=== PATIENT | female | born 1930 | race Caucasian/White ===

== ENCOUNTER 2017-02-19 18:00 | Emergency (ER) | payer MEDICARE ==
[~2017-02-19] VITALS: Ht 165.1 cm; Wt 58.5 kg
[~2017-02-19 18:00] MED LIST: CALC1TAB75 PO; CELE200C PO; CHOL20002 PO; CITA40TA5 PO; CLON1TAB3 PO; CYAN1TAB28 PO; HYDR-2680 PO; HYDR-971 AD; KRIL500C PO; LEVO100T5 PO; LEVO150T PO; LORA0.5T PO; MAGN250T10 PO; MIRT15TA3 PO; MULT-18 PO; OMEP20CA5 PO; PRIM50TA PO; RANI150T2 PO; ROTI1PAT4 TD; TIZA4TAB PO; TRAM1TAB56 PO; TRIA1CAP3 PO; VIT1CAPS12 PO
[2017-02-19 18:22] VITALS: BP 128/53
[2017-02-19 20:05] LABS: BACTERIA,URINE MOD /HPF (0-FEW); BILIRUBIN,URINE NEG (NEG); CLARITY,URINE CLEAR; COLOR,URINE YELLOW; GLUCOSE,URINE NEG (NEG); NITRITE,URINE NEG (NEG); RBC,URINE OCC /HPF (0-2); SQUAMOUS EPITHELIAL CELL,UR OCC /LPF; UROBILINOGEN,URINE 1 mg/dL (0.2 mg/dL)
[2017-02-19 20:06] LABS: AMORPHOUS SEDIMENT,UR PRESENT /HPF; HYALINE CASTS, URINE MOD /HPF
[2017-02-19] MEDS ORDERED: SMZ/TMP 800/160MG TABLET. PO ONE (20:15)
[2017-02-19] MEDS ORDERED: ONDANSETRON ODT 4 MG TAB.RAPDIS PO ONE (20:15)
[2017-02-19] MEDS ORDERED: ONDA4TAB10 PO (20:25)
[2017-02-19] MEDS ORDERED: SULF1TAB24 PO (20:25)
--- NOTE | 2017-02-19 20:29 | PHYS DOC ---
General Chief Complaint: DIZZY/LIGHT HEADED Stated Complaint: ALTERED MENTAL STATUS Time Seen by MD: 18:14 Source: patient, family Exam Limitations: no limitations Problems: History of Present Illness Initial Comments Pt is 87/F to ED with family for possible UTI. Daughter states for past three days pt has appeared weaker and less steady on her feet. Her memory has been worse today and she's had urinary frequency and some burning. No GUILLAUME or focal neurodeficit, no n/v/cp/sob/fever/chills. Daughter says pt gets frequent UTIs and presents similarly. Pt denies complaints, VSS. She's had some recent falls prior to symptom onset and now uses walker. Timing/Duration: getting worse (3 days) Severity: moderate Modifying Factors: improves with other Associated Symptoms: other Allergies: Coded Allergies: Penicillins (Verified Allergy, Intermediate, 09/27/14) meloxicam (Verified Allergy, Intermediate, 09/27/14) Past Medical History Medical History: other (parkinson's, anxiety, GERD, hypothyroid) Surgical History: cholecystectomy Social History Smoker: non-smoker Alcohol: none Drugs: none Review of Systems Constitutional: denies chills, denies diaphoresis, denies fever, malaise Respiratory: denies cough, denies shortness of breath Cardiovascular: denies chest pain, denies palpitations Gastrointestinal: denies abdominal pain, denies diarrhea, denies nausea, denies vomiting Genitourinary: see HPI Musculoskeletal: denies back pain, denies joint swelling, denies neck pain Psychiatric/Neurological: see HPI Physical Exam General Appearance: WD/WN, no apparent distress Eyes: bilateral eye normal inspection, bilateral eye PERRL, bilateral eye EOMI Ear, Nose, Throat: hearing grossly normal, normal ENT inspection Neck: non-tender, supple Respiratory: normal breath sounds, no respiratory distress Cardiovascular: normal peripheral pulses, regular rate, rhythm Gastrointestinal: soft (ND, suprapubic TTP no r/g/mass) Back: no CVA tenderness, no vertebral tenderness Neurologic/Psychiatric: monogram technician II-XII nml as tested, no motor/sensory deficits, alert, normal mood/affect, oriented x 3 Skin: normal color, warm/dry Orders, Labs, Meds UA + I discussed prescription medication, hydration, and requesting assistance for standing/ambulation until current symptoms resolve. Pt/daughter express agreement/understanding with treatment plan. Departure Time of Disposition: 20:27 Disposition: 01 HOME, SELF-CARE Diagnosis: UTI Condition: STABLE Patient Instructions: Urinary Tract Infection, Nokz-on-Rmbm Additional Instructions: Aggressive hydration with gatorade, water. Request assistance with ambulation and standing up until feeling better. Rx: bactrim ds, zofran odt Follow up with your doctor in 5-7 days for recheck and urine culture results. Return to ED with new or changing symptoms. ANETA SHAW DO Feb 19, 2017 20:28
== END 2017-02-19 20:44 | disposition home or self-care (01) ==
LOC: ER 18:00
DX: N39.0 Urinary tract infection, site not specified (principal); K21.9 Gastro-esophageal reflux disease without esophagitis; G20 Parkinson's disease; F41.9 Anxiety disorder, unspecified; E03.9 Hypothyroidism, unspecified; Z90.49 Acquired absence of other specified parts of digestive tract; Z88.0 Allergy status to penicillin; Z88.8 Allergy status to other drugs, medicaments and biological substances
CPT/HCPCS: 81001; 87086; 99284; P9612; Q0162; 87186

== ENCOUNTER 2017-06-04 14:11 | Emergency (ER) | payer MEDICARE ==
[~2017-06-04 14:11] MED LIST changes: +ONDA4TAB10 PO; +SULF1TAB24 PO
[2017-06-04] MEDS ORDERED: GLUCAGON,HUMAN RECOMBINANT 1 MG KIT. IM ONE (15:30)
[2017-06-04] MEDS ORDERED: methylPREDNISolone SOD SUCC PF 125 MG/2 ML VIAL. IM ONE (15:30)
[2017-06-04] MEDS ORDERED: LIDO:MAALOX 1:1 20 ML SINGLE DOSE PO ONE (15:30)
[2017-06-04 17:05] VITALS: BP 158/82
[2017-06-04] MEDS ORDERED: ALPRAZolam 0.25 MG TABLET PO ONE (18:00)
--- NOTE | 2017-06-04 18:54 | PHYS DOC ---
Text Text Pt. and family declined to wait for lab draws. Pt. reports improvement in swallowing and sensation of pill stuck in pharynx. Discussed with pt and family Pt. to use thicken fluids. Pt. consider repeat swallow study. Pt. also to schedule an out pt. EGD study. Must followup with primary. Return if any symptoms. Impression: 1. Dysphagia 2. Hx Parkinson 3. Anxiety See Dr. Shaw chart for details. (ALICIA PULLIAM MD) General Chief Complaint: MULTIPLE COMPLAINTS Stated Complaint: Mult. Comp. Time Seen by MD: 14:59 Source: patient, family Exam Limitations: clinical condition Problems: (ANETA SHAW DO) Time Seen by MD: 19:53 Problems: (ALICIA PULLIAM MD) History of Present Illness Initial Comments Patient is an 87-year-old female brought to the ED by family with a feeling as if something stuck in her throat. Patient states that she feels as if she has something caught in her throat she points to her cricoid cartilage. She cannot recall any specific swallowed items and she and her family member admit that this sensation has been going on for approximately 3 weeks. She says that she was seen at [facility] last Wednesday for these symptoms and reportedly extensively evaluated and was ultimately diagnosed with a viral gastroenteritis. Her family member states that the patient typically doesn't eat much until the evening, she has no trouble passing solid or liquid materials but does have nonbloody emesis at times in the morning as well as nonbloody loose stools. Other than the sensation that something is stuck in her throat the patient denies any other pain complaints, the patient is not drooling and is able to swallow her saliva as well as by mouth medications in the ED such as GI cocktail. Of note patient denies any improvement in her symptoms with GI cocktail. She also received glucagon, Solu-Medrol on arrival as the patient had extremely high ED volume and orders were initiated based upon ED staff reports. Timing/Duration: constant, other Severity: moderate Modifying Factors: improves with other Associated Symptoms: other (ANETA SHAW DO) Allergies: Coded Allergies: Penicillins (Verified Allergy, Intermediate, 09/27/14) meloxicam (Verified Allergy, Intermediate, 09/27/14) Past Medical History Medical History: other (chronic kidney disease, hypothyroidism, hypertension, chronic low back pain, pernicious anemia, generalized anxiety, osteoporosis, restless leg syndrome, chronic pain, insomnia, hip pain, thrombocytopenia, malaise and fatigue, sacroiliitis, major depressive disorder, coronary artery disease, abnormal gait, Parkinson's, GERD, hyperlipidemia) Surgical History: cholecystectomy (COLIN,ANETA Macie JUAN) Social History Smoker: non-smoker Alcohol: none Drugs: none (ANETA SHAW DO) Review of Systems Constitutional: denies chills, denies fever EENTM: see HPI Respiratory: denies cough, denies shortness of breath Cardiovascular: denies chest pain, denies palpitations Gastrointestinal: see HPI Genitourinary: denies dysuria, denies frequency, denies hematuria Musculoskeletal: denies joint swelling, denies neck pain Psychiatric/Neurological: see HPI (ANETA SHAW DO) Physical Exam General Appearance: mild distress (anxious) Ear, Nose, Throat: hearing grossly normal, normal ENT inspection, normal pharynx (throat clear, dry membranes) Neck: non-tender, full range of motion, supple, other (no stridor) Respiratory: normal breath sounds, no respiratory distress Cardiovascular: normal peripheral pulses Gastrointestinal: normal bowel sounds, non tender, soft Back: no CVA tenderness, no vertebral tenderness Neurologic/Psychiatric: other (tremor (parkinson's) no lateralizing ND, anxious , confused at times) Skin: warm/dry (COLINANETA Macie JUAN) Orders, Labs, Meds EKG: Normal sinus rhythm 81 bpm, LAFB with prolonged NV no ST segment elevation. Interpreted by me. Solumedrol 125 IV given for unlikely poss allergy, glucagon/GI cocktail none with relief. Due to extremely heavy ED volume and acuity pt had prolonged ED course. 1934: Patient does report that she's feeling much better after Xanax by mouth. She still feels the foreign body sensation she points posterior to her cricoid cartilage. No vomiting she is tolerating her secretions and is stable. All labs remain pending patient will be signed out to Dr. Pulliam at 1800 shift change. See his documentation for patient disposition. (ANETA SHAW DO) ANETA SHAW DO Jun 04, 2017 18:54 ALICIA PULLIAM MD Jun 05, 2017 04:54
--- NOTE | 2017-06-04 22:47 | EKG ---
[address] [address] Test Date: 2017-06-04 Test Time: 17:53:28 Pat Name: FALLON ESCALONA Department: Room: Gender: F Collator: SUBHASH : 1930 Requested By: ANETA SHAW Order Number: [id number] Reading MD: Measurements Intervals Luna Rate: 81 P: 0 MI: 150 QRS: -56 QRSD: 88 T: 70 QT: 406 QTc: 472 Interpretive Statements SINUS RHYTHM ABNORMAL LEFT AXIS DEVIATION LEFT ANTERIOR FASCICULAR BLOCK PROLONGED QT ABNORMAL ECG RI6.01 Unconfirmed report No previous ECG available for comparison
--- NOTE | 2017-06-05 08:32 | RAD ---
EXAM: Chest, single view. HISTORY: Foreign body. COMPARISON: 04/15/2016. FINDINGS: A frontal view of the chest is obtained. There is stable left lower lobe pleural-parenchymal scarring. There is no effusion or pneumothorax. The heart is normal in size. No radiodense foreign body is seen. There is an L1 compression fracture with vertebroplasty changes. IMPRESSION: 1. Stable left lower lobe pleural-parenchymal scarring. 2. No evidence of a radiodense foreign body.
== END 2017-06-04 21:25 | disposition home or self-care (01) ==
LOC: ER 14:11
DX: R13.10 Dysphagia, unspecified (principal); R11.10 Vomiting, unspecified; R19.7 Diarrhea, unspecified; G20 Parkinson's disease; F41.9 Anxiety disorder, unspecified; R09.89 Other specified symptoms and signs involving the circulatory and respiratory systems; I12.9 Hypertensive chronic kidney disease with stage 1 through stage 4 chronic kidney disease, or unspecified chronic kidney disease; N18.9 Chronic kidney disease, unspecified; E03.9 Hypothyroidism, unspecified; G89.29 Other chronic pain; G25.81 Restless legs syndrome; I25.10 Atherosclerotic heart disease of native coronary artery without angina pectoris; E78.5 Hyperlipidemia, unspecified; F32.9 Major depressive disorder, single episode, unspecified; K21.9 Gastro-esophageal reflux disease without esophagitis; M81.0 Age-related osteoporosis without current pathological fracture; Z86.2 Personal history of diseases of the blood and blood-forming organs and certain disorders involving the immune mechanism; Z90.49 Acquired absence of other specified parts of digestive tract; Z88.0 Allergy status to penicillin; Z88.8 Allergy status to other drugs, medicaments and biological substances
CPT/HCPCS: 71045; 93005; 96372; 99284; J1610; J2930

== ENCOUNTER 2017-06-27 11:36 | Inpatient (IN) | payer MEDICARE ==
[~2017-06-27] VITALS: Ht 165.1 cm; Wt 56.4 kg
--- NOTE | 2017-06-27 12:54 | RAD ---
PQRS Compliance Statement: One or more of the following individualized dose reduction techniques were utilized for this examination: 1. Automated exposure control 2. Adjustment of the mA and/or kV according to patient size 3. Use of iterative reconstruction technique CT HEAD AND CERVICAL SPINE WITHOUT CONTRAST History: fall today, hit right side of head. Headache, dizziness, neck pain. Comparison: CT head without contrast 01/19/2015. Procedure: Axial images are obtained of the head from the skull base through the vertex without IV contrast. Noncontrast helical CT of the cervical spine was performed. Axial, sagittal, and coronal reconstructions were obtained. Head Findings: The ventricles and sulci are prominent, consistent with age-related cerebral atrophy. There is subcortical and periventricular white matter hypoattenuation. This is a nonspecific finding but is commonly due to chronic small vessel ischemic disease in a patient of this age. The extent of this finding has increased from the prior study. 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 No mass-effect, midline shift, hemorrhage or obvious acute infarction is identified. Basilar cisterns are patent. Bone windows demonstrate no significant calvarial abnormality. There is mild right parietal scalp hematoma. The visualized paranasal sinuses appear clear. Mastoid air cells are well aerated. Cervical Spine Findings: There is no evidence of acute fracture or acute malalignment. There is minimal grade 1 anterolisthesis of C4 on C5. There is minimal grade 1 retrolisthesis of C5 on C6. Alignment is otherwise maintained. There is disc space narrowing and degenerative endplate spurring of C5/C6. Mild disc space narrowing at C2/C3 and C4/C5. The C2/C3 facet joints are fused on the left. The facet joints are hypertrophic. There is uncinate process hypertrophy at C5/C6. This contributes to neural foraminal narrowing at C5/C6 that is probably severe bilaterally. Bilateral carotid bulb calcifications. The visualized lung apices are clear. IMPRESSION: 1. No acute intracranial abnormality. 2. Mild right parietal scalp hematoma. 3. No acute fracture of the cervical spine.
--- NOTE | 2017-06-27 13:06 | PHYS DOC ---
Past History Past Medical History: Anxiety, GERD, Hypothyroid, Other Past Surgical History: Cholecystectomy, Other Alcohol Use: None Drug Use: None Adult General Chief Complaint Chief Complaint: LACERATION/AVULSION HPI HPI 87-year-old female patient who lives at home with her daughter and usually uses walker for moving around brought in by EMS because of fall and scalp laceration. Patient states his brother had she wanted to help her for prevention of a fall and had a fall by herself without loss of consciousness or other injuries. Patient denies any pain. Patient is not up-to-date with tetanus immunization refused tetanus immunization because of complications of previous tetanus shots. Review of Systems Review of Systems Constitutional: Denies fever or chills [] Eyes: Denies change in visual acuity, redness, or eye pain [] HENT: Denies nasal congestion or sore throat [] Respiratory: Denies cough or shortness of breath [] Cardiovascular: No additional information not addressed in HPI [] GI: Denies abdominal pain, nausea, vomiting, bloody stools or diarrhea [] : Denies dysuria or hematuria [] Musculoskeletal: Denies back pain or joint pain [] Integument: Denies rash or skin lesions[] Neurologic: Denies headache, focal weakness or sensory changes [] Endocrine: Denies polyuria or polydipsia [] All other systems were reviewed and found to be within normal limits, except as documented in this note. Allergies Allergies Allergies Coded Allergies Type Severity Reaction Last Updated Verified Penicillins Allergy Intermediate 09/27/14 Yes meloxicam Allergy Intermediate 09/27/14 Yes Physical Exam Physical Exam Constitutional: Well developed, well nourished, mild distress, non-toxic appearance. [] HENT: Normocephalic, bilateral external ears normal, oropharynx moist, no oral exudates, nose normal, 2 cm laceration in the right side of occipital area without active bleeding. [] Eyes: PERRLA, EOMI, conjunctiva normal, no discharge. [] Neck: Normal range of motion, no tenderness, supple, no stridor. [] Cardiovascular:Heart rate regular rhythm, no murmur [] Lungs & Thorax: Bilateral breath sounds clear to auscultation [] Abdomen: Bowel sounds normal, soft, no tenderness, no masses, no pulsatile masses. [] Skin: Warm, dry, no erythema, no rash. [] Back: No tenderness, no CVA tenderness. [] Extremities: No tenderness, no cyanosis, no clubbing, chronic right leg limited range of motion because of previous hip fracture, no edema. [] Neurologic: Alert and oriented X 3, normal motor function, normal sensory function, no focal deficits noted. [] Psychologic: Affect normal, judgement normal, mood normal. [] Current Patient Data Vital Signs Vital Signs Date Time Temp Pulse Resp B/P (MAP) Pulse Ox O2 Delivery O2 Flow Rate FiO2 06/27/17 11:40 97.9 85 16 98 Room Air EKG EKG [] Radiology/Procedures Radiology/Procedures [] [place] [address] IMAGING REPORT Signed PATIENT: FALLON ESCALONA ACCOUNT: [id number] : 1930 LOCATION: ER AGE: 87 SEX: F EXAM STATUS: REG ER ORD. PHYSICIAN: MARCUS CANNON MD REASON: fall PROCEDURE: CT HEAD AND CERVICAL SPINE WO PQRS Compliance Statement: One or more of the following individualized dose reduction techniques were utilized for this examination: 1. Automated exposure control 2. Adjustment of the mA and/or kV according to patient size 3. Use of iterative reconstruction technique CT HEAD AND CERVICAL SPINE WITHOUT CONTRAST History: fall today, hit right side of head. Headache, dizziness, neck pain. Comparison: CT head without contrast 01/19/2015. Procedure: Axial images are obtained of the head from the skull base through the vertex without IV contrast. Noncontrast helical CT of the cervical spine was performed. Axial, sagittal, and coronal reconstructions were obtained. Head Findings: The ventricles and sulci are prominent, consistent with age-related cerebral atrophy. There is subcortical and periventricular white matter hypoattenuation. This is a nonspecific finding but is commonly due to chronic small vessel ischemic disease in a patient of this age. The extent of this finding has increased from the prior study. 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 No mass-effect, midline shift, hemorrhage or obvious acute infarction is identified. Basilar cisterns are patent. Bone windows demonstrate no significant calvarial abnormality. There is mild right parietal scalp hematoma. The visualized paranasal sinuses appear clear. Mastoid air cells are well aerated. Cervical Spine Findings: There is no evidence of acute fracture or acute malalignment. There is minimal grade 1 anterolisthesis of C4 on C5. There is minimal grade 1 retrolisthesis of C5 on C6. Alignment is otherwise maintained. There is disc space narrowing and degenerative endplate spurring of C5/C6. Mild disc space narrowing at C2/C3 and C4/C5. The C2/C3 facet joints are fused on the left. The facet joints are hypertrophic. There is uncinate process hypertrophy at C5/C6. This contributes to neural foraminal narrowing at C5/C6 that is probably severe bilaterally. Bilateral carotid bulb calcifications. The visualized lung apices are clear. IMPRESSION: 1. No acute intracranial abnormality. 2. Mild right parietal scalp hematoma. 3. No acute fracture of the cervical spine. Course & Med Decision Making Course & Med Decision Making Pertinent Labs and Imaging studies reviewed. (See chart for details) Admission of patient in ER showed 87-year-old female patient with a fall at home and laceration of the scalp with unremarkable CT of head and neck. Laceration was repaired with gerald in ER. Patient's family state she is not able to take of herself because of generalized weakness and is requesting hospitalization. Dr. Sylvester accepted admission at 1340. Patient informed about plan of care and needs for hospitalization. [] Dragon Disclaimer Dragon Disclaimer This electronic medical record was generated, in whole or in part, using a voice recognition dictation system. Departure Departure: Impression: Primary Impression: Scalp laceration Additional Impressions: Head injury Fall at home Generalized weakness Renal insufficiency Unable to walk Disposition: 09 ADMITTED INPATIENT (At 1341) Admitting Physician: Treasure Sylvester Condition: IMPROVED Referrals: BRITTNEY OLIVIER MD (PCP) Laceration Repair Lac Repair Indication: [Scalp laceration] Procedure: 3 cm right occipital laceration was repaired with 3 gerald without local anesthesia. Patient tolerated the procedure well. Total repaired wound length: [3 Other Items: [OTHER ITEMS Complications: [none]. Problem Qualifiers MARCUS CANNON MD Jun 27, 2017 13:06
[2017-06-27 14:45] LABS: BASO % 1 % (0-3); EOS # 0.1 x10^3/uL (0.0-0.7); EOS % 2 % (0-3); HEMATOCRIT 39.2 % (36.0-47.0); HEMOGLOBIN 13.2 g/dL (12.0-15.5); LYMPH # 1.3 x10^3/uL (1.0-4.8); LYMPH % 25 % (24-48); MEAN CORPUSCULAR HEMOGLOBIN 31 pg (25-35); MEAN CORPUSCULAR HGB CONC 34 g/dL (31-37); MEAN CORPUSCULAR VOLUME 92 fL (79-100); MONO # 0.3 x10^3/uL (0.0-1.1); MONO % 7 % (0-9); NEUT # 3.3 x10^3uL (1.8-7.7); NEUT % 66 % (31-73); PLATELET COUNT 120 x10^3/uL (140-400); RED BLOOD COUNT 4.24 x10^6/uL (3.50-5.40); RED CELL DISTRIBUTION WIDTH 14.6 % (11.5-14.5)
[2017-06-27 14:55] LABS: ALBUMIN 3.3 g/dL (3.4-5.0); CALCIUM 9.2 mg/dL (8.5-10.1); CREATININE 1.2 mg/dL (0.6-1.0); GFR 42.5; TOTAL BILIRUBIN 0.4 mg/dL (0.2-1.0); TOTAL PROTEIN 6.6 g/dL (6.4-8.2)
[2017-06-27] MEDS ORDERED: ALPR1TAB6 PO (16:06)
[2017-06-27] MEDS ORDERED: MIDO5TAB PO (16:06)
[2017-06-27] MEDS ORDERED: ROPI1TAB PO (16:06)
[2017-06-27] MEDS ORDERED: CARB1TAB2 PO (16:06)
[2017-06-27] MEDS ORDERED: SUCR1TAB35 PO (16:06)
[2017-06-27] MEDS ORDERED: FURO-69 PO (16:06)
[2017-06-27] MEDS ORDERED: SIMV40TA3 PO (16:06)
[2017-06-27] MEDS ORDERED: TIZA4TAB PO (16:06)
[2017-06-27] MEDS ORDERED: tiZANidine 4 MG TABLET. PO PRN (18:15)
[2017-06-27] MEDS ORDERED: ONDANSETRON ODT 4 MG TAB.RAPDIS PO PRN (18:45)
[2017-06-27 19:24] VITALS: BP 172/89
[2017-06-27] MEDS: ACETAMINOPHEN 325 MG TABLET PO PRN (19:45)
[2017-06-27 20:01] VITALS: BP 157/86
[2017-06-27] MEDS: ALPRAZolam 0.5 MG TABLET PO PRN (20:08)
[2017-06-27] MEDS: clonazePAM 1 MG TABLET PO SCH (20:08)
[2017-06-27] MEDS: SUCRALFATE 1 GM TABLET. PO SCH (20:09)
[2017-06-27] MEDS: MIRTAZAPINE 15 MG TABLET PO SCH (20:09)
[2017-06-27] MEDS: SIMVASTATIN 40 MG TABLET. PO SCH (20:10)
[2017-06-27] MEDS: PRIMIDONE 250 MG TABLET PO SCH (20:15)
[2017-06-27] MEDS ORDERED: FAMOTIDINE 20 MG TABLET PO SCH (21:00)
[2017-06-27] MEDS ORDERED: CARBIDOPA/LEVODOPA 25/100MG TABLET PO SCH (21:00)
[2017-06-27 23:45] VITALS: BP 152/72
[2017-06-28] MEDS ORDERED: CITA40TA12 PO (00:11)
[2017-06-28] MEDS ORDERED: CARB1TAB2 PO (00:11)
[2017-06-28] MEDS: LEVOTHYROXINE 150 MCG TABLET PO SCH (05:45)
[2017-06-28 06:02] VITALS: BP_SYST 117; BP_SYST 144; BP_DIAS 69; BP_DIAS 79
[2017-06-28 06:40] LABS: BACTERIA,URINE FEW /HPF (0-FEW); BILIRUBIN,URINE NEG (NEG); CLARITY,URINE CLEAR; COLOR,URINE YELLOW; GLUCOSE,URINE NEG (NEG); NITRITE,URINE NEG (NEG); RBC,URINE RARE /HPF (0-2); SQUAMOUS EPITHELIAL CELL,UR OCC /LPF; UROBILINOGEN,URINE 0.2 mg/dL (0.2 mg/dL); WBC,URINE OCC /HPF (0-4)
[2017-06-28] MEDS: PANTOPRAZOLE 40 MG TABLET. PO SCH (08:13)
[2017-06-28] MEDS: SUCRALFATE 1 GM TABLET. PO SCH ×4 (08:13→20:04)
[2017-06-28] MEDS: CITALOPRAM 20 MG TABLET. PO SCH ×2 (09:00→09:45)
[2017-06-28] MEDS ORDERED: CITALOPRAM 20 MG TABLET. PO SCH (09:00)
[2017-06-28] MEDS: MIDODRINE 5 MG TABLET PO SCH (09:45)
[2017-06-28] MEDS: FUROSEMIDE 20 MG TABLET PO SCH (09:45)
[2017-06-28] MEDS: clonazePAM 1 MG TABLET PO SCH ×2 (09:45→20:04)
[2017-06-28] MEDS: TRIAMTERENE/HCTZ 37.5/25MG TABLET. PO SCH (09:45)
[2017-06-28] MEDS: PRIMIDONE 250 MG TABLET PO SCH ×2 (09:46→20:05)
[2017-06-28] MEDS: CARBIDOPA/LEVODOPA 25/250MG TABLET PO SCH ×3 (09:47→20:04)
[2017-06-28] MEDS: rOPINIRole 1 MG TABLET. PO SCH ×2 (09:47→20:05)
[2017-06-28 10:49] VITALS: BP 124/75
[2017-06-28] MEDS: ACETAMINOPHEN 325 MG TABLET PO PRN ×2 (11:48→20:05)
[2017-06-28 14:59] VITALS: BP 153/90
[2017-06-28 18:31] VITALS: BP 154/81
[2017-06-28] MEDS: MIRTAZAPINE 15 MG TABLET PO SCH (20:04)
[2017-06-28] MEDS: SIMVASTATIN 40 MG TABLET. PO SCH (20:04)
--- NOTE | 2017-06-28 21:27 | HP ---
ADMIT DATE: 06/27/2017 HISTORY OF PRESENT ILLNESS: The patient is an 87-year-old female patient who lives at home with her daughter and usually uses walker for moving around, was brought to the emergency medical services because of fall and scalp laceration. The patient states that her brother tried to help her, but apparently he fell himself without loss of consciousness or other injuries. She denied any pain. She was extensively investigated. In the Emergency Room, was found to have a scalp laceration that required 3 gerald. She had obviously a closed head injury and generalized weakness, was found also to have slightly impaired kidney function and also had generalized weakness and was admitted for further evaluation. She apparently also complained of feeling dizzy and apparently Dr. Raymundo was consulted for further evaluation to see whether this might have vertigo that might have induced this fall. PAST MEDICAL HISTORY: Significant for osteoporosis. She is also known to have Parkinson disease, vitamin D deficiency, hyperlipidemia, hypothyroidism as well as restless leg syndrome, and gastroesophageal reflux disease. PAST SURGICAL HISTORY: Significant for cholecystectomy. FAMILY HISTORY: Unremarkable. SOCIAL HISTORY: She lives with her daughter. She does not smoke, drink alcohol or use any recreational drugs. ALLERGIES: She is allergic to PENICILLIN, MELOXICAM. MEDICATIONS: She is currently on following medications: She is on calcium carbonate with vitamin D 1 tablet twice a day, carbidopa/levodopa 25/100 one tablet 3 times a day, cholecalciferol 2000 international unit once a day, citalopram hydrobromide 40 mg daily, clonazepam 1 mg b.i.d., cyanocobalamin/folic acid 1 tablet once a day, furosemide 20 mg once a day, Krill oil 500 mg once a day, levothyroxine sodium 150 mcg once a day, midodrine 5 mg p.o. t.i.d., multivitamin 1 tablet once a day, ranitidine 150 mg twice a day, Requip 1 mg twice a day, simvastatin 40 mg at bedtime, sucralfate 1 gram 4 times a day and tizanidine 2 mg as needed every 8 hours, PreserVision 1 tablet once a day. REVIEW OF SYSTEMS: As per history of present illness. PHYSICAL EXAMINATION: GENERAL: On arrival to the Emergency Room, the patient looked well and was clearly in no apparent respiratory distress, was pale, but no jaundice, cyanosis or thyromegaly. No jugular venous distention. No limb edema. VITAL SIGNS: Her heart rate was 85, blood pressure 172/89, temperature was 97.9, respiratory rate was 16, and oxygen saturation was 98% on room air. HEENT: Normocephalic, atraumatic. NECK: Supple. HEART: Showed normal first and second heart sounds with no gallop, rub or murmur. CHEST: Clear to auscultation. No crepitation or rhonchi. ABDOMEN: Distended, soft, nontender. NEUROLOGIC: She is awake, alert, responding appropriately. Cranial nerves intact. EXTREMITIES: She moves extremities without difficulty. She apparently ambulates with a walker, although she was very weak, was unable to walk while in the Emergency Room. SKIN: Showed that she has laceration on the right side of the scalp which has [address] LABORATORY DATA: Showed a serum sodium 141, potassium 4, chloride 104, bicarbonate 31, anion gap of 6, BUN 14, creatinine 1.2, estimated GFR was 42 mL per minute. Her glucose 100, calcium was 9.2. Total bilirubin, AST, ALT, alkaline phosphatase were normal. Total protein 6.6, albumin 3.3. Her white cell count was 5000, hemoglobin 13, hematocrit 39, MCV 92, and platelet count 120,000. Urinalysis was essentially unremarkable. She did have a CT scan of the head and cervical spine, which basically showed that there is no acute intracranial abnormality, mild right parietal scalp hematoma, no acute fracture of the cervical spine. ASSESSMENT AND PLAN: The patient was admitted for observation. She probably needs to have her orthostatics checked given that she has Parkinson's disease and she is also on midodrine indicating that she probably has orthostatic hypotension. Dr. Raymundo has already been consulted. We will repeat all her lab works tomorrow and will consult Physical and Occupational Therapy. JOSE RAMON BRAY MD DR: ALFRED/uye JOB#: [id number] / [id number]
[2017-06-28 22:38] VITALS: BP 147/79
[2017-06-28] MEDS: ALPRAZolam 0.5 MG TABLET PO PRN (23:29)
[2017-06-29] VITALS (7 sets, daily range): BP systolic 85–183; BP diastolic 57–99
[2017-06-29] MEDS: LEVOTHYROXINE 150 MCG TABLET PO SCH (05:55)
[2017-06-29] MEDS: SUCRALFATE 1 GM TABLET. PO SCH (07:30)
[2017-06-29] MEDS: SUCRALFATE 1 GM/10 ML ORAL.SUSP. PO SCH ×4 (07:56→19:30)
[2017-06-29] MEDS: PANTOPRAZOLE 40 MG TABLET. PO SCH (07:56)
[2017-06-29] MEDS: MIDODRINE 5 MG TABLET PO SCH (09:15)
[2017-06-29] MEDS: TRIAMTERENE/HCTZ 37.5/25MG TABLET. PO SCH (09:15)
[2017-06-29] MEDS: FUROSEMIDE 20 MG TABLET PO SCH (09:15)
[2017-06-29] MEDS: CITALOPRAM 20 MG TABLET. PO SCH (09:15)
[2017-06-29] MEDS: clonazePAM 1 MG TABLET PO SCH ×2 (09:15→19:31)
[2017-06-29] MEDS: CARBIDOPA/LEVODOPA 25/250MG TABLET PO SCH ×3 (09:16→19:31)
[2017-06-29] MEDS: PRIMIDONE 250 MG TABLET PO SCH ×2 (09:16→19:31)
[2017-06-29] MEDS: rOPINIRole 1 MG TABLET. PO SCH ×2 (09:16→19:32)
[2017-06-29 11:02] LABS: HEMATOCRIT 42.3 % (36.0-47.0); HEMOGLOBIN 14.3 g/dL (12.0-15.5); RED BLOOD COUNT 4.57 x10^6/uL (3.50-5.40); RED CELL DISTRIBUTION WIDTH 14.5 % (11.5-14.5)
[2017-06-29 11:20] LABS: ALBUMIN 3.5 g/dL (3.4-5.0); CALCIUM 9.6 mg/dL (8.5-10.1); CREATININE 1.1 mg/dL (0.6-1.0); POTASSIUM 4.6 mmol/L (3.5-5.1); TOTAL BILIRUBIN 0.3 mg/dL (0.2-1.0)
--- NOTE | 2017-06-29 15:48 | RAD ---
EXAM: CT head without contrast. HISTORY: Fall, altered mental status. TECHNIQUE: Computed tomography of the head was performed without intravenous contrast. COMPARISON: 06/27/2017. FINDINGS: There is no intracranial hemorrhage. 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 There is moderate chronic small vessel ischemic white matter change elsewhere. Prominence of the lateral ventricles and hemispheric sulci indicate mild atrophy. The visualized paranasal sinuses appear clear. There are changes of bilateral cataract surgery. The temporal bones are unremarkable. The calvarium reveals no suspicious lesions. Skin gerald are noted along the right parietal scalp. There are atherosclerotic calcifications of the internal carotid arteries. IMPRESSION: 1. No acute intracranial findings. 2. Mild atrophy and moderate chronic small vessel ischemic white matter change as above. *One or more of the following individualized dose reduction techniques were utilized for this examination: 1. Automated exposure control. 2. Adjustment of the mA and/or kV according to patient size. 3. Use of iterative reconstruction technique.
--- NOTE | 2017-06-29 19:16 | CONS ---
DATE OF CONSULTATION: 06/28/2017 REFERRING PHYSICIAN: Dr. Hopkins. REASON FOR CONSULTATION: Status post fall and dizziness. HISTORY OF PRESENT ILLNESS: This is an 87-year-old right-handed white female, who was admitted through Emergency Room after she sustained a fall at home, resulting in head injuries and scalp laceration requiring 3 stable stitches. The patient denies any loss of consciousness. She stated that her brother tried to help her, but she fell backwards. Currently, she feels tired and weak. The patient is known to me for several years because of ongoing Parkinson's disease and a senile tremor. She denies headaches, visual disturbances, nausea, vomiting, chest pain, shortness of breath or palpitations. Initial nonenhanced head CT scan revealed no acute intracranial process. Cervical spine CT scan revealed evidence of some mild degenerative disk disease at C5-C6. PAST MEDICAL HISTORY: Significant for Parkinson's disease, orthostatic hypotension, hypothyroidism, hyperlipidemia, hypertension, osteoporosis, gastroesophageal reflux disease, and restless leg syndrome. PAST SURGICAL HISTORY: Significant for cholecystectomy. SOCIAL HISTORY: The patient is . She lives with her daughter at home. She denies smoking, alcohol drinking, or illicit drug use. CURRENT HOME MEDICATIONS: Levothyroxine 150 mcg daily, sucralfate 1 g q.i.d., ropinirole 1 mg b.i.d., carbidopa/levodopa 25/100 t.i.d., Celexa 40 mg daily, triamterene/HCTZ 37.5/25 mg 1 tablet daily, midodrine 5 mg daily, furosemide 20 mg daily, pantoprazole 40 mg daily, primidone 125 mg b.i.d., mirtazapine 50 mg at bedtime, simvastatin 40 mg at bedtime, clonazepam 1 mg b.i.d., Tylenol, Zofran, tizanidine 2 mg q. 8 hours p.r.n. for muscle spasm and alprazolam 0.5 mg p.r.n. for agitation. ALLERGIES: PENICILLIN AND MELOXICAM. FAMILY HISTORY: Noncontributory. REVIEW OF SYSTEMS: A 10-point review of system was performed and as mentioned in the history of present illness and consistent with generalized weakness, intermittent dizziness, tremor of the head and intermittent tremor of the upper extremities and gait disturbances. PHYSICAL EXAMINATION: GENERAL: Well-developed, well-nourished white female, not in acute distress. VITAL SIGNS: Blood pressure 153/90, respiratory rate 20, pulse is 70 and regular, temperature 97.3, oxygen saturation 95% on room air. HEENT: Normocephalic, recent scalp laceration secondary to fall and small hematoma in the right parietal region. NECK: Supple. Negative for carotid bruit, lymphadenopathy or thyromegaly. LUNGS: Clear to A and P. CARDIOVASCULAR: Regular rate rhythm. Normal S1, S2. There is no S3, S4 or murmur. ABDOMEN: Soft. Bowel sounds positive. EXTREMITIES: Negative for cyanosis, clubbing, pitting edema. NEUROLOGICAL EXAM: Mental Status: The patient is alert and oriented x 2. The speech is fluent. There is no language dysfunction. Memory, judgment, and abstract thinking are fair. The patient denies hallucination or delusion. Cranial nerves: Visual nava are full. The pupils are reactive to light and accommodation. The extraocular movements are intact. There is no nystagmus. There is no facial motor or sensory deficit. Hearing is intact bilaterally. The palate is elevated symmetrically. Sternocleidomastoid muscles are powerful bilaterally. The patient shrugs her shoulders symmetrically, protrudes her tongue in the midline without fasciculation or atrophy. Motor examination revealed no focal muscle bulk was seen. The tone was normal. The strength is 4/5 throughout. The patient had a mild head tremor and intermittent resting tremor of the upper extremities. Sensory examination revealed normal pinprick, light touch, vibratory and position senses. Deep tendon reflexes were symmetric and hypoactive without pathology responses. Gait not tested. LABORATORY DATA: CBC revealed white blood cells of 5000, hemoglobin 15.2, hematocrit 39.2, platelet count 120,000. Chemistry revealed sodium 141, potassium 4, chloride 104, CO2 of 31, BUN 14, creatinine 1.2, glucose 100, calcium 9.2, elevated alkaline phosphatase at 132. Urinalysis is negative for urinary tract infections. IMPRESSION: 1. Status post fall, probably multifactorial and includes orthostatic hypotension, generalized weakness and Parkinson symptoms. 2. Long history of Parkinson disease. 3. Multiple psychiatric problems including anxiety and depressions. 4. Multiple medical problems including hypothyroidism, hypertension, hyperlipidemia, osteoporosis. 5. Mild renal insufficiency. RECOMMENDATIONS: 1. Continue with current management as initiated by Dr. Hopkins/Dr. Sylvester. 2. Check orthostatic hypotension and treat it accordingly with careful hydration. 3. Continue with current home medications. 4. Physical therapy as tolerated. M Favio OLIVIER MD DR: JOSIE/yue JOB#: [id number] / [id number]
[2017-06-29] MEDS: ACETAMINOPHEN 325 MG TABLET PO PRN (19:31)
[2017-06-29] MEDS: SIMVASTATIN 40 MG TABLET. PO SCH (19:32)
[2017-06-29] MEDS: MIRTAZAPINE 15 MG TABLET PO SCH (19:32)
--- NOTE | 2017-06-29 22:44 | PN ---
DATE: 06/29/2017 SUBJECTIVE: The patient is resting slightly propped up, sleeping comfortably in no apparent distress. She is very lethargic, confused and hallucinating according to her daughter, said that she was seeing animals and mice in the room last night, dogs and coyote, although the nursing staff said that she ate her breakfast this morning, a lunch, and was able to walk with physical therapy and sat in the chair to eat her lunch. PHYSICAL EXAMINATION: GENERAL: When I examined her this afternoon, she was resting slightly propped up in bed, in no apparent respiratory distress, pale, but no jaundice, cyanosis, or thyromegaly. No jugular venous distention. No limb edema. VITAL SIGNS: Her heart rate was 60, blood pressure 156/65, temperature was 97.7, respiratory rate was 20, and oxygen saturation was 95% on room air. HEAD, EYES, EARS, NOSE AND THROAT: Showed normocephalic, atraumatic. NECK: Supple. HEART: Showed normal first and second sounds. No gallop, rub or murmur. CHEST: Clear to auscultation. No crepitation or rhonchi. ABDOMEN: Distended, soft, nontender. NEUROLOGIC: She was sleepy, but arousable. All cranial nerves intact. She moves extremities without difficulty, though she is mostly bedbound, chair bound. She does walk with assistance. Her intake over the last 24 hours was 890, output was 1550. LABORATORY DATA: As of this morning showed a serum sodium 142, potassium 4.6, chloride 103, bicarbonate 33, anion gap of 6, BUN 14, creatinine 1.1, estimated GFR was 47 mL per minute. Her glucose was 123, calcium was 9.6. Total bilirubin, AST, ALT were normal. Alkaline phosphatase slightly elevated. Total protein was 7, albumin 3.5. Her white cell count was 4000, hemoglobin 14, hematocrit 42, MCV 93 and platelet count of 139,000. Urinalysis is unremarkable. ASSESSMENT: 1. This is an 87-year-old female patient who apparently admitted after she sustained a fall with laceration to her scalp. She has multiple medical problems including Parkinson's disease. 2. Orthostatic hypotension and syncope. 3. Osteoporosis. 4. Vitamin D deficiency. 5. Hyperlipidemia. 6. Hypothyroidism. 7. Restless leg syndrome. 8. Gastroesophageal reflux disease. She is hallucinating. I do not know whether this is side effect of Sinemet. She also is unsteady in her gait according to her daughter. PLAN: My plan is to repeat her CT scan of the head without contrast given the impact was in her right skull area and check her labs again tomorrow as well as her thyroid function. JOSE RAMON BRAY MD DR: ALFRED/yue JOB#: [id number] / [id number]
--- NOTE | 2017-06-29 23:11 | PN ---
DATE: 06/29/2017 SUBJECTIVE: The patient is resting slightly propped up in bed, sleepy, somewhat confused. (GETS INVOLVED IN THE PHONE CONVERSATION) JOSE RAMON BRAY MD DR: ALFRED/yue JOB#: [id number] / [id number]
--- NOTE | 2017-06-30 00:06 | PN ---
DATE: 06/29/2017 SUBJECTIVE: The patient is resting slightly propped up in bed, in no apparent respiratory distress. She is very sleepy, confused. DICTATION ENDS HERE JOSE RAMON BRAY MD DR: ALFRED/yue JOB#: [id number] / [id number]
[2017-06-30 05:08] VITALS: BP 169/88
[2017-06-30] MEDS ORDERED: LEVOTHYROXINE 150 MCG TABLET PO SCH (06:00)
[2017-06-30 08:18] LABS: CALCIUM 9.5 mg/dL (8.5-10.1); CREATININE 1.1 mg/dL (0.6-1.0); POTASSIUM 3.6 mmol/L (3.5-5.1)
[2017-06-30 08:57] VITALS: BP 169/88
[2017-06-30] MEDS: TRIAMTERENE/HCTZ 37.5/25MG TABLET. PO SCH (08:57)
[2017-06-30] MEDS: SUCRALFATE 1 GM/10 ML ORAL.SUSP. PO SCH (08:57)
[2017-06-30] MEDS: MIDODRINE 5 MG TABLET PO SCH (08:57)
[2017-06-30] MEDS: clonazePAM 1 MG TABLET PO SCH (08:58)
[2017-06-30] MEDS: CITALOPRAM 20 MG TABLET. PO SCH (08:58)
[2017-06-30] MEDS: FUROSEMIDE 20 MG TABLET PO SCH (08:58)
[2017-06-30] MEDS: rOPINIRole 1 MG TABLET. PO SCH (08:58)
[2017-06-30] MEDS: PANTOPRAZOLE 40 MG TABLET. PO SCH (08:58)
[2017-06-30] MEDS: PRIMIDONE 250 MG TABLET PO SCH (08:58)
[2017-06-30] MEDS: CARBIDOPA/LEVODOPA 25/250MG TABLET PO SCH (08:59)
--- NOTE | 2017-06-30 22:00 | PN ---
DATE: 06/30/2017 SUBJECTIVE: The patient denies any new medical or neurological complaints; however, she has been drowsy. According to daughter, she has been having some hallucinations seeing dogs and cats in the room. When asked the patient, she denies any hallucinations. The patient was evaluated by physical therapy and she has been walking using a walker. She drinks and eats well. OBJECTIVE: GENERAL: A well-developed, well-nourished white female, not in acute distress. VITAL SIGNS: Blood pressure 122/73, respiratory rate 18, pulse is 93 regular, temperature 98, oxygen saturation is 97% on room air. HEENT: Normocephalic, atraumatic, otherwise unremarkable. NECK: Supple. Negative for carotid bruit, lymphadenopathy or thyromegaly. LUNGS: Clear to A and P. CARDIOVASCULAR: Regular rate and rhythm, normal S1, S2. There is no S3, S4 or murmur. ABDOMEN: Soft. Bowel sounds positive. EXTREMITIES: Negative for cyanosis, clubbing, pitting edema. NEUROLOGICAL EXAM: Mental Status: The patient is alert to time and place. Speech is slow, but no language dysfunction. Memory, judgment, and abstract thinking are fair. The patient denies hallucination or delusion. Cranial nerves are intact. No focal, motor, or sensory deficit. The strength was 4/5 throughout. Sensory examination revealed normal pinprick and light touch senses throughout. Deep tendon reflexes were symmetric and active with absent Achilles responses. Gait not tested. LABORATORY DATA: CBC revealed white blood cells of 4000, hemoglobin 14.3, hematocrit 42.3, platelet count of 139,000. Chemistry revealed sodium of 142, potassium 4.6, chloride 103, CO2 of 33, BUN 14, creatinine 1.1, glucose is 123, calcium 9.6. Liver enzymes are normal. TSH is low at 0.09. Repeating his CT scan revealed no evidence of acute intracranial process, but shows generalized atrophy, with a chronic small vessel ischemic changes. IMPRESSION: 1. Status post fall, rule out orthostatic hypertension versus syncope. 2. Multiple medical problems include hypertension, hyperlipidemia, vitamin D deficiency, osteoporosis, hypothyroidism, restless leg syndrome, and gastroesophageal reflux disease. 3. Possible intermittent hallucinations, probably due to underlying multiple medical problems. RECOMMENDATIONS: Continue with the current management and physical therapy as tolerated. If patient have frequent hallucinations and with psychotic features, we will start her on small dose of Seroquel. M Favio OLIVIER MD DR: JOSIE/yue JOB#: [id number] / [id number]
--- NOTE | 2017-06-30 22:38 | PN ---
DATE: 06/30/2017 SUBJECTIVE: The patient is drowsy this morning and unable to provide any information, but she is not in acute distress. Her appetite has been poor this morning. OBJECTIVE: GENERAL: Well-developed, well-nourished white female, not in acute distress. VITAL SIGNS: Blood pressure is 169/88, respiratory 20, pulse is 87 and regular, temperature 97.8, oxygen saturation is 99% on room air. HEENT: Normocephalic, atraumatic, otherwise unremarkable. NECK: Supple. Negative for carotid bruit, lymphadenopathy or thyromegaly. LUNGS: Clear to A and P. CARDIOVASCULAR: Regular rate and rhythm. Normal S1, S2. ABDOMEN: Soft. Bowel sounds positive. EXTREMITIES: Negative for cyanosis, clubbing, pitting edema. NEUROLOGIC: 1. The patient is drowsy, but open eyes to commands. She follows 1-step command. Otherwise, is very limited examination. 2. Cranial nerves: Pupils appear to be equal and reactive to light and accommodation. The extraocular movements are intact. There is no nystagmus. There is no facial, motor or sensory deficit. Hearing appears to be intact. 3. Motor examination: No focal or muscle bulk was seen. The strength was 4/5 throughout. Sensory examination revealed normal pinprick and light touch senses throughout. Deep tendon reflexes were symmetric and hypoactive with absent Achilles responses. Gait not tested. IMPRESSION: 1. Status post fall, probably multifactorial including orthostatic hypertension, generalized weakness, and arthritis. 2. Parkinson disease, vitamin D deficiency, hyperlipidemia, hypothyroidism, restless leg syndrome, and gastroesophageal reflux disease. RECOMMENDATIONS: Continue with the current management and rehabilitation. M Favio OLIVIER MD DR: JOSIE/yue JOB#: [id number] / [id number]
== END 2017-06-30 11:45 | DRG 312 ==
LOC: ER 11:36 → 1 SOUTH 13:45 → OBSVTOIN 17:25
PROVIDERS: ADMIT Family Medicine; ATTEND Family Medicine
PROC: 0HQ0XZZ Repair Scalp Skin, External Approach (ICD-10-PCS; principal; 2017-06-27)
DX: I95.1 Orthostatic hypotension (principal); G20 Parkinson's disease; S01.01XA Laceration without foreign body of scalp, initial encounter; R44.1 Visual hallucinations; E03.9 Hypothyroidism, unspecified; W18.39XA Other fall on same level, initial encounter; F41.9 Anxiety disorder, unspecified; K21.9 Gastro-esophageal reflux disease without esophagitis; N28.9 Disorder of kidney and ureter, unspecified; M50.322 Other cervical disc degeneration at C5-C6 level; M19.90 Unspecified osteoarthritis, unspecified site; G25.81 Restless legs syndrome; E55.9 Vitamin D deficiency, unspecified; E78.5 Hyperlipidemia, unspecified; I10 Essential (primary) hypertension; M81.0 Age-related osteoporosis without current pathological fracture; Z79.899 Other long term (current) drug therapy; Y93.89 Activity, other specified; Y92.098 Other place in other non-institutional residence as the place of occurrence of the external cause; Z90.49 Acquired absence of other specified parts of digestive tract; Y99.8 Other external cause status; Z88.0 Allergy status to penicillin; Z88.8 Allergy status to other drugs, medicaments and biological substances
CPT/HCPCS: 12002; 36415; 70450; 72125; 80048; 80053; 81001; 84443; 85025; 85027; G0378; G0379; 97110; 99285-25

== ENCOUNTER 2017-11-30 12:37 | Emergency (ER) | payer MEDICARE ==
[~2017-11-30] VITALS: Ht 165.1 cm; Wt 61.7 kg
[~2017-11-30 12:37] MED LIST changes: +ALPR1TAB6 PO; +CARB1TAB2 PO; +CITA40TA12 PO; -CLON1TAB3 PO; +CLON1TAB4 PO; +FURO-69 PO; +MIDO5TAB PO; +ROPI1TAB PO; +SIMV40TA3 PO; +SUCR1TAB35 PO
--- NOTE | 2017-11-30 13:22 | PHYS DOC ---
Past History Past Medical History: Anxiety, GERD, Hypothyroid, Other Past Surgical History: Cholecystectomy, Other Alcohol Use: None Drug Use: None Adult General Chief Complaint Chief Complaint: MECHANICAL FALL HPI HPI Patient is a very pleasant 87-year-old female who presents after mechanical fall at home during which she fell onto her left hip. She presents for evaluation of left hip pain and cannot ambulate or bear weight. She lives with her daughter who is present and is providing the history. The patient arrived via EMS. She's had a surgery to her right hip previously. She states that the surgery was done about 4 years ago [facility]. Review of Systems Review of Systems Constitutional: Denies fever or chills [] Eyes: Denies change in visual acuity, redness, or eye pain [] HENT: Denies nasal congestion or sore throat [] Respiratory: Denies cough or shortness of breath [] Cardiovascular: No additional information not addressed in HPI [] GI: Denies abdominal pain, nausea, vomiting, bloody stools or diarrhea [] : Denies dysuria or hematuria [] Musculoskeletal: Denies back pain [] left hip pain Integument: Denies rash or skin lesions [] Neurologic: Denies headache, focal weakness or sensory changes [] Endocrine: Denies polyuria or polydipsia [] All other systems were reviewed and found to be within normal limits, except as documented in this note. Current Medications Current Medications Current Medications Medications (Trade) Dose Ordered Sig/[facility] Start Time Stop Time Status Last Admin Dose Admin Fentanyl Citrate (Fentanyl 2ml Vial) 50 mcg 1X ONCE 11/30/17 13:15 11/30/17 13:16 DC Allergies Allergies Allergies Coded Allergies Type Severity Reaction Last Updated Verified Penicillins Allergy Intermediate 09/27/14 Yes meloxicam Allergy Intermediate 09/27/14 Yes Physical Exam Physical Exam Constitutional: Well developed, well nourished, no acute distress, non-toxic appearance. [] Appears uncomfortable HENT: Normocephalic, atraumatic, bilateral external ears normal, oropharynx moist, no oral exudates, nose normal. [] Eyes: PERRLA, EOMI, conjunctiva normal, no discharge. [] Neck: Normal range of motion, no tenderness, supple, no stridor. [] Cardiovascular:Heart rate regular rhythm, no murmur [] Lungs & Thorax: Bilateral breath sounds clear to auscultation [] Abdomen: Bowel sounds normal, soft, no tenderness, no masses, no pulsatile masses. [] Skin: Warm, dry, no erythema, no rash. [] Back: No tenderness, no CVA tenderness. [] Extremities: No tenderness, no cyanosis, no clubbing, ROM intact, no edema. [] left hip ttp, +shortening, CMS intact distally with 2+pulses, normal strength and sensation Neurologic: Alert and oriented X 3, normal motor function, normal sensory function, no focal deficits noted. [] Psychologic: Affect normal, judgement normal, mood normal. [] EKG EKG [] Radiology/Procedures Radiology/Procedures Left femoral neck fracture seen on xray. @1310 - [facility] paged for transfer. @8188 - Dr. Beltran accepts the transfer to [facility] at this time. Pt and daughter agree with this plan. Course & Med Decision Making Course & Med Decision Making Pertinent Labs and Imaging studies reviewed. (See chart for details) [] Dragon Disclaimer Dragon Disclaimer This electronic medical record was generated, in whole or in part, using a voice recognition dictation system. Departure Departure: Impression: Primary Impression: Fracture of femoral neck, left Disposition: 05 XFER OTHER (Dr. Beltran at [facility]) Condition: STABLE Referrals: BRITTNEY OLIVIER MD (PCP) MARTÍN STEWART DO Nov 30, 2017 13:22
--- NOTE | 2017-11-30 13:39 | RAD ---
History: Fall on left hip this afternoon. Comparison: None. Findings: Rotated AP view of the pelvis. AP and crosstable lateral views of left hip. 4 total images. Right hip demonstrates fixation hardware. No hardware complication is identified. No definite pelvic fracture is seen. Acute, subcapital left femoral neck fracture is present. There is proximal migration of the distal fragment as well as varus angulation of the fracture fragments and displacement. Arterial calcifications are seen. Impression: Acute, displaced, angulated left subcapital femoral neck fracture. Electronically signed by: Henok Acosta MD (11/30/2017 1:36 PM) [place] [id number]
[2017-11-30 13:41] LABS: BASO % 0 % (0-3); EOS # 0.1 x10^3/uL (0.0-0.7); EOS % 1 % (0-3); HEMATOCRIT 36.2 % (36.0-47.0); HEMOGLOBIN 12.3 g/dL (12.0-15.5); LYMPH # 1.2 x10^3/uL (1.0-4.8); LYMPH % 13 % (24-48); MEAN CORPUSCULAR HEMOGLOBIN 31 pg (25-35); MEAN CORPUSCULAR HGB CONC 34 g/dL (31-37); MEAN CORPUSCULAR VOLUME 92 fL (79-100); MONO # 0.5 x10^3/uL (0.0-1.1); MONO % 6 % (0-9); NEUT # 7.4 x10^3uL (1.8-7.7); NEUT % 80 % (31-73); PLATELET COUNT 129 x10^3/uL (140-400); RED BLOOD COUNT 3.95 x10^6/uL (3.50-5.40); RED CELL DISTRIBUTION WIDTH 14.5 % (11.5-14.5); WHITE BLOOD COUNT 9.3 x10^3/uL (4.0-11.0)
[2017-11-30 13:52] LABS: ALBUMIN 3.3 g/dL (3.4-5.0); CALCIUM 8.9 mg/dL (8.5-10.1); CREATININE 1.6 mg/dL (0.6-1.0); GFR 30.5; POTASSIUM 3.8 mmol/L (3.5-5.1); TOTAL BILIRUBIN 0.4 mg/dL (0.2-1.0); TOTAL PROTEIN 6.6 g/dL (6.4-8.2)
[2017-11-30 14:09] LABS: BACTERIA,URINE FEW /HPF (0-FEW); BILIRUBIN,URINE NEG (NEG); CLARITY,URINE HAZY; COLOR,URINE YELLOW; GLUCOSE,URINE NEG (NEG); HYALINE CASTS, URINE FEW /HPF; NITRITE,URINE NEG (NEG); RBC,URINE OCC /HPF (0-2); SQUAMOUS EPITHELIAL CELL,UR FEW /LPF; UROBILINOGEN,URINE 0.2 mg/dL (0.2 mg/dL); WBC,URINE OCC /HPF (0-4)
[2017-11-30 14:29] VITALS: BP 161/75
== END 2017-11-30 14:30 | disposition short-term general hospital (02) ==
LOC: ER 12:37
DX: S72.002A Fracture of unspecified part of neck of left femur, initial encounter for closed fracture (principal); F41.9 Anxiety disorder, unspecified; K21.9 Gastro-esophageal reflux disease without esophagitis; E03.9 Hypothyroidism, unspecified; Z88.0 Allergy status to penicillin; Z88.8 Allergy status to other drugs, medicaments and biological substances; W19.XXXA Unspecified fall, initial encounter; Y93.89 Activity, other specified; Y99.8 Other external cause status; Y92.89 Other specified places as the place of occurrence of the external cause
CPT/HCPCS: 36415; 71045; 73502; 80053; 81001; 85025; 85610; 85730; 96374; 96376; 99285; J3010

== ENCOUNTER 2018-03-22 15:55 | Inpatient (IN) | payer MEDICARE ==
[~2018-03-22] VITALS: Ht 165.1 cm; Wt 62.6 kg
[~2018-03-22 15:55] MED LIST changes: -CHOL20002 PO; +CHOL200059 PO; +CLON1TAB11 PO; -CLON1TAB4 PO; +HYDR-3165 AD; -HYDR-971 AD
[2018-03-22 16:21] VITALS: BP 115/71
[2018-03-22] MEDS ORDERED: FOLI1TAB35 PO (19:43)
[2018-03-22] MEDS ORDERED: OXYC5TAB95 PO (19:43)
[2018-03-22] MEDS ORDERED: ALBU2.5V5 NEB (19:43)
[2018-03-22] MEDS ORDERED: PROP10DR3 OP (19:43)
[2018-03-22] MEDS ORDERED: HYDR-2766 PO (19:43)
[2018-03-22] MEDS ORDERED: ASPI325T11 PO (19:43)
[2018-03-22] MEDS ORDERED: TRAM50TA PO (19:43)
[2018-03-22] MEDS ORDERED: BENZ200C47 PO (19:43)
[2018-03-22] MEDS ORDERED: OMEP20TA8 PO (19:43)
[2018-03-22] MEDS ORDERED: MIRT15TA3 PO (19:50)
[2018-03-22] MEDS ORDERED: ROTI1PAT4 TD (19:50)
[2018-03-22] MEDS ORDERED: PRIM250T PO (19:51)
[2018-03-22 21:00] VITALS: BP 113/71
[2018-03-22] MEDS ORDERED: CARBIDOPA/LEVODOPA 25/100MG TABLET PO SCH (21:00)
[2018-03-22] MEDS ORDERED: OMEG-33 PO (21:40)
[2018-03-22] MEDS ORDERED: SENN1TAB8 PO (21:40)
[2018-03-22] MEDS ORDERED: ONDA4TAB12 PO (21:40)
[2018-03-22] MEDS ORDERED: POLY255P11 PO (21:40)
[2018-03-22] MEDS ORDERED: CARB-110 PO (22:14)
[2018-03-22] MEDS: clonazePAM 1 MG TABLET PO SCH (22:15)
[2018-03-22] MEDS: FAMOTIDINE 20 MG TABLET PO SCH (22:42)
[2018-03-22] MEDS: SUCRALFATE 1 GM TABLET. PO SCH (22:42)
[2018-03-22] MEDS: ASPIRIN ENTERIC COATED 325 MG TABLET.DR. PO SCH (22:42)
[2018-03-22] MEDS: rOPINIRole 1 MG TABLET. PO SCH (22:43)
[2018-03-22] MEDS: SIMVASTATIN 40 MG TABLET. PO SCH (22:43)
[2018-03-22] MEDS: traMADol 50 MG TABLET PO SCH (22:43)
[2018-03-22] MEDS: MIRTAZAPINE 15 MG TABLET PO SCH (22:43)
[2018-03-22] MEDS: CARBIDOPA/LEVODOPA 25/250MG TABLET PO SCH (22:44)
[2018-03-22] MEDS: PRIMIDONE 250 MG TABLET PO SCH (22:44)
[2018-03-23] MEDS: LEVOTHYROXINE 150 MCG TABLET PO SCH (06:07)
[2018-03-23] MEDS ORDERED: ROTIGOTINE TD PRN (06:15)
[2018-03-23] MEDS ORDERED: HYDROcodone/APAP 10/325 1 TAB TABLET PO PRN (06:15)
[2018-03-23] MEDS ORDERED: BENZONATATE 100 MG CAPSULE. PO PRN (06:15)
[2018-03-23] MEDS ORDERED: POLYETHYLENE GLYCOL 3350 17 GM PACKET. PO PRN (06:15)
[2018-03-23] MEDS ORDERED: tiZANidine 4 MG TABLET. PO PRN (06:15)
[2018-03-23] MEDS ORDERED: MIDODRINE HCL 5 MG PO PRN (06:15)
[2018-03-23] MEDS ORDERED: ONDANSETRON ODT 4 MG TAB.RAPDIS PO PRN (06:15)
[2018-03-23 06:31] VITALS: BP 123/71
[2018-03-23] MEDS ORDERED: MIDODRINE 5 MG TABLET PO PRN (06:48)
[2018-03-23] MEDS ORDERED: CARBIDOPA/LEVODOPA 25/250MG TABLET PO SCH (09:00)
[2018-03-23] MEDS: POLYVINYL ALCOHOL/POVIDONE/PF OPHTH SOLUTION DROPERETTE. OU SCH (09:00)
[2018-03-23] MEDS: CARBIDOPA/LEVODOPA 25/250MG TABLET PO SCH ×4 (09:00→21:13)
[2018-03-23] MEDS: VITAMIN B COMPLEX CAPSULE. PO SCH (09:33)
[2018-03-23] MEDS: PANTOPRAZOLE 40 MG TABLET. PO SCH (09:33)
[2018-03-23] MEDS: ASPIRIN ENTERIC COATED 325 MG TABLET.DR. PO SCH ×2 (09:33→21:12)
[2018-03-23] MEDS: SUCRALFATE 1 GM TABLET. PO SCH ×4 (09:34→21:12)
[2018-03-23] MEDS: CITALOPRAM 20 MG TABLET. PO SCH (09:34)
[2018-03-23] MEDS: OMEGA-3 FATTY ACIDS/FISH OIL 1,000 MG CAPSULE. PO SCH (09:34)
[2018-03-23] MEDS: FUROSEMIDE 20 MG TABLET PO SCH (09:35)
[2018-03-23] MEDS: clonazePAM 1 MG TABLET PO SCH ×3 (09:35→21:00)
[2018-03-23] MEDS: PRIMIDONE 250 MG TABLET PO SCH ×3 (09:37→21:13)
[2018-03-23] MEDS: rOPINIRole 1 MG TABLET. PO SCH ×2 (09:38→21:13)
[2018-03-23] MEDS: CALCIUM CARB/VIT D3 500/200 TABLET PO SCH (09:38)
[2018-03-23] MEDS: SENNOSIDES/DOCUSATE 8.6/50MG TABLET. PO SCH (09:38)
[2018-03-23] MEDS: FAMOTIDINE 20 MG TABLET PO SCH ×2 (09:38→21:12)
[2018-03-23] MEDS: MULTIVITAMIN with MINERAL TABLET. PO SCH (09:42)
[2018-03-23] MEDS: CHOLECALCIFEROL (VITAMIN D3) 1,000 UNIT TABLET PO SCH (09:45)
[2018-03-23] MEDS: traMADol 50 MG TABLET PO SCH ×4 (09:45→21:12)
[2018-03-23] MEDS: ALBUTEROL SULFATE 2.5 MG/3 ML NEBU. NEB SCH (15:59)
[2018-03-23 18:33] VITALS: BP 94/58
[2018-03-23] MEDS: SIMVASTATIN 40 MG TABLET. PO SCH (21:12)
[2018-03-23] MEDS: MIRTAZAPINE 15 MG TABLET PO SCH (21:12)
[2018-03-24] MEDS: LEVOTHYROXINE 150 MCG TABLET PO SCH (05:10)
[2018-03-24 05:21] VITALS: BP 104/69
[2018-03-24] MEDS: PANTOPRAZOLE 40 MG TABLET. PO SCH (08:43)
[2018-03-24] MEDS: traMADol 50 MG TABLET PO SCH ×3 (08:43→21:26)
[2018-03-24] MEDS: VITAMIN B COMPLEX CAPSULE. PO SCH (08:43)
[2018-03-24] MEDS: clonazePAM 1 MG TABLET PO SCH ×3 (08:43→21:27)
[2018-03-24] MEDS: CHOLECALCIFEROL (VITAMIN D3) 1,000 UNIT TABLET PO SCH (08:43)
[2018-03-24] MEDS: SUCRALFATE 1 GM TABLET. PO SCH ×4 (08:43→21:26)
[2018-03-24] MEDS: CALCIUM CARB/VIT D3 500/200 TABLET PO SCH (08:44)
[2018-03-24] MEDS: FUROSEMIDE 20 MG TABLET PO SCH (08:44)
[2018-03-24] MEDS: SENNOSIDES/DOCUSATE 8.6/50MG TABLET. PO SCH (08:44)
[2018-03-24] MEDS: POLYVINYL ALCOHOL/POVIDONE/PF OPHTH SOLUTION DROPERETTE. OU SCH (08:44)
[2018-03-24] MEDS: ASPIRIN ENTERIC COATED 325 MG TABLET.DR. PO SCH ×2 (08:44→21:26)
[2018-03-24] MEDS: MULTIVITAMIN with MINERAL TABLET. PO SCH (08:44)
[2018-03-24] MEDS: CITALOPRAM 20 MG TABLET. PO SCH (08:44)
[2018-03-24] MEDS: OMEGA-3 FATTY ACIDS/FISH OIL 1,000 MG CAPSULE. PO SCH (08:44)
[2018-03-24] MEDS: FAMOTIDINE 20 MG TABLET PO SCH ×2 (08:44→21:25)
[2018-03-24] MEDS: CARBIDOPA/LEVODOPA 25/250MG TABLET PO SCH ×3 (08:45→21:26)
[2018-03-24] MEDS: rOPINIRole 1 MG TABLET. PO SCH ×2 (08:45→21:26)
[2018-03-24] MEDS: PRIMIDONE 250 MG TABLET PO SCH ×3 (08:45→21:27)
[2018-03-24] MEDS: ALBUTEROL SULFATE 2.5 MG/3 ML NEBU. NEB SCH (10:30)
[2018-03-24 18:40] VITALS: BP 108/64
[2018-03-24] MEDS: SIMVASTATIN 40 MG TABLET. PO SCH (21:26)
[2018-03-24] MEDS: MIRTAZAPINE 15 MG TABLET PO SCH (21:27)
[2018-03-25 06:00] VITALS: BP 124/75
[2018-03-25] MEDS: LEVOTHYROXINE 150 MCG TABLET PO SCH (06:26)
[2018-03-25] MEDS: CHOLECALCIFEROL (VITAMIN D3) 1,000 UNIT TABLET PO SCH (08:33)
[2018-03-25] MEDS: CITALOPRAM 20 MG TABLET. PO SCH (08:33)
[2018-03-25] MEDS: SUCRALFATE 1 GM TABLET. PO SCH ×4 (08:33→22:05)
[2018-03-25] MEDS: OMEGA-3 FATTY ACIDS/FISH OIL 1,000 MG CAPSULE. PO SCH (08:33)
[2018-03-25] MEDS: ASPIRIN ENTERIC COATED 325 MG TABLET.DR. PO SCH ×2 (08:33→22:06)
[2018-03-25] MEDS: clonazePAM 1 MG TABLET PO SCH ×3 (08:34→21:00)
[2018-03-25] MEDS: CALCIUM CARB/VIT D3 500/200 TABLET PO SCH (08:34)
[2018-03-25] MEDS: VITAMIN B COMPLEX CAPSULE. PO SCH (08:34)
[2018-03-25] MEDS: PANTOPRAZOLE 40 MG TABLET. PO SCH (08:34)
[2018-03-25] MEDS: MULTIVITAMIN with MINERAL TABLET. PO SCH (08:34)
[2018-03-25] MEDS: FAMOTIDINE 20 MG TABLET PO SCH ×2 (08:34→22:06)
[2018-03-25] MEDS: SENNOSIDES/DOCUSATE 8.6/50MG TABLET. PO SCH (08:34)
[2018-03-25] MEDS: rOPINIRole 1 MG TABLET. PO SCH ×2 (08:35→22:09)
[2018-03-25] MEDS: POLYVINYL ALCOHOL/POVIDONE/PF OPHTH SOLUTION DROPERETTE. OU SCH (08:35)
[2018-03-25] MEDS: CARBIDOPA/LEVODOPA 25/250MG TABLET PO SCH ×3 (08:35→22:10)
[2018-03-25] MEDS: PRIMIDONE 250 MG TABLET PO SCH ×3 (08:36→22:09)
[2018-03-25] MEDS: traMADol 50 MG TABLET PO SCH ×3 (09:00→21:00)
[2018-03-25 10:12] LABS: CALCIUM 8.3 mg/dL (8.5-10.1); CREATININE 1.4 mg/dL (0.6-1.0); GFR 35.5; POTASSIUM 3.4 mmol/L (3.5-5.1)
[2018-03-25 10:18] LABS: BASO % 1 % (0-3); EOS # 0.1 x10^3/uL (0.0-0.7); EOS % 2 % (0-3); HEMATOCRIT 31.1 % (36.0-47.0); HEMOGLOBIN 10.3 g/dL (12.0-15.5); LYMPH # 1.4 x10^3/uL (1.0-4.8); LYMPH % 17 % (24-48); MEAN CORPUSCULAR HEMOGLOBIN 30 pg (25-35); MEAN CORPUSCULAR HGB CONC 33 g/dL (31-37); MEAN CORPUSCULAR VOLUME 89 fL (79-100); MONO # 0.4 x10^3/uL (0.0-1.1); MONO % 5 % (0-9); NEUT # 6.7 x10^3uL (1.8-7.7); NEUT % 77 % (31-73); PLATELET COUNT 314 x10^3/uL (140-400); RED BLOOD COUNT 3.49 x10^6/uL (3.50-5.40); RED CELL DISTRIBUTION WIDTH 15.1 % (11.5-14.5); WHITE BLOOD COUNT 8.7 x10^3/uL (4.0-11.0)
[2018-03-25] MEDS: ALBUTEROL SULFATE 2.5 MG/3 ML NEBU. NEB SCH (10:44)
[2018-03-25] MEDS: FUROSEMIDE 20 MG TABLET PO SCH (10:44)
[2018-03-25] MEDS ORDERED: POTASSIUM CHLORIDE 20 MEQ TABLET.ER. PO ONE (10:45)
[2018-03-25 18:21] VITALS: BP 98/65
[2018-03-25] MEDS: SIMVASTATIN 40 MG TABLET. PO SCH (22:05)
[2018-03-25] MEDS: MIRTAZAPINE 15 MG TABLET PO SCH (22:06)
[2018-03-26 06:00] VITALS: BP 112/66
[2018-03-26] MEDS: LEVOTHYROXINE 150 MCG TABLET PO SCH (06:38)
[2018-03-26] MEDS: PANTOPRAZOLE 40 MG TABLET. PO SCH (08:26)
[2018-03-26] MEDS: POLYVINYL ALCOHOL/POVIDONE/PF OPHTH SOLUTION DROPERETTE. OU SCH (08:31)
[2018-03-26] MEDS: SUCRALFATE 1 GM TABLET. PO SCH ×4 (08:32→21:40)
[2018-03-26] MEDS: OMEGA-3 FATTY ACIDS/FISH OIL 1,000 MG CAPSULE. PO SCH (08:32)
[2018-03-26] MEDS: ASPIRIN ENTERIC COATED 325 MG TABLET.DR. PO SCH ×2 (08:32→21:40)
[2018-03-26] MEDS: CITALOPRAM 20 MG TABLET. PO SCH (08:32)
[2018-03-26] MEDS: PRIMIDONE 250 MG TABLET PO SCH ×3 (08:33→21:41)
[2018-03-26] MEDS: CHOLECALCIFEROL (VITAMIN D3) 1,000 UNIT TABLET PO SCH (08:33)
[2018-03-26] MEDS: clonazePAM 1 MG TABLET PO SCH ×3 (08:33→21:00)
[2018-03-26] MEDS: VITAMIN B COMPLEX CAPSULE. PO SCH (08:33)
[2018-03-26] MEDS: FUROSEMIDE 20 MG TABLET PO SCH (08:33)
[2018-03-26] MEDS: traMADol 50 MG TABLET PO SCH ×3 (08:34→21:00)
[2018-03-26] MEDS: MULTIVITAMIN with MINERAL TABLET. PO SCH (08:34)
[2018-03-26] MEDS: SENNOSIDES/DOCUSATE 8.6/50MG TABLET. PO SCH (08:35)
[2018-03-26] MEDS: FAMOTIDINE 20 MG TABLET PO SCH ×2 (08:35→21:41)
[2018-03-26] MEDS: CALCIUM CARB/VIT D3 500/200 TABLET PO SCH (08:35)
[2018-03-26] MEDS: rOPINIRole 1 MG TABLET. PO SCH ×2 (08:35→21:42)
[2018-03-26] MEDS: CARBIDOPA/LEVODOPA 25/250MG TABLET PO SCH ×3 (08:35→21:42)
[2018-03-26] MEDS: ALBUTEROL SULFATE 2.5 MG/3 ML NEBU. NEB SCH (09:32)
[2018-03-26 18:00] VITALS: BP 100/61
[2018-03-26] MEDS: SIMVASTATIN 40 MG TABLET. PO SCH (21:00)
[2018-03-26] MEDS: MIRTAZAPINE 15 MG TABLET PO SCH (21:41)
[2018-03-27] MEDS: LEVOTHYROXINE 150 MCG TABLET PO SCH (05:41)
[2018-03-27 06:35] VITALS: BP 112/68
[2018-03-27] MEDS: PANTOPRAZOLE 40 MG TABLET. PO SCH (08:06)
[2018-03-27] MEDS: CITALOPRAM 20 MG TABLET. PO SCH (08:06)
[2018-03-27] MEDS: MULTIVITAMIN with MINERAL TABLET. PO SCH (08:06)
[2018-03-27] MEDS: OMEGA-3 FATTY ACIDS/FISH OIL 1,000 MG CAPSULE. PO SCH (08:06)
[2018-03-27] MEDS: VITAMIN B COMPLEX CAPSULE. PO SCH (08:06)
[2018-03-27] MEDS: SENNOSIDES/DOCUSATE 8.6/50MG TABLET. PO SCH (08:06)
[2018-03-27] MEDS: FUROSEMIDE 20 MG TABLET PO SCH (08:07)
[2018-03-27] MEDS: traMADol 50 MG TABLET PO SCH ×3 (08:07→20:10)
[2018-03-27] MEDS: clonazePAM 1 MG TABLET PO SCH ×3 (08:07→20:11)
[2018-03-27] MEDS: CHOLECALCIFEROL (VITAMIN D3) 1,000 UNIT TABLET PO SCH (08:07)
[2018-03-27] MEDS: FAMOTIDINE 20 MG TABLET PO SCH ×2 (08:07→20:10)
[2018-03-27] MEDS: ASPIRIN ENTERIC COATED 325 MG TABLET.DR. PO SCH ×2 (08:07→20:10)
[2018-03-27] MEDS: SUCRALFATE 1 GM TABLET. PO SCH ×4 (08:08→20:10)
[2018-03-27] MEDS: CALCIUM CARB/VIT D3 500/200 TABLET PO SCH (08:08)
[2018-03-27] MEDS: POLYVINYL ALCOHOL/POVIDONE/PF OPHTH SOLUTION DROPERETTE. OU SCH (08:08)
[2018-03-27] MEDS: rOPINIRole 1 MG TABLET. PO SCH ×2 (08:09→20:12)
[2018-03-27] MEDS: PRIMIDONE 250 MG TABLET PO SCH ×3 (08:09→20:12)
[2018-03-27] MEDS: CARBIDOPA/LEVODOPA 25/250MG TABLET PO SCH ×3 (08:09→20:12)
[2018-03-27] MEDS: ALBUTEROL SULFATE 2.5 MG/3 ML NEBU. NEB SCH (09:36)
[2018-03-27 18:46] VITALS: BP 110/66
[2018-03-27] MEDS: SIMVASTATIN 40 MG TABLET. PO SCH (20:10)
[2018-03-27] MEDS: MIRTAZAPINE 15 MG TABLET PO SCH (20:10)
[2018-03-28 05:09] VITALS: BP 103/60
[2018-03-28] MEDS: LEVOTHYROXINE 150 MCG TABLET PO SCH (06:35)
[2018-03-28] MEDS: SENNOSIDES/DOCUSATE 8.6/50MG TABLET. PO SCH (07:33)
[2018-03-28] MEDS: SUCRALFATE 1 GM TABLET. PO SCH ×4 (07:33→21:40)
[2018-03-28] MEDS: CALCIUM CARB/VIT D3 500/200 TABLET PO SCH (07:34)
[2018-03-28] MEDS: FAMOTIDINE 20 MG TABLET PO SCH ×2 (07:34→21:40)
[2018-03-28] MEDS: PANTOPRAZOLE 40 MG TABLET. PO SCH (07:34)
[2018-03-28] MEDS: ASPIRIN ENTERIC COATED 325 MG TABLET.DR. PO SCH ×2 (07:34→21:40)
[2018-03-28] MEDS: MULTIVITAMIN with MINERAL TABLET. PO SCH (07:34)
[2018-03-28] MEDS: OMEGA-3 FATTY ACIDS/FISH OIL 1,000 MG CAPSULE. PO SCH (07:34)
[2018-03-28] MEDS: CHOLECALCIFEROL (VITAMIN D3) 1,000 UNIT TABLET PO SCH (07:34)
[2018-03-28] MEDS: VITAMIN B COMPLEX CAPSULE. PO SCH (07:34)
[2018-03-28] MEDS: CITALOPRAM 20 MG TABLET. PO SCH (07:34)
[2018-03-28] MEDS: FUROSEMIDE 20 MG TABLET PO SCH (07:35)
[2018-03-28] MEDS: CARBIDOPA/LEVODOPA 25/250MG TABLET PO SCH ×3 (07:35→21:40)
[2018-03-28] MEDS: traMADol 50 MG TABLET PO SCH ×3 (07:35→21:40)
[2018-03-28] MEDS: rOPINIRole 1 MG TABLET. PO SCH ×2 (07:36→21:40)
[2018-03-28] MEDS: PRIMIDONE 250 MG TABLET PO SCH ×3 (07:36→21:39)
[2018-03-28] MEDS: POLYVINYL ALCOHOL/POVIDONE/PF OPHTH SOLUTION DROPERETTE. OU SCH (07:37)
[2018-03-28] MEDS: clonazePAM 1 MG TABLET PO SCH ×3 (07:40→21:40)
--- NOTE | 2018-03-28 08:51 | HP ---
ADMIT DATE: 03/22/2018 HISTORY OF PRESENT ILLNESS: An 88-year-old female, she is on the swing bed. She needs continued skilled care, physical and occupational therapy. The patient is an 88-year-old female with a history of Parkinson disease, fell at home, and was found to have a left femur fracture and got treatment with Ortho. She also developed metabolic encephalopathy following her surgeries and continued to be having quite a bit of problem with depression and her encephalopathy. She was not able to eat or drink very well and continued to need a swing bed protocol to help her regain her strength from her fracture as well as her overall mental and physical condition and was under a great deal of need for rehabilitation care. PAST MEDICAL HISTORY: Macular degeneration of the right eye, Parkinson disease, esophageal surgery, lumpectomy, hysterectomy, urinary tract infection, arthritis, orthopedic surgery to the right wrist fracture, spinal cement, hypothyroidism, skin cancer. IMMUNIZATIONS: Up-to-date. PAST SURGICAL HISTORY: She has had a history also of melanoma and hypothyroidism. ALLERGIES: PENICILLIN AND MELOXICAM. MEDICATIONS: Midodrine 5 mg t.i.d., albuterol, tizanidine, Zocor 40, omega 3 fish oil, aspirin, hydrocodone p.r.n., oxycodone p.r.n., tramadol 50 mg t.i.d., primidone 125 mg t.i.d., clonazepam 1 mg daily, Celexa 40 mg, Remeron 15 mg, carbidopa/levodopa 1 t.i.d., Robinul 1 mg b.i.d., Neupro one each patch p.r.n. for restless leg, calcium carbonate, furosemide 20 mg daily, ____, propylene glycol, Zofran 4 mg daily, ranitidine 150 mg b.i.d., Carafate 1 tablet p.o. q.i.d., Prilosec 20 mg a day, levothyroxine 150 mcg daily, vitamin B12, vitamin D daily and multivitamin. FAMILY HISTORY: Unremarkable. SOCIAL HISTORY: No smoking, alcohol or drug use. The patient is a full code. IMMUNIZATIONS: Up-to-date. REVIEW OF SYSTEMS: Outside of her severe leg pain and multiple other just generalized symptoms; she denies chest pain, denies abdominal pain. Denies any melena, hematochezia, or hematemesis. Neurologically baseline, although somewhat in a depressed affect with all her medical issues going on this poor lady down. In any case, she is a very huyen lady. PHYSICAL EXAMINATION: VITAL SIGNS: Blood pressure initially at 115/70, respiratory rate 18, pulse 90, afebrile. HEENT: The patient's head was atraumatic, normocephalic. Eyes: PERRLA without jaundice. The mouth and throat were normal. GENERAL: The patient is in pain, requires pain medication 8 to 9 over 10 without the pain medication. LUNGS: Diminished. CARDIOVASCULAR: Regular sinus rhythm, S1, S2. ABDOMEN: Soft, nontender, no rebound or guarding. Positive bowel sounds, no hepatosplenomegaly noted. EXTREMITIES: No clubbing, cyanosis or edema. NEUROLOGIC: The patient is alert and oriented. Very tearful at times. The patient's left leg is in a splint, keeping it straight out in her wheelchair. ASSESSMENT AND PLAN: The patient otherwise seems to be resting fairly comfortably, making fairly good progress overall and will continue to receive physical and occupational therapy for her multiple medical issues including left femur shaft fracture 2 x 2, fall on 03/12/2018. She has had orthostatic hypotension, severe dementia, dysphagia, hypokalemia, history of Parkinson's, hypothyroidism, elderly and frail, urinary retention with Croft, left forearm skin tear, and hypotension, on midodrine. Depression, hypothyroidism, restless leg syndrome. The patient desperately needs physical and occupational therapy and make further evaluation on her as indicated. Also, chronic kidney disease, stage 3. SUNSHINE WALKER MD DR: ROSE MARY/yue JOB#: [id number] / [id number]
[2018-03-28] MEDS: ALBUTEROL SULFATE 2.5 MG/3 ML NEBU. NEB SCH (11:06)
[2018-03-28 18:20] VITALS: BP 104/66
[2018-03-28] MEDS: SIMVASTATIN 40 MG TABLET. PO SCH (21:39)
[2018-03-28] MEDS: MIRTAZAPINE 15 MG TABLET PO SCH (21:40)
[2018-03-29 05:36] VITALS: BP 118/58
[2018-03-29] MEDS: LEVOTHYROXINE 150 MCG TABLET PO SCH (06:10)
[2018-03-29] MEDS: CALCIUM CARB/VIT D3 500/200 TABLET PO SCH (07:12)
[2018-03-29] MEDS: CITALOPRAM 20 MG TABLET. PO SCH (07:12)
[2018-03-29] MEDS: PANTOPRAZOLE 40 MG TABLET. PO SCH (07:12)
[2018-03-29] MEDS: CHOLECALCIFEROL (VITAMIN D3) 1,000 UNIT TABLET PO SCH (07:12)
[2018-03-29] MEDS: POLYVINYL ALCOHOL/POVIDONE/PF OPHTH SOLUTION DROPERETTE. OU SCH (07:12)
[2018-03-29] MEDS: SENNOSIDES/DOCUSATE 8.6/50MG TABLET. PO SCH (07:12)
[2018-03-29] MEDS: OMEGA-3 FATTY ACIDS/FISH OIL 1,000 MG CAPSULE. PO SCH (07:13)
[2018-03-29] MEDS: MULTIVITAMIN with MINERAL TABLET. PO SCH (07:13)
[2018-03-29] MEDS: FUROSEMIDE 20 MG TABLET PO SCH (07:13)
[2018-03-29] MEDS: FAMOTIDINE 20 MG TABLET PO SCH ×2 (07:13→21:27)
[2018-03-29] MEDS: traMADol 50 MG TABLET PO SCH ×3 (07:13→21:00)
[2018-03-29] MEDS: SUCRALFATE 1 GM TABLET. PO SCH ×4 (07:13→21:27)
[2018-03-29] MEDS: VITAMIN B COMPLEX CAPSULE. PO SCH (07:13)
[2018-03-29] MEDS: ASPIRIN ENTERIC COATED 325 MG TABLET.DR. PO SCH ×2 (07:14→21:27)
[2018-03-29] MEDS: rOPINIRole 1 MG TABLET. PO SCH ×2 (07:15→21:27)
[2018-03-29] MEDS: CARBIDOPA/LEVODOPA 25/250MG TABLET PO SCH ×3 (07:15→21:28)
[2018-03-29] MEDS: PRIMIDONE 250 MG TABLET PO SCH ×3 (07:15→21:28)
[2018-03-29] MEDS: clonazePAM 1 MG TABLET PO SCH ×3 (09:00→21:00)
[2018-03-29] MEDS: ALBUTEROL SULFATE 2.5 MG/3 ML NEBU. NEB SCH (10:34)
[2018-03-29] MEDS: oxyCODONE IR 5 MG TABLET PO PRN (15:47)
[2018-03-29 18:23] VITALS: BP 110/66
[2018-03-29] MEDS: MIRTAZAPINE 15 MG TABLET PO SCH (21:27)
[2018-03-29] MEDS: SIMVASTATIN 40 MG TABLET. PO SCH (21:28)
[2018-03-30] MEDS: LEVOTHYROXINE 150 MCG TABLET PO SCH (05:27)
[2018-03-30 05:36] VITALS: BP 138/67
[2018-03-30] MEDS: ALBUTEROL SULFATE 2.5 MG/3 ML NEBU. NEB SCH (09:20)
[2018-03-30] MEDS: CHOLECALCIFEROL (VITAMIN D3) 1,000 UNIT TABLET PO SCH (09:31)
[2018-03-30] MEDS: VITAMIN B COMPLEX CAPSULE. PO SCH (09:32)
[2018-03-30] MEDS: SUCRALFATE 1 GM TABLET. PO SCH ×4 (09:32→19:29)
[2018-03-30] MEDS: MULTIVITAMIN with MINERAL TABLET. PO SCH (09:32)
[2018-03-30] MEDS: CITALOPRAM 20 MG TABLET. PO SCH (09:32)
[2018-03-30] MEDS: SENNOSIDES/DOCUSATE 8.6/50MG TABLET. PO SCH (09:32)
[2018-03-30] MEDS: OMEGA-3 FATTY ACIDS/FISH OIL 1,000 MG CAPSULE. PO SCH (09:33)
[2018-03-30] MEDS: clonazePAM 1 MG TABLET PO SCH ×3 (09:33→19:29)
[2018-03-30] MEDS: FUROSEMIDE 20 MG TABLET PO SCH (09:33)
[2018-03-30] MEDS: traMADol 50 MG TABLET PO SCH ×3 (09:34→19:30)
[2018-03-30] MEDS: CALCIUM CARB/VIT D3 500/200 TABLET PO SCH (09:34)
[2018-03-30] MEDS: ASPIRIN ENTERIC COATED 325 MG TABLET.DR. PO SCH ×2 (09:34→19:29)
[2018-03-30] MEDS: FAMOTIDINE 20 MG TABLET PO SCH ×2 (09:34→19:30)
[2018-03-30] MEDS: POLYVINYL ALCOHOL/POVIDONE/PF OPHTH SOLUTION DROPERETTE. OU SCH (09:35)
[2018-03-30] MEDS: PRIMIDONE 250 MG TABLET PO SCH ×3 (09:36→19:31)
[2018-03-30] MEDS: PANTOPRAZOLE 40 MG TABLET. PO SCH (09:36)
[2018-03-30] MEDS: rOPINIRole 1 MG TABLET. PO SCH ×2 (09:36→19:30)
[2018-03-30] MEDS: CARBIDOPA/LEVODOPA 25/250MG TABLET PO SCH ×3 (09:37→19:30)
[2018-03-30 18:35] VITALS: BP 124/57
[2018-03-30] MEDS: MIRTAZAPINE 15 MG TABLET PO SCH (19:29)
[2018-03-30] MEDS: SIMVASTATIN 40 MG TABLET. PO SCH (19:30)
[2018-03-31] MEDS: LEVOTHYROXINE 150 MCG TABLET PO SCH (05:53)
[2018-03-31 06:09] VITALS: BP 140/63
[2018-03-31] MEDS: LANSOPRAZOLE 30 MG TAB.RAP.DR FT SCH (08:53)
[2018-03-31] MEDS: CITALOPRAM 20 MG TABLET. PO SCH (08:54)
[2018-03-31] MEDS: FUROSEMIDE 20 MG TABLET PO SCH (08:54)
[2018-03-31] MEDS: VITAMIN B COMPLEX CAPSULE. PO SCH (08:54)
[2018-03-31] MEDS: CHOLECALCIFEROL (VITAMIN D3) 1,000 UNIT TABLET PO SCH (08:54)
[2018-03-31] MEDS: clonazePAM 1 MG TABLET PO SCH ×3 (08:54→20:59)
[2018-03-31] MEDS: CALCIUM CARB/VIT D3 500/200 TABLET PO SCH (08:54)
[2018-03-31] MEDS: POLYVINYL ALCOHOL/POVIDONE/PF OPHTH SOLUTION DROPERETTE. OU SCH (08:54)
[2018-03-31] MEDS: traMADol 50 MG TABLET PO SCH ×3 (08:54→21:00)
[2018-03-31] MEDS: PRIMIDONE 250 MG TABLET PO SCH ×3 (08:55→21:04)
[2018-03-31] MEDS: FAMOTIDINE 20 MG TABLET PO SCH ×2 (08:55→21:05)
[2018-03-31] MEDS: CARBIDOPA/LEVODOPA 25/250MG TABLET PO SCH ×3 (08:55→21:01)
[2018-03-31] MEDS: SENNOSIDES/DOCUSATE 8.6/50MG TABLET. PO SCH (08:55)
[2018-03-31] MEDS: MULTIVITAMIN with MINERAL TABLET. PO SCH (08:55)
[2018-03-31] MEDS: SUCRALFATE 1 GM TABLET. PO SCH ×4 (08:55→21:04)
[2018-03-31] MEDS: OMEGA-3 FATTY ACIDS/FISH OIL 1,000 MG CAPSULE. PO SCH (08:55)
[2018-03-31] MEDS: rOPINIRole 1 MG TABLET. PO SCH ×2 (08:56→21:01)
[2018-03-31] MEDS: ASPIRIN 325 MG TABLET PO SCH ×2 (09:04→21:00)
[2018-03-31] MEDS: ALBUTEROL SULFATE 2.5 MG/3 ML NEBU. NEB SCH (11:51)
[2018-03-31 18:45] VITALS: BP 106/64
[2018-03-31] MEDS: SIMVASTATIN 40 MG TABLET. PO SCH (21:04)
[2018-03-31] MEDS: MIRTAZAPINE 15 MG TABLET PO SCH (21:05)
[2018-04-01 05:36] VITALS: BP 129/70
[2018-04-01] MEDS: LEVOTHYROXINE 150 MCG TABLET PO SCH (05:39)
[2018-04-01] MEDS: ASPIRIN 325 MG TABLET PO SCH ×2 (09:27→21:12)
[2018-04-01] MEDS: OMEGA-3 FATTY ACIDS/FISH OIL 1,000 MG CAPSULE. PO SCH (09:27)
[2018-04-01] MEDS: CITALOPRAM 20 MG TABLET. PO SCH (09:27)
[2018-04-01] MEDS: SENNOSIDES/DOCUSATE 8.6/50MG TABLET. PO SCH (09:27)
[2018-04-01] MEDS: MULTIVITAMIN with MINERAL TABLET. PO SCH (09:27)
[2018-04-01] MEDS: VITAMIN B COMPLEX CAPSULE. PO SCH (09:27)
[2018-04-01] MEDS: CALCIUM CARB/VIT D3 500/200 TABLET PO SCH (09:27)
[2018-04-01] MEDS: POLYVINYL ALCOHOL/POVIDONE/PF OPHTH SOLUTION DROPERETTE. OU SCH (09:27)
[2018-04-01] MEDS: FAMOTIDINE 20 MG TABLET PO SCH ×2 (09:27→21:13)
[2018-04-01] MEDS: clonazePAM 1 MG TABLET PO SCH ×3 (09:27→21:00)
[2018-04-01] MEDS: SUCRALFATE 1 GM TABLET. PO SCH ×4 (09:27→21:12)
[2018-04-01] MEDS: FUROSEMIDE 20 MG TABLET PO SCH (09:27)
[2018-04-01] MEDS: CHOLECALCIFEROL (VITAMIN D3) 1,000 UNIT TABLET PO SCH (09:30)
[2018-04-01] MEDS: rOPINIRole 1 MG TABLET. PO SCH ×2 (09:30→21:12)
[2018-04-01] MEDS: CARBIDOPA/LEVODOPA 25/250MG TABLET PO SCH ×3 (09:31→21:13)
[2018-04-01] MEDS: LANSOPRAZOLE 30 MG TAB.RAP.DR FT SCH (09:32)
[2018-04-01] MEDS: PRIMIDONE 250 MG TABLET PO SCH ×3 (09:32→21:13)
[2018-04-01] MEDS: ALBUTEROL SULFATE 2.5 MG/3 ML NEBU. NEB SCH (11:31)
[2018-04-01] MEDS: traMADol 50 MG TABLET PO PRN (13:40)
[2018-04-01 18:09] VITALS: BP 103/62
[2018-04-01] MEDS: MIRTAZAPINE 15 MG TABLET PO SCH (21:12)
[2018-04-01] MEDS: SIMVASTATIN 40 MG TABLET. PO SCH (21:14)
[2018-04-02 05:30] VITALS: BP 136/77
[2018-04-02] MEDS: LEVOTHYROXINE 150 MCG TABLET PO SCH (05:40)
[2018-04-02] MEDS: traMADol 50 MG TABLET PO PRN ×2 (06:31→18:26)
[2018-04-02] MEDS: ASPIRIN 325 MG TABLET PO SCH ×2 (09:05→21:19)
[2018-04-02] MEDS: rOPINIRole 1 MG TABLET. PO SCH ×2 (09:05→21:20)
[2018-04-02] MEDS: LANSOPRAZOLE 30 MG TAB.RAP.DR FT SCH (09:05)
[2018-04-02] MEDS: OMEGA-3 FATTY ACIDS/FISH OIL 1,000 MG CAPSULE. PO SCH (09:05)
[2018-04-02] MEDS: FUROSEMIDE 20 MG TABLET PO SCH (09:05)
[2018-04-02] MEDS: MULTIVITAMIN with MINERAL TABLET. PO SCH (09:05)
[2018-04-02] MEDS: SUCRALFATE 1 GM TABLET. PO SCH ×4 (09:05→21:20)
[2018-04-02] MEDS: CALCIUM CARB/VIT D3 500/200 TABLET PO SCH (09:05)
[2018-04-02] MEDS: VITAMIN B COMPLEX CAPSULE. PO SCH (09:05)
[2018-04-02] MEDS: CHOLECALCIFEROL (VITAMIN D3) 1,000 UNIT TABLET PO SCH (09:05)
[2018-04-02] MEDS: CITALOPRAM 20 MG TABLET. PO SCH (09:05)
[2018-04-02] MEDS: SENNOSIDES/DOCUSATE 8.6/50MG TABLET. PO SCH (09:05)
[2018-04-02] MEDS: CARBIDOPA/LEVODOPA 25/250MG TABLET PO SCH ×3 (09:05→21:20)
[2018-04-02] MEDS: clonazePAM 1 MG TABLET PO SCH ×3 (09:05→21:20)
[2018-04-02] MEDS: FAMOTIDINE 20 MG TABLET PO SCH ×2 (09:05→21:20)
[2018-04-02] MEDS: PRIMIDONE 250 MG TABLET PO SCH ×3 (09:06→21:20)
[2018-04-02] MEDS: POLYVINYL ALCOHOL/POVIDONE/PF OPHTH SOLUTION DROPERETTE. OU SCH (09:27)
[2018-04-02] MEDS: ALBUTEROL SULFATE 2.5 MG/3 ML NEBU. NEB SCH (10:54)
[2018-04-02 18:02] VITALS: BP 101/62
[2018-04-02] MEDS: SIMVASTATIN 40 MG TABLET. PO SCH (21:20)
[2018-04-02] MEDS: MIRTAZAPINE 15 MG TABLET PO SCH (21:20)
[2018-04-03 05:25] VITALS: BP 123/72
[2018-04-03] MEDS: LEVOTHYROXINE 150 MCG TABLET PO SCH (06:19)
[2018-04-03] MEDS: LANSOPRAZOLE 30 MG TAB.RAP.DR FT SCH (07:36)
[2018-04-03] MEDS: POLYVINYL ALCOHOL/POVIDONE/PF OPHTH SOLUTION DROPERETTE. OU SCH (08:24)
[2018-04-03] MEDS: OMEGA-3 FATTY ACIDS/FISH OIL 1,000 MG CAPSULE. PO SCH (08:24)
[2018-04-03] MEDS: SENNOSIDES/DOCUSATE 8.6/50MG TABLET. PO SCH (08:25)
[2018-04-03] MEDS: CALCIUM CARB/VIT D3 500/200 TABLET PO SCH (08:25)
[2018-04-03] MEDS: CITALOPRAM 20 MG TABLET. PO SCH (08:25)
[2018-04-03] MEDS: MULTIVITAMIN with MINERAL TABLET. PO SCH (08:25)
[2018-04-03] MEDS: FAMOTIDINE 20 MG TABLET PO SCH ×2 (08:25→20:47)
[2018-04-03] MEDS: SUCRALFATE 1 GM TABLET. PO SCH ×4 (08:26→20:46)
[2018-04-03] MEDS: FUROSEMIDE 20 MG TABLET PO SCH (08:26)
[2018-04-03] MEDS: ASPIRIN 325 MG TABLET PO SCH ×2 (08:26→20:46)
[2018-04-03] MEDS: CHOLECALCIFEROL (VITAMIN D3) 1,000 UNIT TABLET PO SCH (08:26)
[2018-04-03] MEDS: clonazePAM 1 MG TABLET PO SCH ×3 (08:26→20:47)
[2018-04-03] MEDS: VITAMIN B COMPLEX CAPSULE. PO SCH (08:26)
[2018-04-03] MEDS: rOPINIRole 1 MG TABLET. PO SCH ×2 (08:27→20:46)
[2018-04-03] MEDS: PRIMIDONE 250 MG TABLET PO SCH ×3 (08:27→20:46)
[2018-04-03] MEDS: CARBIDOPA/LEVODOPA 25/250MG TABLET PO SCH ×3 (08:28→20:46)
[2018-04-03] MEDS: ALBUTEROL SULFATE 2.5 MG/3 ML NEBU. NEB SCH (11:08)
[2018-04-03 18:00] VITALS: BP 99/54
[2018-04-03] MEDS: SIMVASTATIN 40 MG TABLET. PO SCH (20:46)
[2018-04-03] MEDS: MIRTAZAPINE 15 MG TABLET PO SCH (20:47)
[2018-04-04] MEDS: LEVOTHYROXINE 150 MCG TABLET PO SCH (06:13)
[2018-04-04 06:37] VITALS: BP 129/75
[2018-04-04] MEDS: CALCIUM CARB/VIT D3 500/200 TABLET PO SCH (09:07)
[2018-04-04] MEDS: MULTIVITAMIN with MINERAL TABLET. PO SCH (09:08)
[2018-04-04] MEDS: CHOLECALCIFEROL (VITAMIN D3) 1,000 UNIT TABLET PO SCH (09:08)
[2018-04-04] MEDS: CITALOPRAM 20 MG TABLET. PO SCH (09:09)
[2018-04-04] MEDS: SUCRALFATE 1 GM TABLET. PO SCH ×4 (09:09→22:40)
[2018-04-04] MEDS: SENNOSIDES/DOCUSATE 8.6/50MG TABLET. PO SCH (09:09)
[2018-04-04] MEDS: FAMOTIDINE 20 MG TABLET PO SCH ×2 (09:10→22:39)
[2018-04-04] MEDS: clonazePAM 1 MG TABLET PO SCH ×3 (09:10→21:00)
[2018-04-04] MEDS: ASPIRIN 325 MG TABLET PO SCH ×2 (09:10→22:40)
[2018-04-04] MEDS: OMEGA-3 FATTY ACIDS/FISH OIL 1,000 MG CAPSULE. PO SCH (09:10)
[2018-04-04] MEDS: VITAMIN B COMPLEX CAPSULE. PO SCH (09:11)
[2018-04-04] MEDS: FUROSEMIDE 20 MG TABLET PO SCH (09:12)
[2018-04-04] MEDS: POLYVINYL ALCOHOL/POVIDONE/PF OPHTH SOLUTION DROPERETTE. OU SCH (09:13)
[2018-04-04] MEDS: PRIMIDONE 250 MG TABLET PO SCH ×3 (09:13→22:40)
[2018-04-04] MEDS: rOPINIRole 1 MG TABLET. PO SCH ×2 (09:14→22:39)
[2018-04-04] MEDS: CARBIDOPA/LEVODOPA 25/250MG TABLET PO SCH ×3 (09:14→22:40)
[2018-04-04] MEDS: LANSOPRAZOLE 30 MG TAB.RAP.DR FT SCH (09:15)
[2018-04-04] MEDS: ALBUTEROL SULFATE 2.5 MG/3 ML NEBU. NEB SCH (11:34)
[2018-04-04 18:34] VITALS: BP 93/48
[2018-04-04 19:35] VITALS: BP 116/59
[2018-04-04] MEDS: MIRTAZAPINE 15 MG TABLET PO SCH (22:40)
[2018-04-04] MEDS: SIMVASTATIN 40 MG TABLET. PO SCH (22:40)
[2018-04-05 05:39] VITALS: BP 113/68
[2018-04-05] MEDS: LEVOTHYROXINE 150 MCG TABLET PO SCH (05:42)
[2018-04-05] MEDS: LANSOPRAZOLE 30 MG TAB.RAP.DR FT SCH (07:30)
[2018-04-05] MEDS: FAMOTIDINE 20 MG TABLET PO SCH ×2 (07:40→20:52)
[2018-04-05] MEDS: POLYVINYL ALCOHOL/POVIDONE/PF OPHTH SOLUTION DROPERETTE. OU SCH (07:40)
[2018-04-05] MEDS: CITALOPRAM 20 MG TABLET. PO SCH (07:40)
[2018-04-05] MEDS: VITAMIN B COMPLEX CAPSULE. PO SCH (07:40)
[2018-04-05] MEDS: ASPIRIN 325 MG TABLET PO SCH ×2 (07:40→20:45)
[2018-04-05] MEDS: SENNOSIDES/DOCUSATE 8.6/50MG TABLET. PO SCH (07:41)
[2018-04-05] MEDS: MULTIVITAMIN with MINERAL TABLET. PO SCH (07:41)
[2018-04-05] MEDS: SUCRALFATE 1 GM TABLET. PO SCH ×4 (07:41→20:45)
[2018-04-05] MEDS: clonazePAM 1 MG TABLET PO SCH ×3 (07:41→20:45)
[2018-04-05] MEDS: FUROSEMIDE 20 MG TABLET PO SCH (07:41)
[2018-04-05] MEDS: rOPINIRole 1 MG TABLET. PO SCH ×2 (07:41→20:46)
[2018-04-05] MEDS: OMEGA-3 FATTY ACIDS/FISH OIL 1,000 MG CAPSULE. PO SCH (07:41)
[2018-04-05] MEDS: CALCIUM CARB/VIT D3 500/200 TABLET PO SCH (07:41)
[2018-04-05] MEDS: CARBIDOPA/LEVODOPA 25/250MG TABLET PO SCH ×3 (07:42→20:46)
[2018-04-05] MEDS: PRIMIDONE 250 MG TABLET PO SCH ×3 (07:43→20:47)
[2018-04-05] MEDS: CHOLECALCIFEROL (VITAMIN D3) 1,000 UNIT TABLET PO SCH (09:00)
[2018-04-05] MEDS: ALBUTEROL SULFATE 2.5 MG/3 ML NEBU. NEB SCH (09:46)
[2018-04-05 18:31] VITALS: BP 126/72
[2018-04-05] MEDS: MIRTAZAPINE 15 MG TABLET PO SCH (20:45)
[2018-04-05] MEDS: SIMVASTATIN 40 MG TABLET. PO SCH (20:45)
[2018-04-06 05:01] VITALS: BP 158/83
[2018-04-06] MEDS: LEVOTHYROXINE 150 MCG TABLET PO SCH (05:17)
[2018-04-06] MEDS: CHOLECALCIFEROL (VITAMIN D3) 1,000 UNIT TABLET PO SCH (08:39)
[2018-04-06] MEDS: CITALOPRAM 20 MG TABLET. PO SCH (08:39)
[2018-04-06] MEDS: OMEGA-3 FATTY ACIDS/FISH OIL 1,000 MG CAPSULE. PO SCH (08:39)
[2018-04-06] MEDS: ASPIRIN 325 MG TABLET PO SCH ×2 (08:39→21:32)
[2018-04-06] MEDS: SUCRALFATE 1 GM TABLET. PO SCH ×4 (08:39→21:32)
[2018-04-06] MEDS: clonazePAM 1 MG TABLET PO SCH (08:39)
[2018-04-06] MEDS: CARBIDOPA/LEVODOPA 25/250MG TABLET PO SCH ×3 (08:40→21:34)
[2018-04-06] MEDS: PRIMIDONE 250 MG TABLET PO SCH ×3 (08:40→21:33)
[2018-04-06] MEDS: rOPINIRole 1 MG TABLET. PO SCH ×2 (08:40→21:34)
[2018-04-06] MEDS: LANSOPRAZOLE 30 MG TAB.RAP.DR FT SCH (08:41)
[2018-04-06] MEDS: SENNOSIDES/DOCUSATE 8.6/50MG TABLET. PO SCH (08:58)
[2018-04-06] MEDS: VITAMIN B COMPLEX CAPSULE. PO SCH (08:58)
[2018-04-06] MEDS: CALCIUM CARB/VIT D3 500/200 TABLET PO SCH (08:58)
[2018-04-06] MEDS: MULTIVITAMIN with MINERAL TABLET. PO SCH (08:58)
[2018-04-06] MEDS: FUROSEMIDE 20 MG TABLET PO SCH (08:58)
[2018-04-06] MEDS: FAMOTIDINE 20 MG TABLET PO SCH ×2 (08:58→21:33)
[2018-04-06] MEDS: POLYVINYL ALCOHOL/POVIDONE/PF OPHTH SOLUTION DROPERETTE. OU SCH (08:59)
[2018-04-06] MEDS: ALBUTEROL SULFATE 2.5 MG/3 ML NEBU. NEB SCH (11:20)
[2018-04-06 18:21] VITALS: BP 114/69
[2018-04-06] MEDS: MIRTAZAPINE 15 MG TABLET PO SCH (21:32)
[2018-04-06] MEDS: SIMVASTATIN 40 MG TABLET. PO SCH (21:32)
[2018-04-07] MEDS: LEVOTHYROXINE 150 MCG TABLET PO SCH (06:07)
[2018-04-07 06:12] VITALS: BP 106/58
[2018-04-07] MEDS: SENNOSIDES/DOCUSATE 8.6/50MG TABLET. PO SCH (09:00)
[2018-04-07] MEDS: MULTIVITAMIN with MINERAL TABLET. PO SCH (09:00)
[2018-04-07] MEDS ORDERED: clonazePAM 1 MG TABLET PO SCH (09:00)
[2018-04-07] MEDS: OMEGA-3 FATTY ACIDS/FISH OIL 1,000 MG CAPSULE. PO SCH (09:13)
[2018-04-07] MEDS: VITAMIN B COMPLEX CAPSULE. PO SCH (09:13)
[2018-04-07] MEDS: rOPINIRole 1 MG TABLET. PO SCH ×2 (09:13→20:27)
[2018-04-07] MEDS: CITALOPRAM 20 MG TABLET. PO SCH (09:13)
[2018-04-07] MEDS: FAMOTIDINE 20 MG TABLET PO SCH ×2 (09:14→20:27)
[2018-04-07] MEDS: SUCRALFATE 1 GM TABLET. PO SCH ×4 (09:14→20:27)
[2018-04-07] MEDS: CHOLECALCIFEROL (VITAMIN D3) 1,000 UNIT TABLET PO SCH (09:14)
[2018-04-07] MEDS: ASPIRIN 325 MG TABLET PO SCH ×2 (09:14→20:27)
[2018-04-07] MEDS: CALCIUM CARB/VIT D3 500/200 TABLET PO SCH (09:15)
[2018-04-07] MEDS: FUROSEMIDE 20 MG TABLET PO SCH (09:15)
[2018-04-07] MEDS: POLYVINYL ALCOHOL/POVIDONE/PF OPHTH SOLUTION DROPERETTE. OU SCH (09:15)
[2018-04-07] MEDS: LANSOPRAZOLE 30 MG TAB.RAP.DR FT SCH (09:17)
[2018-04-07] MEDS: PRIMIDONE 250 MG TABLET PO SCH ×3 (09:17→20:28)
[2018-04-07] MEDS: CARBIDOPA/LEVODOPA 25/250MG TABLET PO SCH ×3 (09:18→20:28)
[2018-04-07] MEDS: ALBUTEROL SULFATE 2.5 MG/3 ML NEBU. NEB SCH (11:53)
[2018-04-07 18:57] VITALS: BP 92/47
[2018-04-07] MEDS: SIMVASTATIN 40 MG TABLET. PO SCH (20:27)
[2018-04-07] MEDS: MIRTAZAPINE 15 MG TABLET PO SCH (20:27)
[2018-04-08] MEDS: LEVOTHYROXINE 150 MCG TABLET PO SCH (04:46)
[2018-04-08 05:07] VITALS: BP 116/57
[2018-04-08] MEDS: ASPIRIN 325 MG TABLET PO SCH ×2 (07:36→20:53)
[2018-04-08] MEDS: FUROSEMIDE 20 MG TABLET PO SCH (07:36)
[2018-04-08] MEDS: OMEGA-3 FATTY ACIDS/FISH OIL 1,000 MG CAPSULE. PO SCH (07:36)
[2018-04-08] MEDS: POLYVINYL ALCOHOL/POVIDONE/PF OPHTH SOLUTION DROPERETTE. OU SCH (07:36)
[2018-04-08] MEDS: SUCRALFATE 1 GM TABLET. PO SCH ×4 (07:36→20:54)
[2018-04-08] MEDS: CHOLECALCIFEROL (VITAMIN D3) 1,000 UNIT TABLET PO SCH (07:36)
[2018-04-08] MEDS: PRIMIDONE 250 MG TABLET PO SCH ×3 (07:37→20:54)
[2018-04-08] MEDS: VITAMIN B COMPLEX CAPSULE. PO SCH (07:37)
[2018-04-08] MEDS: LANSOPRAZOLE 30 MG TAB.RAP.DR FT SCH (07:37)
[2018-04-08] MEDS: CITALOPRAM 20 MG TABLET. PO SCH (07:37)
[2018-04-08] MEDS: MULTIVITAMIN with MINERAL TABLET. PO SCH (07:37)
[2018-04-08] MEDS: CARBIDOPA/LEVODOPA 25/250MG TABLET PO SCH ×3 (07:37→20:54)
[2018-04-08] MEDS: FAMOTIDINE 20 MG TABLET PO SCH ×2 (07:37→20:53)
[2018-04-08] MEDS: CALCIUM CARB/VIT D3 500/200 TABLET PO SCH (07:37)
[2018-04-08] MEDS: traMADol 50 MG TABLET PO PRN (07:38)
[2018-04-08] MEDS: clonazePAM 1 MG TABLET PO PRN (07:38)
[2018-04-08] MEDS: SENNOSIDES/DOCUSATE 8.6/50MG TABLET. PO SCH (07:38)
[2018-04-08] MEDS: rOPINIRole 1 MG TABLET. PO SCH ×2 (07:39→20:54)
[2018-04-08] MEDS: ALBUTEROL SULFATE 2.5 MG/3 ML NEBU. NEB SCH (09:45)
[2018-04-08 18:33] VITALS: BP 90/56
[2018-04-08] MEDS: SIMVASTATIN 40 MG TABLET. PO SCH (20:54)
[2018-04-08] MEDS: MIRTAZAPINE 15 MG TABLET PO SCH (20:54)
[2018-04-09] MEDS: LEVOTHYROXINE 150 MCG TABLET PO SCH (06:06)
[2018-04-09 06:13] VITALS: BP 136/75
[2018-04-09] MEDS: FAMOTIDINE 20 MG TABLET PO SCH (07:26)
[2018-04-09] MEDS: SUCRALFATE 1 GM TABLET. PO SCH ×3 (07:26→16:34)
[2018-04-09] MEDS: OMEGA-3 FATTY ACIDS/FISH OIL 1,000 MG CAPSULE. PO SCH (07:26)
[2018-04-09] MEDS: rOPINIRole 1 MG TABLET. PO SCH (07:26)
[2018-04-09] MEDS: LANSOPRAZOLE 30 MG TAB.RAP.DR FT SCH (07:26)
[2018-04-09] MEDS: FUROSEMIDE 20 MG TABLET PO SCH (07:26)
[2018-04-09] MEDS: VITAMIN B COMPLEX CAPSULE. PO SCH (07:26)
[2018-04-09] MEDS: CALCIUM CARB/VIT D3 500/200 TABLET PO SCH (07:26)
[2018-04-09] MEDS: clonazePAM 1 MG TABLET PO PRN (07:26)
[2018-04-09] MEDS: CITALOPRAM 20 MG TABLET. PO SCH (07:27)
[2018-04-09] MEDS: CHOLECALCIFEROL (VITAMIN D3) 1,000 UNIT TABLET PO SCH (07:27)
[2018-04-09] MEDS: PRIMIDONE 250 MG TABLET PO SCH ×2 (07:27→16:34)
[2018-04-09] MEDS: CARBIDOPA/LEVODOPA 25/250MG TABLET PO SCH ×2 (07:27→12:38)
[2018-04-09] MEDS: ASPIRIN 325 MG TABLET PO SCH (07:27)
[2018-04-09] MEDS: MULTIVITAMIN with MINERAL TABLET. PO SCH (07:28)
[2018-04-09] MEDS: SENNOSIDES/DOCUSATE 8.6/50MG TABLET. PO SCH (07:28)
[2018-04-09] MEDS: POLYVINYL ALCOHOL/POVIDONE/PF OPHTH SOLUTION DROPERETTE. OU SCH (07:28)
[2018-04-09] MEDS: ALBUTEROL SULFATE 2.5 MG/3 ML NEBU. NEB SCH (09:00)
[2018-04-09] MEDS: oxyCODONE IR 5 MG TABLET PO PRN (12:39)
[2018-04-09 18:24] VITALS: BP 136/75
[2018-04-09 18:51] VITALS: BP 171/97
== END 2018-04-09 18:52 | disposition short-term general hospital (02) | DRG 533 ==
LOC: LND 15:55
PROVIDERS: ADMIT Family Medicine; ATTEND Family Medicine
DX: S72.92XA Unspecified fracture of left femur, initial encounter for closed fracture (principal); G93.41 Metabolic encephalopathy; E03.9 Hypothyroidism, unspecified; F03.90 Unspecified dementia, unspecified severity, without behavioral disturbance, psychotic disturbance, mood disturbance, and anxiety; F32.9 Major depressive disorder, single episode, unspecified; G20 Parkinson's disease; M19.90 Unspecified osteoarthritis, unspecified site; I95.1 Orthostatic hypotension; Z90.710 Acquired absence of both cervix and uterus; G25.81 Restless legs syndrome; H35.30 Unspecified macular degeneration; E87.6 Hypokalemia; N18.3 Chronic kidney disease, stage 3 (moderate); Z85.820 Personal history of malignant melanoma of skin; W18.39XA Other fall on same level, initial encounter; Y93.89 Activity, other specified; Y92.89 Other specified places as the place of occurrence of the external cause; Y99.8 Other external cause status
CPT/HCPCS: 36415; 80048; 85025; 92526; 94640; J7613; 92610; 97110; 97116; 97530; 97535

== ENCOUNTER 2018-04-09 18:55 | Inpatient (IN) | payer MEDICARE ==
[~2018-04-09] VITALS: Ht 165.1 cm; Wt 61.0 kg
[~2018-04-09 18:55] MED LIST changes: +ALBU2.5V5 NEB; +ASPI325T11 PO; +BENZ200C47 PO; +CARB-110 PO; +FOLI1TAB35 PO; +HYDR-2769 PO; +OMEG-33 PO; +OMEP20TA8 PO; +ONDA4TAB12 PO; +OXYC5TAB4 PO; +POLY255P11 PO; +PRIM250T PO; +PROP10DR3 OP; +SENN1TAB8 PO; +TRAM50TA PO
[2018-04-09] MEDS ORDERED: POLYETHYLENE GLYCOL 3350 17 GM PACKET. PO PRN (19:30)
[2018-04-09] MEDS ORDERED: ROTIGOTINE TD PRN (19:30)
[2018-04-09] MEDS ORDERED: clonazePAM 0.5 MG TABLET PO PRN (19:30)
[2018-04-09] MEDS ORDERED: oxyCODONE IR 5 MG TABLET PO PRN (20:00)
[2018-04-09] MEDS ORDERED: HYDROcodone/APAP 10/325 1 TAB TABLET PO PRN (20:00)
[2018-04-09] MEDS ORDERED: tiZANidine 4 MG TABLET. PO PRN (20:00)
[2018-04-09] MEDS: PRIMIDONE 250 MG TABLET PO SCH (21:15)
[2018-04-09] MEDS: traMADol 50 MG TABLET PO PRN (21:16)
[2018-04-09] MEDS: SIMVASTATIN 40 MG TABLET. PO SCH (21:16)
[2018-04-09] MEDS: rOPINIRole 1 MG TABLET. PO SCH (21:16)
[2018-04-09] MEDS: MIRTAZAPINE 15 MG TABLET PO SCH (21:16)
[2018-04-09] MEDS: FAMOTIDINE 20 MG TABLET PO SCH (21:16)
[2018-04-09] MEDS: CARBIDOPA/LEVODOPA 25/250MG TABLET PO SCH (21:16)
--- NOTE | 2018-04-09 21:45 | RAD ---
CT head without contrast 04/09/2018 CLINICAL INDICATION: Fall with head injury. COMPARISON: CT head 06/29/2017 TECHNIQUE: Multiple CT images of the head were obtained without contrast. *One or more of the following individualized dose reduction techniques were utilized for this examination: 1. Automated exposure control. 2. Adjustment of the mA and/or kV according to patient size. 3. Use of iterative reconstruction technique. FINDINGS: No acute intracranial hemorrhage or extra-axial fluid collection. No midline shift. Prominence of the ventricles and subarachnoid spaces compatible with age-related involutional changes. 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 Patchy periventricular and deep white matter low-attenuation. The visualized mastoid air cells and paranasal sinuses are well aerated. Moderate right periorbital contusion. IMPRESSION: 1. No acute intracranial hemorrhage. 2. Moderate right periorbital contusion. 3. 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 Electronically signed by: Steven Curiel MD (04/09/2018 9:41 PM) [facility]
[2018-04-09 22:03] VITALS: BP 127/69
[2018-04-10 02:54] VITALS: BP 128/71
[2018-04-10] MEDS: LEVOTHYROXINE 150 MCG TABLET PO SCH (06:30)
[2018-04-10 06:33] VITALS: BP 134/69
[2018-04-10] MEDS ORDERED: MIDODRINE 5 MG TABLET PO PRN (07:00)
[2018-04-10] MEDS: PANTOPRAZOLE 40 MG TABLET. PO SCH (08:02)
--- NOTE | 2018-04-10 08:42 | RAD ---
Bilateral hip with AP pelvis 04/09/2018 Clinical indications: Fall with recent left hip surgery and pain. COMPARISON: AP pelvis and 2V left hip 11/30/2017 FINDINGS: Diffuse bony demineralization and overlying bowel contents limits bony detail especially of the pelvis. No diastases of the symphysis pubis or sacroiliac articulations. Moderate bilateral sacral iliac osteoarthritis. Lower lumbar spondylosis. Internal fixation of the right hip with IM nail and proximal and distal screws. Unchanged heterotopic ossification at the lesser trochanter. Mild right hip osteoarthritis with joint space narrowing and osteophytic spurring. Left hip arthroplasty and lateral plate and screw fixation. No evidence of periprosthetic fracture. IMPRESSION: 1. Osteopenia limits bony detail. 2. No radiographic evidence of acute bony pelvic or hip fracture or traumatic malalignment. Electronically signed by: Steven Curiel MD (04/10/2018 8:39 AM) [facility]
--- NOTE | 2018-04-10 08:45 | RAD ---
Two-view left knee 04/09/2018 Clinical indications: Fall with left knee pain and recent left hip surgery. COMPARISON: None. FINDINGS: There is a moderately comminuted fracture of the distal femoral metadiaphysis with mild medial displacement of the fracture fragments. There is minimal callus formation of the fracture fragments best seen on the lateral view. Lateral plate and screw fixation of the distal femur. Severe lateral compartment osteoarthritis with [id number] contact and osteophytosis. Normal bony alignment at the knee. No significant knee joint effusion. Vascular calcifications posterior to the knee. Osteopenia. IMPRESSION: 1. Minimal incomplete healing of comminuted and displaced distal femoral fractures with lateral plate and screw fixation. Correlation with outside imaging is recommended to evaluate for interval distal femoral fractures and displacement. 2. Severe lateral compartment knee osteoarthritis. Electronically signed by: Steven Curiel MD (04/10/2018 8:42 AM) [facility]
[2018-04-10] MEDS: CALCIUM CARB/VIT D3 500/200 TABLET PO SCH (09:14)
[2018-04-10] MEDS: CARBIDOPA/LEVODOPA 25/250MG TABLET PO SCH ×3 (09:14→20:10)
[2018-04-10] MEDS: FAMOTIDINE 20 MG TABLET PO SCH ×2 (09:14→20:10)
[2018-04-10] MEDS: VITAMIN B COMPLEX CAPSULE. PO SCH (09:14)
[2018-04-10] MEDS: MULTIVITAMIN with MINERAL TABLET. PO SCH (09:14)
[2018-04-10] MEDS: CITALOPRAM 20 MG TABLET. PO SCH (09:14)
[2018-04-10] MEDS: OMEGA-3 FATTY ACIDS/FISH OIL 1,000 MG CAPSULE. PO SCH (09:14)
[2018-04-10] MEDS: SENNOSIDES/DOCUSATE 8.6/50MG TABLET. PO SCH (09:14)
[2018-04-10] MEDS: CHOLECALCIFEROL (VITAMIN D3) 1,000 UNIT TABLET PO SCH (09:15)
[2018-04-10] MEDS: rOPINIRole 1 MG TABLET. PO SCH ×2 (09:15→20:10)
[2018-04-10] MEDS: FUROSEMIDE 20 MG TABLET PO SCH (09:15)
[2018-04-10] MEDS: PRIMIDONE 250 MG TABLET PO SCH ×3 (09:19→22:10)
[2018-04-10] MEDS: POLYVINYL ALCOHOL 1.4% OPHTH SOLUTION 15ML BOTTLE. OU SCH (09:19)
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
[2018-04-10 10:23] LABS: BASO % 1 % (0-3); EOS # 0.2 x10^3/uL (0.0-0.7); EOS % 5 % (0-3); HEMATOCRIT 28.1 % (36.0-47.0); HEMOGLOBIN 9.5 g/dL (12.0-15.5); LYMPH # 1.2 x10^3/uL (1.0-4.8); LYMPH % 28 % (24-48); MEAN CORPUSCULAR HEMOGLOBIN 30 pg (25-35); MEAN CORPUSCULAR HGB CONC 34 g/dL (31-37); MEAN CORPUSCULAR VOLUME 87 fL (79-100); MONO # 0.3 x10^3/uL (0.0-1.1); MONO % 6 % (0-9); NEUT # 2.5 x10^3uL (1.8-7.7); NEUT % 61 % (31-73); PLATELET COUNT 127 x10^3/uL (140-400); RED BLOOD COUNT 3.21 x10^6/uL (3.50-5.40); RED CELL DISTRIBUTION WIDTH 15.7 % (11.5-14.5); WHITE BLOOD COUNT 4.1 x10^3/uL (4.0-11.0)
[2018-04-10 10:31] LABS: CALCIUM 7.9 mg/dL (8.5-10.1); CREATININE 1.2 mg/dL (0.6-1.0); GFR 42.4; POTASSIUM 3.2 mmol/L (3.5-5.1)
[2018-04-10] MEDS: ALBUTEROL SULFATE 2.5 MG/3 ML NEBU. NEB SCH (11:05)
[2018-04-10] MEDS ORDERED: POTASSIUM CHLORIDE 20 MEQ TABLET.ER. PO ONE (11:15)
[2018-04-10 15:56] VITALS: BP 106/59
[2018-04-10] MEDS: traMADol 50 MG TABLET PO PRN (20:10)
[2018-04-10] MEDS: MIRTAZAPINE 15 MG TABLET PO SCH (20:10)
[2018-04-10] MEDS: SIMVASTATIN 40 MG TABLET. PO SCH (20:10)
[2018-04-11] MEDS: LEVOTHYROXINE 150 MCG TABLET PO SCH (05:47)
[2018-04-11 06:03] VITALS: BP 128/73
[2018-04-11] MEDS: FAMOTIDINE 20 MG TABLET PO SCH ×2 (08:02→21:48)
[2018-04-11] MEDS: VITAMIN B COMPLEX CAPSULE. PO SCH (08:02)
[2018-04-11] MEDS: OMEGA-3 FATTY ACIDS/FISH OIL 1,000 MG CAPSULE. PO SCH (08:02)
[2018-04-11] MEDS: MULTIVITAMIN with MINERAL TABLET. PO SCH (08:02)
[2018-04-11] MEDS: PANTOPRAZOLE 40 MG TABLET. PO SCH (08:02)
[2018-04-11] MEDS: SENNOSIDES/DOCUSATE 8.6/50MG TABLET. PO SCH (08:02)
[2018-04-11] MEDS: FUROSEMIDE 20 MG TABLET PO SCH (08:02)
[2018-04-11] MEDS: CITALOPRAM 20 MG TABLET. PO SCH (08:02)
[2018-04-11] MEDS: CALCIUM CARB/VIT D3 500/200 TABLET PO SCH (08:03)
[2018-04-11] MEDS: CHOLECALCIFEROL (VITAMIN D3) 1,000 UNIT TABLET PO SCH (08:03)
[2018-04-11] MEDS: CARBIDOPA/LEVODOPA 25/250MG TABLET PO SCH ×3 (08:03→21:50)
[2018-04-11] MEDS: rOPINIRole 1 MG TABLET. PO SCH ×2 (08:04→21:49)
[2018-04-11] MEDS: PRIMIDONE 250 MG TABLET PO SCH ×3 (08:04→21:48)
[2018-04-11] MEDS: POLYVINYL ALCOHOL 1.4% OPHTH SOLUTION 15ML BOTTLE. OU SCH (09:00)
[2018-04-11] MEDS: ALBUTEROL SULFATE 2.5 MG/3 ML NEBU. NEB SCH (09:41)
[2018-04-11] MEDS: POTASSIUM CHLORIDE 8 MEQ TABLET.ER. PO SCH ×2 (14:39→21:47)
[2018-04-11 18:06] VITALS: BP 111/65
[2018-04-11 21:13] LABS: BILIRUBIN,URINE NEG (NEG); CLARITY,URINE HAZY; COLOR,URINE YELLOW; GLUCOSE,URINE NEG (NEG)
[2018-04-11 21:14] LABS: BACTERIA,URINE MANY /HPF (0-FEW); HYALINE CASTS, URINE MANY /HPF; NITRITE,URINE NEG (NEG); SQUAMOUS EPITHELIAL CELL,UR MOD /LPF; UROBILINOGEN,URINE 0.2 mg/dL (0.2 mg/dL)
[2018-04-11] MEDS: MIRTAZAPINE 15 MG TABLET PO SCH (21:49)
[2018-04-11] MEDS: SIMVASTATIN 40 MG TABLET. PO SCH (21:50)
[2018-04-12] MEDS: LEVOTHYROXINE 150 MCG TABLET PO SCH (05:42)
[2018-04-12 05:49] VITALS: BP 136/82
[2018-04-12 06:44] LABS: CREATININE 1.1 mg/dL (0.6-1.0); GFR 46.9; POTASSIUM 3.8 mmol/L (3.5-5.1)
[2018-04-12] MEDS: CARBIDOPA/LEVODOPA 25/250MG TABLET PO SCH ×3 (08:44→21:56)
[2018-04-12] MEDS: OMEGA-3 FATTY ACIDS/FISH OIL 1,000 MG CAPSULE. PO SCH (08:44)
[2018-04-12] MEDS: POTASSIUM CHLORIDE 8 MEQ TABLET.ER. PO SCH ×3 (08:44→21:55)
[2018-04-12] MEDS: FUROSEMIDE 20 MG TABLET PO SCH (08:44)
[2018-04-12] MEDS: CITALOPRAM 20 MG TABLET. PO SCH (08:44)
[2018-04-12] MEDS: VITAMIN B COMPLEX CAPSULE. PO SCH (08:44)
[2018-04-12] MEDS: SENNOSIDES/DOCUSATE 8.6/50MG TABLET. PO SCH (08:44)
[2018-04-12] MEDS: CALCIUM CARB/VIT D3 500/200 TABLET PO SCH (08:44)
[2018-04-12] MEDS: PANTOPRAZOLE 40 MG TABLET. PO SCH (08:44)
[2018-04-12] MEDS: rOPINIRole 1 MG TABLET. PO SCH ×2 (08:44→21:56)
[2018-04-12] MEDS: FAMOTIDINE 20 MG TABLET PO SCH ×2 (08:44→21:55)
[2018-04-12] MEDS: CHOLECALCIFEROL (VITAMIN D3) 1,000 UNIT TABLET PO SCH (08:44)
[2018-04-12] MEDS: MULTIVITAMIN with MINERAL TABLET. PO SCH (08:44)
[2018-04-12] MEDS: PRIMIDONE 250 MG TABLET PO SCH ×3 (08:46→21:54)
[2018-04-12] MEDS: POLYVINYL ALCOHOL 1.4% OPHTH SOLUTION 15ML BOTTLE. OU SCH (10:00)
[2018-04-12] MEDS: ALBUTEROL SULFATE 2.5 MG/3 ML NEBU. NEB SCH (10:59)
[2018-04-12 18:22] VITALS: BP 112/69
[2018-04-12] MEDS: MIRTAZAPINE 15 MG TABLET PO SCH (21:55)
[2018-04-12] MEDS: SIMVASTATIN 40 MG TABLET. PO SCH (21:57)
[2018-04-13 06:00] VITALS: BP 127/69
[2018-04-13] MEDS: LEVOTHYROXINE 150 MCG TABLET PO SCH (07:17)
[2018-04-13] MEDS: CITALOPRAM 20 MG TABLET. PO SCH (08:46)
[2018-04-13] MEDS: CHOLECALCIFEROL (VITAMIN D3) 1,000 UNIT TABLET PO SCH (08:46)
[2018-04-13] MEDS: POTASSIUM CHLORIDE 8 MEQ TABLET.ER. PO SCH ×3 (08:47→20:52)
[2018-04-13] MEDS: CARBIDOPA/LEVODOPA 25/250MG TABLET PO SCH ×3 (08:47→20:54)
[2018-04-13] MEDS: PRIMIDONE 250 MG TABLET PO SCH ×3 (08:48→20:53)
[2018-04-13] MEDS: FUROSEMIDE 20 MG TABLET PO SCH (08:49)
[2018-04-13] MEDS: PANTOPRAZOLE 40 MG TABLET. PO SCH (08:49)
[2018-04-13] MEDS: OMEGA-3 FATTY ACIDS/FISH OIL 1,000 MG CAPSULE. PO SCH (08:49)
[2018-04-13] MEDS: CALCIUM CARB/VIT D3 500/200 TABLET PO SCH (08:49)
[2018-04-13] MEDS: MULTIVITAMIN with MINERAL TABLET. PO SCH (08:49)
[2018-04-13] MEDS: VITAMIN B COMPLEX CAPSULE. PO SCH (08:49)
[2018-04-13] MEDS: FAMOTIDINE 20 MG TABLET PO SCH ×2 (08:50→20:54)
[2018-04-13] MEDS: rOPINIRole 1 MG TABLET. PO SCH ×2 (08:50→20:54)
[2018-04-13] MEDS: SENNOSIDES/DOCUSATE 8.6/50MG TABLET. PO SCH (08:50)
[2018-04-13] MEDS: POLYVINYL ALCOHOL 1.4% OPHTH SOLUTION 15ML BOTTLE. OU SCH (09:54)
[2018-04-13] MEDS: ALBUTEROL SULFATE 2.5 MG/3 ML NEBU. NEB SCH (15:39)
[2018-04-13 18:20] VITALS: BP 129/68
[2018-04-13] MEDS: MIRTAZAPINE 15 MG TABLET PO SCH (20:53)
[2018-04-13] MEDS: SIMVASTATIN 40 MG TABLET. PO SCH (20:54)
[2018-04-13] MEDS: traMADol 50 MG TABLET PO PRN (20:55)
[2018-04-14] MEDS: LEVOTHYROXINE 150 MCG TABLET PO SCH (05:08)
[2018-04-14 06:14] VITALS: BP 150/78
[2018-04-14] MEDS: OMEGA-3 FATTY ACIDS/FISH OIL 1,000 MG CAPSULE. PO SCH (09:02)
[2018-04-14] MEDS: VITAMIN B COMPLEX CAPSULE. PO SCH (09:02)
[2018-04-14] MEDS: FAMOTIDINE 20 MG TABLET PO SCH ×2 (09:02→19:48)
[2018-04-14] MEDS: CHOLECALCIFEROL (VITAMIN D3) 1,000 UNIT TABLET PO SCH (09:02)
[2018-04-14] MEDS: MULTIVITAMIN with MINERAL TABLET. PO SCH (09:03)
[2018-04-14] MEDS: FUROSEMIDE 20 MG TABLET PO SCH (09:03)
[2018-04-14] MEDS: PANTOPRAZOLE 40 MG TABLET. PO SCH (09:03)
[2018-04-14] MEDS: CALCIUM CARB/VIT D3 500/200 TABLET PO SCH (09:03)
[2018-04-14] MEDS: SENNOSIDES/DOCUSATE 8.6/50MG TABLET. PO SCH (09:03)
[2018-04-14] MEDS: POTASSIUM CHLORIDE 8 MEQ TABLET.ER. PO SCH ×3 (09:03→19:49)
[2018-04-14] MEDS: rOPINIRole 1 MG TABLET. PO SCH ×2 (09:03→19:49)
[2018-04-14] MEDS: CARBIDOPA/LEVODOPA 25/250MG TABLET PO SCH ×3 (09:03→19:50)
[2018-04-14] MEDS: CITALOPRAM 20 MG TABLET. PO SCH (09:03)
[2018-04-14] MEDS: PRIMIDONE 250 MG TABLET PO SCH ×3 (09:05→19:49)
[2018-04-14] MEDS: POLYVINYL ALCOHOL 1.4% OPHTH SOLUTION 15ML BOTTLE. OU SCH (09:31)
[2018-04-14] MEDS: ALBUTEROL SULFATE 2.5 MG/3 ML NEBU. NEB SCH (09:36)
[2018-04-14 18:42] VITALS: BP 107/65
[2018-04-14] MEDS: MIRTAZAPINE 15 MG TABLET PO SCH (19:48)
[2018-04-14] MEDS: SIMVASTATIN 40 MG TABLET. PO SCH (19:48)
[2018-04-14] MEDS ORDERED: levoFLOXacin 250 MG TABLET PO SCH (21:00)
[2018-04-15] MEDS: PANTOPRAZOLE 40 MG TABLET. PO SCH (05:21)
[2018-04-15] MEDS: LEVOTHYROXINE 150 MCG TABLET PO SCH (05:21)
[2018-04-15 05:37] VITALS: BP 145/77
[2018-04-15] MEDS: rOPINIRole 1 MG TABLET. PO SCH (09:13)
[2018-04-15] MEDS: CHOLECALCIFEROL (VITAMIN D3) 1,000 UNIT TABLET PO SCH (09:13)
[2018-04-15] MEDS: CITALOPRAM 20 MG TABLET. PO SCH (09:13)
[2018-04-15] MEDS: FAMOTIDINE 20 MG TABLET PO SCH (09:13)
[2018-04-15] MEDS: SENNOSIDES/DOCUSATE 8.6/50MG TABLET. PO SCH (09:13)
[2018-04-15] MEDS: MULTIVITAMIN with MINERAL TABLET. PO SCH (09:13)
[2018-04-15] MEDS: CARBIDOPA/LEVODOPA 25/250MG TABLET PO SCH ×2 (09:13→13:25)
[2018-04-15] MEDS: CALCIUM CARB/VIT D3 500/200 TABLET PO SCH (09:13)
[2018-04-15] MEDS: POLYVINYL ALCOHOL 1.4% OPHTH SOLUTION 15ML BOTTLE. OU SCH (09:13)
[2018-04-15] MEDS: VITAMIN B COMPLEX CAPSULE. PO SCH (09:13)
[2018-04-15] MEDS: PRIMIDONE 250 MG TABLET PO SCH ×2 (09:14→13:25)
[2018-04-15] MEDS: POTASSIUM CHLORIDE 8 MEQ TABLET.ER. PO SCH ×2 (09:14→13:26)
[2018-04-15] MEDS: FUROSEMIDE 20 MG TABLET PO SCH (09:14)
[2018-04-15] MEDS: OMEGA-3 FATTY ACIDS/FISH OIL 1,000 MG CAPSULE. PO SCH (09:14)
[2018-04-15] MEDS: ALBUTEROL SULFATE 2.5 MG/3 ML NEBU. NEB SCH (10:38)
[2018-04-15] MEDS ORDERED: LEVO250T7 PO (13:49)
--- NOTE | 2018-04-15 13:51 | DISCH ---
HOME HEALTH DISCHARGE/MEDS DISCHARGE INFORMATION: Condition on Discharge: Stable CODE STATUS: Code Status: DNR/DNI HOME HEALTH: Face to Face: I certify this patient is under my care and that I, or a nurse practitioner or physician's media center assistant working with me, had a face to face encounter that meets the physician face to face encounter requirements with this patient on [Date]. Medical Condition(s): Falls, FX Physical Therapy For: Evalulation/Treatment Occupational Therapy For: Evaluation/Treatment Homebound Status Met By: Unsteady balance w/ amb, POST DISCHARGE ORDERS: Activity Instructions for Disc: Activity as tolerated Weight Bearing Status after Di: No restrictions DIET AFTER DISCHARGE: Cardiac TREATMENT/EQUIPMENT ORDERS: Adaptive Equipment Issued: Front wheeled walker, Wheelchair CERTIFICATION STATEMENT: Certification Statement: Based on the above finding, I certify that this patient is confined to the home and needs intermittent penitentiary care, physical therapy and/or speech therapy, or continues to need occupational therapy.~ This patient is under my care, and I have initiated the establishment of the plan of care.~ This patient will be followed by myself or a community physician who will periodically review the plan of care. DISCHARGE MEDICATIONS: Home Meds Active Scripts Levothyroxine Sodium (SYNTHROID) 150 Mcg Tablet, 150 MCG PO DAILY07, #30 TAB Prov:SUNSHINE WALKER MD 01/21/15 Reported Medications Carbidopa/Levodopa (CARBIDOPA-LEVODOPA 25-250 TAB) 1 Each Tablet, 1 TAB PO TID for parkinson 03/22/18 Ondansetron (ONDANSETRON ODT) 4 Mg Tab.rapdis, 4 MG PO PRN QID PRN for NAUSEA/ VOMITING LAST DOSE GIVEN: DATE: TIME: NEXT DOSE DUE: DATE: TIME: 03/22/18 Polyethylene Glycol 3350 (POLYETHYLENE GLYCOL 3350) 255 Gm Powder, 17 GM PO DAILY PRN for CONSTIPATION LAST DOSE GIVEN: DATE: TIME: NEXT DOSE DUE: DATE: TIME: 03/22/18 Sennosides/Docusate Sodium (SENNA-DOCUSATE SODIUM TABLET) 1 Each Tablet, 1 TAB PO DAILY for Stool Softner LAST DOSE GIVEN: DATE: TIME: NEXT DOSE DUE: DATE: TIME: 03/22/18 Winthrop-3 Fatty Acids/Fish Oil (OMEGA 3 1,000 MG SOFTGEL) 1 Each Capsule, 1 EACH PO DAILY for Heart Health LAST DOSE GIVEN: DATE: TIME: NEXT DOSE DUE: DATE: TIME: 03/22/18 Primidone (PRIMIDONE) 250 Mg Tablet, 125 MG PO TID for Seizures LAST DOSE GIVEN: DATE: TIME: NEXT DOSE DUE: DATE: TIME: 03/22/18 Mirtazapine (MIRTAZAPINE) 15 Mg Tablet, 1 TAB PO QHS for Depression LAST DOSE GIVEN: DATE: TIME: NEXT DOSE DUE: DATE: TIME: 03/22/18 Rotigotine (NEUPRO) 1 Each Patch.td24, 1 PATCH TD PRN Q24HRS PRN for restless legs and Parkinson's LAST DOSE GIVEN: DATE: TIME: NEXT DOSE DUE: DATE: TIME: 03/22/18 Propylene Glycol/Peg 400 (SYSTANE ULTRA 0.4-0.3% EYE DRP) 10 Ml Drops, 2 DROP OP DAILY for Dry eyes LAST DOSE GIVEN: DATE: TIME: NEXT DOSE DUE: DATE: TIME: 03/22/18 Tramadol Hcl (TRAMADOL HCL) 50 Mg Tablet, 50 MG PO TID for Pain LAST DOSE GIVEN: DATE: TIME: NEXT DOSE DUE: DATE: TIME: 03/22/18 Omeprazole (OMEPRAZOLE) 20 Mg Tablet.dr, 20 MG PO DAILY for Acid Reflux LAST DOSE GIVEN: DATE: TIME: NEXT DOSE DUE: DATE: TIME: 03/22/18 Albuterol Sulfate (ALBUTEROL SULFATE NEB SOLN ) 2.5 Mg/3 Ml Vial.neb, 1 VIAL NEB DAILY for Breathing treatment LAST DOSE GIVEN: DATE: TIME: NEXT DOSE DUE: DATE: TIME: 03/22/18 Hydrocodone Bit/Acetaminophen (HYDROCODONE-APAP 10-325 ) 1 Each Tablet, 1 TAB PO PRN Q6HRS PRN for PAIN LAST DOSE GIVEN: DATE: TIME: NEXT DOSE DUE: DATE: TIME: 03/22/18 Oxycodone Hcl (OXYCODONE HCL IMMED.RELEASE ) 5 Mg Tablet, 5 MG PO PRN Q4HRS PRN for MODERATE PAIN LAST DOSE GIVEN: DATE: TIME: NEXT DOSE DUE: DATE: TIME: 03/22/18 Citalopram Hydrobromide (CELEXA) 40 Mg Tablet, 40 MG PO DAILY for Depression LAST DOSE GIVEN: DATE: TIME: NEXT DOSE DUE: DATE: TIME: 06/28/17 Tizanidine Hcl (TIZANIDINE HCL) 4 Mg Tablet, 2 MG PO QID PRN for MUSCLE SPASMS LAST DOSE GIVEN: DATE: TIME: NEXT DOSE DUE: DATE: TIME: 06/27/17 Simvastatin (SIMVASTATIN) 40 Mg Tablet, 40 MG PO QHS for High Cholesterol LAST DOSE GIVEN: DATE: TIME: NEXT DOSE DUE: DATE: TIME: 06/27/17 Furosemide (LASIX) 20 Mg Tablet, 20 MG PO DAILY for Edema LAST DOSE GIVEN: DATE: TIME: NEXT DOSE DUE: DATE: TIME: 06/27/17 Ropinirole Hcl (REQUIP) 1 Mg Tablet, 1 MG PO BID for Restless Legs LAST DOSE GIVEN: DATE: TIME: NEXT DOSE DUE: DATE: TIME: 06/27/17 Midodrine Hcl (MIDODRINE HCL) 5 Mg Tablet, 5 MG PO TID PRN for Low blood pressure LAST DOSE GIVEN: DATE: TIME: NEXT DOSE DUE: DATE: TIME: 06/27/17 Clonazepam (CLONAZEPAM) 1 Mg Tablet, 1 TAB PO TID for ANXIETY LAST DOSE GIVEN: DATE: TIME: NEXT DOSE DUE: DATE: TIME: 09/27/14 Ranitidine Hcl (RANITIDINE HCL) 150 Mg Tablet, 150 MG PO BID for Heart Burn LAST DOSE GIVEN: DATE: TIME: NEXT DOSE DUE: DATE: TIME: 09/27/14 Cholecalciferol (Vitamin D3) (VITAMIN D-3) 2,000 Unit Tablet, 2000 UNIT PO DAILY for Supplement LAST DOSE GIVEN: DATE: TIME: NEXT DOSE DUE: DATE: TIME: 09/27/14 Calcium Carbonate/Vitamin D3 (CALCIUM 600 + VIT D 200 TABLET) 1 Each Tablet, 1 TAB PO DAILY for Supplement LAST DOSE GIVEN: DATE: TIME: NEXT DOSE DUE: DATE: TIME: 09/27/14 Multivitamin (DAILY VITAMIN) 1 Each Tablet, 1 EACH PO DAILY for Supplement LAST DOSE GIVEN: DATE: TIME: NEXT DOSE DUE: DATE: TIME: 09/27/14 Cyanocobalamin/Folic Acid (VITAMIN R32-RMMGQ ACID TABLET) 1 Each Tablet, 1 EACH PO DAILY for Supplement LAST DOSE GIVEN: DATE: TIME: NEXT DOSE DUE: DATE: TIME: 09/27/14 Discontinued Reported Medications Benzonatate (BENZONATATE) 200 Mg Capsule, 200 MG PO PRN TID for Cough LAST DOSE GIVEN: DATE: TIME: NEXT DOSE DUE: DATE: TIME: 03/22/18 Aspirin (ASPIRIN EC) 325 Mg Tablet.dr, 1 TAB PO BID for Heart Health LAST DOSE GIVEN: DATE: TIME: NEXT DOSE DUE: DATE: TIME: 03/22/18 Sucralfate (CARAFATE) 1 Gm Tablet, 1 TAB PO QIDACHS for Reflux LAST DOSE GIVEN: DATE: TIME: NEXT DOSE DUE: DATE: TIME: 06/27/17 SUNSHINE WALKER MD Apr 15, 2018 13:51
[2018-04-15] MEDS ORDERED: LACTOBACILLUS RHAMNOSUS GG 1 CAPSULE. PO SCH (21:00)
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
== END 2018-04-15 15:50 | disposition home health service (06) | DRG 125 ==
LOC: LND 18:55
PROVIDERS: ADMIT Family Medicine; ATTEND Family Medicine
DX: S00.11XA Contusion of right eyelid and periocular area, initial encounter (principal); W01.198A Fall on same level from slipping, tripping and stumbling with subsequent striking against other object, initial encounter; W07.XXXA Fall from chair, initial encounter; Z86.73 Personal history of transient ischemic attack (TIA), and cerebral infarction without residual deficits; Y93.89 Activity, other specified; Y92.128 Other place in nursing home as the place of occurrence of the external cause; Y99.8 Other external cause status; Z87.81 Personal history of (healed) traumatic fracture; Z90.710 Acquired absence of both cervix and uterus; Z85.820 Personal history of malignant melanoma of skin; H35.30 Unspecified macular degeneration; G20 Parkinson's disease; E03.9 Hypothyroidism, unspecified; S80.211A Abrasion, right knee, initial encounter; S80.212A Abrasion, left knee, initial encounter; F03.90 Unspecified dementia, unspecified severity, without behavioral disturbance, psychotic disturbance, mood disturbance, and anxiety
CPT/HCPCS: 36415; 70450; 73521; 73560; 80048; 81001; 85025; 87086; 87186; 94640; J7613; 97110; 97116; 97530

== ENCOUNTER 2018-05-07 19:10 | Inpatient (IN) | payer MEDICARE ==
[~2018-05-07] VITALS: Ht 165.1 cm; Wt 60.5 kg
[~2018-05-07 19:10] MED LIST changes: +LEVO250T7 PO
[2018-05-07] MEDS ORDERED: 0.9 % SODIUM CHLORIDE 10 ML DISP.SYRIN. IV PRN (19:30)
[2018-05-07 19:44] LABS: BASO # 0.1 x10^3/uL (0.0-0.2); BASO % 2 % (0-3); EOS # 0.1 x10^3/uL (0.0-0.7); EOS % 2 % (0-3); HEMATOCRIT 33.2 % (36.0-47.0); LYMPH # 1.3 x10^3/uL (1.0-4.8); LYMPH % 27 % (24-48); MEAN CORPUSCULAR HEMOGLOBIN 30 pg (25-35); MEAN CORPUSCULAR HGB CONC 33 g/dL (31-37); MEAN CORPUSCULAR VOLUME 89 fL (79-100); MONO # 0.3 x10^3/uL (0.0-1.1); MONO % 7 % (0-9); NEUT # 2.9 x10^3uL (1.8-7.7); NEUT % 61 % (31-73); PLATELET COUNT 194 x10^3/uL (140-400); RED BLOOD COUNT 3.72 x10^6/uL (3.50-5.40); RED CELL DISTRIBUTION WIDTH 15.3 % (11.5-14.5); WHITE BLOOD COUNT 4.7 x10^3/uL (4.0-11.0)
[2018-05-07 20:07] LABS: ALBUMIN 2.6 g/dL (3.4-5.0); ALBUMIN/GLOBULIN RATIO 0.7 (1.0-1.7); CALCIUM 8.2 mg/dL (8.5-10.1); CREATININE 1.2 mg/dL (0.6-1.0); GFR 42.4; POTASSIUM 3.3 mmol/L (3.5-5.1); TOTAL BILIRUBIN 0.2 mg/dL (0.2-1.0); TOTAL PROTEIN 6.2 g/dL (6.4-8.2)
[2018-05-07 20:10] LABS: BILIRUBIN,URINE NEG (NEG); CLARITY,URINE CLEAR; COLOR,URINE YELLOW; GLUCOSE,URINE NEG (NEG); NITRITE,URINE NEG (NEG); UROBILINOGEN,URINE 0.2 mg/dL (0.2 mg/dL)
[2018-05-07 20:11] LABS: BACTERIA,URINE 0 /HPF (0-FEW); HYALINE CASTS, URINE OCC /HPF; SQUAMOUS EPITHELIAL CELL,UR OCC /LPF
[2018-05-07 20:12] LABS: RBC,URINE OCC /HPF (0-2)
--- NOTE | 2018-05-07 20:13 | PHYS DOC ---
Past History Past Medical History: Anxiety, GERD, High Cholesterol, Hypertension, Hypothyroid Past Surgical History: Cholecystectomy, Other Alcohol Use: None Drug Use: None Adult General Chief Complaint Chief Complaint: MULTIPLE COMPLAINTS HPI HPI Patient is a 88 year old female who presents with complaint of lower extremity swelling. The patient was brought to the emergency department by her neighbor due to concerns for her current care at home. Patient states that she was recently admitted to the hospital at the end of March and was discharged at that time. Over the last 2 weeks, the patient states that her daughter who had been taking care of her at home reportedly told her that she could not care for her anymore. The patient states that because of that she has not been able to get up and use the restroom, take her medications, or most recently been able to be fed or given fluids. Due to these concerns, the patient's neighbor came and brought her to the emergency department for evaluation. Patient does have history of congestive heart failure and hypertension. Patient states that she has not taken her Lasix over the past 2 weeks. Notes increase in swelling and pain to her lower extremities. Denies any chest pain or shortness of breath currently. Review of Systems Review of Systems Constitutional: Generalized fatigue, denies fever or chills [] Eyes: Denies change in visual acuity, redness, or eye pain [] HENT: Denies nasal congestion or sore throat [] Respiratory: Denies cough or shortness of breath [] Cardiovascular: Lower extremity edema, denies chest pain[] GI: Denies abdominal pain, nausea, vomiting, bloody stools or diarrhea [] : Denies dysuria or hematuria [] Musculoskeletal: Denies back pain or joint pain [] Integument: Denies rash or skin lesions [] Neurologic: Denies headache, focal weakness or sensory changes [] All other systems were reviewed and found to be within normal limits, except as documented in this note. Current Medications Current Medications Current Medications Medications (Trade) Dose Ordered Sig/Gabriel Start Time Stop Time Status Last Admin Dose Admin Sodium Chloride (Normal Saline Flush) 10 ml QSHIFT PRN 05/07/18 19:30 Allergies Allergies Allergies Coded Allergies Type Severity Reaction Last Updated Verified Penicillins Allergy Intermediate 09/27/14 Yes meloxicam Allergy Intermediate 09/27/14 Yes Physical Exam Physical Exam Constitutional: Alert, afebrile, appears in chronically poor health. [] HENT: Normocephalic, atraumatic, bilateral external ears normal, oropharynx moist, no oral exudates, nose normal. [] Eyes: PERRLA, EOMI, conjunctiva normal, no discharge. [] Neck: Normal range of motion, no tenderness, supple, no stridor. [] Cardiovascular:Heart rate regular rhythm, no murmur [] Lungs & Thorax: Bilateral breath sounds clear to auscultation [] Abdomen: Bowel sounds normal, soft, no tenderness, no masses, no pulsatile masses. [] Skin: Warm, dry, no erythema, no rash. [] Back: No tenderness, no CVA tenderness. [] Extremities: No tenderness, no cyanosis, no clubbing, ROM intact, no edema. [] Neurologic: Alert and oriented X 3, pill-rolling tremor, cogwheel rigidity in bilateral upper extremities, no focal deficits noted. [] Current Patient Data Vital Signs Vital Signs Date Time Temp Pulse Resp B/P (MAP) Pulse Ox O2 Delivery O2 Flow Rate FiO2 05/07/18 19:40 79 16 150/81 (104) 98 Room Air 05/07/18 19:10 97.9 Lab Results Laboratory Tests Test 05/07/18 19:30 05/07/18 19:40 White Blood Count 4.7 x10^3/uL Red Blood Count 3.72 x10^6/uL Hemoglobin 11.0 g/dL Hematocrit 33.2 % Mean Corpuscular Volume 89 fL Mean Corpuscular Hemoglobin 30 pg Mean Corpuscular Hemoglobin Concent 33 g/dL Red Cell Distribution Width 15.3 % Platelet Count 194 x10^3/uL Neutrophils (%) (Auto) 61 % Lymphocytes (%) (Auto) 27 % Monocytes (%) (Auto) 7 % Eosinophils (%) (Auto) 2 % Basophils (%) (Auto) 2 % Neutrophils # (Auto) 2.9 x10^3uL Lymphocytes # (Auto) 1.3 x10^3/uL Monocytes # (Auto) 0.3 x10^3/uL Eosinophils # (Auto) 0.1 x10^3/uL Basophils # (Auto) 0.1 x10^3/uL Sodium Level 145 mmol/L Potassium Level 3.3 mmol/L Chloride Level 108 mmol/L Carbon Dioxide Level 26 mmol/L Anion Gap 11 Blood Urea Nitrogen 15 mg/dL Creatinine 1.2 mg/dL Estimated GFR (Cockcroft-Gault) 42.4 BUN/Creatinine Ratio 13 Glucose Level 125 mg/dL Calcium Level 8.2 mg/dL Magnesium Level 2.0 mg/dL Total Bilirubin 0.2 mg/dL Aspartate Amino Transf (AST/SGOT) 14 U/L Alanine Aminotransferase (ALT/SGPT) 12 U/L Alkaline Phosphatase 132 U/L SM-Cle-I-Type Natriuretic Peptide 1988 pg/mL Total Protein 6.2 g/dL Albumin 2.6 g/dL Albumin/Globulin Ratio 0.7 Urine Collection Type U cath Urine Color Yellow Urine Clarity Clear Urine pH 5.5 Urine Specific [place]berta >=1.030 Urine Protein 100 mg/dl Urine Glucose (UA) Neg mg/dL Urine Ketones (Stick) 15 mg/dL Urine Blood Neg Urine Nitrite Neg Urine Bilirubin Neg Urine Urobilinogen Dipstick 0.2 mg/dL Urine Leukocyte Esterase Neg Urine RBC Occ /HPF Urine WBC 1-4 /HPF Urine Squamous Epithelial Cells Occ /LPF Urine Bacteria 0 /HPF Urine Hyaline Casts Occ /HPF Urine Mucus Slight /LPF Current Medications Medications (Trade) Dose Ordered Sig/Gabriel Route PRN Reason Start Time Stop Time Status Last Admin Dose Admin Sodium Chloride (Normal Saline Flush) 10 ml QSHIFT PRN IV AFTER MEDS AND BLOOD DRAWS 05/07/18 19:30 EKG EKG Interpreted by me: Heart rate 79, sinus rhythm, left axis deviation, no acute ST /T-wave abnormalities present[] Radiology/Procedures Radiology/Procedures One view AP chest x-ray interpreted by me: Pulmonary vascular congestion, left pleural effusion[] Course & Med Decision Making Course & Med Decision Making Pertinent Labs and Imaging studies reviewed. (See chart for details) Patient's vital signs have remained stable in the emergency department. The patient shows evidence of acute on chronic congestive heart failure and was started on 40 mg of IV Lasix. Due to presence of acute on chronic CHF and concerns for the patient's well being at home, the patient will need admission to the hospital for further care at this time. I spoke with Dr. Cardona who accepted care of patient in hospital. Dragon Disclaimer Dragon Disclaimer This electronic medical record was generated, in whole or in part, using a voice recognition dictation system. Departure Departure: Impression: Primary Impression: Acute on chronic congestive heart failure Additional Impressions: Advanced age Severe protein-calorie malnutrition Parkinsons disease Disposition: 09 ADMITTED INPATIENT Admitting Physician: Elvis Cardona Condition: STABLE Referrals: ELVIS CARDONA MD (PCP) Problem Qualifiers Primary Impression: Acute on chronic congestive heart failure Heart failure type: unspecified Qualified Codes: I50.9 - Heart failure, unspecified JOVANNA DURANT MD May 07, 2018 20:13
[2018-05-07] MEDS ORDERED: ACETAMINOPHEN 325 MG TABLET PO PRN (20:45)
[2018-05-07] MEDS ORDERED: ONDANSETRON PF 4 MG/2 ML VIAL. IV PRN (20:45)
[2018-05-07] MEDS ORDERED: FUROSEMIDE 40 MG/4 ML VIAL IVP ONE (21:00)
--- NOTE | 2018-05-07 21:05 | RAD ---
Indication:Edema, hx CHF. Eval for pulmonary edema
TECHNIQUE:Portable AP chest X-ray COMPARISON: 06/04/2017 FINDINGS: Heart is normal in size. Lungs are hyperinflated. There is mild patchy opacity in the left lung base with blunting of left costophrenic angle. No pneumothorax. Visualized bony thorax is within normal limits. IMPRESSION: 1. No evidence of interstitial pulmonary edema. 2. Mild left lung base patchy opacity may be secondary to subsegmental atelectasis, aspiration or pneumonia with questionable trace pleural effusion. Electronically signed by: Trevor Hannah DO (05/07/2018 9:01 PM) [facility]
--- NOTE | 2018-05-07 23:00 | NUR ---
The patient, FALLON ESCALONA, 88 y/o, F admitted by SUNSHINE WALKER MD, to room 105 and was given written information regarding hospital policies, unit procedures and contact persons. Valuables were checked and left in the room with the patient. Vital signs were assessed. Pt was changed into a gown and placed on telemetry. Pt given a snack and resting comfortably.
[2018-05-08 00:31] VITALS: BP 148/75
--- NOTE | 2018-05-08 01:31 | EKG ---
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
[2018-05-08 06:49] LABS: GFR 52.3; POTASSIUM 3.4 mmol/L (3.5-5.1)
[2018-05-08 06:57] LABS: BASO # 0.1 x10^3/uL (0.0-0.2); BASO % 1 % (0-3); EOS # 0.1 x10^3/uL (0.0-0.7); EOS % 3 % (0-3); HEMATOCRIT 30.4 % (36.0-47.0); LYMPH # 1.8 x10^3/uL (1.0-4.8); LYMPH % 37 % (24-48); MEAN CORPUSCULAR HEMOGLOBIN 29 pg (25-35); MEAN CORPUSCULAR HGB CONC 33 g/dL (31-37); MEAN CORPUSCULAR VOLUME 88 fL (79-100); MONO # 0.4 x10^3/uL (0.0-1.1); MONO % 8 % (0-9); NEUT # 2.6 x10^3uL (1.8-7.7); NEUT % 52 % (31-73); PLATELET COUNT 168 x10^3/uL (140-400); RED BLOOD COUNT 3.44 x10^6/uL (3.50-5.40); RED CELL DISTRIBUTION WIDTH 15.5 % (11.5-14.5)
[2018-05-08] MEDS ORDERED: POLYVINYL ALCOHOL/POVIDONE/PF OPHTH SOLUTION DROPERETTE. ONE (09:00)
[2018-05-08] MEDS ORDERED: ROTIGOTINE TD PRN (10:00)
[2018-05-08] MEDS ORDERED: MIDODRINE 5 MG TABLET PO PRN (10:35)
[2018-05-08] MEDS ORDERED: POLYETHYLENE GLYCOL 3350 17 GM PACKET. PO PRN (10:40)
[2018-05-08 10:44] VITALS: BP 127/62
[2018-05-08] MEDS: CHOLECALCIFEROL (VITAMIN D3) 1,000 UNIT TABLET PO SCH (12:09)
[2018-05-08] MEDS: OMEGA-3 FATTY ACIDS/FISH OIL 1,000 MG CAPSULE. PO SCH (12:09)
[2018-05-08] MEDS: CALCIUM CARB/VIT D3 500/200 TABLET PO SCH (12:09)
[2018-05-08] MEDS: LEVOTHYROXINE 150 MCG TABLET PO SCH (12:09)
[2018-05-08] MEDS: FUROSEMIDE 20 MG TABLET PO SCH (12:09)
[2018-05-08] MEDS: VITAMIN B COMPLEX CAPSULE. PO SCH (12:10)
[2018-05-08] MEDS: MULTIVITAMIN with MINERAL TABLET. PO SCH (12:11)
[2018-05-08] MEDS: FAMOTIDINE 20 MG TABLET PO SCH ×2 (12:11→21:19)
[2018-05-08] MEDS: POLYVINYL ALCOHOL/POVIDONE/PF OPHTH SOLUTION DROPERETTE. OU SCH (12:11)
[2018-05-08] MEDS: CITALOPRAM 20 MG TABLET. PO SCH (12:11)
[2018-05-08] MEDS: SENNOSIDES/DOCUSATE 8.6/50MG TABLET. PO SCH (12:11)
[2018-05-08] MEDS: PANTOPRAZOLE 40 MG TABLET. PO SCH (12:14)
[2018-05-08] MEDS: rOPINIRole 1 MG TABLET. PO SCH ×2 (12:14→21:18)
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
[2018-05-08] MEDS: clonazePAM 1 MG TABLET PO SCH ×2 (14:11→21:19)
[2018-05-08] MEDS: CARBIDOPA/LEVODOPA 25/250MG TABLET PO SCH ×2 (14:11→21:18)
[2018-05-08] MEDS: PRIMIDONE 250 MG TABLET PO SCH ×2 (14:11→21:19)
[2018-05-08 14:43] VITALS: BP 151/70
[2018-05-08] MEDS ORDERED: ALBUTEROL SULFATE 2.5 MG/3 ML NEBU. ONE (15:04)
[2018-05-08 18:50] VITALS: BP 122/63
[2018-05-08] MEDS ORDERED: LEVOFLOXACIN 250 MG PO SCH (21:00)
[2018-05-08] MEDS: SIMVASTATIN 40 MG TABLET. PO SCH (21:18)
[2018-05-08] MEDS: MIRTAZAPINE 15 MG TABLET PO SCH (21:18)
[2018-05-08] MEDS: tiZANidine 4 MG TABLET. PO PRN (21:28)
[2018-05-08 23:24] VITALS: BP 112/56
[2018-05-09] MEDS: LEVOTHYROXINE 150 MCG TABLET PO SCH (06:07)
[2018-05-09 07:01] VITALS: BP 157/73
[2018-05-09] MEDS: SENNOSIDES/DOCUSATE 8.6/50MG TABLET. PO SCH (08:49)
[2018-05-09] MEDS: VITAMIN B COMPLEX CAPSULE. PO SCH (08:49)
[2018-05-09] MEDS: rOPINIRole 1 MG TABLET. PO SCH ×2 (08:49→21:03)
[2018-05-09] MEDS: CALCIUM CARB/VIT D3 500/200 TABLET PO SCH (08:50)
[2018-05-09] MEDS: FUROSEMIDE 20 MG TABLET PO SCH (08:50)
[2018-05-09] MEDS: CITALOPRAM 20 MG TABLET. PO SCH (08:50)
[2018-05-09] MEDS: FAMOTIDINE 20 MG TABLET PO SCH ×2 (08:50→21:03)
[2018-05-09] MEDS: OMEGA-3 FATTY ACIDS/FISH OIL 1,000 MG CAPSULE. PO SCH (08:50)
[2018-05-09] MEDS: PANTOPRAZOLE 40 MG TABLET. PO SCH (08:50)
[2018-05-09] MEDS: MULTIVITAMIN with MINERAL TABLET. PO SCH (08:51)
[2018-05-09] MEDS: clonazePAM 1 MG TABLET PO SCH ×3 (08:51→21:03)
[2018-05-09] MEDS: POLYVINYL ALCOHOL/POVIDONE/PF OPHTH SOLUTION DROPERETTE. OU SCH (08:52)
[2018-05-09] MEDS: CARBIDOPA/LEVODOPA 25/250MG TABLET PO SCH ×3 (08:52→21:03)
[2018-05-09] MEDS: PRIMIDONE 250 MG TABLET PO SCH ×3 (08:52→21:03)
[2018-05-09] MEDS: CHOLECALCIFEROL (VITAMIN D3) 1,000 UNIT TABLET PO SCH (08:56)
[2018-05-09] MEDS ORDERED: POLYVINYL ALCOHOL/POVIDONE/PF OPHTH SOLUTION DROPERETTE. ONE (09:00)
[2018-05-09] MEDS: ALBUTEROL SULFATE 2.5 MG/3 ML NEBU. NEB SCH (10:35)
[2018-05-09 15:25] VITALS: BP 136/78
--- NOTE | 2018-05-09 18:01 | PN ---
DATE: SUBJECTIVE: The patient of course admitted the other day, still very weak, although looking much better, looking into placement and a new legal guardian as the patient has been not able to take care of herself at home and does not have good support there. As a result of this, the patient has done somewhat better with good nursing care here. PHYSICAL EXAMINATION: VITAL SIGNS: Blood pressure 136/78, respirations 20, pulse 70, afebrile. GENERAL: The patient is alert, little bit more alert and little bit more lively than she has been. LUNGS: Diminished, but some crackles in the bases. CARDIOVASCULAR: Stable. ABDOMEN: Soft, nontender. EXTREMITIES: Left leg is healing well, still weak, receiving PT, OT. LABORATORY DATA: Look basically stable for her, slightly anemic, but probably from rehydration, potassium coming up gradually as we see at. The patient's urine specific gravity initially showed severe dehydration. Otherwise, the patient is making good progress overall. IMPRESSION: Therefore of severe dehydration, debilitation, generalized weakness, unable to take care of herself and her basic activity of daily living, history of fractured left femur. The patient continues to be better hydrated. She is eating much better and will continue physical and occupational therapy, also try drug abuse social worker for protective custody. SUNSHINE WALKER MD DR: ROSE MARY/yue JOB#: [id number] / [id number]
[2018-05-09 19:41] VITALS: BP 123/69
[2018-05-09] MEDS: MIRTAZAPINE 15 MG TABLET PO SCH (21:03)
[2018-05-09] MEDS: SIMVASTATIN 40 MG TABLET. PO SCH (21:03)
[2018-05-09 23:30] VITALS: BP 123/62
[2018-05-10] MEDS: LEVOTHYROXINE 150 MCG TABLET PO SCH (06:06)
[2018-05-10 06:44] VITALS: BP 143/72
[2018-05-10] MEDS: VITAMIN B COMPLEX CAPSULE. PO SCH (08:14)
[2018-05-10] MEDS: CHOLECALCIFEROL (VITAMIN D3) 1,000 UNIT TABLET PO SCH (08:14)
[2018-05-10] MEDS: clonazePAM 1 MG TABLET PO SCH ×3 (08:14→21:32)
[2018-05-10] MEDS: CITALOPRAM 20 MG TABLET. PO SCH (08:14)
[2018-05-10] MEDS: tiZANidine 4 MG TABLET. PO PRN (08:15)
[2018-05-10] MEDS: CALCIUM CARB/VIT D3 500/200 TABLET PO SCH (08:15)
[2018-05-10] MEDS: PANTOPRAZOLE 40 MG TABLET. PO SCH (08:15)
[2018-05-10] MEDS: OMEGA-3 FATTY ACIDS/FISH OIL 1,000 MG CAPSULE. PO SCH (08:15)
[2018-05-10] MEDS: FUROSEMIDE 20 MG TABLET PO SCH (08:15)
[2018-05-10] MEDS: SENNOSIDES/DOCUSATE 8.6/50MG TABLET. PO SCH (08:16)
[2018-05-10] MEDS: FAMOTIDINE 20 MG TABLET PO SCH ×2 (08:16→21:32)
[2018-05-10] MEDS: MULTIVITAMIN with MINERAL TABLET. PO SCH (08:16)
[2018-05-10] MEDS: CARBIDOPA/LEVODOPA 25/250MG TABLET PO SCH ×3 (08:17→21:33)
[2018-05-10] MEDS: PRIMIDONE 250 MG TABLET PO SCH ×3 (08:17→21:34)
[2018-05-10] MEDS: rOPINIRole 1 MG TABLET. PO SCH ×2 (08:17→21:34)
[2018-05-10] MEDS: POLYVINYL ALCOHOL/POVIDONE/PF OPHTH SOLUTION DROPERETTE. OU SCH (08:17)
[2018-05-10] MEDS ORDERED: POLYVINYL ALCOHOL/POVIDONE/PF OPHTH SOLUTION DROPERETTE. ONE (09:00)
--- NOTE | 2018-05-10 09:02 | NUR ---
Pt alert and oriented x3, forgetful at times. Crackles in lungs noted, cough noted after taking water with meds. Pt is SR on tele. Will continue to monitor.
[2018-05-10] MEDS: ALBUTEROL SULFATE 2.5 MG/3 ML NEBU. NEB SCH (09:54)
[2018-05-10 11:28] VITALS: BP 113/63
[2018-05-10 11:28] LABS: CALCIUM 8.2 mg/dL (8.5-10.1); CREATININE 1.1 mg/dL (0.6-1.0); GFR 46.9; POTASSIUM 3.6 mmol/L (3.5-5.1)
--- NOTE | 2018-05-10 11:48 | PN ---
DATE: 05/10/2018 SUBJECTIVE: This 88-year-old female came in with basically failure to thrive, inability to take care of herself, dehydration, severe, and alike. The patient this morning is somewhat tearful as is her daughter. OBJECTIVE: VITAL SIGNS: Blood pressure 140/70, respiration 16, pulse 65, afebrile. GENERAL: The patient is alert, but tearful as noted. LUNGS: Show some crackles in the bases. CARDIOVASCULAR: Regular sinus rhythm. EXTREMITIES: No clubbing or cyanosis, trace edema. We will get a chest x-ray on her and continue to monitor her accordingly and make further evaluation with electrolytes and so forth. IMPRESSION: Dehydration, anemia of chronic disease, failure to thrive, hypokalemia, uyab-tv-wpjoenya protein malnutrition. PLAN: As above. Continue with diuresis and monitor electrolytes, physical and occupational therapy, and hopefully placement in a penitentiary. SUNSHINE WALKER MD DR: ROSE MARY/yue JOB#: [id number] / [id number]
--- NOTE | 2018-05-10 13:23 | RAD ---
Indication:SHORTNESS OF BREATH TECHNIQUE:Portable AP chest X-ray COMPARISON:05/07/2018 FINDINGS: Heart is normal in size. Lungs are hyperinflated. Stable opacification of the left costophrenic angle. Otherwise no focal consolidation. No pneumothorax. Visualized bony thorax is within normal limits. IMPRESSION: Mild COPD. Stable opacification of the left costophrenic angle may be secondary to subsegmental atelectasis, prominent epicardial fat pad or trace pleural effusion. Electronically signed by: Trevor Hannah DO (05/10/2018 1:19 PM) [facility]
[2018-05-10 16:00] VITALS: BP 117/63
--- NOTE | 2018-05-10 19:50 | NUR ---
Initial Nursing Assessment Pt A&O to self, , confused to place and time. Pt up to chair, requested to be put back in bed. Pt had had an episode of incontinence, brief changed. Pt cooperative with all cares, required two person assist to transfer from chair to BSC and then to bed with walker. Pt stated she had no pain at this time. Will continue to monitor. Trina Malagon RN
[2018-05-10 20:07] VITALS: BP 112/66
[2018-05-10] MEDS: SIMVASTATIN 40 MG TABLET. PO SCH (21:33)
[2018-05-10] MEDS: MIRTAZAPINE 15 MG TABLET PO SCH (21:33)
[2018-05-10 23:09] VITALS: BP 133/67
[2018-05-11] MEDS: LEVOTHYROXINE 150 MCG TABLET PO SCH (05:45)
[2018-05-11 05:49] VITALS: BP 149/67
[2018-05-11 06:36] LABS: BASO % 1 % (0-3); EOS # 0.2 x10^3/uL (0.0-0.7); EOS % 4 % (0-3); HEMATOCRIT 29.3 % (36.0-47.0); HEMOGLOBIN 9.7 g/dL (12.0-15.5); LYMPH # 1.9 x10^3/uL (1.0-4.8); LYMPH % 39 % (24-48); MEAN CORPUSCULAR HEMOGLOBIN 29 pg (25-35); MEAN CORPUSCULAR HGB CONC 33 g/dL (31-37); MEAN CORPUSCULAR VOLUME 89 fL (79-100); MONO # 0.4 x10^3/uL (0.0-1.1); MONO % 7 % (0-9); NEUT # 2.5 x10^3uL (1.8-7.7); NEUT % 50 % (31-73); PLATELET COUNT 157 x10^3/uL (140-400); RED CELL DISTRIBUTION WIDTH 15.3 % (11.5-14.5)
[2018-05-11 06:52] LABS: CALCIUM 7.9 mg/dL (8.5-10.1); CREATININE 1.1 mg/dL (0.6-1.0); GFR 46.9; POTASSIUM 3.8 mmol/L (3.5-5.1)
[2018-05-11] MEDS: POLYVINYL ALCOHOL/POVIDONE/PF OPHTH SOLUTION DROPERETTE. OU SCH (07:54)
[2018-05-11] MEDS: VITAMIN B COMPLEX CAPSULE. PO SCH (07:54)
[2018-05-11] MEDS: PANTOPRAZOLE 40 MG TABLET. PO SCH (07:54)
[2018-05-11] MEDS: CARBIDOPA/LEVODOPA 25/250MG TABLET PO SCH ×3 (07:55→21:25)
[2018-05-11] MEDS: CITALOPRAM 20 MG TABLET. PO SCH (07:55)
[2018-05-11] MEDS: CALCIUM CARB/VIT D3 500/200 TABLET PO SCH (07:55)
[2018-05-11] MEDS: CHOLECALCIFEROL (VITAMIN D3) 1,000 UNIT TABLET PO SCH (07:55)
[2018-05-11] MEDS: OMEGA-3 FATTY ACIDS/FISH OIL 1,000 MG CAPSULE. PO SCH (07:55)
[2018-05-11] MEDS: MULTIVITAMIN with MINERAL TABLET. PO SCH (07:55)
[2018-05-11] MEDS: PRIMIDONE 250 MG TABLET PO SCH ×3 (07:55→21:24)
[2018-05-11] MEDS: clonazePAM 1 MG TABLET PO SCH ×2 (07:56→21:24)
[2018-05-11] MEDS: FAMOTIDINE 20 MG TABLET PO SCH ×2 (07:56→21:25)
[2018-05-11] MEDS: FUROSEMIDE 20 MG/2 ML VIAL IVP SCH (07:56)
[2018-05-11] MEDS: SENNOSIDES/DOCUSATE 8.6/50MG TABLET. PO SCH (07:56)
[2018-05-11] MEDS: rOPINIRole 1 MG TABLET. PO SCH ×2 (07:57→21:25)
[2018-05-11] MEDS ORDERED: POLYVINYL ALCOHOL/POVIDONE/PF OPHTH SOLUTION DROPERETTE. ONE (09:00)
[2018-05-11] MEDS: ALBUTEROL SULFATE 2.5 MG/3 ML NEBU. NEB SCH (09:52)
--- NOTE | 2018-05-11 10:00 | NUR ---
Pt very sleep this am. Spoke with Dr Cardona, when pt was on SNU she was obtunded from clonazepam TID 1mg. The order had been changed to PRN. On arrival to care for patient today, she was continued on Clonazepam 1mg TID when readmitted. Dr Cardona recommended changing dose to PRN and HS. PT still sleepy today and is able to follow commands. Shyanne called this am sounding altered. Asking if her mother was here in hospital because she thought she had "walked out of the house". This RN had talked to Shyanne on day before on and she also talked to her mother and was aware that she had been admitted for weakness. Dr Cardona aware of inconsistency with daughter Shyanne. Gibran ANNE
[2018-05-11 10:24] VITALS: BP 154/73
[2018-05-11] MEDS ORDERED: clonazePAM 1 MG TABLET PO PRN (13:15)
[2018-05-11 15:41] VITALS: BP_SYST 122; BP_SYST 153; BP_DIAS 63; BP_DIAS 79
[2018-05-11 20:28] VITALS: BP 114/59
[2018-05-11] MEDS: MIRTAZAPINE 15 MG TABLET PO SCH (21:25)
[2018-05-11] MEDS: SIMVASTATIN 40 MG TABLET. PO SCH (21:25)
[2018-05-12 00:40] VITALS: BP 120/65
--- NOTE | 2018-05-12 02:56 | PN ---
DATE: SUBJECTIVE: The patient is resting fairly comfortably, making fairly good progress. We are still trying to get a DPOA on her, as her daughter is the DPOA, but herself that is the daughter is not capable of making sound decisions. In any case, the patient still is very weak. She still needs continued rehabilitation care and obviously long-term care. OBJECTIVE: VITAL SIGNS: Blood pressure 150/70, respiration 16, pulse 76, afebrile. GENERAL: The patient is alert and oriented. Speech, she is very weak. LUNGS: Diminished, but clear. CARDIOVASCULAR: Regular sinus rhythm, 1/6 systolic ejection murmur. ABDOMEN: Soft. EXTREMITIES: No clubbing or cyanosis. Trace edema noted. NEUROLOGIC: Stable for her and she is making fairly good progress. LABORATORY DATA: Her hemoglobin is down to 9.7 and hematocrit 29. Chemistries were basically stable as well. The patient, otherwise, continues to be monitored and we will make further evaluation on her as indicated. IMPRESSION: Dehydration, failure to thrive, pdhlobsj-qf-yrehst protein malnutrition, history of fractured left femur, bgkp-tm-lhdtvmiw hypokalemia. PLAN: Continue with therapy and have continued nutritional supplementation. SUNSHINE WALKER MD DR: ROSE MARY/yue JOB#: [id number] / [id number]
[2018-05-12 05:37] VITALS: BP 150/74
[2018-05-12] MEDS: LEVOTHYROXINE 150 MCG TABLET PO SCH (06:24)
[2018-05-12] MEDS: CALCIUM CARB/VIT D3 500/200 TABLET PO SCH (08:45)
[2018-05-12] MEDS: OMEGA-3 FATTY ACIDS/FISH OIL 1,000 MG CAPSULE. PO SCH (08:45)
[2018-05-12] MEDS: PRIMIDONE 250 MG TABLET PO SCH ×3 (08:45→21:21)
[2018-05-12] MEDS: VITAMIN B COMPLEX CAPSULE. PO SCH (08:45)
[2018-05-12] MEDS: rOPINIRole 1 MG TABLET. PO SCH ×2 (08:46→21:22)
[2018-05-12] MEDS: CARBIDOPA/LEVODOPA 25/250MG TABLET PO SCH ×3 (08:46→21:22)
[2018-05-12] MEDS: FAMOTIDINE 20 MG TABLET PO SCH ×2 (08:46→21:22)
[2018-05-12] MEDS: SENNOSIDES/DOCUSATE 8.6/50MG TABLET. PO SCH (08:46)
[2018-05-12] MEDS: PANTOPRAZOLE 40 MG TABLET. PO SCH (08:46)
[2018-05-12] MEDS: CHOLECALCIFEROL (VITAMIN D3) 1,000 UNIT TABLET PO SCH (08:46)
[2018-05-12] MEDS: MULTIVITAMIN with MINERAL TABLET. PO SCH (08:46)
[2018-05-12] MEDS: CITALOPRAM 20 MG TABLET. PO SCH (08:46)
[2018-05-12] MEDS: FUROSEMIDE 20 MG/2 ML VIAL IVP SCH (08:47)
[2018-05-12] MEDS: POLYVINYL ALCOHOL/POVIDONE/PF OPHTH SOLUTION DROPERETTE. OU SCH (08:47)
[2018-05-12] MEDS ORDERED: POLYVINYL ALCOHOL/POVIDONE/PF OPHTH SOLUTION DROPERETTE. ONE (09:00)
[2018-05-12] MEDS: ALBUTEROL SULFATE 2.5 MG/3 ML NEBU. NEB SCH (10:18)
[2018-05-12 10:48] VITALS: BP 98/61
[2018-05-12 15:20] VITALS: BP 121/76
[2018-05-12 19:10] VITALS: BP 109/68
[2018-05-12] MEDS: clonazePAM 1 MG TABLET PO SCH (21:21)
[2018-05-12] MEDS: MIRTAZAPINE 15 MG TABLET PO SCH (21:22)
[2018-05-12] MEDS: SIMVASTATIN 40 MG TABLET. PO SCH (21:22)
[2018-05-12 23:14] VITALS: BP 136/72
[2018-05-13] MEDS: LEVOTHYROXINE 150 MCG TABLET PO SCH (06:13)
[2018-05-13 06:29] VITALS: BP 137/72
[2018-05-13] MEDS: POLYVINYL ALCOHOL/POVIDONE/PF OPHTH SOLUTION DROPERETTE. OU SCH (08:42)
[2018-05-13] MEDS: rOPINIRole 1 MG TABLET. PO SCH ×2 (08:42→21:37)
[2018-05-13] MEDS: CARBIDOPA/LEVODOPA 25/250MG TABLET PO SCH ×3 (08:42→21:37)
[2018-05-13] MEDS: VITAMIN B COMPLEX CAPSULE. PO SCH (08:42)
[2018-05-13] MEDS: FAMOTIDINE 20 MG TABLET PO SCH ×2 (08:42→21:37)
[2018-05-13] MEDS: OMEGA-3 FATTY ACIDS/FISH OIL 1,000 MG CAPSULE. PO SCH (08:42)
[2018-05-13] MEDS: CALCIUM CARB/VIT D3 500/200 TABLET PO SCH (08:42)
[2018-05-13] MEDS: PRIMIDONE 250 MG TABLET PO SCH ×3 (08:42→21:37)
[2018-05-13] MEDS: PANTOPRAZOLE 40 MG TABLET. PO SCH (08:42)
[2018-05-13] MEDS: FUROSEMIDE 20 MG/2 ML VIAL IVP SCH (08:43)
[2018-05-13] MEDS: SENNOSIDES/DOCUSATE 8.6/50MG TABLET. PO SCH (08:43)
[2018-05-13] MEDS: CITALOPRAM 20 MG TABLET. PO SCH (08:43)
[2018-05-13] MEDS: MULTIVITAMIN with MINERAL TABLET. PO SCH (08:43)
[2018-05-13] MEDS: CHOLECALCIFEROL (VITAMIN D3) 1,000 UNIT TABLET PO SCH (08:51)
[2018-05-13] MEDS: ALBUTEROL SULFATE 2.5 MG/3 ML NEBU. NEB SCH (09:15)
[2018-05-13 10:26] VITALS: BP 100/60
[2018-05-13 14:37] VITALS: BP 142/77
[2018-05-13 19:42] VITALS: BP 144/78
[2018-05-13] MEDS: clonazePAM 1 MG TABLET PO SCH (21:37)
[2018-05-13] MEDS: MIRTAZAPINE 15 MG TABLET PO SCH (21:37)
[2018-05-13] MEDS: SIMVASTATIN 40 MG TABLET. PO SCH (21:37)
[2018-05-13 22:37] VITALS: BP 125/64
--- NOTE | 2018-05-14 04:05 | PN ---
DATE: 05/13/2018 SUBJECTIVE: The patient is an 88-year-old female. We are still trying to get her situated into a mcc, but this may be unlikely to be done. Otherwise, the patient is basically stable without complaints. OBJECTIVE: VITAL SIGNS: Blood pressure 140/70, respiratory rate 20, pulse 80, afebrile. GENERAL: The patient is alert and oriented x 2. LUNGS: Diminished, but clear. CARDIOVASCULAR: Stable. ABDOMEN: Soft, nontender. NEUROLOGICAL: Shows some mild dementia, very weak and debilitated overall. IMPRESSION: Therefore, dehydration, failure to thrive, ztrmicgf-ix-xvrwmu protein malnutrition, history of fracture of the left femur, euxs-bq-uhoquoao hypokalemia. SUNSHINE WALKER MD DR: ROSE MARY/yue JOB#: [id number] / [id number]
[2018-05-14 05:35] VITALS: BP 149/79
[2018-05-14] MEDS: LEVOTHYROXINE 150 MCG TABLET PO SCH (05:49)
[2018-05-14] MEDS: SENNOSIDES/DOCUSATE 8.6/50MG TABLET. PO SCH (08:23)
[2018-05-14] MEDS: CITALOPRAM 20 MG TABLET. PO SCH (08:23)
[2018-05-14] MEDS: OMEGA-3 FATTY ACIDS/FISH OIL 1,000 MG CAPSULE. PO SCH (08:23)
[2018-05-14] MEDS: CHOLECALCIFEROL (VITAMIN D3) 1,000 UNIT TABLET PO SCH (08:23)
[2018-05-14] MEDS: FUROSEMIDE 20 MG/2 ML VIAL IVP SCH ×2 (08:23→08:44)
[2018-05-14] MEDS: VITAMIN B COMPLEX CAPSULE. PO SCH (08:24)
[2018-05-14] MEDS: MULTIVITAMIN with MINERAL TABLET. PO SCH (08:24)
[2018-05-14] MEDS: POLYVINYL ALCOHOL/POVIDONE/PF OPHTH SOLUTION DROPERETTE. OU SCH (08:24)
[2018-05-14] MEDS: FAMOTIDINE 20 MG TABLET PO SCH (08:25)
[2018-05-14] MEDS: CALCIUM CARB/VIT D3 500/200 TABLET PO SCH (08:25)
[2018-05-14] MEDS: rOPINIRole 1 MG TABLET. PO SCH (08:25)
[2018-05-14] MEDS: PANTOPRAZOLE 40 MG TABLET. PO SCH (08:25)
[2018-05-14] MEDS: PRIMIDONE 250 MG TABLET PO SCH ×2 (08:25→14:00)
[2018-05-14] MEDS: CARBIDOPA/LEVODOPA 25/250MG TABLET PO SCH ×2 (08:26→14:00)
[2018-05-14] MEDS: ALBUTEROL SULFATE 2.5 MG/3 ML NEBU. NEB SCH (10:39)
[2018-05-14 11:15] VITALS: BP 106/62
--- NOTE | 2018-05-14 14:53 | NUR ---
Patient is D/C home with HH services. Patient is stable at time of D/C. All patients belongings are returned to patient and dc summary given to patient. Patients daughter called and made aware of D/C. Patient accompanied by EMS.
--- NOTE | 2018-05-14 14:55 | NUR ---
Patient is D/C home with HH services. Daughter was called and made aware. Patient is accompanied off unit by EMS. All patients belongings were returned to patient on D/C. Patient also received D/C teaching and summary. Patient is stable at time of D/C.
--- NOTE | 2018-05-14 16:03 | PN ---
DATE: 05/14/2018 SUBJECTIVE: An 88-year-old female patient with failure to thrive, multiple problems of sbkmstsd-bj-fftmsb protein malnutrition, very sad today, very tearful, apparently daughter is moving out of the house and has problems there at the family level. Otherwise, the patient medically speaking is basically stable. OBJECTIVE: VITAL SIGNS: Blood pressure 149/79, respiratory rate 20, pulse 64, afebrile. GENERAL: The patient is alert and oriented, tearful. LUNGS: Diminished, but clear. CARDIOVASCULAR: Stable. ABDOMEN: Soft, nontender. IMPRESSION: Initial diagnosis of dehydration, failure to thrive, kdqxehgq-be-ygonsk protein malnutrition, history of fracture of the left femur, mild to moderate hypokalemia, depression, anxiety. SUNSHINE WALKER MD DR: ROSE MARY/yue JOB#: [id number] / [id number]
--- NOTE | 2018-05-15 11:23 | DS ---
DATE OF DISCHARGE: 05/14/2018 HOSPITAL COURSE: An 88-year-old female came in pretty much debilitated, severely dehydrated. The patient was found in her home pretty much by herself, although there are people that are unable to take care of her at that time because of their problems. In any case, the patient was markedly dehydrated and required assistance to get into the hospital. She had marked failure to thrive. She had a healing history of left femur fracture about 2 months ago and still recuperating from that, so she needed very close care. As a result of that, she was admitted, placed on IV fluids and otherwise made relatively good progress during the rest of her hospitalization. There was a lot of work being done to make sure she is here that she was safe at home. She ran out of skilled days and the like and was unable to get into a nursing facility. The patient's potassium was also slightly low, but it was improved upon. The patient also had some moderate protein malnutrition. We will continue to monitor carefully as an outpatient, social media community manager as well as home health. The patient may have had some atelectasis on her chest x-ray. Otherwise, the patient made good progress during the rest of her hospitalization. She was discharged home. She will be on a regular diet. Activity as tolerated. Home health. IMPRESSION: Dehydration, atelectasis, hypokalemia, moderate protein malnutrition, failure to thrive, anemia of chronic disease. PLAN: As above, continue to monitor the patient accordingly. SUNSHINE WALKER MD DR: ROSE MARY/yue JOB#: [id number] / [id number]
== END 2018-05-14 14:50 | disposition home health service (06) | DRG 640 ==
LOC: ER 19:10 → 1 SOUTH 20:49
PROVIDERS: ADMIT Family Medicine; ATTEND Family Medicine
DX: E86.0 Dehydration (principal); E43 Unspecified severe protein-calorie malnutrition; R62.7 Adult failure to thrive; E87.6 Hypokalemia; Z68.22 Body mass index [BMI] 22.0-22.9, adult; F32.9 Major depressive disorder, single episode, unspecified; F41.9 Anxiety disorder, unspecified; M19.90 Unspecified osteoarthritis, unspecified site; D63.8 Anemia in other chronic diseases classified elsewhere; E03.9 Hypothyroidism, unspecified; G20 Parkinson's disease; F02.80 Dementia in other diseases classified elsewhere, unspecified severity, without behavioral disturbance, psychotic disturbance, mood disturbance, and anxiety; E78.00 Pure hypercholesterolemia, unspecified; I11.0 Hypertensive heart disease with heart failure; I50.9 Heart failure, unspecified; K21.9 Gastro-esophageal reflux disease without esophagitis; Z87.440 Personal history of urinary (tract) infections; Z90.49 Acquired absence of other specified parts of digestive tract; Z85.820 Personal history of malignant melanoma of skin; Z87.442 Personal history of urinary calculi; Z90.710 Acquired absence of both cervix and uterus
CPT/HCPCS: 36415; 71045; 80048; 80053; 81001; 83735; 83880; 85025; 90471; 90756; 93005; 94640; 94760; 96374; J1940; J7613; P9612; 92610; 97110; 97116; 97530; 97535; 99285-25; Q2035

== ENCOUNTER 2018-09-01 09:28 | Emergency (ER) | payer MEDICARE ==
[~2018-09-01] VITALS: Ht 165.1 cm; Wt 47.6 kg
[~2018-09-01 09:28] MED LIST changes: +SENN-161 PO; -SENN1TAB8 PO
--- NOTE | 2018-09-01 09:40 | PHYS DOC ---
Past History Past Medical History: Anxiety, GERD, High Cholesterol, Hypertension, Hypothyroid Past Surgical History: Cholecystectomy, Other Alcohol Use: None Drug Use: None Adult General Chief Complaint Chief Complaint: COUGH HPI HPI Patient is a 88-year-old female who presents with a cough. This cough is been present for the past several weeks. Not getting any better. No chest pain or palpitations. Nothing seems to make this better or worse. Patient also injured her hand as her wheelchair shifted as she was getting off of the commode 5 days ago. There is been no fever, no purulent drainage. Patient 's last tetanus shot is in the remote past due to an allergy to the tetanus vaccine. She denies any head injury with this fall from a seated position. No significant pain in the hand. Bleeding has been controlled and she has been treating it with lcix-llz-exrxbce first-aid creams and bandaging[] Review of Systems Review of Systems Constitutional: Denies fever or chills [] Eyes: Denies change in visual acuity, redness, or eye pain [] HENT: Denies nasal congestion or sore throat [] Respiratory: Denies shortness of breath [] Cardiovascular: No additional information not addressed in HPI [] GI: Denies abdominal pain, nausea, vomiting, bloody stools or diarrhea [] : Denies dysuria or hematuria [] Musculoskeletal: Denies back pain or joint pain [] Integument: Denies rash, see history of present illness[] Neurologic: Denies headache, focal weakness or sensory changes [] Endocrine: Denies polyuria or polydipsia [] All other systems were reviewed and found to be within normal limits, except as documented in this note. Allergies Allergies Allergies Coded Allergies Type Severity Reaction Last Updated Verified Penicillins Allergy Intermediate 09/27/14 Yes meloxicam Allergy Intermediate 09/27/14 Yes Physical Exam Physical Exam Constitutional: Well developed, well nourished, no acute distress, non-toxic appearance. [] HENT: Normocephalic, atraumatic, bilateral external ears normal, oropharynx moist, no oral exudates, nose normal. [] Eyes: PERRLA, EOMI, conjunctiva normal, no discharge. [] Neck: Normal range of motion, no tenderness, supple, no stridor. [] Cardiovascular:Heart rate regular rhythm, no murmur [] Lungs & Thorax: Bilateral breath sounds clear to auscultation [] Abdomen: Bowel sounds normal, soft, no tenderness, no masses, no pulsatile masses. [] Skin: Warm, dry, no erythema, no rash. There is a tear on the dorsal surface of her left hand, no purulent drainage, appears to be healing well. No significant tenderness to palpation. [] Back: No tenderness, no CVA tenderness. [] Extremities: No tenderness, no cyanosis, no clubbing, ROM intact, no edema. [] Neurologic: Alert and oriented X 3, normal motor function, normal sensory function, no focal deficits noted. [] Psychologic: Affect normal, judgement normal, mood normal. [] EKG EKG [] Radiology/Procedures Radiology/Procedures PROCEDURE: PORTABLE CHEST 1V PORTABLE CHEST 1V History: Shortness of breath Comparison: May 10, 2018 Findings: Single view of the chest is submitted. Cardiac silhouette is unchanged. There is blunting of the left costophrenic sulcus as seen previously. There is suspected emphysema. No new lobar consolidation. There is no pneumothorax. There is atherosclerotic calcification near aortic arch Impression: 1. There is again suspected emphysema. There is unchanged chronic blunting of the left costophrenic sulcus. No new infiltrate is identified by radiograph.[] Course & Med Decision Making Course & Med Decision Making Pertinent Labs and Imaging studies reviewed. (See chart for details) ED course: Patient arrived, was placed in bed, and tolerated exam well. She is transferred to and from radiology with any complications. After the return of the lab and radiology findings, these were discussed with the patient who voiced understanding. All questions were answered. Additionally contact was made with social work for assistance given that she has had a couple falls due to the brake mechanism on her wheelchair having been broken.[] Dragon Disclaimer Dragon Disclaimer This electronic medical record was generated, in whole or in part, using a voice recognition dictation system. Departure Departure: Impression: Primary Impression: Cough Additional Impression: Falls Disposition: HOME, SELF-CARE Condition: IMPROVED Referrals: SUNSHINE WALKER MD (PCP) Follow-up in 2 days Patient Instructions: Cough, Adult Additional Instructions: Follow-up with your regular doctor in 2 days. Return to the ER if worsening cough, difficulty breathing, or any other concerns. Scripts Albuterol Sulfate (ALBUTEROL SULFATE CONC NEB SOLN) 2.5 Mg/0.5 Ml Vial.neb 1 VIAL NEB Q6HRS for cough or shortness of breath, #60 VIAL 0 Refills Prov: TONIA MOJICA DO 09/01/18 Problem Qualifiers Additional Impression: Falls Encounter type: initial encounter Qualified Codes: W19.XXXA - Unspecified fall, initial encounter TONIA MOJICA DO Sep 01, 2018 09:40
--- NOTE | 2018-09-01 10:12 | RAD ---
PORTABLE CHEST 1V History: Shortness of breath Comparison: May 10, 2018 Findings: Single view of the chest is submitted. Cardiac silhouette is unchanged. There is blunting of the left costophrenic sulcus as seen previously. There is suspected emphysema. No new lobar consolidation. There is no pneumothorax. There is atherosclerotic calcification near aortic arch Impression: 1. There is again suspected emphysema. There is unchanged chronic blunting of the left costophrenic sulcus. No new infiltrate is identified by radiograph. Electronically signed by: Silvino Zuñiga MD (09/01/2018 10:09 AM) [facility]
[2018-09-01 10:19] LABS: INFLUENZA A PATIENT NEGATIVE (NEGATIVE); INFLUENZA B PATIENT NEGATIVE (NEGATIVE)
[2018-09-01] MEDS ORDERED: ALBU2.5V14 NEB (10:26)
[2018-09-01 14:29] VITALS: BP 131/81
--- NOTE | 2018-09-01 16:05 | NUR ---
With Niharika's permission, completed referral for home health nursing, PT/OT, and social work to [facility] with request that they contact Niharika to arrange a visit. Niharika was also interested in resources on respite care in the [place] area. SW contacted the following facilities to obtain resource information: [facility] at [phone], $272.00 per day respite care rate; [facility] [place] [facility] at [phone], $224.00 per day respite care rate; [facility] [place] at [phone], $190.00 per day respite rate; and [facility] at [phone], $160.00 per day respite care rate. With Niharika's permission, communicated the above information via e-mail to her neighbor, Austen Graff.
== END 2018-09-01 14:56 | disposition home or self-care (01) ==
LOC: ER 09:28
DX: S61.412A Laceration without foreign body of left hand, initial encounter (principal); R05 Cough; R06.02 Shortness of breath; F41.9 Anxiety disorder, unspecified; K21.9 Gastro-esophageal reflux disease without esophagitis; E78.00 Pure hypercholesterolemia, unspecified; I10 Essential (primary) hypertension; E03.9 Hypothyroidism, unspecified; Z88.0 Allergy status to penicillin; Z88.8 Allergy status to other drugs, medicaments and biological substances; W17.89XA Other fall from one level to another, initial encounter; Y93.89 Activity, other specified; Y92.89 Other specified places as the place of occurrence of the external cause; Y99.8 Other external cause status
CPT/HCPCS: 71045; 87804; 99285

== ENCOUNTER 2018-09-05 14:35 | Inpatient (IN) | payer MEDICARE ==
[~2018-09-05] VITALS: Ht 165.1 cm; Wt 55.5 kg
[~2018-09-05 14:35] MED LIST changes: +ALBU2.5V14 NEB
--- NOTE | 2018-09-05 15:10 | PHYS DOC ---
Past History Past Medical History: Anxiety, GERD, High Cholesterol, Hypertension, Hypothyroid Past Surgical History: Cholecystectomy, Other Alcohol Use: None Drug Use: None Adult General Chief Complaint Chief Complaint: WEAKNESS/GENERALIZED HPI HPI 88-year-old female presents with weakness, cough, and frequent falls. The patient tells me that she has had a cough for about 6 weeks. She has yellowish sputum. She is unsure if she has fever. She has been seen in the ED a few times lately. She also tells me that she is fallen 3 times in last 3 days. She tells me she just gets overcome with weakness and falls. She is not losing consciousness. Patient lives with her daughter who is supposed to take care of her, but she is not really able to care for the patient. The patient states that she believes and all returned negative situation would be better. Review of Systems Review of Systems Constitutional: Denies fever or chills. Generalized weakness. [] Eyes: Denies change in visual acuity, redness, or eye pain [] HENT: Denies nasal congestion or sore throat [] Respiratory: Denies cough or shortness of breath [] Cardiovascular: No additional information not addressed in HPI [] GI: Denies abdominal pain, nausea, vomiting, bloody stools or diarrhea [] : Denies dysuria or hematuria [] Musculoskeletal: Denies back pain or joint pain [] Integument: Denies rash or skin lesions [] Neurologic: Syncope. Denies headache, focal weakness or sensory changes [] Endocrine: Denies polyuria or polydipsia [] All other systems were reviewed and found to be within normal limits, except as documented in this note. Allergies Allergies Allergies Coded Allergies Type Severity Reaction Last Updated Verified Penicillins Allergy Intermediate 09/01/18 Yes meloxicam Allergy Intermediate 09/01/18 Yes Physical Exam Physical Exam Constitutional: Well developed, thin, well nourished, no acute distress, non- toxic appearance. [] HENT: Normocephalic, atraumatic, bilateral external ears normal, oropharynx moist, no oral exudates, nose normal. [] Eyes: PERRLA, EOMI, conjunctiva normal, no discharge. [] Neck: Normal range of motion, no tenderness, supple, no stridor. [] Cardiovascular:Heart rate regular rhythm, no murmur [] Lungs & Thorax: Bilateral breath sounds clear to auscultation [] Abdomen: Bowel sounds normal, soft, no tenderness, no masses, no pulsatile masses. [] Skin: Warm, dry, no erythema, no rash. Several bruises, old left hand skin tear without signs of infection[] Back: No tenderness, no CVA tenderness. [] Extremities: No tenderness, no cyanosis, no clubbing, ROM intact, no edema. [] Neurologic: Alert and oriented X 3, normal motor function, normal sensory function, no focal deficits noted. [] Psychologic: Affect normal, judgement normal, mood normal. [] Current Patient Data Vital Signs Vital Signs Date Time Temp Pulse Resp B/P (MAP) Pulse Ox O2 Delivery O2 Flow Rate FiO2 09/05/18 14:53 100.8 102 24 94 Room Air EKG EKG Sinus rhythm, rate 80, left axis deviation, no ST elevation or depression[] Radiology/Procedures Radiology/Procedures [] Impressions: PQRS Compliance Statement: One or more of the following individualized dose reduction techniques were utilized for this examination: 1. Automated exposure control 2. Adjustment of the mA and/or kV according to patient size 3. Use of iterative reconstruction technique CT HEAD WITHOUT CONTRAST History: Weakness, numerous falls Comparison: CT head without contrast, April 09, 2018. Technique: Axial images are obtained of the head from the skull base through the vertex without IV contrast. Findings: No mass-effect, midline shift, extra-axial fluid collection, hemorrhage, or obvious acute infarction is identified. Basilar cisterns are patent. The ventricles and sulci are prominent, consistent with age-related cerebral atrophy. There is moderate supratentorial white matter hypoattenuation. This is a nonspecific finding but is commonly due to chronic small vessel ischemic disease. Bone windows demonstrate no acute calvarial abnormality. The visualized paranasal sinuses are clear. Mastoid air cells are well aerated. IMPRESSION: 1. No acute intracranial abnormality. 2. Generalized cerebral atrophy and moderate supratentorial white matter changes probably due to chronic small vessel ischemic disease. Electronically signed by: Good Bergeron MD (09/05/2018 3:50 PM) [id number] DICTATED AND SIGNED BY: GOOD BERGERON MD DATE: 09/05/18 1550 CC: MARIO DOMINGUEZ DO; SUNSHINE WALKER MD ~ CHEST AP ONLY Clinical indications: WEAKNESS COMPARISON: September 01, 2018. Findings: Chronic left lateral pleural thickening or small left-sided pleural effusion is seen which is unchanged. No new lung infiltrate or pulmonary edema or lung mass or pneumothorax is seen. The heart size, pulmonary vasculature, mediastinum and both darleen are stable. Hiatal hernia may be present. Impression: No new radiographic abnormality is seen. Electronically signed by: Kike Al MD (09/05/2018 3:07 PM) [facility] DICTATED AND SIGNED BY: KIKE AL MD DATE: 09/05/18 1500 CC: MARIO DOMINGUEZ DO; SUNSHINE WALKER MD ~ Course & Med Decision Making Course & Med Decision Making Pertinent Labs and Imaging studies reviewed. (See chart for details) The patient's head CT is negative for acute findings. Her chest x-ray is negative for acute findings. Her labs show anemia. Her urinalysis is pending. It sounds like the environment the patient is in his longer safe for her. Even if her urinalysis is negative, I feel like she is too weak to be at home without adequate care. It does not sound as though her daughter is able to adequately care for her. Some other arrangement may need to be made. I discussed the patient with Dr. Walker and he has accepted the patient for admission of generalized weakness, failure to thrive, and ambulatory dysfunction. [] Dragon Disclaimer Dragon Disclaimer This electronic medical record was generated, in whole or in part, using a voice recognition dictation system. Departure Departure: Impression: Primary Impression: Falls Additional Impressions: Weakness Ambulatory dysfunction Disposition: ADMITTED INPATIENT Admitting Physician: Sunshine Walker Condition: STABLE Referrals: SUNSHINE WALKER MD (PCP) Problem Qualifiers Primary Impression: Falls Encounter type: initial encounter Qualified Codes: W19.XXXA - Unspecified fall, initial encounter MARIO DOMINGUEZ DO Sep 05, 2018 15:10
[2018-09-05] MEDS ORDERED: IV NORMAL SALINE 1,000ML 1,000 ML IV ONE (15:15)
[2018-09-05] MEDS ORDERED: ACETAMINOPHEN 325 MG TABLET PO ONE (15:45)
[2018-09-05 15:46] LABS: BASO # 0.1 x10^3/uL (0.0-0.2); BASO % 1 % (0-3); EOS # 0.1 x10^3/uL (0.0-0.7); EOS % 2 % (0-3); HEMATOCRIT 33.3 % (36.0-47.0); HEMOGLOBIN 11.2 g/dL (12.0-15.5); LYMPH # 1.5 x10^3/uL (1.0-4.8); LYMPH % 25 % (24-48); MEAN CORPUSCULAR HEMOGLOBIN 30 pg (25-35); MEAN CORPUSCULAR HGB CONC 34 g/dL (31-37); MEAN CORPUSCULAR VOLUME 89 fL (79-100); MONO # 0.5 x10^3/uL (0.0-1.1); MONO % 8 % (0-9); NEUT % 65 % (31-73); PLATELET COUNT 181 x10^3/uL (140-400); RED BLOOD COUNT 3.73 x10^6/uL (3.50-5.40); RED CELL DISTRIBUTION WIDTH 16.4 % (11.5-14.5); WHITE BLOOD COUNT 6.2 x10^3/uL (4.0-11.0)
[2018-09-05 15:48] LABS: ALBUMIN 2.5 g/dL (3.4-5.0); ALBUMIN/GLOBULIN RATIO 0.7 (1.0-1.7); CALCIUM 8.4 mg/dL (8.5-10.1); CREATININE 1.1 mg/dL (0.6-1.0); GFR 46.9; POTASSIUM 3.7 mmol/L (3.5-5.1); TOTAL BILIRUBIN 0.4 mg/dL (0.2-1.0); TOTAL PROTEIN 6.2 g/dL (6.4-8.2)
--- NOTE | 2018-09-05 15:53 | RAD ---
PQRS Compliance Statement: One or more of the following individualized dose reduction techniques were utilized for this examination: 1. Automated exposure control 2. Adjustment of the mA and/or kV according to patient size 3. Use of iterative reconstruction technique CT HEAD WITHOUT CONTRAST History: Weakness, numerous falls Comparison: CT head without contrast, April 09, 2018. Technique: Axial images are obtained of the head from the skull base through the vertex without IV contrast. Findings: No mass-effect, midline shift, extra-axial fluid collection, hemorrhage, or obvious acute infarction is identified. Basilar cisterns are patent. The ventricles and sulci are prominent, consistent with age-related cerebral atrophy. There is moderate supratentorial white matter hypoattenuation. This is a nonspecific finding but is commonly due to chronic small vessel ischemic disease. Bone windows demonstrate no acute calvarial abnormality. The visualized paranasal sinuses are clear. Mastoid air cells are well aerated. IMPRESSION: 1. No acute intracranial abnormality. 2. Generalized cerebral atrophy and moderate supratentorial white matter changes probably due to chronic small vessel ischemic disease. Electronically signed by: Good Bergeron MD (09/05/2018 3:50 PM) [id number]
--- NOTE | 2018-09-05 16:40 | EKG ---
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
[2018-09-05 18:03] LABS: BILIRUBIN,URINE NEG (NEG); CLARITY,URINE CLOUDY; COLOR,URINE YELLOW; GLUCOSE,URINE NEG (NEG)
[2018-09-05 18:04] LABS: AMORPHOUS SEDIMENT,UR PRESENT /HPF; BACTERIA,URINE MANY /HPF (0-FEW); NITRITE,URINE POS (NEG); SQUAMOUS EPITHELIAL CELL,UR MOD /LPF; UROBILINOGEN,URINE 0.2 mg/dL (0.2 mg/dL); WBC,URINE >40 /HPF (0-4)
[2018-09-05 18:42] VITALS: BP 149/80
[2018-09-05] MEDS ORDERED: tiZANidine 4 MG TABLET. PO PRN (19:15)
[2018-09-05] MEDS: SIMVASTATIN 40 MG TABLET. PO SCH (22:18)
[2018-09-05] MEDS: LACTOBACILLUS RHAMNOSUS GG 1 CAPSULE. PO SCH (22:18)
[2018-09-05] MEDS: clonazePAM 1 MG TABLET PO SCH (22:18)
[2018-09-05] MEDS: MIRTAZAPINE 15 MG TABLET PO SCH (22:18)
[2018-09-05] MEDS: FAMOTIDINE 20 MG TABLET PO SCH (22:18)
[2018-09-05] MEDS: rOPINIRole 1 MG TABLET. PO SCH (22:19)
[2018-09-05] MEDS: PRIMIDONE 250 MG TABLET PO SCH (22:19)
[2018-09-05] MEDS: CARBIDOPA/LEVODOPA 25/250MG TABLET PO SCH (22:19)
[2018-09-05 22:59] VITALS: BP 150/72
[2018-09-06] MEDS ORDERED: NON FORMULARY ITEM (Albuterol Sulfate (Albuterol Sulfate Conc Neb Soln) 1 VIAL) NEB SCH
[2018-09-06 05:39] VITALS: BP 149/69
[2018-09-06] MEDS: ALBUTEROL SULFATE 2.5 MG/3 ML NEBU. NEB SCH ×5 (06:05→20:11)
[2018-09-06] MEDS: LEVOTHYROXINE 150 MCG TABLET PO SCH (06:05)
[2018-09-06] MEDS ORDERED: MIDODRINE 5 MG TABLET PO PRN (07:00)
[2018-09-06] MEDS: PANTOPRAZOLE 40 MG TABLET. PO SCH ×2 (07:46→09:00)
[2018-09-06] MEDS ORDERED: ALBUTEROL SULFATE 2.5 MG/3 ML NEBU. NEB SCH (09:00)
[2018-09-06] MEDS ORDERED: POLYETHYLENE GLYCOL 3350 17 GM PACKET. PO PRN (09:00)
[2018-09-06] MEDS: MULTIVITAMIN with MINERAL TABLET. PO SCH (09:05)
[2018-09-06] MEDS: POLYVINYL ALCOHOL/POVIDONE/PF OPHTH SOLUTION DROPERETTE. OU SCH (09:05)
[2018-09-06] MEDS: CALCIUM CARB/VIT D3 500/200 TABLET PO SCH (09:05)
[2018-09-06] MEDS: VITAMIN B COMPLEX CAPSULE. PO SCH (09:06)
[2018-09-06] MEDS: PRIMIDONE 250 MG TABLET PO SCH ×3 (09:06→22:48)
[2018-09-06] MEDS: SENNOSIDES/DOCUSATE 8.6/50MG TABLET. PO SCH (09:06)
[2018-09-06] MEDS: CHOLECALCIFEROL (VITAMIN D3) 1,000 UNIT TABLET PO SCH (09:06)
[2018-09-06] MEDS: CITALOPRAM 20 MG TABLET. PO SCH (09:07)
[2018-09-06] MEDS: CARBIDOPA/LEVODOPA 25/250MG TABLET PO SCH ×3 (09:07→22:48)
[2018-09-06] MEDS: rOPINIRole 1 MG TABLET. PO SCH ×2 (09:09→22:48)
[2018-09-06] MEDS: clonazePAM 1 MG TABLET PO SCH ×3 (09:13→21:00)
[2018-09-06] MEDS: FUROSEMIDE 20 MG TABLET PO SCH (09:13)
[2018-09-06] MEDS: FAMOTIDINE 20 MG TABLET PO SCH ×2 (09:13→22:48)
[2018-09-06] MEDS: LACTOBACILLUS RHAMNOSUS GG 1 CAPSULE. PO SCH ×2 (09:13→22:46)
[2018-09-06] MEDS: OMEGA-3 FATTY ACIDS/FISH OIL 1,000 MG CAPSULE. PO SCH (09:13)
--- NOTE | 2018-09-06 10:22 | HP ---
ADMIT DATE: 09/06/2018 HISTORY OF PRESENT ILLNESS: An 88-year-old female, who was brought into the Emergency Room. She has had a cough for about 6 weeks with yellow phlegm. The patient also notes she has been having problems with urination. She has also fallen 3 times in 3 days, generalized weakness, unable to get any type of stability with her walking as she is so weak. Her daughter who takes care of herself has medical problems, apparently is in the [place] for possible stroke. The patient had greater than 40 white blood cells per high powered field, was admitted to the hospital for IV antibiotic therapy. PAST MEDICAL HISTORY: Cataracts, macular degeneration, dementia, Parkinson's disease, esophageal disorders, hernia repair x 2, partial hiatal hernia, GERD, lumpectomy, hysterectomy, kidney stones, urinary tract infections, degenerative arthritis, right hip ORIF, arthritis, right wrist fracture, back pain, hypothyroidism, depression, history of malignant melanoma. Vaccinations pneumococcal were up to date methacycline. PAST SURGICAL HISTORY: She has had MRSA and vancomycin-resistant Staph aureus. FAMILY HISTORY: Mother with some form of cancer. ALLERGIES: PENICILLIN, MELOXICAM. MEDICATIONS: As indicated; midodrine 5 mg p.o. b.i.d. for the stasis, albuterol treatments, tizanidine, simvastatin 40, omega 3, primidone 250 one p.o. b.i.d., clonazepam 1 mg, Celexa 40, carbidopa/levodopa, Requip 1 mg p.o. b.i.d., furosemide 20 mg daily, propylene glycol, ranitidine 150 b.i.d., Prilosec 20 mg a day, Synthroid 150, vitamin B12, vitamin D. SOCIAL HISTORY: The patient denies smoking, alcohol or drug use. The patient lives at home. REVIEW OF SYSTEMS: The patient has general weakness when coughing, but no shortness of breath. No abdominal pain except on urination. The patient denies any other neurological symptoms other than her baseline with her Parkinson's disease, mild dementia, hard of hearing. PHYSICAL EXAMINATION: GENERAL: Pleasant white female, moderate amount of distress. VITAL SIGNS: Blood pressure 149/80, respiratory rate 24, pulse 102, temperature 100.8. HEENT: The patient's head was atraumatic, normocephalic. Eyes: PERRLA without jaundice. The mouth and throat were normal. NECK: Supple, no JVD or thyromegaly. LUNGS: Diminished throughout, but basically diminished, but clear. CARDIOVASCULAR: Regular sinus rhythm, S1, S2, 1/6 systolic ejection murmur. ABDOMEN: Soft, nontender, no rebound or guarding. Positive bowel sounds, no hepatosplenomegaly was noted. EXTREMITIES: No clubbing, cyanosis or edema. NEUROLOGIC: The patient was alert and oriented x 3, baseline. IMPRESSION: Sepsis, urinary tract infection, organism unspecified. Severe degenerative arthritis of multiple joints, anemia of chronic disease, mild dementia, moderate to severe protein malnutrition, history of malignant melanoma, Parkinson's disease, history of CHF, history of breast cancer, also history of MRSA. The patient is a full code. PLAN: The patient will be admitted, placed on IV antibiotic therapy. Make further evaluation on her as indicated per those results. SUNSHINE WALKER MD DR: ROSE MARY/yue JOB#: [id number] / [id number]
[2018-09-06 10:47] VITALS: BP 116/61
[2018-09-06 15:00] VITALS: BP 135/74
[2018-09-06 19:11] VITALS: BP 137/74
[2018-09-06 22:47] VITALS: BP 159/75
[2018-09-06] MEDS: SIMVASTATIN 40 MG TABLET. PO SCH (22:48)
[2018-09-06] MEDS: MIRTAZAPINE 15 MG TABLET PO SCH (22:48)
[2018-09-07] MEDS: ALBUTEROL SULFATE 2.5 MG/3 ML NEBU. NEB SCH ×4 (01:40→20:08)
[2018-09-07] MEDS: LEVOTHYROXINE 150 MCG TABLET PO SCH (05:24)
[2018-09-07 05:25] VITALS: BP 160/82
[2018-09-07] MEDS: VITAMIN B COMPLEX CAPSULE. PO SCH (08:27)
[2018-09-07] MEDS: POLYVINYL ALCOHOL/POVIDONE/PF OPHTH SOLUTION DROPERETTE. OU SCH (08:27)
[2018-09-07] MEDS: OMEGA-3 FATTY ACIDS/FISH OIL 1,000 MG CAPSULE. PO SCH (08:28)
[2018-09-07] MEDS: CITALOPRAM 20 MG TABLET. PO SCH (08:28)
[2018-09-07] MEDS: LACTOBACILLUS RHAMNOSUS GG 1 CAPSULE. PO SCH ×2 (08:28→21:39)
[2018-09-07] MEDS: FUROSEMIDE 20 MG TABLET PO SCH (08:29)
[2018-09-07] MEDS: CALCIUM CARB/VIT D3 500/200 TABLET PO SCH (08:29)
[2018-09-07] MEDS: CHOLECALCIFEROL (VITAMIN D3) 1,000 UNIT TABLET PO SCH (08:29)
[2018-09-07] MEDS: PANTOPRAZOLE 40 MG TABLET. PO SCH (08:29)
[2018-09-07] MEDS: FAMOTIDINE 20 MG TABLET PO SCH ×2 (08:29→21:39)
[2018-09-07] MEDS: MULTIVITAMIN with MINERAL TABLET. PO SCH (08:29)
[2018-09-07] MEDS: SENNOSIDES/DOCUSATE 8.6/50MG TABLET. PO SCH (08:29)
[2018-09-07] MEDS: CARBIDOPA/LEVODOPA 25/250MG TABLET PO SCH ×3 (08:30→21:40)
[2018-09-07] MEDS: rOPINIRole 1 MG TABLET. PO SCH ×2 (08:30→21:40)
[2018-09-07] MEDS: PRIMIDONE 250 MG TABLET PO SCH ×3 (08:30→21:39)
[2018-09-07] MEDS: clonazePAM 1 MG TABLET PO SCH ×3 (09:12→21:39)
[2018-09-07 11:24] VITALS: BP 153/82
--- NOTE | 2018-09-07 12:01 | PN ---
DATE: INDICATIONS: An 88-year-old female in with multiple medical problems including generalized weakness, marked instability, and change in mental status. The patient was admitted to the hospital for a number of reasons. The patient also was noted to have temperature of 100.8 and heart rate of 102. The patient is making fairly good progress, still very weak. OBJECTIVE: VITAL SIGNS: Blood pressure 153/82, respiratory rate 18, pulse 82, afebrile. GENERAL: The patient is alert, but very somnolent. LUNGS: Diminished throughout, poor movement of air. CARDIOVASCULAR: ____. ABDOMEN: Soft, nontender. EXTREMITIES: No clubbing, cyanosis. No edema. NEUROLOGIC: Alert, has some mild dementia, still very weak. Continue on PT, OT and make further evaluation on her as indicated. Try to get her into a skilled facility for further evaluation and treatment. IMPRESSION: Change in mental status, generalized weakness, general debilitation, numerous falls. PLAN: As above. SUNSHINE WALKER MD DR: ROSE MARY/yue JOB#: [id number] / [id number]
[2018-09-07 14:48] VITALS: BP 152/72
[2018-09-07 16:18] LABS: BASO % 1 % (0-3); EOS # 0.1 x10^3/uL (0.0-0.7); EOS % 3 % (0-3); HEMATOCRIT 29.4 % (36.0-47.0); HEMOGLOBIN 9.9 g/dL (12.0-15.5); LYMPH # 1.4 x10^3/uL (1.0-4.8); LYMPH % 35 % (24-48); MEAN CORPUSCULAR HEMOGLOBIN 30 pg (25-35); MEAN CORPUSCULAR HGB CONC 34 g/dL (31-37); MEAN CORPUSCULAR VOLUME 89 fL (79-100); MONO # 0.3 x10^3/uL (0.0-1.1); MONO % 8 % (0-9); NEUT # 2.1 x10^3uL (1.8-7.7); NEUT % 53 % (31-73); PLATELET COUNT 195 x10^3/uL (140-400); RED CELL DISTRIBUTION WIDTH 16.1 % (11.5-14.5)
[2018-09-07 16:40] LABS: ALBUMIN 2.5 g/dL (3.4-5.0); ALBUMIN/GLOBULIN RATIO 0.7 (1.0-1.7); ALK PHOS 79 U/L (46-116); ANION GAP 7 (6-14); AST (SGOT) 18 U/L (15-37); BLOOD UREA NITROGEN 15 mg/dL (7-20); BUN/CREATININE RATIO 13 (6-20); CALCIUM 8.5 mg/dL (8.5-10.1); CARBON DIOXIDE 30 mmol/L (21-32); CHLORIDE 106 mmol/L (98-107); CREATININE 1.2 mg/dL (0.6-1.0); GFR 42.4; GLUCOSE 91 mg/dL (70-99); POTASSIUM 3.6 mmol/L (3.5-5.1); SODIUM 143 mmol/L (136-145); TOTAL BILIRUBIN 0.2 mg/dL (0.2-1.0); TOTAL PROTEIN 6.3 g/dL (6.4-8.2)
[2018-09-07 16:43] LABS: ALT (SGPT) < 6 U/L (14-59)
--- NOTE | 2018-09-07 18:21 | RAD ---
CHEST AP ONLY Clinical Indication: wheezing Comparison: 09/01/2018 portable chest x-ray exam. Findings: Upright frontal view chest was obtained. The cardiomediastinal silhouette is normal. Left basilar interstitial thickening and atelectasis noted. Underlying infiltrate is present. Possibly of small pleural effusion is raised. Right lung field is unremarkable.. Dextroconvex scoliosis of the thoracolumbar spine is evident.. Osteopenia noted.. No acute bone abnormality. IMPRESSION: Left basilar atelectasis and infiltrate. Small left pleural effusion. Findings are more evident compared to previous exam but this may in part be artifactual due to differences in positioning. Electronically signed by: Nuno Higgins MD (09/07/2018 6:19 PM) [facility]
[2018-09-07 19:21] VITALS: BP 104/64
[2018-09-07] MEDS ORDERED: levoFLOXacin 500 MG TABLET PO SCH (21:00)
[2018-09-07] MEDS: MIRTAZAPINE 15 MG TABLET PO SCH (21:40)
[2018-09-07] MEDS: SIMVASTATIN 40 MG TABLET. PO SCH (21:40)
[2018-09-07 22:33] VITALS: BP 128/71
[2018-09-08 05:17] VITALS: BP 147/75
[2018-09-08] MEDS: LEVOTHYROXINE 150 MCG TABLET PO SCH (05:35)
[2018-09-08] MEDS: ALBUTEROL SULFATE 2.5 MG/3 ML NEBU. NEB SCH ×3 (05:37→20:18)
[2018-09-08] MEDS: CALCIUM CARB/VIT D3 500/200 TABLET PO SCH (09:00)
[2018-09-08] MEDS: CHOLECALCIFEROL (VITAMIN D3) 1,000 UNIT TABLET PO SCH (09:00)
[2018-09-08] MEDS: POLYVINYL ALCOHOL/POVIDONE/PF OPHTH SOLUTION DROPERETTE. OU SCH (09:00)
[2018-09-08] MEDS: OMEGA-3 FATTY ACIDS/FISH OIL 1,000 MG CAPSULE. PO SCH (09:00)
[2018-09-08] MEDS: clonazePAM 1 MG TABLET PO SCH ×3 (09:00→20:47)
[2018-09-08] MEDS ORDERED: NITROGLYCERIN 0.2MG/HR PATCH. TD SCH (09:00)
[2018-09-08] MEDS: IPRATRPIUM/ALBUTEROL 0.5/2.5MG 3 ML NEBU. NEB SCH ×3 (09:30→20:00)
[2018-09-08] MEDS: VITAMIN B COMPLEX CAPSULE. PO SCH (10:19)
[2018-09-08] MEDS: FAMOTIDINE 20 MG TABLET PO SCH ×2 (10:20→20:47)
[2018-09-08] MEDS: CITALOPRAM 20 MG TABLET. PO SCH (10:20)
[2018-09-08] MEDS: SENNOSIDES/DOCUSATE 8.6/50MG TABLET. PO SCH (10:21)
[2018-09-08] MEDS: PANTOPRAZOLE 40 MG TABLET. PO SCH (10:21)
[2018-09-08] MEDS: LACTOBACILLUS RHAMNOSUS GG 1 CAPSULE. PO SCH ×2 (10:21→20:47)
[2018-09-08] MEDS: MULTIVITAMIN with MINERAL TABLET. PO SCH (10:21)
[2018-09-08] MEDS: FUROSEMIDE 20 MG TABLET PO SCH (10:21)
[2018-09-08] MEDS: CARBIDOPA/LEVODOPA 25/250MG TABLET PO SCH ×3 (10:22→20:47)
[2018-09-08] MEDS: PRIMIDONE 250 MG TABLET PO SCH ×3 (10:22→20:47)
[2018-09-08 10:25] VITALS: BP 134/72
[2018-09-08] MEDS: rOPINIRole 1 MG TABLET. PO SCH ×2 (10:29→20:47)
[2018-09-08 12:44] VITALS: BP 147/75
[2018-09-08 15:16] VITALS: BP 111/66
[2018-09-08 19:45] VITALS: BP 118/69
[2018-09-08] MEDS: MIRTAZAPINE 15 MG TABLET PO SCH (20:46)
[2018-09-08] MEDS: SIMVASTATIN 40 MG TABLET. PO SCH (20:46)
--- NOTE | 2018-09-08 23:37 | PN ---
DATE: SUBJECTIVE: The patient is coughing and congested and the patient's x-ray showed a new infiltrative process in her lower lobe, possible aspiration. We will get a swallowing study on her. Continue her on IV antibiotic therapy because of her elderly age. The patient in turn will be monitored carefully before being this semester. PHYSICAL EXAMINATION: VITAL SIGNS: Blood pressure is 110/60, respiration 16, pulse upwards of 100-95 and temperature is still 98.3 range. The patient's swallowing study is to be reported. We will make further evaluation on her as indicated. GENERAL: Otherwise, the patient is alert at baseline, has quite a bit of dementia. LUNGS: Diminished primarily in the bases. CARDIOVASCULAR: Regular sinus rhythm, 1/6 systolic ejection murmur. ABDOMEN: Soft, nontender. IMPRESSION: Therefore possible aspiration pneumonia. PLAN: As above. Continue to monitor the patient accordingly and make further evaluation per those results. SUNSHINE WALKER MD DR: ROSE MARY/yue JOB#: [id number] / [id number]
[2018-09-09] MEDS: ALBUTEROL SULFATE 2.5 MG/3 ML NEBU. NEB SCH ×4 (05:03→18:00)
[2018-09-09] MEDS: LEVOTHYROXINE 150 MCG TABLET PO SCH (06:05)
[2018-09-09] MEDS: FAMOTIDINE 20 MG TABLET PO SCH ×2 (09:00→20:01)
[2018-09-09] MEDS: PANTOPRAZOLE 40 MG TABLET. PO SCH (09:00)
[2018-09-09] MEDS ORDERED: POTASSIUM CHLORIDE 30 MEQ in IV 1/2 NORMAL SALINE 1,000 ML IV SCH (09:00)
[2018-09-09] MEDS: OMEGA-3 FATTY ACIDS/FISH OIL 1,000 MG CAPSULE. PO SCH (09:00)
[2018-09-09] MEDS: FUROSEMIDE 20 MG TABLET PO SCH (09:00)
[2018-09-09] MEDS: LACTOBACILLUS RHAMNOSUS GG 1 CAPSULE. PO SCH ×2 (09:00→20:01)
[2018-09-09] MEDS: rOPINIRole 1 MG TABLET. PO SCH ×2 (09:00→20:01)
[2018-09-09] MEDS: MULTIVITAMIN with MINERAL TABLET. PO SCH (09:00)
[2018-09-09] MEDS: CHOLECALCIFEROL (VITAMIN D3) 1,000 UNIT TABLET PO SCH (09:00)
[2018-09-09] MEDS: VITAMIN B COMPLEX CAPSULE. PO SCH (09:00)
[2018-09-09] MEDS: SENNOSIDES/DOCUSATE 8.6/50MG TABLET. PO SCH (09:00)
[2018-09-09] MEDS: CARBIDOPA/LEVODOPA 25/250MG TABLET PO SCH ×3 (09:00→20:01)
[2018-09-09] MEDS: POLYVINYL ALCOHOL/POVIDONE/PF OPHTH SOLUTION DROPERETTE. OU SCH (09:00)
[2018-09-09] MEDS: CITALOPRAM 20 MG TABLET. PO SCH (09:00)
[2018-09-09] MEDS: CALCIUM CARB/VIT D3 500/200 TABLET PO SCH (09:00)
[2018-09-09] MEDS: IPRATRPIUM/ALBUTEROL 0.5/2.5MG 3 ML NEBU. NEB SCH ×4 (09:45→20:57)
[2018-09-09 11:39] VITALS: BP 155/78
--- NOTE | 2018-09-09 14:21 | PN ---
DATE: 09/09/2018 SUBJECTIVE: An 88-year-old female patient, very lethargic. The patient is having difficulty urinating. I put a Croft in her. She came up with approximately over 900 mL of urine in her bladder. The patient continues to be monitored. Now, we will give her fluids. We will adjust her medications and monitor her accordingly. OBJECTIVE: GENERAL: The patient otherwise is arousable. LUNGS: Diminished, but clear than they have been. CARDIOVASCULAR: Stable. ABDOMEN: Soft, nontender. The patient urine. We will go ahead and continue to monitor the patient accordingly, make further evaluation, and we will adjust her medication. SUNSHINE WALKER MD DR: ROSE MARY/yue JOB#: [id number] / [id number]
[2018-09-09 15:43] VITALS: BP 109/66
[2018-09-09 19:00] VITALS: BP 112/67
[2018-09-09] MEDS: SIMVASTATIN 40 MG TABLET. PO SCH (20:01)
[2018-09-10] MEDS: ALBUTEROL SULFATE 2.5 MG/3 ML NEBU. NEB SCH
[2018-09-10] MEDS: IPRATRPIUM/ALBUTEROL 0.5/2.5MG 3 ML NEBU. NEB SCH ×4 (05:01→20:16)
[2018-09-10] MEDS ORDERED: ALBUTEROL SULFATE 2.5 MG/3 ML NEBU. NEB PRN (05:15)
[2018-09-10 06:08] VITALS: BP 110/61
[2018-09-10] MEDS: LEVOTHYROXINE 150 MCG TABLET PO SCH (06:16)
[2018-09-10] MEDS: CITALOPRAM 20 MG TABLET. PO SCH (08:17)
[2018-09-10] MEDS: SENNOSIDES/DOCUSATE 8.6/50MG TABLET. PO SCH (08:18)
[2018-09-10] MEDS: CALCIUM CARB/VIT D3 500/200 TABLET PO SCH (08:18)
[2018-09-10] MEDS: PANTOPRAZOLE 40 MG TABLET. PO SCH (08:18)
[2018-09-10] MEDS: CHOLECALCIFEROL (VITAMIN D3) 1,000 UNIT TABLET PO SCH (08:18)
[2018-09-10] MEDS: LACTOBACILLUS RHAMNOSUS GG 1 CAPSULE. PO SCH ×2 (08:18→20:22)
[2018-09-10] MEDS: FAMOTIDINE 20 MG TABLET PO SCH ×2 (08:18→20:22)
[2018-09-10] MEDS: VITAMIN B COMPLEX CAPSULE. PO SCH (08:18)
[2018-09-10] MEDS: FUROSEMIDE 20 MG TABLET PO SCH (08:18)
[2018-09-10] MEDS: MULTIVITAMIN with MINERAL TABLET. PO SCH (08:18)
[2018-09-10] MEDS: OMEGA-3 FATTY ACIDS/FISH OIL 1,000 MG CAPSULE. PO SCH (08:19)
[2018-09-10] MEDS: CARBIDOPA/LEVODOPA 25/250MG TABLET PO SCH ×3 (08:19→20:22)
[2018-09-10] MEDS: POLYVINYL ALCOHOL/POVIDONE/PF OPHTH SOLUTION DROPERETTE. OU SCH (08:20)
[2018-09-10] MEDS: rOPINIRole 1 MG TABLET. PO SCH ×2 (08:27→20:22)
--- NOTE | 2018-09-10 13:40 | PN ---
DATE: 09/10/2018 SUBJECTIVE: She is doing much better today. We will just medications. The patient is resting fairly comfortable. OBJECTIVE: VITAL SIGNS: Blood pressure 110/60, respiratory rate 20, pulse 98. LUNGS: Diminished throughout, but clear. CARDIOVASCULAR: Regular sinus rhythm, 1/6 systolic ejection murmur. ABDOMEN: Soft, nontender. The patient resting fairly comfortably, making fairly good progress overall. Will continue to be monitored and hopefully ready for discharge here soon. She needs some PT, OT, still very weak on her legs and still needs continued therapy there. IMPRESSION: Urinary retention, possible aspiration pneumonia. SUNSHINE WALKER MD DR: ROSE MARY/yue JOB#: [id number] / [id number]
[2018-09-10 15:25] VITALS: BP 137/70
[2018-09-10 19:12] VITALS: BP 133/67
[2018-09-10] MEDS: SIMVASTATIN 40 MG TABLET. PO SCH (20:22)
[2018-09-10 23:13] VITALS: BP 134/69
[2018-09-11] MEDS: IPRATRPIUM/ALBUTEROL 0.5/2.5MG 3 ML NEBU. NEB SCH ×4 (05:05→19:37)
[2018-09-11 06:05] VITALS: BP 125/58
[2018-09-11] MEDS: LEVOTHYROXINE 150 MCG TABLET PO SCH (06:08)
[2018-09-11] MEDS: POLYVINYL ALCOHOL/POVIDONE/PF OPHTH SOLUTION DROPERETTE. OU SCH (09:52)
[2018-09-11] MEDS: OMEGA-3 FATTY ACIDS/FISH OIL 1,000 MG CAPSULE. PO SCH (09:52)
[2018-09-11] MEDS: CITALOPRAM 20 MG TABLET. PO SCH (09:52)
[2018-09-11] MEDS: VITAMIN B COMPLEX CAPSULE. PO SCH (09:52)
[2018-09-11] MEDS: LACTOBACILLUS RHAMNOSUS GG 1 CAPSULE. PO SCH ×2 (09:52→20:44)
[2018-09-11] MEDS: FUROSEMIDE 20 MG TABLET PO SCH (09:52)
[2018-09-11] MEDS: CARBIDOPA/LEVODOPA 25/250MG TABLET PO SCH ×3 (09:53→20:44)
[2018-09-11] MEDS: FAMOTIDINE 20 MG TABLET PO SCH ×2 (09:53→20:44)
[2018-09-11] MEDS: PANTOPRAZOLE 40 MG TABLET. PO SCH (09:53)
[2018-09-11] MEDS: rOPINIRole 1 MG TABLET. PO SCH ×2 (09:53→20:44)
[2018-09-11] MEDS: CHOLECALCIFEROL (VITAMIN D3) 1,000 UNIT TABLET PO SCH (09:53)
[2018-09-11] MEDS: CALCIUM CARB/VIT D3 500/200 TABLET PO SCH (09:53)
[2018-09-11] MEDS: SENNOSIDES/DOCUSATE 8.6/50MG TABLET. PO SCH (09:53)
[2018-09-11] MEDS: MULTIVITAMIN with MINERAL TABLET. PO SCH (09:53)
[2018-09-11 10:58] VITALS: BP 109/71
[2018-09-11 14:56] VITALS: BP 146/76
[2018-09-11 18:47] VITALS: BP 121/72
[2018-09-11] MEDS: SIMVASTATIN 40 MG TABLET. PO SCH (20:44)
[2018-09-11 22:32] VITALS: BP 137/71
--- NOTE | 2018-09-12 00:12 | PN ---
DATE: SUBJECTIVE: The patient is resting fairly comfortably. She is much more alert than she has been. We have been adjusting her medications, although she has severe tremors. OBJECTIVE: VITAL SIGNS: Otherwise, blood pressure 110/70, respiratory rate 20, pulse 90, afebrile. GENERAL: The patient is alert and oriented. LUNGS: Diminished throughout, poor movement of air. CARDIOVASCULAR: Regular sinus rhythm. ABDOMEN: Soft, nontender. EXTREMITIES: The patient is still very weak on her leg, still requiring physical and occupational therapy. Will continue to be monitored carefully and make further evaluation on her. IMPRESSION: Generalized weakness, Parkinson disease, aspiration pneumonia, urinary retention, mild dementia, hard of hearing, anemia of chronic disease, [id number] protein malnutrition. SUNSHINE WALKER MD DR: ROSE MARY/yue JOB#: [id number] / [id number]
[2018-09-12] MEDS: IPRATRPIUM/ALBUTEROL 0.5/2.5MG 3 ML NEBU. NEB SCH ×2 (04:36→11:13)
[2018-09-12 05:05] VITALS: BP 138/69
[2018-09-12] MEDS: LEVOTHYROXINE 150 MCG TABLET PO SCH (05:11)
[2018-09-12] MEDS: SENNOSIDES/DOCUSATE 8.6/50MG TABLET. PO SCH (08:19)
[2018-09-12] MEDS: FUROSEMIDE 20 MG TABLET PO SCH (08:19)
[2018-09-12] MEDS: PANTOPRAZOLE 40 MG TABLET. PO SCH (08:19)
[2018-09-12] MEDS: CALCIUM CARB/VIT D3 500/200 TABLET PO SCH (08:19)
[2018-09-12] MEDS: CHOLECALCIFEROL (VITAMIN D3) 1,000 UNIT TABLET PO SCH (08:19)
[2018-09-12] MEDS: FAMOTIDINE 20 MG TABLET PO SCH (08:20)
[2018-09-12] MEDS: POLYVINYL ALCOHOL/POVIDONE/PF OPHTH SOLUTION DROPERETTE. OU SCH (08:20)
[2018-09-12] MEDS: LACTOBACILLUS RHAMNOSUS GG 1 CAPSULE. PO SCH (08:20)
[2018-09-12] MEDS: MULTIVITAMIN with MINERAL TABLET. PO SCH (08:20)
[2018-09-12] MEDS: CARBIDOPA/LEVODOPA 25/250MG TABLET PO SCH ×2 (08:21→13:27)
[2018-09-12] MEDS: CITALOPRAM 20 MG TABLET. PO SCH (08:21)
[2018-09-12] MEDS: rOPINIRole 1 MG TABLET. PO SCH (08:21)
[2018-09-12] MEDS: VITAMIN B COMPLEX CAPSULE. PO SCH (08:22)
[2018-09-12] MEDS: OMEGA-3 FATTY ACIDS/FISH OIL 1,000 MG CAPSULE. PO SCH (08:22)
[2018-09-12] MEDS ORDERED: ONDANSETRON ODT 4 MG TAB.RAPDIS PO PRN (10:30)
[2018-09-12 10:34] VITALS: BP 129/80
[2018-09-13] MEDS ORDERED: CARB15DR3 EACHEYE (17:53)
[2018-09-13] MEDS ORDERED: IPRA3AMP29 NEB (17:53)
[2018-09-13] MEDS ORDERED: CITA20TA6 PO (17:53)
[2018-09-13] MEDS ORDERED: FAMO20TA5 PO (17:53)
[2018-09-13] MEDS ORDERED: LACT1CAP2 PO (17:59)
[2018-09-13] MEDS ORDERED: PANT40GR PO (17:59)
== END 2018-09-12 14:20 | DRG 871 ==
LOC: ER 14:35 → 1 SOUTH 17:25
PROVIDERS: ADMIT Family Medicine; ATTEND Family Medicine
DX: A41.9 Sepsis, unspecified organism (principal); E43 Unspecified severe protein-calorie malnutrition; J69.0 Pneumonitis due to inhalation of food and vomit; N39.0 Urinary tract infection, site not specified; D63.8 Anemia in other chronic diseases classified elsewhere; E03.9 Hypothyroidism, unspecified; E78.00 Pure hypercholesterolemia, unspecified; F03.90 Unspecified dementia, unspecified severity, without behavioral disturbance, psychotic disturbance, mood disturbance, and anxiety; G20 Parkinson's disease; H35.30 Unspecified macular degeneration; H91.90 Unspecified hearing loss, unspecified ear; I11.0 Hypertensive heart disease with heart failure; I50.9 Heart failure, unspecified; K21.9 Gastro-esophageal reflux disease without esophagitis; F32.9 Major depressive disorder, single episode, unspecified; F41.9 Anxiety disorder, unspecified; M16.11 Unilateral primary osteoarthritis, right hip; R33.9 Retention of urine, unspecified; R29.6 Repeated falls; Z85.3 Personal history of malignant neoplasm of breast; Z85.820 Personal history of malignant melanoma of skin; Z86.14 Personal history of Methicillin resistant Staphylococcus aureus infection; Z90.710 Acquired absence of both cervix and uterus; Z88.1 Allergy status to other antibiotic agents; Z88.0 Allergy status to penicillin; Z68.20 Body mass index [BMI] 20.0-20.9, adult
CPT/HCPCS: 36415; 70450; 71045; 80053; 81001; 83605; 85025; 87086; 93005; 94640; J0696; J1956; J7030; J7613; J7620; Q0162; 92610; 97110; 97116; 97530; 97535; 99285-25

== ENCOUNTER 2018-09-13 13:46 | Inpatient (IN) | payer MEDICARE ==
[~2018-09-13] VITALS: Ht 165.1 cm; Wt 59.0 kg
[2018-09-13] MEDS ORDERED: IV NORMAL SALINE 500ML 500 ML IV ONE (14:00)
[2018-09-13 14:14] LABS: BASO % 1 % (0-3); EOS % 1 % (0-3); HEMATOCRIT 36.8 % (36.0-47.0); HEMOGLOBIN 12.5 g/dL (12.0-15.5); LYMPH # 1.2 x10^3/uL (1.0-4.8); LYMPH % 22 % (24-48); MEAN CORPUSCULAR HEMOGLOBIN 30 pg (25-35); MEAN CORPUSCULAR HGB CONC 34 g/dL (31-37); MEAN CORPUSCULAR VOLUME 89 fL (79-100); MONO # 0.4 x10^3/uL (0.0-1.1); MONO % 7 % (0-9); NEUT # 3.7 x10^3uL (1.8-7.7); NEUT % 70 % (31-73); PLATELET COUNT 190 x10^3/uL (140-400); RED BLOOD COUNT 4.13 x10^6/uL (3.50-5.40); RED CELL DISTRIBUTION WIDTH 15.9 % (11.5-14.5); WHITE BLOOD COUNT 5.3 x10^3/uL (4.0-11.0)
[2018-09-13 14:28] LABS: ALBUMIN 3.3 g/dL (3.4-5.0); ALBUMIN/GLOBULIN RATIO 0.8 (1.0-1.7); CREATININE 1.8 mg/dL (0.6-1.0); GFR 26.6; POTASSIUM 4.1 mmol/L (3.5-5.1); TOTAL BILIRUBIN 0.3 mg/dL (0.2-1.0); TOTAL PROTEIN 7.5 g/dL (6.4-8.2)
--- NOTE | 2018-09-13 14:32 | PHYS DOC ---
Past History Past Medical History: Anxiety, Dementia, GERD, High Cholesterol, Hypertension, Hypothyroid, UTI Past Surgical History: Cholecystectomy, Other Alcohol Use: None Drug Use: None Adult General Chief Complaint Chief Complaint: ALTERED MENTAL STATUS HPI HPI 88-year-old female presents for medical clearance for behavioral health admission. She was brought by EMS. There was some initial confusion that she is being brought for altered mental status, but it turns out that she has been accepted for behavioral health admission at our facility and she does needs a screening medical exam. The patient was reported to be violent and throwing things at her care facility today. She was just placed there yesterday after being discharged from this hospital for urinary tract infection. I asked the patient if she is having any pain she denies it. She does not new other complaints. She was also given 5 mg of Haldol just prior to arrival so she is not fully aware of her surroundings. She is alert to person and place. Review of Systems Review of Systems Limited due to patient being partially sedated Constitutional: Denies fever or chills [] Eyes: Denies eye pain [] HENT: Denies nasal congestion or sore throat [] Respiratory: Denies cough or shortness of breath [] Cardiovascular: No additional information not addressed in HPI [] GI: Denies abdominal pain, nausea, vomiting, : Denies dysuria[] Musculoskeletal: Denies back pain[] Integument: Dry skin, cold feet[] Neurologic: Denies headache [] Endocrine: Denies polyuria or polydipsia [] All other systems were reviewed and found to be within normal limits, except as documented in this note. Current Medications Current Medications Current Medications Medications (Trade) Dose Ordered Sig/Gabriel Start Time Stop Time Status Last Admin Dose Admin Sodium Chloride 500 ml @ 0 mls/hr 1X ONCE 09/13/18 14:00 09/13/18 14:01 DC Allergies Allergies Allergies Coded Allergies Type Severity Reaction Last Updated Verified Penicillins Allergy Intermediate 09/01/18 Yes meloxicam Allergy Intermediate 09/01/18 Yes Physical Exam Physical Exam Constitutional: Well developed, well nourished, no acute distress, non-toxic a ppearance. [] HENT: Normocephalic, atraumatic, bilateral external ears normal, oropharynx moist, no oral exudates, nose normal. [] Eyes: PERRLA, EOMI, conjunctiva normal, no discharge. [] Neck: Normal range of motion, no tenderness, supple, no stridor. [] Cardiovascular:Heart rate regular rhythm, no murmur [] Lungs & Thorax: Bilateral breath sounds clear to auscultation [] Abdomen: Bowel sounds normal, soft, no tenderness, no masses, no pulsatile masses. [] Skin: Warm, dry, no erythema, no rash. [] Back: No tenderness, no CVA tenderness. [] Extremities: 3+ pitting edema in the bilateral feet. Feet are cool to the touch.[] Neurologic: Alert and oriented X 3, normal motor function, normal sensory function, no focal deficits noted. Fine tremor in the left lower extremity[] Psychologic: Affect is blunted. [] Current Patient Data Vital Signs Vital Signs Date Time Temp Pulse Resp B/P (MAP) Pulse Ox O2 Delivery O2 Flow Rate FiO2 09/13/18 13:46 98.0 93 18 96 Room Air Lab Results Laboratory Tests Test 09/13/18 13:59 White Blood Count 5.3 x10^3/uL (4.0-11.0) Red Blood Count 4.13 x10^6/uL (3.50-5.40) Hemoglobin 12.5 g/dL (12.0-15.5) Hematocrit 36.8 % (36.0-47.0) Mean Corpuscular Volume 89 fL (79-100) Mean Corpuscular Hemoglobin 30 pg (25-35) Mean Corpuscular Hemoglobin Concent 34 g/dL (31-37) Red Cell Distribution Width 15.9 % (11.5-14.5) H Platelet Count 190 x10^3/uL (140-400) Neutrophils (%) (Auto) 70 % (31-73) Lymphocytes (%) (Auto) 22 % (24-48) L Monocytes (%) (Auto) 7 % (0-9) Eosinophils (%) (Auto) 1 % (0-3) Basophils (%) (Auto) 1 % (0-3) Neutrophils # (Auto) 3.7 x10^3uL (1.8-7.7) Lymphocytes # (Auto) 1.2 x10^3/uL (1.0-4.8) Monocytes # (Auto) 0.4 x10^3/uL (0.0-1.1) Eosinophils # (Auto) 0.0 x10^3/uL (0.0-0.7) Basophils # (Auto) 0.0 x10^3/uL (0.0-0.2) EKG EKG Sinus rhythm, rate 92, leftward axis, PACs, no ST elevations or depressions.[] Radiology/Procedures Radiology/Procedures [] Course & Med Decision Making Course & Med Decision Making Pertinent Labs and Imaging studies reviewed. (See chart for details) The patient's urinalysis is unremarkable. Her labs remarkable for an elevated creatinine. Review of her chart shows she had similarly elevated creatinines in the past. Do not believe this precludes the patient for admission. She is medically stable for behavioral health admission. [] Dragon Disclaimer Dragon Disclaimer This electronic medical record was generated, in whole or in part, using a voice recognition dictation system. Departure Departure: Impression: Primary Impression: Medical clearance for psychiatric admission Additional Impression: Elevated serum creatinine Disposition: ADMITTED INPATIENT Condition: STABLE Referrals: SUNSHINE WALKER MD (PCP) Problem Qualifiers MARIO DOMINGUEZ DO Sep 13, 2018 14:32
[2018-09-13 15:10] LABS: BILIRUBIN,URINE NEG (NEG); CLARITY,URINE HAZY; COLOR,URINE YELLOW; GLUCOSE,URINE NEG (NEG)
[2018-09-13 15:11] LABS: BACTERIA,URINE 0 /HPF (0-FEW); HYALINE CASTS, URINE OCC /HPF; NITRITE,URINE NEG (NEG); RBC,URINE 0 /HPF (0-2); SQUAMOUS EPITHELIAL CELL,UR OCC /LPF; UROBILINOGEN,URINE 0.2 mg/dL (0.2 mg/dL); WBC,URINE 0 /HPF (0-4)
--- NOTE | 2018-09-13 16:00 | NUR ---
Admission Note with Justification for Admission to [facility] Patient admitted to [facility] for protective oversight for emergency stabilization of acute psychiatric crisis. Pt admitted from: [facility] Mode of arrival: EMS Accompanied By: EMS Precipitating behaviors that initiated intake and admission: Admitted from [facility] through [facility] for reportedly becoming increasingly agitated, threatening to kill staff and hitting; crying inconsolably; throwing food at residents; and stating that she will never have anyone touch her again and that she will never eat off the floor again as long as she lives. Description of failure of out patient attempts at stabilization in previous setting list behavior and medication trials: PRN IM Haldol given prior to being sent to [facility] ED Behaviors and assessment findings upon admission: Patient calm, drowsy on admit wearing hospital gown. No personal belongings except a pair of earrings that her daughter took home. She was confused and tangental but compliant with assessment. Skin tear to left wrist; multiple bruises to arms; 3 small abrasions to face; 3+ pitting edema to left foot and lower leg, pedal pulse faint; mild edema to right foot and lower leg, pedal pulse palpable. Plan: Admit for protective oversight for adjustment and stabilization of medications, behaviors and mood. Intense treatment regimen including groups, medication adjustments, therapy, consistent regimen for ADL's, self care, and sleep hygiene. Daily monitoring by Inpatient staff, Psychiatry, and Medical Physician.
[2018-09-13] MEDS ORDERED: MAG HYDROX/AL HYDROX/SIMETH 30 ML ORAL.SUSP PO PRN (17:15)
[2018-09-13] MEDS ORDERED: MAGNESIUM HYDROXIDE 2,400 MG/30 ML ORAL.SUSP. PO PRN (17:15)
--- NOTE | 2018-09-13 17:25 | EKG ---
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
[2018-09-13] MEDS ORDERED: CARB15DR3 EACHEYE (17:53)
[2018-09-13] MEDS ORDERED: IPRA3AMP29 NEB (17:53)
[2018-09-13] MEDS ORDERED: FAMO20TA5 PO (17:53)
[2018-09-13] MEDS ORDERED: CITA20TA6 PO (17:53)
[2018-09-13] MEDS ORDERED: LACT1CAP2 PO (17:59)
[2018-09-13] MEDS ORDERED: PANT40GR PO (17:59)
[2018-09-13] MEDS ORDERED: POLYETHYLENE GLYCOL 3350 17 GM PACKET. PO PRN (19:45)
--- NOTE | 2018-09-13 20:00 | NUR ---
Behavior Intervention Response and Plan: BIRP Note: Behavior: Assumed Care of patient, patient located in Day Room at shift change. Patient exhibited the following behavior Restless, Disorganized, Compulsive. Brief assessment on rounds of vital signs, medication needs, lab studies, and pain. Treatment plan problems . Intervention: Patient assessed and the following interventions initiated safety checks 15 Minute Checks Cognitive Assessment , Head to toe Assessment , Medications. Response: After interactions and interventions patient responded in the following manner, Drowsy , Disorganized ,Sleeping. Continue to assess behaviors and condition will continue to monitor throughout the shift as needed. Patient educated on ADL's, and hand hygiene. 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 Continue to assess patient for changes in above assessment. Monitor for medication needs, pain, and safety concerns. Hourly rounding performed to ensure safe environment.
[2018-09-13] MEDS: LACTOBACILLUS RHAMNOSUS GG 1 CAPSULE. PO SCH (20:57)
[2018-09-13] MEDS: CARBIDOPA/LEVODOPA 25/250MG TABLET PO SCH (20:57)
[2018-09-13] MEDS: FAMOTIDINE 20 MG TABLET PO SCH (20:57)
[2018-09-13] MEDS: rOPINIRole 1 MG TABLET. PO SCH (20:57)
[2018-09-13] MEDS: SIMVASTATIN 40 MG TABLET. PO SCH (20:58)
--- NOTE | 2018-09-13 21:52 | PDOC ---
Exam Note: Oscar Note: Please also refer to the separate dictated note~for this date of service dictated separately. Discussed the patient with Nursing staff reviewed the chart.~Reviewed interim history and current functioning. Reviewed vital signs,~Labs/ Radiology~and current medications noted below. Continue current treatment with the changes noted in the dictated addendum note Assessment: Vital Signs: Vital Signs Date Time Temp Pulse Resp B/P (MAP) Pulse Ox O2 Delivery O2 Flow Rate FiO2 09/13/18 15:40 98.4 100 18 159/114 (129) 96 Room Air Labs: Laboratory Tests Test 09/13/18 13:59 09/13/18 14:35 White Blood Count 5.3 x10^3/uL (4.0-11.0) Red Blood Count 4.13 x10^6/uL (3.50-5.40) Hemoglobin 12.5 g/dL (12.0-15.5) Hematocrit 36.8 % (36.0-47.0) Mean Corpuscular Volume 89 fL (79-100) Mean Corpuscular Hemoglobin 30 pg (25-35) Mean Corpuscular Hemoglobin Concent 34 g/dL (31-37) Red Cell Distribution Width 15.9 % (11.5-14.5) H Platelet Count 190 x10^3/uL (140-400) Neutrophils (%) (Auto) 70 % (31-73) Lymphocytes (%) (Auto) 22 % (24-48) L Monocytes (%) (Auto) 7 % (0-9) Eosinophils (%) (Auto) 1 % (0-3) Basophils (%) (Auto) 1 % (0-3) Neutrophils # (Auto) 3.7 x10^3uL (1.8-7.7) Lymphocytes # (Auto) 1.2 x10^3/uL (1.0-4.8) Monocytes # (Auto) 0.4 x10^3/uL (0.0-1.1) Eosinophils # (Auto) 0.0 x10^3/uL (0.0-0.7) Basophils # (Auto) 0.0 x10^3/uL (0.0-0.2) Sodium Level 141 mmol/L (136-145) Potassium Level 4.1 mmol/L (3.5-5.1) Chloride Level 102 mmol/L (98-107) Carbon Dioxide Level 30 mmol/L (21-32) Anion Gap 9 (6-14) Blood Urea Nitrogen 29 mg/dL (7-20) H Creatinine 1.8 mg/dL (0.6-1.0) H Estimated GFR (Cockcroft-Gault) 26.6 BUN/Creatinine Ratio 16 (6-20) Glucose Level 105 mg/dL (70-99) H Calcium Level 9.0 mg/dL (8.5-10.1) Magnesium Level 2.3 mg/dL (1.8-2.4) Total Bilirubin 0.3 mg/dL (0.2-1.0) Aspartate Amino Transferase (AST) 22 U/L (15-37) Alanine Aminotransferase (ALT) 15 U/L (14-59) Alkaline Phosphatase 120 U/L (46-116) H Troponin I Quantitative 0.020 ng/mL (0-0.055) Total Protein 7.5 g/dL (6.4-8.2) Albumin 3.3 g/dL (3.4-5.0) L Albumin/Globulin Ratio 0.8 (1.0-1.7) L Urine Collection Type Unknown Urine Color Yellow Urine Clarity Hazy Urine pH 5.5 Urine Specific [place] 1.025 Urine Protein 30 mg/dl (NEG-TRACE) Urine Glucose (UA) Neg mg/dL (NEG) Urine Ketones (Stick) Trace mg/dL (NEG) Urine Blood Neg (NEG) Urine Nitrite Neg (NEG) Urine Bilirubin Neg (NEG) Urine Urobilinogen Dipstick 0.2 mg/dL (0.2 mg/dL) Urine Leukocyte Esterase Neg (NEG) Urine RBC 0 /HPF (0-2) Urine WBC 0 /HPF (0-4) Urine Squamous Epithelial Cells Occ /LPF Urine Bacteria 0 /HPF (0-FEW) Urine Hyaline Casts Occ /HPF Urine Mucus Slight /LPF Current Medications: Meds: Current Medications Sodium Chloride 500 ml @ 0 mls/hr 1X ONCE IV ; Start 09/13/18 at 14:00; Stop 09/13/18 at 14:30; Status DC Acetaminophen (Tylenol) 650 mg PRN Q6HRS PRN PO PAIN / TEMP; Start 09/13/18 at 17:15 Multi-Ingredient Ointment (Analgesic [place]) 1 patrick PRN QID PRN TP MUSCLE PAIN; Start 09/13/18 at 17:15 Al Hydroxide/Mg Hydroxide (Mylanta Plus Xs) 15 ml PRN AFTMEALHC PRN PO DYSPEPSIA; Start 09/13/18 at 17:15 Magnesium Hydroxide (Milk Of Magnesia) 2,400 mg PRN QHS PRN PO CONSTIPATION; Start 09/13/18 at 17:15 Citalopram Hydrobromide (CeleXA) 20 mg DAILY PO ; Start 09/14/18 at 09:00 Furosemide (Lasix) 20 mg DAILY PO ; Start 09/14/18 at 09:00 Senna/Docusate Sodium (Senna Plus) 1 tab DAILY PO ; Start 09/14/18 at 09:00 Simvastatin (Zocor) 40 mg QHS PO Last administered on 09/13/18at 20:58; Start 09/13/18 at 21:00 Calcium/Vitamin D (Oscal D 500mg/ 200uts) 1 tab DAILY PO ; Start 09/14/18 at 09:00 Carbidopa/Levodopa (Sinemet 25/250) 1 tab TID PO Last administered on 09/13/18at 20:57; Start 09/13/18 at 21:00 Vitamin D (Vitamin D3) 2,000 unit DAILY PO ; Start 09/14/18 at 09:00 Vitamin B Complex 1 cap DAILY PO ; Start 09/14/18 at 09:00 Famotidine (Pepcid) 20 mg BID PO Last administered on 09/13/18at 20:57; Start 09/13/18 at 21:00 Levothyroxine Sodium (Synthroid) 150 mcg DAILY06 PO ; Start 09/14/18 at 06:00 Multivitamins/ Calcium (Thera-M Plus) 1 tab DAILY PO ; Start 09/14/18 at 09:00 Fish Oil (Fish Oil) 1,000 mg DAILY PO ; Start 09/14/18 at 09:00 Pantoprazole Sodium (Protonix) 40 mg DAILY07 PO ; Start 09/14/18 at 07:00 Polyethylene Glycol (miraLAX) 17 gm PRN DAILY PRN PO CONSTIPATION; Start 09/13/18 at 19:45 Albuterol/ Ipratropium (Duoneb) 3 ml RTQID NEB ; Start 09/13/18 at 20:00 Artificial Tears (Refresh Classic) 2 drop DAILY OU ; Start 09/14/18 at 09:00 Lactobacillus Rhamnosus (Culturelle) 1 cap BID PO Last administered on 09/13/18at 20:57; Start 09/13/18 at 21:00 Midodrine (Proamatine) 5 mg [id number] PO ; Start 09/14/18 at 07:00 Ropinirole HCl (Requip) 1 mg BID PO Last administered on 09/13/18at 20:57; Start 09/13/18 at 21:00 Active Scripts Active Synthroid (Levothyroxine Sodium) 150 Mcg Tablet 150 Mcg PO DAILY07 Reported Protonix (Pantoprazole Sodium) 40 Mg Granpkt.dr 40 Mg PO DAILY07 Acidophilus (Lactobacillus Acidophilus) 1 Each Capsule 1 Each PO BID Refresh Optive Eye Drops (Carboxymethylcellulos/Glycerin) 15 Ml Drops 2 Drop EACHEYE DAILY Famotidine 20 Mg Tablet 1 Tab PO BID Duoneb 0.5-3(2.5) Mg/3 Ml (Albuterol/Ipratropium) 3 Ml Ampul.neb 3 Ml NEB QID Citalopram Hbr (Citalopram Hydrobromide) 20 Mg Tablet 20 Mg PO DAILY Carbidopa-Levodopa 25-250 Tab (Carbidopa/Levodopa) 1 Each Tablet 1 Tab PO TID LAST DOSE GIVEN: DATE: TODAY TIME: AM NEXT DOSE DUE: DATE: TODAY TIME: AFTERNOON Polyethylene Glycol 3350 255 Gm Powder 17 Gm PO DAILY PRN NOT GIVEN TODAY NEXT DOSE DUE: DATE: TODAY TIME: IF AND WHEN NEEDED Senna-Docusate Sodium Tablet (Sennosides/Docusate Sodium) 1 Each Tablet 1 Tab PO DAILY LAST DOSE GIVEN: DATE: TODAY TIME: AM NEXT DOSE DUE: DATE: TOMORROW TIME: AM [place] 3 1,000 Mg Softgel ([place]-3 Fatty Acids/Fish Oil) 1 Each Capsule 1 Each PO DAILY LAST DOSE GIVEN: DATE: TODAY TIME: AM NEXT DOSE DUE: DATE: TOMORROW TIME: AM Simvastatin 40 Mg Tablet 40 Mg PO QHS LAST DOSE GIVEN: DATE: YESTERDAY TIME: PM NEXT DOSE DUE: DATE: TODAY TIME: PM Lasix (Furosemide) 20 Mg Tablet 20 Mg PO DAILY LAST DOSE GIVEN: DATE: TODAY TIME: AM NEXT DOSE DUE: DATE: TOMORROW TIME: AM Requip (Ropinirole Hcl) 1 Mg Tablet 1 Mg PO BID LAST DOSE GIVEN: DATE: TIME: AM NEXT DOSE DUE: DATE: TIME: PM Midodrine Hcl 5 Mg Tablet 5 Mg PO Q8HRS LAST DOSE GIVEN: DATE: TIME: AM NEXT DOSE DUE: DATE: TIME: AFTERNOON Vitamin D-3 (Cholecalciferol (Vitamin D3)) 2,000 Unit Tablet 2,000 Unit PO DAILY LAST DOSE GIVEN: DATE: TIME: AM NEXT DOSE DUE: DATE: TOMORROW TIME: AM Calcium 600 + Vit D 200 Tablet (Calcium Carbonate/Vitamin D3) 1 Each Tablet 1 Tab PO DAILY LAST DOSE GIVEN: DATE: TIME: AM NEXT DOSE DUE: DATE:TOMORROW TIME: AM Daily Vitamin (Multivitamin) 1 Each Tablet 1 Each PO DAILY LAST DOSE GIVEN: DATE: TIME: AM NEXT DOSE DUE: DATE: ORR TIME: AM Vitamin Q93-Mvjzp Acid Tablet (Cyanocobalamin/Folic Acid) 1 Each Tablet 1 Each PO DAILY LAST DOSE GIVEN: DATE: TIME: AM NEXT DOSE DUE: DATE: ORR TIME: AM I have reviewed the current psychotropics carefully including drug interactions. Risk benefit ratio favors no change other than as noted in my dictated progress note. Diagnosis: Problems: (1) Major depressive disorder (2) Impulse control disorder (3) Anxiety disorder (4) Major neurocognitive disorder (5) Dementia in Alzheimer's disease with delusions (6) Dementia in Alzheimer's disease with depression (7) Dementia, vascular, with delusions (8) Dementia, vascular, with depression SAMMY DANIEL MD Sep 13, 2018 21:52
[2018-09-13] MEDS: IPRATRPIUM/ALBUTEROL 0.5/2.5MG 3 ML NEBU. NEB SCH (23:01)
[2018-09-14] MEDS: IPRATRPIUM/ALBUTEROL 0.5/2.5MG 3 ML NEBU. NEB SCH ×2 (05:21→10:00)
[2018-09-14 06:08] VITALS: BP 146/71
[2018-09-14] MEDS: LEVOTHYROXINE 150 MCG TABLET PO SCH (06:14)
[2018-09-14] MEDS: MIDODRINE 5 MG TABLET PO SCH ×3 (07:00→18:00)
[2018-09-14] MEDS: PANTOPRAZOLE 40 MG TABLET. PO SCH (07:00)
[2018-09-14] MEDS ORDERED: CITALOPRAM 20 MG TABLET. PO SCH (09:00)
[2018-09-14] MEDS: MULTIVITAMIN with MINERAL TABLET. PO SCH (09:00)
[2018-09-14] MEDS ORDERED: FUROSEMIDE 20 MG TABLET PO SCH (09:00)
[2018-09-14] MEDS: CARBIDOPA/LEVODOPA 25/250MG TABLET PO SCH ×3 (09:00→20:34)
[2018-09-14] MEDS: FAMOTIDINE 20 MG TABLET PO SCH (09:00)
[2018-09-14] MEDS: CALCIUM CARB/VIT D3 500/200 TABLET PO SCH (09:00)
[2018-09-14] MEDS: CHOLECALCIFEROL (VITAMIN D3) 1,000 UNIT TABLET PO SCH (09:00)
[2018-09-14] MEDS: VITAMIN B COMPLEX CAPSULE. PO SCH (09:00)
[2018-09-14] MEDS: LACTOBACILLUS RHAMNOSUS GG 1 CAPSULE. PO SCH ×2 (09:00→20:34)
[2018-09-14] MEDS: rOPINIRole 1 MG TABLET. PO SCH ×2 (09:00→20:34)
[2018-09-14] MEDS: SENNOSIDES/DOCUSATE 8.6/50MG TABLET. PO SCH (09:00)
[2018-09-14] MEDS: OMEGA-3 FATTY ACIDS/FISH OIL 1,000 MG CAPSULE. PO SCH (09:00)
[2018-09-14] MEDS: POLYVINYL ALCOHOL/POVIDONE/PF OPHTH SOLUTION DROPERETTE. OU SCH (09:00)
--- NOTE | 2018-09-14 09:11 | HP ---
ADMIT DATE: 09/13/2018 PSYCHIATRIC ADMISSION HISTORY AND EVALUATION This late entry, date of service 09/13/2018 covers elements not covered in my initial note. I met with the patient the evening of 09/13/2018 and previously discussed with nursing staff and Araceli Verma, sample coordinator, after the patient was sent to the Emergency Room at [facility] from [facility] due to unmanageable behaviors. She is getting increasingly agitated, threatening to kill staff, hitting, crying inconsolably, throwing food at resident and stating that she will never have anyone touch her again and she will never eat off the floor again as long as she lives. Behaviors were quite bizarre. She appeared more confused than she normally is, unmanageable, disruptive, dangerous in her behaviors and sent to the ER and then admitted to us. CHIEF COMPLAINT: "I don't do those things." The patient is nevertheless confused, oblivious of what prompted admission. HISTORY OF PRESENT ILLNESS: The patient has a history of major depressive disorder and major neurocognitive disorder, possibly Lewy body or secondary to Parkinson's with delusion, depression, behavioral disturbance. She has also had recurrent UTIs, though at this current admission, UA is negative in the Emergency Room. She has had sleep and appetite changes and marked paranoia, psychosis, agitation, aggression as noted above. No clear history of bipolar disorder. No active suicidal or homicidal ideation. PAST PSYCHIATRIC HISTORY: As above. MEDICAL HISTORY: Positive for Parkinson's disease, generalized muscle weakness, hypothyroidism, hypotension, GERD, hyperlipidemia. DIET: Pureed. CODE STATUS: Full code. ALLERGIES: MELOXICAM and PENICILLIN. Takes meds crushed in pudding, ambulates in wheelchair, 2-person transfer. CURRENT PSYCHOTROPICS: Sinemet 25/250 t.i.d., Celexa 20 mg a day, ReQuip 1 mg b.i.d. FAMILY HISTORY: Noncontributory. SOCIAL HISTORY: No history of alcohol or drug abuse, physical, sexual or elder abuse. She is not known to be a perpetrator. REACTION TO HOSPITALIZATION: The patient oblivious of this minimizes circumstances prompting admission. ASSETS: Living at the facility, supportive family. MENTAL STATUS EXAMINATION: The patient was seen individually the evening of 09/13/2018. She is oriented to herself, seems more confused than when I have seen her in the past. Speech has some latency. Insight, judgment, recent and remote memory, attention, concentration, fund of knowledge poor, consistent with her diagnosis. She appears somewhat paranoid, psychotic, distractable. LABORATORY DATA: Reviewed. IMPRESSION: Major depressive disorder, recurrent; impulse control disorder; anxiety disorder, unspecified; major neurocognitive disorder, possibly secondary to Parkinson's versus Lewy body with delusion, depression, behavioral disturbance. Rest unchanged as noted above. PLAN: Admit to Geropsychiatry Unit at [facility]. I will see the patient daily individually from a psychiatric standpoint. Medical followup with Dr. Hopkins. Continue the patient on her current psychotropics. Observe baseline then adjust as clinically indicated. ESTIMATED LENGTH OF STAY: 7-10 days. MAN Laura DANIEL MD DR: ISABELLA/yue JOB#: [id number] / [id number]
[2018-09-14 13:04] LABS: THYROID STIM HORMONE (TSH) 6.375 uIU/mL (0.358-3.740)
[2018-09-14] MEDS ORDERED: IPRATRPIUM/ALBUTEROL 0.5/2.5MG 3 ML NEBU. NEB PRN (14:15)
[2018-09-14 15:54] VITALS: BP_SYST 136; BP_SYST 138; BP_DIAS 71; BP_DIAS 81
[2018-09-14 20:06] LABS: THYROXINE 8.4 ug/dL (4.5-12.0)
[2018-09-14] MEDS: SIMVASTATIN 40 MG TABLET. PO SCH (20:34)
[2018-09-14] MEDS: CHOLECALCIFEROL (VITAMIN D3) 50,000 UNIT CAPSULE PO SCH (20:34)
[2018-09-14] MEDS: QUEtiapine 25 MG TABLET. PO SCH (20:35)
--- NOTE | 2018-09-14 23:14 | PDOC ---
Exam Note: Oscar Note: Please also refer to the separate dictated note~for this date of service dictated separately.~Patient seen individually. Discussed the patient with Nursing staff reviewed the chart.~Reviewed interim history and current functioning. Reviewed vital signs,~Labs/ Radiology~and current medications noted below. Continue current treatment with the changes noted in the dictated addendum note Assessment: Vital Signs: Vital Signs Date Time Temp Pulse Resp B/P (MAP) Pulse Ox O2 Delivery O2 Flow Rate FiO2 09/14/18 18:00 88 136/81 09/14/18 15:54 98.0 20 96 09/14/18 10:00 Room Air I&O Intake and Output 09/14/18 07:00 Intake Total 40 ml Balance 40 ml Intake Oral 40 ml # Voids 1 Current Medications: Meds: Current Medications Sodium Chloride 500 ml @ 0 mls/hr 1X ONCE IV ; Start 09/13/18 at 14:00; Stop 09/13/18 at 14:30; Status DC Acetaminophen (Tylenol) 650 mg PRN Q6HRS PRN PO PAIN / TEMP; Start 09/13/18 at 17:15 Multi-Ingredient Ointment (Analgesic [place]) 1 patrick PRN QID PRN TP MUSCLE PAIN; Start 09/13/18 at 17:15 Al Hydroxide/Mg Hydroxide (Mylanta Plus Xs) 15 ml PRN AFTMEALHC PRN PO DYSPEPSIA; Start 09/13/18 at 17:15 Magnesium Hydroxide (Milk Of Magnesia) 2,400 mg PRN QHS PRN PO CONSTIPATION; Start 09/13/18 at 17:15 Citalopram Hydrobromide (CeleXA) 20 mg DAILY PO Last administered on 09/14/18at 09:00; Start 09/14/18 at 09:00; Stop 09/14/18 at 17:18; Status DC Furosemide (Lasix) 20 mg DAILY PO Last administered on 09/14/18at 09:00; Start 09/14/18 at 09:00; Stop 09/14/18 at 17:22; Status DC Senna/Docusate Sodium (Senna Plus) 1 tab DAILY PO Last administered on 09/14/18at 09:00; Start 09/14/18 at 09:00 Simvastatin (Zocor) 40 mg QHS PO Last administered on 09/14/18at 20:34; Start 09/13/18 at 21:00 Calcium/Vitamin D (Oscal D 500mg/ 200uts) 1 tab DAILY PO Last administered on 09/14/18at 09:00; Start 09/14/18 at 09:00 Carbidopa/Levodopa (Sinemet 25/250) 1 tab TID PO Last administered on 09/14/18 20:34; Start 09/13/18 at 21:00 Vitamin D (Vitamin D3) 2,000 unit DAILY PO Last administered on 09/14/18at 09:00; Start 09/14/18 at 09:00 Vitamin B Complex 1 cap DAILY PO Last administered on 09/14/18at 09:00; Start 09/14/18 at 09:00 Famotidine (Pepcid) 20 mg BID PO Last administered on 09/14/18 09:00; Start 09/13/18 at 21:00; Stop 09/14/18 at 17:20; Status DC Levothyroxine Sodium (Synthroid) 150 mcg DAILY06 PO Last administered on 09/14/18at 06:14; Start 09/14/18 at 06:00 Multivitamins/ Calcium (Thera-M Plus) 1 tab DAILY PO Last administered on 09/14/18at 09:00; Start 09/14/18 at 09:00 Fish Oil (Fish Oil) 1,000 mg DAILY PO Last administered on 09/14/18at 09:00; Start 09/14/18 at 09:00 Pantoprazole Sodium (Protonix) 40 mg DAILY07 PO Last administered on 09/14/18at 07:00; Start 09/14/18 at 07:00 Polyethylene Glycol (miraLAX) 17 gm PRN DAILY PRN PO CONSTIPATION; Start 09/13/18 at 19:45 Albuterol/ Ipratropium (Duoneb) 3 ml RTQID NEB Last administered on 09/14/18 05:21; Start 09/13/18 at 20:00; Stop 09/14/18 at 14:10; Status DC Artificial Tears (Refresh Classic) 2 drop DAILY OU Last administered on 09/14/18 09:00; Start 09/14/18 at 09:00 Lactobacillus Rhamnosus (Culturelle) 1 cap BID PO Last administered on 09/14/18at 20:34; Start 09/13/18 at 21:00 Midodrine (Proamatine) 5 mg [id number] PO Last administered on 09/14/18at 18:00; Start 09/14/18 at 07:00 Ropinirole HCl (Requip) 1 mg BID PO Last administered on 09/14/18at 20:34; Start 09/13/18 at 21:00 Albuterol/ Ipratropium (Duoneb) 3 ml PRN QID PRN NEB CONGESTION; Start 09/14/18 at 14:15 Sertraline HCl (Zoloft) 50 mg DAILY PO ; Start 09/15/18 at 09:00 Quetiapine Fumarate (SEROquel) 25 mg QHS PO Last administered on 09/14/18at 20:35; Start 09/14/18 at 21:00 Vitamin D (Vitamin D3) 50,000 unit WEEKLY PO Last administered on 09/14/18at 20:34; Start 09/14/18 at 17:30 Active Scripts Active Synthroid (Levothyroxine Sodium) 150 Mcg Tablet 150 Mcg PO DAILY07 Reported Protonix (Pantoprazole Sodium) 40 Mg Granpkt.dr 40 Mg PO DAILY07 Acidophilus (Lactobacillus Acidophilus) 1 Each Capsule 1 Each PO BID Refresh Optive Eye Drops (Carboxymethylcellulos/Glycerin) 15 Ml Drops 2 Drop EACHEYE DAILY Famotidine 20 Mg Tablet 1 Tab PO BID Duoneb 0.5-3(2.5) Mg/3 Ml (Albuterol/Ipratropium) 3 Ml Ampul.neb 3 Ml NEB QID Citalopram Hbr (Citalopram Hydrobromide) 20 Mg Tablet 20 Mg PO DAILY Carbidopa-Levodopa 25-250 Tab (Carbidopa/Levodopa) 1 Each Tablet 1 Tab PO TID LAST DOSE GIVEN: DATE: TODAY TIME: AM NEXT DOSE DUE: DATE: TODAY TIME: AFTERNOON Polyethylene Glycol 3350 255 Gm Powder 17 Gm PO DAILY PRN NOT GIVEN TODAY NEXT DOSE DUE: DATE: TODAY TIME: IF AND WHEN NEEDED Senna-Docusate Sodium Tablet (Sennosides/Docusate Sodium) 1 Each Tablet 1 Tab PO DAILY LAST DOSE GIVEN: DATE: TODAY TIME: AM NEXT DOSE DUE: DATE: TOMORROW TIME: AM [place] 3 1,000 Mg Softgel ([place]-3 Fatty Acids/Fish Oil) 1 Each Capsule 1 Each PO DAILY LAST DOSE GIVEN: DATE: TIME: AM NEXT DOSE DUE: DATE: TOMORR TIME: AM Simvastatin 40 Mg Tablet 40 Mg PO QHS LAST DOSE GIVEN: DATE: YESTER TIME: PM NEXT DOSE DUE: DATE: TODAY TIME: PM Lasix (Furosemide) 20 Mg Tablet 20 Mg PO DAILY LAST DOSE GIVEN: DATE: TIME: AM NEXT DOSE DUE: DATE: TIME: AM Requip (Ropinirole Hcl) 1 Mg Tablet 1 Mg PO BID LAST DOSE GIVEN: DATE: TIME: AM NEXT DOSE DUE: DATE: TODAY TIME: PM Midodrine Hcl 5 Mg Tablet 5 Mg PO Q8HRS LAST DOSE GIVEN: DATE: TIME: AM NEXT DOSE DUE: DATE: TIME: AFTERNOON Vitamin D-3 (Cholecalciferol (Vitamin D3)) 2,000 Unit Tablet 2,000 Unit PO DAILY LAST DOSE GIVEN: DATE: TIME: AM NEXT DOSE DUE: DATE: TIME: AM Calcium 600 + Vit D 200 Tablet (Calcium Carbonate/Vitamin D3) 1 Each Tablet 1 Tab PO DAILY LAST DOSE GIVEN: DATE: TIME: AM NEXT DOSE DUE: DATE: TIME: AM Daily Vitamin (Multivitamin) 1 Each Tablet 1 Each PO DAILY LAST DOSE GIVEN: DATE: TIME: AM NEXT DOSE DUE: DATE: ORR TIME: AM Vitamin X35-Eqsfo Acid Tablet (Cyanocobalamin/Folic Acid) 1 Each Tablet 1 Each PO DAILY LAST DOSE GIVEN: DATE: TIME: AM NEXT DOSE DUE: DATE: TIME: AM I have reviewed the current psychotropics carefully including drug interactions. Risk benefit ratio favors no change other than as noted in my dictated progress note. Diagnosis: Problems: (1) Major neurocognitive disorder (2) Impulse control disorder (3) Anxiety disorder (4) Major depressive disorder (5) Dementia in Alzheimer's disease with delusions (6) Dementia in Alzheimer's disease with depression (7) Dementia, vascular, with delusions (8) Dementia, vascular, with depression SAMMY DANIEL MD September 14, 2018 23:14
--- NOTE | 2018-09-15 02:53 | NUR ---
Nursing Note The patient was compliant with her medications and was appropriate during interactions with staff and peers. The patient is currently sleeping in her room.
[2018-09-15 03:10] LABS: HEMOGLOBIN A1C 4.9 % (4.8-5.6)
[2018-09-15 05:39] VITALS: BP 128/68
[2018-09-15] MEDS: LEVOTHYROXINE 150 MCG TABLET PO SCH (05:48)
[2018-09-15] MEDS: MIDODRINE 5 MG TABLET PO SCH ×3 (05:48→16:52)
[2018-09-15] MEDS: PANTOPRAZOLE 40 MG TABLET. PO SCH (05:54)
--- NOTE | 2018-09-15 07:26 | CONS ---
DATE OF CONSULTATION: 09/14/2018 REASON FOR CONSULTATION: Medical management. HISTORY OF PRESENT ILLNESS: The patient is an 88-year-old female patient who apparently was transferred to [facility] only recently after a hospital stay for generalized weakness, recurrent falls. Currently, on account of unmanageable behavior, she is getting increasingly agitated, threatening to kill staff, hitting, crying inconsolably, throwing food at the resident and stating that she will never have anyone touch her again. She will never eat off the floor again as long as she lives, behavior that was quite bizarre. She appears more confused than she normally is, unmanageable, disruptive, dangerous, and therefore she was evaluated in the Emergency Room and was [facility] for inpatient psychiatric stabilization. PAST MEDICAL HISTORY: The patient is known to have multiple medical problems including Parkinson's disease, generalized muscle weakness, hypothyroidism, hypertension, gastroesophageal reflux disease, hyperlipidemia, dysphagia with aspiration pneumonia. PAST SURGICAL HISTORY: Significant for hernia repair x 2, hiatal hernia, appendectomy, hysterectomy. She has right wrist fracture treated with open reduction and internal fixation and history of malignant melanoma treated with excision. FAMILY HISTORY: Her mother of some form of cancer. SOCIAL HISTORY: She lives at home with her daughter. She does not smoke, drink alcohol or use any recreational drugs. ALLERGIES: She IS ALLERGIC TO PENICILLIN AND MELOXICAM. MEDICATIONS: She is currently on following medications: She is on ipratropium bromide, albuterol sulfate by DuoNeb 4 times a day, midodrine 5 mg q. 8 hours, simvastatin 40 mg at bedtime, omega-3 fatty acid 1000 mg once a day, citalopram hydrobromide 20 mg daily, carbidopa/levodopa 25/250 one tablet 3 times a day, Requip 1 mg twice a day, calcium carbonate with vitamin D3 one tablet daily. She is on furosemide 20 mg p.o. daily, Refresh Optive eye drops 2 drops to both eyes daily. She is on lactobacillus acidophilus 1 capsule twice a day, polyethylene glycol 17 grams p.o. daily, Senna-S 1 tablet once a day, famotidine 20 mg twice a day, Protonix 40 mg daily, levothyroxine sodium 150 mcg once a day, cyanocobalamin, folic acid 1 tablet once a day, cholecalciferol for vitamin D3 2000 international units once a day, multivitamin 1 tablet once a day. REVIEW OF SYSTEMS: As per history of present illness. PHYSICAL EXAMINATION GENERAL: When I saw her this afternoon, she was sitting comfortably in her wheelchair, in no apparent respiratory distress. She was pale, but not jaundiced or cyanosed. No lymphadenopathy, no thyromegaly. No jugular venous distension. No lower limb edema. VITAL SIGNS: Her heart rate was 88, blood pressure was 136/81, temperature was 98, respiratory rate was 20, and oxygen saturation was 96%. HEAD, EYES, EARS, NOSE, AND THROAT: Showed normocephalic, atraumatic. NECK: Supple. HEART: Showed normal first and second heart sounds. No gallop, rub, or murmur. CHEST: Clear to auscultation. No crepitation or rhonchi. ABDOMEN: Scaphoid, soft, nontender. No guarding or rigidity. No organomegaly. All hernial orifices intact. Bowel sounds normal. NEUROLOGIC: She is awake, alert, but very confused; however, all cranial nerves intact. She moves extremities without difficulty, however, she is mostly bed bound, wheelchair bound. LABORATORY DATA: On admission showed that her white cell count 5300, hemoglobin 12.5, hematocrit 36.8, MCV 89, and platelet count of 190,000 with normal manual differential. Her chemistry showed that her serum sodium was 141, potassium 4.1, chloride 102, bicarbonate 30, anion gap of 9, BUN 29, creatinine 1.8, estimated GFR was 27 mL per minute. Her glucose was 105, calcium was 9. Total bilirubin, AST, ALT were normal. Alkaline phosphatase slightly elevated. Total protein was 7.5, albumin was 3.3. Her magnesium was 2.3. Serum iron was 45, TIBC was 242. Iron saturation was 19%. Her serum triglycerides were 63, total cholesterol 151, LDL cholesterol was 77, VLDL was 12, and HDL cholesterol was 62, and the ratio was 2 only. Her 25-hydroxy vitamin D was 26.6, which is low and her TSH was slightly elevated at 6.375. Her urinalysis showed the urine was yellow, hazy with a pH of 5.5, specific gravity of 1.025. There is small amount of protein. The urine was negative for glucose. There was a trace of ketones. Negative for blood, nitrite, bilirubin, leukocyte esterase. There are no rbc's or wbc's and no bacteria. Her treponema pallidum antibodies were nonreactive. SUMMARY: This is an 88-year-old female patient who was admitted recently to [facility] and was seen in the Emergency Room for unmanageable behavior. She has been getting increasingly agitated, threatening to kill staff, hitting, crying inconsolably, throwing food at resident and stating that she will never have anyone touch her again, she will never eat off the floor again as long as she lives. Her behavior that were quite bizarre and disruptive, dangerous and therefore she was admitted for inpatient psychiatric stabilization. The patient is known to have major depressive disorder and major neurocognitive disorder, possibly Lewy body or secondary to Parkinson's disease with delusion, depression, behavioral disturbances. She does have recurrent UTIs, although this current admission UA was negative. Medically, the patient has multiple medical problems including Parkinson's disease, hypothyroidism, probably hypertension based on her Parkinson disease to autonomic neuropathy, gastroesophageal reflux disease, hyperlipidemia. She is also known to have dysphagia with recurrent aspiration pneumonia, recurrent UTIs. Her lab work showed that she has slightly impaired kidney function. Her creatinine is 1.8. She has also mild protein-calorie malnutrition. She has vitamin D deficiency and she is slightly hypothyroid at least biochemically. Her urinalysis was unremarkable. She is obviously on carbidopa/levodopa that itself might be the cause of some of her psychiatric presentation. My plan is to replenish her vitamin D. I will review all her medications. I will hold any nephrotoxic medication. I am not sure that she needs the furosemide given she has seemed to be very dehydrated clinically. She is also on two H2 blockers and proton pump inhibitors, which showed duplication. I will discontinue one of them, and I will obviously check her T3, T4, free T4 to make sure that she is at least clinically euthyroid if all these values are within normal limits. We might have to increase her Synthroid if T3, T4, free T4 are all on the lower side. Thank you, Dr. Glass for allowing me to participate in the care of this patient. JOSE RAMON BRAY MD DR: ALFRED/yue JOB#: [id number] / [id number]
[2018-09-15] MEDS ORDERED: SERTRALINE 25 MG TABLET. PO SCH (09:00)
[2018-09-15] MEDS: LACTOBACILLUS RHAMNOSUS GG 1 CAPSULE. PO SCH ×2 (09:02→19:17)
[2018-09-15] MEDS: OMEGA-3 FATTY ACIDS/FISH OIL 1,000 MG CAPSULE. PO SCH (09:02)
[2018-09-15] MEDS: VITAMIN B COMPLEX CAPSULE. PO SCH (09:02)
[2018-09-15] MEDS: SENNOSIDES/DOCUSATE 8.6/50MG TABLET. PO SCH (09:02)
[2018-09-15] MEDS: MULTIVITAMIN with MINERAL TABLET. PO SCH (09:02)
[2018-09-15] MEDS: rOPINIRole 1 MG TABLET. PO SCH ×2 (09:02→19:17)
[2018-09-15] MEDS: CALCIUM CARB/VIT D3 500/200 TABLET PO SCH (09:02)
[2018-09-15] MEDS: CARBIDOPA/LEVODOPA 25/250MG TABLET PO SCH ×3 (09:02→19:14)
[2018-09-15] MEDS: CHOLECALCIFEROL (VITAMIN D3) 1,000 UNIT TABLET PO SCH (09:02)
[2018-09-15] MEDS: POLYVINYL ALCOHOL/POVIDONE/PF OPHTH SOLUTION DROPERETTE. OU SCH (09:02)
--- NOTE | 2018-09-15 10:01 | NUR ---
WEEKLY ACTIVITY THERAPY NOTE Date of Admission: 09/13/2018 Date of AT Assessment: TBD Goal aimed: TBD Initial Goal: TBD Weekly progress towards goal: NA Group participation level: minimal Weekly highlights: NA Behaviors observed: soft spoken, kind, social, engaged in groups Plan: MEET/ASSESS PT. Beneficial adaptations: TBD
--- NOTE | 2018-09-15 10:18 | NUR ---
WEEKLY NOTE: Pt is averaging 6 hours of sleep at night. Pt is consistently asking about what medications she is taking; she is AXO to person and place. Pt needs to have the slums or mini mental to be completed. Pt has a neurological consult with Dr. Raymundo. Pt is on Zoloft, which will be changed to Celexa and will start on Seroquel 25mg q HS. Pt will return to [facility] once stable. ELOS 10-14 days.
--- NOTE | 2018-09-15 12:02 | NUR ---
Dr. Raymundo paged re: consult for r/t pt taking both Sinemet and Requip
--- NOTE | 2018-09-15 13:14 | NUR ---
Patient in dining room during initial assessment. Patient inquired about medications being given and was medication compliant. Cooperative with assessment and cares. Patient ambulating slowly down the ovalle independently in wheelchair. Skin tear on hand has new dressing as other one fell off in the shower. No behaviors noted at this time. Will continue to monitor.
[2018-09-15 16:15] VITALS: BP 141/72
[2018-09-15] MEDS: SIMVASTATIN 40 MG TABLET. PO SCH (19:14)
[2018-09-15] MEDS: QUEtiapine 25 MG TABLET. PO SCH (19:17)
--- NOTE | 2018-09-15 22:17 | NUR ---
Pt. was lying in bed this evening when this conventional underwriter took her medications to her and she was interacting appropriately with this conventional underwriter. Pt. was compliant with her medications this evening. Pt. was able to take the spoon with her crush medicat After she took her medications, she laid back down and closed her eyes. Addendum: 09/15/18 at 2221 by RUSTAM ESPARZA RN Pt. was able to take the spoon with her medications on and get it to her mouth with out any help.
--- NOTE | 2018-09-15 22:41 | PDOC ---
Exam Note: Oscar Note: Please also refer to the separate dictated note~for this date of service dictated separately.~Patient seen individually. Discussed the patient with Nursing staff reviewed the chart.~Reviewed interim history and current functioning. Reviewed vital signs,~Labs/ Radiology~and current medications noted below. Continue current treatment with the changes noted in the dictated addendum note Assessment: Vital Signs: Vital Signs Date Time Temp Pulse Resp B/P (MAP) Pulse Ox O2 Delivery O2 Flow Rate FiO2 09/15/18 16:52 81 141/72 09/15/18 16:15 98.3 16 97 09/14/18 10:00 Room Air I&O Intake and Output 09/15/18 07:00 Intake Total 1200 ml Balance 1200 ml Intake Oral 1200 ml # Voids 1 Current Medications: Meds: Current Medications Sodium Chloride 500 ml @ 0 mls/hr 1X ONCE IV ; Start 09/13/18 at 14:00; Stop 09/13/18 at 14:30; Status DC Acetaminophen (Tylenol) 650 mg PRN Q6HRS PRN PO PAIN / TEMP; Start 09/13/18 at 17:15 Multi-Ingredient Ointment (Analgesic [place]) 1 patrick PRN QID PRN TP MUSCLE PAIN; Start 09/13/18 at 17:15 Al Hydroxide/Mg Hydroxide (Mylanta Plus Xs) 15 ml PRN AFTMEALHC PRN PO DYSPEPSIA; Start 09/13/18 at 17:15 Magnesium Hydroxide (Milk Of Magnesia) 2,400 mg PRN QHS PRN PO CONSTIPATION; Start 09/13/18 at 17:15 Citalopram Hydrobromide (CeleXA) 20 mg DAILY PO Last administered on 09/14/18at 09:00; Start 09/14/18 at 09:00; Stop 09/14/18 at 17:18; Status DC Furosemide (Lasix) 20 mg DAILY PO Last administered on 09/14/18at 09:00; Start 09/14/18 at 09:00; Stop 09/14/18 at 17:22; Status DC Senna/Docusate Sodium (Senna Plus) 1 tab DAILY PO Last administered on 09/15/18at 09:02; Start 09/14/18 at 09:00 Simvastatin (Zocor) 40 mg QHS PO Last administered on 09/15/18at 19:14; Start 09/13/18 at 21:00 Calcium/Vitamin D (Oscal D 500mg/ 200uts) 1 tab DAILY PO Last administered on 09/15/18 09:02; Start 09/14/18 at 09:00 Carbidopa/Levodopa (Sinemet 25/250) 1 tab TID PO Last administered on 09/15/18 19:14; Start 09/13/18 at 21:00 Vitamin D (Vitamin D3) 2,000 unit DAILY PO Last administered on 09/15/18 09:02; Start 09/14/18 at 09:00 Vitamin B Complex 1 cap DAILY PO Last administered on 09/15/18 09:02; Start 09/14/18 at 09:00 Famotidine (Pepcid) 20 mg BID PO Last administered on 09/14/18 09:00; Start 09/13/18 at 21:00; Stop 09/14/18 at 17:20; Status DC Levothyroxine Sodium (Synthroid) 150 mcg DAILY06 PO Last administered on 09/15/18 05:48; Start 09/14/18 at 06:00 Multivitamins/ Calcium (Thera-M Plus) 1 tab DAILY PO Last administered on 09/15/18 09:02; Start 09/14/18 at 09:00 Fish Oil (Fish Oil) 1,000 mg DAILY PO Last administered on 09/15/18 09:02; Start 09/14/18 at 09:00 Pantoprazole Sodium (Protonix) 40 mg DAILY07 PO Last administered on 09/15/18 05:54; Start 09/14/18 at 07:00 Polyethylene Glycol (miraLAX) 17 gm PRN DAILY PRN PO CONSTIPATION; Start 09/13/18 at 19:45 Albuterol/ Ipratropium (Duoneb) 3 ml RTQID NEB Last administered on 09/14/18 05:21; Start 09/13/18 at 20:00; Stop 09/14/18 at 14:10; Status DC Artificial Tears (Refresh Classic) 2 drop DAILY OU Last administered on 09/15/18 09:02; Start 09/14/18 at 09:00 Lactobacillus Rhamnosus (Culturelle) 1 cap BID PO Last administered on 09/15/18 19:17; Start 09/13/18 at 21:00 Midodrine (Proamatine) 5 mg BFY166 PO Last administered on 09/15/18at 05:48; Start 09/14/18 at 07:00 Ropinirole HCl (Requip) 1 mg BID PO Last administered on 09/15/18at 19:17; Start 09/13/18 at 21:00 Albuterol/ Ipratropium (Duoneb) 3 ml PRN QID PRN NEB CONGESTION; Start 09/14/18 at 14:15 Sertraline HCl (Zoloft) 50 mg DAILY PO Last administered on 09/15/18at 09:04; Start 09/15/18 at 09:00; Stop 09/15/18 at 15:03; Status DC Quetiapine Fumarate (SEROquel) 25 mg QHS PO Last administered on 09/15/18at 19:17; Start 09/14/18 at 21:00 Vitamin D (Vitamin D3) 50,000 unit WEEKLY PO Last administered on 09/14/18at 20:34; Start 09/14/18 at 17:30 Sertraline HCl (Zoloft) 50 mg DAILY PO ; Start 09/16/18 at 09:00 Active Scripts Active Synthroid (Levothyroxine Sodium) 150 Mcg Tablet 150 Mcg PO DAILY07 Reported Protonix (Pantoprazole Sodium) 40 Mg Granpkt.dr 40 Mg PO DAILY07 Acidophilus (Lactobacillus Acidophilus) 1 Each Capsule 1 Each PO BID Refresh Optive Eye Drops (Carboxymethylcellulos/Glycerin) 15 Ml Drops 2 Drop EACHEYE DAILY Famotidine 20 Mg Tablet 1 Tab PO BID Duoneb 0.5-3(2.5) Mg/3 Ml (Albuterol/Ipratropium) 3 Ml Ampul.neb 3 Ml NEB QID Citalopram Hbr (Citalopram Hydrobromide) 20 Mg Tablet 20 Mg PO DAILY Carbidopa-Levodopa 25-250 Tab (Carbidopa/Levodopa) 1 Each Tablet 1 Tab PO TID LAST DOSE GIVEN: DATE: TODAY TIME: AM NEXT DOSE DUE: DATE: TODAY TIME: AFTERNOON Polyethylene Glycol 3350 255 Gm Powder 17 Gm PO DAILY PRN NOT GIVEN TODAY NEXT DOSE DUE: DATE: TODAY TIME: IF AND WHEN NEEDED Senna-Docusate Sodium Tablet (Sennosides/Docusate Sodium) 1 Each Tablet 1 Tab PO DAILY LAST DOSE GIVEN: DATE: TIME: AM NEXT DOSE DUE: DATE: TOMORR TIME: AM Perry 3 1,000 Mg Softgel (Perry-3 Fatty Acids/Fish Oil) 1 Each Capsule 1 Each PO DAILY LAST DOSE GIVEN: DATE: TIME: AM NEXT DOSE DUE: DATE: ORR TIME: AM Simvastatin 40 Mg Tablet 40 Mg PO QHS LAST DOSE GIVEN: DATE: YESTER TIME: PM NEXT DOSE DUE: DATE: TIME: PM Lasix (Furosemide) 20 Mg Tablet 20 Mg PO DAILY LAST DOSE GIVEN: DATE: TIME: AM NEXT DOSE DUE: DATE: TIME: AM Requip (Ropinirole Hcl) 1 Mg Tablet 1 Mg PO BID LAST DOSE GIVEN: DATE: TIME: AM NEXT DOSE DUE: DATE: TIME: PM Midodrine Hcl 5 Mg Tablet 5 Mg PO Q8HRS LAST DOSE GIVEN: DATE: TIME: AM NEXT DOSE DUE: DATE: TIME: AFTERNOON Vitamin D-3 (Cholecalciferol (Vitamin D3)) 2,000 Unit Tablet 2,000 Unit PO DAILY LAST DOSE GIVEN: DATE: TIME: AM NEXT DOSE DUE: DATE: TIME: AM Calcium 600 + Vit D 200 Tablet (Calcium Carbonate/Vitamin D3) 1 Each Tablet 1 Tab PO DAILY LAST DOSE GIVEN: DATE: TIME: AM NEXT DOSE DUE: DATE:ORR TIME: AM Daily Vitamin (Multivitamin) 1 Each Tablet 1 Each PO DAILY LAST DOSE GIVEN: DATE: TIME: AM NEXT DOSE DUE: DATE: TIME: AM Vitamin L43-Yktyx Acid Tablet (Cyanocobalamin/Folic Acid) 1 Each Tablet 1 Each PO DAILY LAST DOSE GIVEN: DATE: TIME: AM NEXT DOSE DUE: DATE: TIME: AM I have reviewed the current psychotropics carefully including drug interactions. Risk benefit ratio favors no change other than as noted in my dictated progress note. Diagnosis: Problems: (1) Major depressive disorder (2) Anxiety disorder (3) Impulse control disorder (4) Dementia, vascular, with depression (5) Dementia, vascular, with delusions (6) Dementia in Alzheimer's disease with depression (7) Dementia in Alzheimer's disease with delusions (8) Major neurocognitive disorder SAMMY DANIEL MD September 15, 2018 22:41
[2018-09-16] MEDS: LEVOTHYROXINE 150 MCG TABLET PO SCH (05:15)
[2018-09-16 05:45] VITALS: BP 162/90
[2018-09-16] MEDS: MIDODRINE 5 MG TABLET PO SCH ×4 (07:00→16:13)
[2018-09-16] MEDS: VITAMIN B COMPLEX CAPSULE. PO SCH (08:38)
[2018-09-16] MEDS: CARBIDOPA/LEVODOPA 25/250MG TABLET PO SCH ×3 (08:38→19:56)
[2018-09-16] MEDS: CALCIUM CARB/VIT D3 500/200 TABLET PO SCH (08:38)
[2018-09-16] MEDS: MULTIVITAMIN with MINERAL TABLET. PO SCH (08:38)
[2018-09-16] MEDS: PANTOPRAZOLE 40 MG TABLET. PO SCH (08:39)
[2018-09-16] MEDS: SENNOSIDES/DOCUSATE 8.6/50MG TABLET. PO SCH (08:39)
[2018-09-16] MEDS: rOPINIRole 1 MG TABLET. PO SCH ×2 (08:39→19:56)
[2018-09-16] MEDS: CHOLECALCIFEROL (VITAMIN D3) 1,000 UNIT TABLET PO SCH (08:39)
[2018-09-16] MEDS: LACTOBACILLUS RHAMNOSUS GG 1 CAPSULE. PO SCH ×2 (08:39→19:56)
[2018-09-16] MEDS: OMEGA-3 FATTY ACIDS/FISH OIL 1,000 MG CAPSULE. PO SCH (08:39)
[2018-09-16] MEDS: SERTRALINE 50 MG TABLET. PO SCH (08:40)
[2018-09-16] MEDS: POLYVINYL ALCOHOL/POVIDONE/PF OPHTH SOLUTION DROPERETTE. OU SCH (08:41)
--- NOTE | 2018-09-16 08:58 | NUR ---
Wound Care Wound care consult to be cancelled by Beatrice ANNE, unneeded at this time per nurse. Please reconsult if new wounds develop.
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
[2018-09-16 14:06] VITALS: BP 145/74
[2018-09-16 15:45] VITALS: BP 146/67
[2018-09-16] MEDS: QUEtiapine 25 MG TABLET. PO SCH (19:56)
[2018-09-16] MEDS: SIMVASTATIN 40 MG TABLET. PO SCH (19:56)
--- NOTE | 2018-09-16 20:22 | PN ---
DATE: 09/14/2018 PSYCHIATRIC PROGRESS NOTE This late entry 09/14/2018 covers elements not covered in my initial note. SUBJECTIVE: I met with the patient in the evening. The patient has been pleasant, slept 6-1/2 hours previous night. Previous evening, she was making vague, bizarre, delusional statements to the nursing staff and told the male nursing staff that he had been "riding" her daughter. She seemed somewhat paranoid, afraid. REVIEW OF SYSTEMS: Ambulation impaired, in wheelchair. No CV, , pulmonary, eye, ENT system symptoms on review. Reliability poor. MENTAL STATUS EXAM: Oriented to herself and situation. Speech has some latency, coherent, often responses monosyllabic. Abstraction fair, computation impaired, language function intact, attention span short. Mood and affect somewhat withdrawn. She is quite psychotic as I met with her, confused. LABORATORY DATA: Reviewed. IMPRESSION: Major depressive disorder with psychotic features; major neurocognitive disorder, Alzheimer, vascular with delusion, depression. Rest unchanged. PLAN: Change Celexa to Zoloft 50 mg a day, start Seroquel 25 mg p.o. at bedtime. She remains on Sinemet and Requip. We will consult Dr. Raymundo, Neurology to see of these could be adjusted downward to help reduce their propensity for psychosis. SAMMY DANIEL MD DR: ISABELLA/yue JOB#: [id number] / [id number]
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
--- NOTE | 2018-09-16 22:51 | PDOC ---
Exam Note: Oscar Note: Please also refer to the separate dictated note~for this date of service dictated separately.~Patient seen individually. Discussed the patient with Nursing staff reviewed the chart.~Reviewed interim history and current functioning. Reviewed vital signs,~Labs/ Radiology~and current medications noted below. Continue current treatment with the changes noted in the dictated addendum note Assessment: Vital Signs: Vital Signs Date Time Temp Pulse Resp B/P (MAP) Pulse Ox O2 Delivery O2 Flow Rate FiO2 09/16/18 16:13 80 146/67 09/16/18 15:45 98.0 20 97 Room Air I&O Intake and Output 09/16/18 07:00 Intake Total 600 ml Balance 600 ml Intake Oral 600 ml Current Medications: Meds: Current Medications Sodium Chloride 500 ml @ 0 mls/hr 1X ONCE IV ; Start 09/13/18 at 14:00; Stop 09/13/18 at 14:30; Status DC Acetaminophen (Tylenol) 650 mg PRN Q6HRS PRN PO PAIN / TEMP; Start 09/13/18 at 17:15 Multi-Ingredient Ointment (Analgesic [place]) 1 patrick PRN QID PRN TP MUSCLE PAIN; Start 09/13/18 at 17:15 Al Hydroxide/Mg Hydroxide (Mylanta Plus Xs) 15 ml PRN AFTMEALHC PRN PO DYSPEPSIA; Start 09/13/18 at 17:15 Magnesium Hydroxide (Milk Of Magnesia) 2,400 mg PRN QHS PRN PO CONSTIPATION; Start 09/13/18 at 17:15 Citalopram Hydrobromide (CeleXA) 20 mg DAILY PO Last administered on 09/14/18at 09:00; Start 09/14/18 at 09:00; Stop 09/14/18 at 17:18; Status DC Furosemide (Lasix) 20 mg DAILY PO Last administered on 09/14/18at 09:00; Start 09/14/18 at 09:00; Stop 09/14/18 at 17:22; Status DC Senna/Docusate Sodium (Senna Plus) 1 tab DAILY PO Last administered on 09/16/18at 08:39; Start 09/14/18 at 09:00 Simvastatin (Zocor) 40 mg QHS PO Last administered on 09/16/18at 19:56; Start 09/13/18 at 21:00 Calcium/Vitamin D (Oscal D 500mg/ 200uts) 1 tab DAILY PO Last administered on 09/16/18 08:38; Start 09/14/18 at 09:00 Carbidopa/Levodopa (Sinemet 25/250) 1 tab TID PO Last administered on 09/16/18 19:56; Start 09/13/18 at 21:00 Vitamin D (Vitamin D3) 2,000 unit DAILY PO Last administered on 09/16/18 08:39; Start 09/14/18 at 09:00 Vitamin B Complex 1 cap DAILY PO Last administered on 09/16/18 08:38; Start 09/14/18 at 09:00 Famotidine (Pepcid) 20 mg BID PO Last administered on 09/14/18 09:00; Start 09/13/18 at 21:00; Stop 09/14/18 at 17:20; Status DC Levothyroxine Sodium (Synthroid) 150 mcg DAILY06 PO Last administered on 9at 05:15; Start 09/14/18 at 06:00 Multivitamins/ Calcium (Thera-M Plus) 1 tab DAILY PO Last administered on 09/16/18 08:38; Start 09/14/18 at 09:00 Fish Oil (Fish Oil) 1,000 mg DAILY PO Last administered on 09/16/18 08:39; Start 09/14/18 at 09:00 Pantoprazole Sodium (Protonix) 40 mg DAILY07 PO Last administered on 09/16/18 08:39; Start 09/14/18 at 07:00 Polyethylene Glycol (miraLAX) 17 gm PRN DAILY PRN PO CONSTIPATION; Start 09/13/18 at 19:45 Albuterol/ Ipratropium (Duoneb) 3 ml RTQID NEB Last administered on 09/14/18 05:21; Start 09/13/18 at 20:00; Stop 09/14/18 at 14:10; Status DC Artificial Tears (Refresh Classic) 2 drop DAILY OU Last administered on 09/15/18 09:02; Start 09/14/18 at 09:00 Lactobacillus Rhamnosus (Culturelle) 1 cap BID PO Last administered on 09/16/18 19:56; Start 09/13/18 at 21:00 Midodrine (Proamatine) 5 mg [id number] PO Last administered on 09/15/18at 05:48; Sta rt 09/14/18 at 07:00 Ropinirole HCl (Requip) 1 mg BID PO Last administered on 09/16/18at 19:56; Start 09/13/18 at 21:00 Albuterol/ Ipratropium (Duoneb) 3 ml PRN QID PRN NEB CONGESTION; Start 09/14/18 at 14:15 Sertraline HCl (Zoloft) 50 mg DAILY PO Last administered on 09/15/18at 09:04; Start 09/15/18 at 09:00; Stop 09/15/18 at 15:03; Status DC Quetiapine Fumarate (SEROquel) 25 mg QHS PO Last administered on 09/16/18at 19:56; Start 09/14/18 at 21:00 Vitamin D (Vitamin D3) 50,000 unit WEEKLY PO Last administered on 09/14/18at 20:34; Start 09/14/18 at 17:30 Sertraline HCl (Zoloft) 50 mg DAILY PO Last administered on 09/16/18at 08:40; Start 09/16/18 at 09:00 Active Scripts Active Synthroid (Levothyroxine Sodium) 150 Mcg Tablet 150 Mcg PO DAILY07 Reported Protonix (Pantoprazole Sodium) 40 Mg Granpkt.dr 40 Mg PO DAILY07 Acidophilus (Lactobacillus Acidophilus) 1 Each Capsule 1 Each PO BID Refresh Optive Eye Drops (Carboxymethylcellulos/Glycerin) 15 Ml Drops 2 Drop EACHEYE DAILY Famotidine 20 Mg Tablet 1 Tab PO BID Duoneb 0.5-3(2.5) Mg/3 Ml (Albuterol/Ipratropium) 3 Ml Ampul.neb 3 Ml NEB QID Citalopram Hbr (Citalopram Hydrobromide) 20 Mg Tablet 20 Mg PO DAILY Carbidopa-Levodopa 25-250 Tab (Carbidopa/Levodopa) 1 Each Tablet 1 Tab PO TID LAST DOSE GIVEN: DATE: TODAY TIME: AM NEXT DOSE DUE: DATE: TODAY TIME: AFTERNOON Polyethylene Glycol 3350 255 Gm Powder 17 Gm PO DAILY PRN NOT GIVEN TODAY NEXT DOSE DUE: DATE: TODAY TIME: IF AND WHEN NEEDED Senna-Docusate Sodium Tablet (Sennosides/Docusate Sodium) 1 Each Tablet 1 Tab PO DAILY LAST DOSE GIVEN: DATE: TIME: AM NEXT DOSE DUE: DATE: ORR TIME: AM [place] 3 1,000 Mg Softgel ([place]-3 Fatty Acids/Fish Oil) 1 Each Capsule 1 Each PO DAILY LAST DOSE GIVEN: DATE: TIME: AM NEXT DOSE DUE: DATE: TIME: AM Simvastatin 40 Mg Tablet 40 Mg PO QHS LAST DOSE GIVEN: DATE: TER TIME: PM NEXT DOSE DUE: DATE: TIME: PM Lasix (Furosemide) 20 Mg Tablet 20 Mg PO DAILY LAST DOSE GIVEN: DATE: TIME: AM NEXT DOSE DUE: DATE: ORR TIME: AM Requip (Ropinirole Hcl) 1 Mg Tablet 1 Mg PO BID LAST DOSE GIVEN: DATE: TIME: AM NEXT DOSE DUE: DATE: TIME: PM Midodrine Hcl 5 Mg Tablet 5 Mg PO Q8HRS LAST DOSE GIVEN: DATE: TIME: AM NEXT DOSE DUE: DATE: TIME: AFTERNOON Vitamin D-3 (Cholecalciferol (Vitamin D3)) 2,000 Unit Tablet 2,000 Unit PO DAILY LAST DOSE GIVEN: DATE: TIME: AM NEXT DOSE DUE: DATE: TIME: AM Calcium 600 + Vit D 200 Tablet (Calcium Carbonate/Vitamin D3) 1 Each Tablet 1 Tab PO DAILY LAST DOSE GIVEN: DATE: TIME: AM NEXT DOSE DUE: DATE:ORR TIME: AM Daily Vitamin (Multivitamin) 1 Each Tablet 1 Each PO DAILY LAST DOSE GIVEN: DATE: TIME: AM NEXT DOSE DUE: DATE: TIME: AM Vitamin X22-Mjshe Acid Tablet (Cyanocobalamin/Folic Acid) 1 Each Tablet 1 Each PO DAILY LAST DOSE GIVEN: DATE: TIME: AM NEXT DOSE DUE: DATE: TIME: AM I have reviewed the current psychotropics carefully including drug interactions. Risk benefit ratio favors no change other than as noted in my dictated progress note. Diagnosis: Problems: (1) Major depressive disorder (2) Anxiety disorder (3) Impulse control disorder (4) Dementia, vascular, with depression (5) Dementia, vascular, with delusions (6) Dementia in Alzheimer's disease with depression (7) Dementia in Alzheimer's disease with delusions (8) Major neurocognitive disorder SAMMY DANIEL MD September 16, 2018 22:51
--- NOTE | 2018-09-16 23:00 | NUR ---
Pt. is in the day room sitting quietly in her W/C, when this jingle writer went in to administered her HS medications. Pt. is calm, pleasant, and cooperative this evening. Pt. was compliant with taking her HS medications. Dressing to the skin tear on her left hand is C/D/I.
[2018-09-17] MEDS: LEVOTHYROXINE 150 MCG TABLET PO SCH (05:52)
[2018-09-17] MEDS: PANTOPRAZOLE 40 MG TABLET. PO SCH (05:53)
[2018-09-17] MEDS: MIDODRINE 5 MG TABLET PO SCH ×3 (06:19→17:30)
[2018-09-17 06:27] VITALS: BP 175/71
[2018-09-17] MEDS: CARBIDOPA/LEVODOPA 25/250MG TABLET PO SCH ×3 (07:44→19:41)
[2018-09-17] MEDS: LACTOBACILLUS RHAMNOSUS GG 1 CAPSULE. PO SCH ×2 (07:44→19:41)
[2018-09-17] MEDS: CHOLECALCIFEROL (VITAMIN D3) 1,000 UNIT TABLET PO SCH (07:44)
[2018-09-17] MEDS: VITAMIN B COMPLEX CAPSULE. PO SCH (07:44)
[2018-09-17] MEDS: rOPINIRole 1 MG TABLET. PO SCH ×2 (07:45→19:41)
[2018-09-17] MEDS: MULTIVITAMIN with MINERAL TABLET. PO SCH (07:45)
[2018-09-17] MEDS: SENNOSIDES/DOCUSATE 8.6/50MG TABLET. PO SCH (07:45)
[2018-09-17] MEDS: OMEGA-3 FATTY ACIDS/FISH OIL 1,000 MG CAPSULE. PO SCH (07:45)
[2018-09-17] MEDS: SERTRALINE 50 MG TABLET. PO SCH (07:45)
[2018-09-17] MEDS: CALCIUM CARB/VIT D3 500/200 TABLET PO SCH (07:45)
[2018-09-17] MEDS: POLYVINYL ALCOHOL/POVIDONE/PF OPHTH SOLUTION DROPERETTE. OU SCH (09:00)
[2018-09-17 16:18] VITALS: BP 125/78
--- NOTE | 2018-09-17 17:32 | NUR ---
Pt sitting in day room upon assessment and med administration. Pt compliant with meds floated in chocolate pudding, interactive with this nurse.
[2018-09-17] MEDS: QUEtiapine 25 MG TABLET. PO SCH (19:41)
[2018-09-17] MEDS: SIMVASTATIN 40 MG TABLET. PO SCH (19:41)
--- NOTE | 2018-09-17 23:17 | PDOC ---
Exam Note: Oscar Note: Please also refer to the separate dictated note~for this date of service dictated separately.~Patient seen individually. Discussed the patient with Nursing staff reviewed the chart.~Reviewed interim history and current functioning. Reviewed vital signs,~Labs/ Radiology~and current medications noted below. Continue current treatment with the changes noted in the dictated addendum note Assessment: Vital Signs: Vital Signs Date Time Temp Pulse Resp B/P (MAP) Pulse Ox O2 Delivery O2 Flow Rate FiO2 09/17/18 17:30 75 125/78 09/17/18 16:18 97.9 18 96 09/17/18 06:27 Room Air I&O Intake and Output 09/17/18 06:59 Intake Total 960 ml Balance 960 ml Intake Oral 960 ml Current Medications: Meds: Current Medications Sodium Chloride 500 ml @ 0 mls/hr 1X ONCE IV ; Start 09/13/18 at 14:00; Stop 09/13/18 at 14:30; Status DC Acetaminophen (Tylenol) 650 mg PRN Q6HRS PRN PO PAIN / TEMP; Start 09/13/18 at 17:15 Multi-Ingredient Ointment (Analgesic [place]) 1 patrick PRN QID PRN TP MUSCLE PAIN; Start 09/13/18 at 17:15 Al Hydroxide/Mg Hydroxide (Mylanta Plus Xs) 15 ml PRN AFTMEALHC PRN PO DYSPEPSIA; Start 09/13/18 at 17:15 Magnesium Hydroxide (Milk Of Magnesia) 2,400 mg PRN QHS PRN PO CONSTIPATION; Start 09/13/18 at 17:15 Citalopram Hydrobromide (CeleXA) 20 mg DAILY PO Last administered on 09/14/18at 09:00; Start 09/14/18 at 09:00; Stop 09/14/18 at 17:18; Status DC Furosemide (Lasix) 20 mg DAILY PO Last administered on 09/14/18at 09:00; Start 09/14/18 at 09:00; Stop 09/14/18 at 17:22; Status DC Senna/Docusate Sodium (Senna Plus) 1 tab DAILY PO Last administered on 09/17/18at 07:45; Start 09/14/18 at 09:00 Simvastatin (Zocor) 40 mg QHS PO Last administered on 09/17/18at 19:41; Start 09/13/18 at 21:00 Calcium/Vitamin D (Oscal D 500mg/ 200uts) 1 tab DAILY PO Last administered on 09/17/18 07:45; Start 09/14/18 at 09:00 Carbidopa/Levodopa (Sinemet 25/250) 1 tab TID PO Last administered on 09/17/18 19:41; Start 09/13/18 at 21:00 Vitamin D (Vitamin D3) 2,000 unit DAILY PO Last administered on 09/17/18 07:44; Start 09/14/18 at 09:00 Vitamin B Complex 1 cap DAILY PO Last administered on 09/17/18 07:44; Start 09/14/18 at 09:00 Famotidine (Pepcid) 20 mg BID PO Last administered on 09/14/18 09:00; Start 09/13/18 at 21:00; Stop 09/14/18 at 17:20; Status DC Levothyroxine Sodium (Synthroid) 150 mcg DAILY06 PO Last administered on 09/17/18 05:52; Start 09/14/18 at 06:00 Multivitamins/ Calcium (Thera-M Plus) 1 tab DAILY PO Last administered on 09/17/18 07:45; Start 09/14/18 at 09:00 Fish Oil (Fish Oil) 1,000 mg DAILY PO Last administered on 09/17/18 07:45; Start 09/14/18 at 09:00 Pantoprazole Sodium (Protonix) 40 mg DAILY07 PO Last administered on 09/17/18 05:53; Start 09/14/18 at 07:00 Polyethylene Glycol (miraLAX) 17 gm PRN DAILY PRN PO CONSTIPATION; Start 09/13/18 at 19:45 Albuterol/ Ipratropium (Duoneb) 3 ml RTQID NEB Last administered on 09/14/18 05:21; Start 09/13/18 at 20:00; Stop 09/14/18 at 14:10; Status DC Artificial Tears (Refresh Classic) 2 drop DAILY OU Last administered on 09/17/18 09:00; Start 09/14/18 at 09:00 Lactobacillus Rhamnosus (Culturelle) 1 cap BID PO Last administered on 09/17/18 19:41; Start 09/13/18 at 21:00 Midodrine (Proamatine) 5 mg [id number] PO Last administered on 09/15/18at 05:48; Start 09/14/18 at 07:00 Ropinirole HCl (Requip) 1 mg BID PO Last administered on 09/17/18at 19:41; Start 09/13/18 at 21:00 Albuterol/ Ipratropium (Duoneb) 3 ml PRN QID PRN NEB CONGESTION; Start 09/14/18 at 14:15 Sertraline HCl (Zoloft) 50 mg DAILY PO Last administered on 09/15/18at 09:04; Start 09/15/18 at 09:00; Stop 09/15/18 at 15:03; Status DC Quetiapine Fumarate (SEROquel) 25 mg QHS PO Last administered on 09/17/18at 19:41; Start 09/14/18 at 21:00 Vitamin D (Vitamin D3) 50,000 unit WEEKLY PO Last administered on 09/14/18at 20:34; Start 09/14/18 at 17:30 Sertraline HCl (Zoloft) 50 mg DAILY PO Last administered on 09/17/18at 07:45; Start 09/16/18 at 09:00 Active Scripts Active Synthroid (Levothyroxine Sodium) 150 Mcg Tablet 150 Mcg PO DAILY07 Reported Protonix (Pantoprazole Sodium) 40 Mg Granpkt.dr 40 Mg PO DAILY07 Acidophilus (Lactobacillus Acidophilus) 1 Each Capsule 1 Each PO BID Refresh Optive Eye Drops (Carboxymethylcellulos/Glycerin) 15 Ml Drops 2 Drop EACHEYE DAILY Famotidine 20 Mg Tablet 1 Tab PO BID Duoneb 0.5-3(2.5) Mg/3 Ml (Albuterol/Ipratropium) 3 Ml Ampul.neb 3 Ml NEB QID Citalopram Hbr (Citalopram Hydrobromide) 20 Mg Tablet 20 Mg PO DAILY Carbidopa-Levodopa 25-250 Tab (Carbidopa/Levodopa) 1 Each Tablet 1 Tab PO TID LAST DOSE GIVEN: DATE: TODAY TIME: AM NEXT DOSE DUE: DATE: TODAY TIME: AFTERNOON Polyethylene Glycol 3350 255 Gm Powder 17 Gm PO DAILY PRN NOT GIVEN TODAY NEXT DOSE DUE: DATE: TODAY TIME: IF AND WHEN NEEDED Senna-Docusate Sodium Tablet (Sennosides/Docusate Sodium) 1 Each Tablet 1 Tab PO DAILY LAST DOSE GIVEN: DATE: TIME: AM NEXT DOSE DUE: DATE: ORR TIME: AM [place] 3 1,000 Mg Softgel ([place]-3 Fatty Acids/Fish Oil) 1 Each Capsule 1 Each PO DAILY LAST DOSE GIVEN: DATE: TIME: AM NEXT DOSE DUE: DATE: TIME: AM Simvastatin 40 Mg Tablet 40 Mg PO QHS LAST DOSE GIVEN: DATE: TER TIME: PM NEXT DOSE DUE: DATE: TODAY TIME: PM Lasix (Furosemide) 20 Mg Tablet 20 Mg PO DAILY LAST DOSE GIVEN: DATE: TIME: AM NEXT DOSE DUE: DATE: TIME: AM Requip (Ropinirole Hcl) 1 Mg Tablet 1 Mg PO BID LAST DOSE GIVEN: DATE: TIME: AM NEXT DOSE DUE: DATE: TIME: PM Midodrine Hcl 5 Mg Tablet 5 Mg PO Q8HRS LAST DOSE GIVEN: DATE: TIME: AM NEXT DOSE DUE: DATE: TIME: AFTERNOON Vitamin D-3 (Cholecalciferol (Vitamin D3)) 2,000 Unit Tablet 2,000 Unit PO DAILY LAST DOSE GIVEN: DATE: TIME: AM NEXT DOSE DUE: DATE: TIME: AM Calcium 600 + Vit D 200 Tablet (Calcium Carbonate/Vitamin D3) 1 Each Tablet 1 Tab PO DAILY LAST DOSE GIVEN: DATE: TIME: AM NEXT DOSE DUE: DATE: TIME: AM Daily Vitamin (Multivitamin) 1 Each Tablet 1 Each PO DAILY LAST DOSE GIVEN: DATE: TIME: AM NEXT DOSE DUE: DATE: TIME: AM Vitamin T89-Qzbvc Acid Tablet (Cyanocobalamin/Folic Acid) 1 Each Tablet 1 Each PO DAILY LAST DOSE GIVEN: DATE: TIME: AM NEXT DOSE DUE: DATE: ORR TIME: AM I have reviewed the current psychotropics carefully including drug interactions. Risk benefit ratio favors no change other than as noted in my dictated progress note. Diagnosis: Problems: (1) Major depressive disorder (2) Anxiety disorder (3) Impulse control disorder (4) Dementia, vascular, with depression (5) Dementia, vascular, with delusions (6) Dementia in Alzheimer's disease with depression (7) Dementia in Alzheimer's disease with delusions (8) Major neurocognitive disorder (9) Orthostatic hypotension (10) Orthostatic lightheadedness FREDY,MAN M MD September 17, 2018 23:17
--- NOTE | 2018-09-17 23:24 | NUR ---
Patient in day room chatting with another patient during initial assessment. Pleasant and cooperative with cares and medication administration. Explained medications prior to giving them. Denies pain or discomfort. No behaviors noted at this time. Will continue to monitor.
[2018-09-18] MEDS: LEVOTHYROXINE 150 MCG TABLET PO SCH (05:32)
[2018-09-18 06:10] VITALS: BP 134/78
[2018-09-18] MEDS: PANTOPRAZOLE 40 MG TABLET. PO SCH (07:29)
[2018-09-18] MEDS: MIDODRINE 5 MG TABLET PO SCH ×3 (07:29→17:27)
[2018-09-18] MEDS: LACTOBACILLUS RHAMNOSUS GG 1 CAPSULE. PO SCH ×2 (07:30→20:00)
[2018-09-18] MEDS: OMEGA-3 FATTY ACIDS/FISH OIL 1,000 MG CAPSULE. PO SCH (07:30)
[2018-09-18] MEDS: VITAMIN B COMPLEX CAPSULE. PO SCH (07:30)
[2018-09-18] MEDS: CALCIUM CARB/VIT D3 500/200 TABLET PO SCH (07:31)
[2018-09-18] MEDS: SERTRALINE 50 MG TABLET. PO SCH (07:32)
[2018-09-18] MEDS: rOPINIRole 1 MG TABLET. PO SCH ×2 (07:32→20:00)
[2018-09-18] MEDS: CHOLECALCIFEROL (VITAMIN D3) 1,000 UNIT TABLET PO SCH (07:33)
[2018-09-18] MEDS: SENNOSIDES/DOCUSATE 8.6/50MG TABLET. PO SCH (07:33)
[2018-09-18] MEDS: CARBIDOPA/LEVODOPA 25/250MG TABLET PO SCH ×3 (07:34→20:00)
[2018-09-18] MEDS: MULTIVITAMIN with MINERAL TABLET. PO SCH (07:34)
[2018-09-18 09:22] LABS: BASO # 0.1 x10^3/uL (0.0-0.2); BASO % 1 % (0-3); EOS # 0.1 x10^3/uL (0.0-0.7); EOS % 2 % (0-3); HEMOGLOBIN 12.1 g/dL (12.0-15.5); LYMPH # 1.6 x10^3/uL (1.0-4.8); LYMPH % 25 % (24-48); MEAN CORPUSCULAR HEMOGLOBIN 30 pg (25-35); MEAN CORPUSCULAR HGB CONC 33 g/dL (31-37); MEAN CORPUSCULAR VOLUME 91 fL (79-100); MONO # 0.3 x10^3/uL (0.0-1.1); MONO % 5 % (0-9); NEUT # 4.4 x10^3uL (1.8-7.7); NEUT % 67 % (31-73); PLATELET COUNT 214 x10^3/uL (140-400); RED BLOOD COUNT 4.06 x10^6/uL (3.50-5.40); RED CELL DISTRIBUTION WIDTH 16.1 % (11.5-14.5); WHITE BLOOD COUNT 6.5 x10^3/uL (4.0-11.0)
[2018-09-18 09:37] LABS: ALBUMIN/GLOBULIN RATIO 0.8 (1.0-1.7); ALK PHOS 125 U/L (46-116); ALT (SGPT) < 6 U/L (14-59); ANION GAP 9 (6-14); AST (SGOT) 19 U/L (15-37); BLOOD UREA NITROGEN 28 mg/dL (7-20); BUN/CREATININE RATIO 23 (6-20); CALCIUM 8.7 mg/dL (8.5-10.1); CARBON DIOXIDE 27 mmol/L (21-32); CHLORIDE 104 mmol/L (98-107); CREATININE 1.2 mg/dL (0.6-1.0); GFR 42.4; GLUCOSE 156 mg/dL (70-99); POTASSIUM 4.5 mmol/L (3.5-5.1); SODIUM 140 mmol/L (136-145); TOTAL BILIRUBIN 0.4 mg/dL (0.2-1.0); TOTAL PROTEIN 6.8 g/dL (6.4-8.2)
[2018-09-18] MEDS: POLYVINYL ALCOHOL/POVIDONE/PF OPHTH SOLUTION DROPERETTE. OU SCH (10:36)
--- NOTE | 2018-09-18 11:37 | NUR ---
Patient has had a good morning. Was resting quietly during assessment in the day room. She mentioned being a little tired. Patient took medications well, allowed for morning assessment. No signs of agitation noted at this time.
[2018-09-18 15:50] VITALS: BP 112/65
[2018-09-18] MEDS: QUEtiapine 25 MG TABLET. PO SCH (20:00)
[2018-09-18] MEDS: SIMVASTATIN 40 MG TABLET. PO SCH (20:00)
--- NOTE | 2018-09-18 22:46 | PDOC ---
Exam Note: Oscar Note: Please also refer to the separate dictated note~for this date of service dictated separately.~Patient seen individually. Discussed the patient with Nursing staff reviewed the chart.~Reviewed interim history and current functioning. Reviewed vital signs,~Labs/ Radiology~and current medications noted below. Continue current treatment with the changes noted in the dictated addendum note Assessment: Vital Signs: Vital Signs Date Time Temp Pulse Resp B/P (MAP) Pulse Ox O2 Delivery O2 Flow Rate FiO2 09/18/18 17:27 75 112/65 09/18/18 15:50 97.5 18 97 Room Air I&O Intake and Output 09/18/18 07:00 Intake Total 1200 ml Balance 1200 ml Intake Oral 1200 ml Labs: Laboratory Tests Test 09/18/18 08:56 White Blood Count 6.5 x10^3/uL (4.0-11.0) Red Blood Count 4.06 x10^6/uL (3.50-5.40) Hemoglobin 12.1 g/dL (12.0-15.5) Hematocrit 37.0 % (36.0-47.0) Mean Corpuscular Volume 91 fL (79-100) Mean Corpuscular Hemoglobin 30 pg (25-35) Mean Corpuscular Hemoglobin Concent 33 g/dL (31-37) Red Cell Distribution Width 16.1 % (11.5-14.5) H Platelet Count 214 x10^3/uL (140-400) Neutrophils (%) (Auto) 67 % (31-73) Lymphocytes (%) (Auto) 25 % (24-48) Monocytes (%) (Auto) 5 % (0-9) Eosinophils (%) (Auto) 2 % (0-3) Basophils (%) (Auto) 1 % (0-3) Neutrophils # (Auto) 4.4 x10^3uL (1.8-7.7) Lymphocytes # (Auto) 1.6 x10^3/uL (1.0-4.8) Monocytes # (Auto) 0.3 x10^3/uL (0.0-1.1) Eosinophils # (Auto) 0.1 x10^3/uL (0.0-0.7) Basophils # (Auto) 0.1 x10^3/uL (0.0-0.2) Sodium Level 140 mmol/L (136-145) Potassium Level 4.5 mmol/L (3.5-5.1) Chloride Level 104 mmol/L (98-107) Carbon Dioxide Level 27 mmol/L (21-32) Anion Gap 9 (6-14) Blood Urea Nitrogen 28 mg/dL (7-20) H Creatinine 1.2 mg/dL (0.6-1.0) H Estimated GFR (Cockcroft-Gault) 42.4 BUN/Creatinine Ratio 23 (6-20) H Glucose Level 156 mg/dL (70-99) H Calcium Level 8.7 mg/dL (8.5-10.1) Total Bilirubin 0.4 mg/dL (0.2-1.0) Aspartate Amino Transferase (AST) 19 U/L (15-37) Alanine Aminotransferase (ALT) < 6 U/L (14-59) L Alkaline Phosphatase 125 U/L (46-116) H Total Protein 6.8 g/dL (6.4-8.2) Albumin 3.0 g/dL (3.4-5.0) L Albumin/Globulin Ratio 0.8 (1.0-1.7) L Current Medications: Meds: Current Medications Sodium Chloride 500 ml @ 0 mls/hr 1X ONCE IV ; Start 09/13/18 at 14:00; Stop 09/13/18 at 14:30; Status DC Acetaminophen (Tylenol) 650 mg PRN Q6HRS PRN PO PAIN / TEMP; Start 09/13/18 at 17:15 Multi-Ingredient Ointment (Analgesic [place]) 1 patrick PRN QID PRN TP MUSCLE PAIN; Start 09/13/18 at 17:15 Al Hydroxide/Mg Hydroxide (Mylanta Plus Xs) 15 ml PRN AFTMEALHC PRN PO DYSPEPSIA; Start 09/13/18 at 17:15 Magnesium Hydroxide (Milk Of Magnesia) 2,400 mg PRN QHS PRN PO CONSTIPATION; Start 09/13/18 at 17:15 Citalopram Hydrobromide (CeleXA) 20 mg DAILY PO Last administered on 09/14/18at 09:00; Start 09/14/18 at 09:00; Stop 09/14/18 at 17:18; Status DC Furosemide (Lasix) 20 mg DAILY PO Last administered on 09/14/18at 09:00; Start 09/14/18 at 09:00; Stop 09/14/18 at 17:22; Status DC Senna/Docusate Sodium (Senna Plus) 1 tab DAILY PO Last administered on 09/18/18 07:33; Start 09/14/18 at 09:00 Simvastatin (Zocor) 40 mg QHS PO Last administered on 09/18/18 20:00; Start 09/13/18 at 21:00 Calcium/Vitamin D (Oscal D 500mg/ 200uts) 1 tab DAILY PO Last administered on 09/18/18 07:31; Start 09/14/18 at 09:00 Carbidopa/Levodopa (Sinemet 25/250) 1 tab TID PO Last administered on 09/18/18 20:00; Start 09/13/18 at 21:00 Vitamin D (Vitamin D3) 2,000 unit DAILY PO Last administered on 09/18/18 07:33; Start 09/14/18 at 09:00 Vitamin B Complex 1 cap DAILY PO Last administered on 09/18/18 07:30; Start 09/14/18 at 09:00 Famotidine (Pepcid) 20 mg BID PO Last administered on 09/14/18 09:00; Start 09/13/18 at 21:00; Stop 09/14/18 at 17:20; Status DC Levothyroxine Sodium (Synthroid) 150 mcg DAILY06 PO Last administered on 09/18/18 05:32; Start 09/14/18 at 06:00 Multivitamins/ Calcium (Thera-M Plus) 1 tab DAILY PO Last administered on 09/18/18 07:34; Start 09/14/18 at 09:00 Fish Oil (Fish Oil) 1,000 mg DAILY PO Last administered on 09/18/18 07:30; Start 09/14/18 at 09:00 Pantoprazole Sodium (Protonix) 40 mg DAILY07 PO Last administered on 09/18/18 07:29; Start 09/14/18 at 07:00 Polyethylene Glycol (miraLAX) 17 gm PRN DAILY PRN PO CONSTIPATION; Start 09/13/18 at 19:45 Albuterol/ Ipratropium (Duoneb) 3 ml RTQID NEB Last administered on 5/1/19at 05:21; Start 09/13/18 at 20:00; Stop 09/14/18 at 14:10; Status DC Artificial Tears (Refresh Classic) 2 drop DAILY OU Last administered on 09/18/18at 10:36; Start 09/14/18 at 09:00 Lactobacillus Rhamnosus (Culturelle) 1 cap BID PO Last administered on 09/18/18 20:00; Start 09/13/18 at 21:00 Midodrine (Proamatine) 5 mg [id number] PO Last administered on 09/18/18at 17:27; Start 09/14/18 at 07:00 Ropinirole HCl (Requip) 1 mg BID PO Last administered on 09/18/18 20:00; Start 09/13/18 at 21:00 Albuterol/ Ipratropium (Duoneb) 3 ml PRN QID PRN NEB CONGESTION; Start 09/14/18 at 14:15 Sertraline HCl (Zoloft) 50 mg DAILY PO Last administered on 09/15/18at 09:04; Start 09/15/18 at 09:00; Stop 09/15/18 at 15:03; Status DC Quetiapine Fumarate (SEROquel) 25 mg QHS PO Last administered on 09/18/18 20:00; Start 09/14/18 at 21:00 Vitamin D (Vitamin D3) 50,000 unit WEEKLY PO Last administered on 09/14/18at 20:34; Start 09/14/18 at 17:30 Sertraline HCl (Zoloft) 50 mg DAILY PO Last administered on 09/18/18at 07:32; Start 09/16/18 at 09:00 Active Scripts Active Synthroid (Levothyroxine Sodium) 150 Mcg Tablet 150 Mcg PO DAILY07 Reported Protonix (Pantoprazole Sodium) 40 Mg Granpkt.dr 40 Mg PO DAILY07 Acidophilus (Lactobacillus Acidophilus) 1 Each Capsule 1 Each PO BID Refresh Optive Eye Drops (Carboxymethylcellulos/Glycerin) 15 Ml Drops 2 Drop EACHEYE DAILY Famotidine 20 Mg Tablet 1 Tab PO BID Duoneb 0.5-3(2.5) Mg/3 Ml (Albuterol/Ipratropium) 3 Ml Ampul.neb 3 Ml NEB QID Citalopram Hbr (Citalopram Hydrobromide) 20 Mg Tablet 20 Mg PO DAILY Carbidopa-Levodopa 25-250 Tab (Carbidopa/Levodopa) 1 Each Tablet 1 Tab PO TID LAST DOSE GIVEN: DATE: TIME: AM NEXT DOSE DUE: DATE: TIME: AFTERNOON Polyethylene Glycol 3350 255 Gm Powder 17 Gm PO DAILY PRN NOT GIVEN TODAY NEXT DOSE DUE: DATE: TIME: IF AND WHEN NEEDED Senna-Docusate Sodium Tablet (Sennosides/Docusate Sodium) 1 Each Tablet 1 Tab PO DAILY LAST DOSE GIVEN: DATE: TODAY TIME: AM NEXT DOSE DUE: DATE: TOMORROW TIME: AM [place] 3 1,000 Mg Softgel ([place]-3 Fatty Acids/Fish Oil) 1 Each Capsule 1 Each PO DAILY LAST DOSE GIVEN: DATE: TIME: AM NEXT DOSE DUE: DATE: TIME: AM Simvastatin 40 Mg Tablet 40 Mg PO QHS LAST DOSE GIVEN: DATE: YESTER TIME: PM NEXT DOSE DUE: DATE: TIME: PM Lasix (Furosemide) 20 Mg Tablet 20 Mg PO DAILY LAST DOSE GIVEN: DATE: TIME: AM NEXT DOSE DUE: DATE: TIME: AM Requip (Ropinirole Hcl) 1 Mg Tablet 1 Mg PO BID LAST DOSE GIVEN: DATE: TIME: AM NEXT DOSE DUE: DATE: TIME: PM Midodrine Hcl 5 Mg Tablet 5 Mg PO Q8HRS LAST DOSE GIVEN: DATE: TIME: AM NEXT DOSE DUE: DATE: TIME: AFTERNOON Vitamin D-3 (Cholecalciferol (Vitamin D3)) 2,000 Unit Tablet 2,000 Unit PO DAILY LAST DOSE GIVEN: DATE: TIME: AM NEXT DOSE DUE: DATE: TIME: AM Calcium 600 + Vit D 200 Tablet (Calcium Carbonate/Vitamin D3) 1 Each Tablet 1 Tab PO DAILY LAST DOSE GIVEN: DATE: TODAY TIME: AM NEXT DOSE DUE: DATE:ORR TIME: AM Daily Vitamin (Multivitamin) 1 Each Tablet 1 Each PO DAILY LAST DOSE GIVEN: DATE: TIME: AM NEXT DOSE DUE: DATE: ORR TIME: AM Vitamin N37-[id number] Acid Tablet (Cyanocobalamin/Folic Acid) 1 Each Tablet 1 Each PO DAILY LAST DOSE GIVEN: DATE: TIME: AM NEXT DOSE DUE: DATE: ORR TIME: AM I have reviewed the current psychotropics carefully including drug interactions. Risk benefit ratio favors no change other than as noted in my dictated progress note. Diagnosis: Problems: (1) Major depressive disorder (2) Anxiety disorder (3) Impulse control disorder (4) Dementia in Alzheimer's disease with depression (5) Dementia, vascular, with depression (6) Dementia, vascular, with delusions (7) Dementia in Alzheimer's disease with delusions (8) Major neurocognitive disorder SAMMY DANIEL MD September 18, 2018 22:46
--- NOTE | 2018-09-19 01:10 | NUR ---
Pt located in the dayroom this evening. Pt sitting calmly, compliant with HS meds. Pt pleasant and interactive. No agitation noted.
[2018-09-19 06:02] VITALS: BP 124/76
[2018-09-19] MEDS: LEVOTHYROXINE 150 MCG TABLET PO SCH (06:17)
[2018-09-19] MEDS: MIDODRINE 5 MG TABLET PO SCH ×4 (07:00→13:13)
[2018-09-19] MEDS: PANTOPRAZOLE 40 MG TABLET. PO SCH (07:59)
[2018-09-19] MEDS: POLYVINYL ALCOHOL/POVIDONE/PF OPHTH SOLUTION DROPERETTE. OU SCH (08:00)
[2018-09-19] MEDS: CALCIUM CARB/VIT D3 500/200 TABLET PO SCH (08:01)
[2018-09-19] MEDS: VITAMIN B COMPLEX CAPSULE. PO SCH (08:01)
[2018-09-19] MEDS: OMEGA-3 FATTY ACIDS/FISH OIL 1,000 MG CAPSULE. PO SCH (08:01)
[2018-09-19] MEDS: LACTOBACILLUS RHAMNOSUS GG 1 CAPSULE. PO SCH ×2 (08:01→19:45)
[2018-09-19] MEDS: CARBIDOPA/LEVODOPA 25/250MG TABLET PO SCH ×3 (08:02→19:44)
[2018-09-19] MEDS: MULTIVITAMIN with MINERAL TABLET. PO SCH (08:02)
[2018-09-19] MEDS: rOPINIRole 1 MG TABLET. PO SCH ×2 (08:02→19:44)
[2018-09-19] MEDS: SENNOSIDES/DOCUSATE 8.6/50MG TABLET. PO SCH (08:02)
[2018-09-19] MEDS: SERTRALINE 50 MG TABLET. PO SCH (08:03)
[2018-09-19] MEDS: CHOLECALCIFEROL (VITAMIN D3) 1,000 UNIT TABLET PO SCH (08:03)
--- NOTE | 2018-09-19 11:20 | NUR ---
Patient has had a great morning, she has been smiling at staff members. Took medication great, allowed for morning assessment. She enjoyed morning therapy and is currently visiting with her friend. No signs of agitation noted at this time.
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
[2018-09-19 15:22] VITALS: BP 88/56
--- NOTE | 2018-09-19 19:39 | PN ---
DATE: 09/16/2018 PSYCHIATRIC PROGRESS NOTE This late entry 09/16/2018 covers elements not covered in my initial note. SUBJECTIVE: I met with the patient in the evening of 09/16/2018. She slept 7 hours previous night and has done better during the day on 09/16/2018, alert, oriented x 4 per nursing report, but when I questioned her, she seems more confused. Per nursing report, daughter visited and daughter is quite labile herself. REVIEW OF SYSTEMS: Ambulation impaired, in wheelchair. No CV, , pulmonary, eye, ENT system symptoms on review. MENTAL STATUS EXAM: Oriented to herself and situation. Speech has some latency, coherent. Abstraction fair, computation impaired, language function intact, attention span short. Mood and affect remain somewhat anxious, labile, intermittently psychotic. LABORATORY DATA: Reviewed. IMPRESSION: Unchanged from initial note. PLAN: We have consulted Dr. Raymundo, Neurology to see whether Sinemet could be reduced and since it could be worsening her psychotic symptoms. We will continue psychotropics unchanged for now. SAMMY DANIEL MD DR: ISABELLA/yue JOB#: [id number] / [id number]
[2018-09-19] MEDS: QUEtiapine 25 MG TABLET. PO SCH (19:45)
[2018-09-19] MEDS: SIMVASTATIN 40 MG TABLET. PO SCH (19:46)
--- NOTE | 2018-09-19 20:56 | PN ---
DATE: 09/17/2018 PSYCHIATRIC PROGRESS NOTE This late entry 09/17/2018 covers elements not covered in my initial note. SUBJECTIVE: I met with the patient in the evening of 09/17/2018. The patient slept reasonably previous night. She remains more pleasant, less angry, and irritable. REVIEW OF SYSTEMS: Ambulation impaired, in wheelchair. No CV, , pulmonary, eye, ENT system symptoms on review. Reliability varies. MENTAL STATUS EXAM: Oriented to herself and situation. Speech is coherent, has some latency, quite animated as I met with her individually. Abstraction fair, computation impaired, language function intact. No aggression noted. Mood and affect is improved. IMPRESSION: Major depressive disorder with psychotic features; anxiety disorder, unspecified; mild cognitive impairment, psychotic disorder, unspecified. PLAN: Continue current psychotropics. Adjust further as clinically indicated. May need to increase Seroquel if psychosis resurfaces with agitation. MAN Laura DANIEL MD DR: ISABELLA/yue JOB#: [id number] / [id number]
--- NOTE | 2018-09-19 20:57 | PN ---
DATE: 09/18/2018 PSYCHIATRIC PROGRESS NOTE This late entry 09/18/2018 covers elements not covered in my initial note. SUBJECTIVE: I met with the patient in the evening of 09/18/2018 individually at some length. The patient slept 7-1/2 hours previous night. She has been quite appropriate on the unit, less confused. REVIEW OF SYSTEMS: Ambulation impaired, in wheelchair. No CV, , pulmonary, eye system symptoms on review. MENTAL STATUS EXAM: Oriented to herself and situation. Speech has some latency, coherent. Abstraction fair, computation impaired, language function intact, attention span short. Mood and affect showing improvement. Psychotic symptoms are improved. LABORATORY DATA: Reviewed. IMPRESSION: Unchanged from initial note. PLAN: No change from initial note. Maintain Seroquel, increase gradually as clinically indicated. MAN Laura DANIEL MD DR: ISABELLA/yue JOB#: [id number] / [id number]
--- NOTE | 2018-09-19 21:51 | PDOC ---
Exam Note: Oscar Note: Please also refer to the separate dictated note~for this date of service dictated separately.~Patient seen individually. Discussed the patient with Nursing staff reviewed the chart.~Reviewed interim history and current functioning. Reviewed vital signs,~Labs/ Radiology~and current medications noted below. Continue current treatment with the changes noted in the dictated addendum note Assessment: Vital Signs: Vital Signs Date Time Temp Pulse Resp B/P (MAP) Pulse Ox O2 Delivery O2 Flow Rate FiO2 09/19/18 15:22 98.1 78 16 88/56 (67) 96 09/18/18 15:50 Room Air I&O Intake and Output 09/19/18 06:59 Intake Total 840 ml Balance 840 ml Intake Oral 840 ml Current Medications: Meds: Current Medications Sodium Chloride 500 ml @ 0 mls/hr 1X ONCE IV ; Start 09/13/18 at 14:00; Stop 09/13/18 at 14:30; Status DC Acetaminophen (Tylenol) 650 mg PRN Q6HRS PRN PO PAIN / TEMP; Start 09/13/18 at 17:15 Multi-Ingredient Ointment (Analgesic [place]) 1 patrick PRN QID PRN TP MUSCLE PAIN; Start 09/13/18 at 17:15 Al Hydroxide/Mg Hydroxide (Mylanta Plus Xs) 15 ml PRN AFTMEALHC PRN PO DYSPEPSIA; Start 09/13/18 at 17:15 Magnesium Hydroxide (Milk Of Magnesia) 2,400 mg PRN QHS PRN PO CONSTIPATION; Start 09/13/18 at 17:15 Citalopram Hydrobromide (CeleXA) 20 mg DAILY PO Last administered on 09/14/18at 09:00; Start 09/14/18 at 09:00; Stop 09/14/18 at 17:18; Status DC Furosemide (Lasix) 20 mg DAILY PO Last administered on 09/14/18at 09:00; Start 09/14/18 at 09:00; Stop 09/14/18 at 17:22; Status DC Senna/Docusate Sodium (Senna Plus) 1 tab DAILY PO Last administered on 09/19/18at 08:02; Start 09/14/18 at 09:00 Simvastatin (Zocor) 40 mg QHS PO Last administered on 09/19/18at 19:46; Start 09/13/18 at 21:00 Calcium/Vitamin D (Oscal D 500mg/ 200uts) 1 tab DAILY PO Last administered on 09/19/18 08:01; Start 09/14/18 at 09:00 Carbidopa/Levodopa (Sinemet 25/250) 1 tab TID PO Last administered on 09/19/18 19:44; Start 09/13/18 at 21:00 Vitamin D (Vitamin D3) 2,000 unit DAILY PO Last administered on 09/19/18 08:03; Start 09/14/18 at 09:00 Vitamin B Complex 1 cap DAILY PO Last administered on 09/19/18 08:01; Start 09/14/18 at 09:00 Famotidine (Pepcid) 20 mg BID PO Last administered on 09/14/18 09:00; Start 09/13/18 at 21:00; Stop 09/14/18 at 17:20; Status DC Levothyroxine Sodium (Synthroid) 150 mcg DAILY06 PO Last administered on 06:17; Start 09/14/18 at 06:00 Multivitamins/ Calcium (Thera-M Plus) 1 tab DAILY PO Last administered on 09/19/18 08:02; Start 09/14/18 at 09:00 Fish Oil (Fish Oil) 1,000 mg DAILY PO Last administered on 09/19/18 08:01; Start 09/14/18 at 09:00 Pantoprazole Sodium (Protonix) 40 mg DAILY07 PO Last administered on 09/19/18 07:59; Start 09/14/18 at 07:00 Polyethylene Glycol (miraLAX) 17 gm PRN DAILY PRN PO CONSTIPATION; Start 09/13/18 at 19:45 Albuterol/ Ipratropium (Duoneb) 3 ml RTQID NEB Last administered on 09/14/18 05:21; Start 09/13/18 at 20:00; Stop 09/14/18 at 14:10; Status DC Artificial Tears (Refresh Classic) 2 drop DAILY OU Last administered on 09/19/18 08:00; Start 09/14/18 at 09:00 Lactobacillus Rhamnosus (Culturelle) 1 cap BID PO Last administered on 09/19/18 19:45; Start 09/13/18 at 21:00 Midodrine (Proamatine) 5 mg [id number] PO Last administered on 09/19/18at 13:12; Start 09/14/18 at 07:00 Ropinirole HCl (Requip) 1 mg BID PO Last administered on 09/19/18at 19:44; Start 09/13/18 at 21:00 Albuterol/ Ipratropium (Duoneb) 3 ml PRN QID PRN NEB CONGESTION; Start 09/14/18 at 14:15 Sertraline HCl (Zoloft) 50 mg DAILY PO Last administered on 09/15/18at 09:04; Start 09/15/18 at 09:00; Stop 09/15/18 at 15:03; Status DC Quetiapine Fumarate (SEROquel) 25 mg QHS PO Last administered on 09/19/18at 19:45; Start 09/14/18 at 21:00 Vitamin D (Vitamin D3) 50,000 unit WEEKLY PO Last administered on 09/14/18at 20:34; Start 09/14/18 at 17:30 Sertraline HCl (Zoloft) 50 mg DAILY PO Last administered on 09/19/18at 08:03; Start 09/16/18 at 09:00 Furosemide (Lasix) 20 mg DAILY PO ; Start 09/20/18 at 09:00 Active Scripts Active Synthroid (Levothyroxine Sodium) 150 Mcg Tablet 150 Mcg PO DAILY07 Reported Protonix (Pantoprazole Sodium) 40 Mg Granpkt.dr 40 Mg PO DAILY07 Acidophilus (Lactobacillus Acidophilus) 1 Each Capsule 1 Each PO BID Refresh Optive Eye Drops (Carboxymethylcellulos/Glycerin) 15 Ml Drops 2 Drop EACHEYE DAILY Famotidine 20 Mg Tablet 1 Tab PO BID Duoneb 0.5-3(2.5) Mg/3 Ml (Albuterol/Ipratropium) 3 Ml Ampul.neb 3 Ml NEB QID Citalopram Hbr (Citalopram Hydrobromide) 20 Mg Tablet 20 Mg PO DAILY Carbidopa-Levodopa 25-250 Tab (Carbidopa/Levodopa) 1 Each Tablet 1 Tab PO TID LAST DOSE GIVEN: DATE: TODAY TIME: AM NEXT DOSE DUE: DATE: TODAY TIME: AFTERNOON Polyethylene Glycol 3350 255 Gm Powder 17 Gm PO DAILY PRN NOT GIVEN TODAY NEXT DOSE DUE: DATE: TODAY TIME: IF AND WHEN NEEDED Senna-Docusate Sodium Tablet (Sennosides/Docusate Sodium) 1 Each Tablet 1 Tab PO DAILY LAST DOSE GIVEN: DATE: TIME: AM NEXT DOSE DUE: DATE: ORR TIME: AM [place] 3 1,000 Mg Softgel ([place]-3 Fatty Acids/Fish Oil) 1 Each Capsule 1 Each PO DAILY LAST DOSE GIVEN: DATE: TIME: AM NEXT DOSE DUE: DATE: TIME: AM Simvastatin 40 Mg Tablet 40 Mg PO QHS LAST DOSE GIVEN: DATE: YESTER TIME: PM NEXT DOSE DUE: DATE: TODAY TIME: PM Lasix (Furosemide) 20 Mg Tablet 20 Mg PO DAILY LAST DOSE GIVEN: DATE: TIME: AM NEXT DOSE DUE: DATE: TIME: AM Requip (Ropinirole Hcl) 1 Mg Tablet 1 Mg PO BID LAST DOSE GIVEN: DATE: TIME: AM NEXT DOSE DUE: DATE: TIME: PM Midodrine Hcl 5 Mg Tablet 5 Mg PO Q8HRS LAST DOSE GIVEN: DATE: TIME: AM NEXT DOSE DUE: DATE: TIME: AFTERNOON Vitamin D-3 (Cholecalciferol (Vitamin D3)) 2,000 Unit Tablet 2,000 Unit PO DAILY LAST DOSE GIVEN: DATE: TIME: AM NEXT DOSE DUE: DATE: TIME: AM Calcium 600 + Vit D 200 Tablet (Calcium Carbonate/Vitamin D3) 1 Each Tablet 1 Tab PO DAILY LAST DOSE GIVEN: DATE: TIME: AM NEXT DOSE DUE: DATE: TIME: AM Daily Vitamin (Multivitamin) 1 Each Tablet 1 Each PO DAILY LAST DOSE GIVEN: DATE: TIME: AM NEXT DOSE DUE: DATE: TIME: AM Vitamin B30-Hbnnj Acid Tablet (Cyanocobalamin/Folic Acid) 1 Each Tablet 1 Each PO DAILY LAST DOSE GIVEN: DATE: TIME: AM NEXT DOSE DUE: DATE: TIME: AM I have reviewed the current psychotropics carefully including drug interactions. Risk benefit ratio favors no change other than as noted in my dictated progress note. Diagnosis: Problems: (1) Major depressive disorder (2) Anxiety disorder (3) Impulse control disorder (4) Dementia, vascular, with delusions (5) Dementia in Alzheimer's disease with depression (6) Dementia in Alzheimer's disease with delusions (7) Major neurocognitive disorder (8) Dementia, vascular, with depression FREDY,MAN M MD September 19, 2018 21:51
--- NOTE | 2018-09-19 23:03 | NUR ---
Pt. was in her room this evening lying down in bed when this policy writer typist took her medications to her. She is in a pleasant mood, but she said that she was tired. Pt. has been compliant with taking her evening/HS medications.
[2018-09-20] MEDS: LEVOTHYROXINE 150 MCG TABLET PO SCH (06:02)
[2018-09-20] MEDS: PANTOPRAZOLE 40 MG TABLET. PO SCH (06:02)
[2018-09-20 06:11] VITALS: BP 154/87
[2018-09-20] MEDS: VITAMIN B COMPLEX CAPSULE. PO SCH (08:56)
[2018-09-20] MEDS: POLYVINYL ALCOHOL/POVIDONE/PF OPHTH SOLUTION DROPERETTE. OU SCH (08:56)
[2018-09-20] MEDS: rOPINIRole 1 MG TABLET. PO SCH ×2 (08:57→19:12)
[2018-09-20] MEDS: SENNOSIDES/DOCUSATE 8.6/50MG TABLET. PO SCH (08:57)
[2018-09-20] MEDS: LACTOBACILLUS RHAMNOSUS GG 1 CAPSULE. PO SCH ×2 (08:57→19:12)
[2018-09-20] MEDS: CARBIDOPA/LEVODOPA 25/250MG TABLET PO SCH ×3 (08:57→19:12)
[2018-09-20] MEDS: CALCIUM CARB/VIT D3 500/200 TABLET PO SCH (08:57)
[2018-09-20] MEDS: MULTIVITAMIN with MINERAL TABLET. PO SCH (08:57)
[2018-09-20] MEDS: OMEGA-3 FATTY ACIDS/FISH OIL 1,000 MG CAPSULE. PO SCH (08:57)
[2018-09-20] MEDS: SERTRALINE 50 MG TABLET. PO SCH (08:58)
[2018-09-20] MEDS: CHOLECALCIFEROL (VITAMIN D3) 1,000 UNIT TABLET PO SCH (08:58)
[2018-09-20] MEDS: FUROSEMIDE 20 MG TABLET PO SCH (09:42)
--- NOTE | 2018-09-20 10:48 | NUR ---
Patient has had a great morning. Took medications, allowed for morning assessment. She had a great time in group therapy today. She has been smiling and talking to staff. She is currently finishing a morning snack in the dayroom. No signs of agitation noted, will continue to monitor.
[2018-09-20 16:21] VITALS: BP 144/80
[2018-09-20] MEDS: MIDODRINE 5 MG TABLET PO SCH (17:18)
--- NOTE | 2018-09-20 18:40 | NUR ---
Patient's daughter has called several times today. Spoke to patient after dinner, she said that she doesn't feel like talking to her since she hung up the phone earlier. She asked for all staff to tell her daughter that she is busy with activities and can't talk. Patient said that she may talk to her tomorrow night if she is ready, she hasn't decided yet. The nurse mentioned that staff will follow up with her tomorrow night to see if she is ready. Patient is in agreement with this.
[2018-09-20] MEDS: QUEtiapine 25 MG TABLET. PO SCH (19:12)
[2018-09-20] MEDS: SIMVASTATIN 40 MG TABLET. PO SCH (19:12)
--- NOTE | 2018-09-20 19:24 | PN ---
DATE: 09/19/2018 PSYCHIATRIC PROGRESS NOTE This late entry 09/19/2018 covers elements not covered in my initial note. SUBJECTIVE: I met with the patient in the evening of 09/19/2018. The patient slept 6-1/2 hours previous evening. Her cousin visited her in the morning and the patient seemed to remember this when I questioned her. She has been less anxious. No PRNs have been used. REVIEW OF SYSTEMS: Ambulation impaired, in wheelchair. No CV, , pulmonary, eye system symptoms on review. MENTAL STATUS EXAM: Oriented to herself and situation. Speech has some latency, coherent, often responses monosyllabic. Abstraction fair, computation impaired, language function intact, attention span short. Mood and affect somewhat withdrawn. LABORATORY DATA: Reviewed. IMPRESSION: Psychotic disorder, unspecified; major depressive disorder with psychotic features; anxiety disorder, unspecified; mild cognitive impairment. PLAN: Continue current psychotropics from initial note. No change for now. SAMMY DANIEL MD DR: ISABELLA/yue JOB#: [id number] / [id number]
--- NOTE | 2018-09-20 21:58 | NUR ---
Pt. was out in the day room this evening, when this mortgage or loan underwriter took her HS medications to her. Pt. appeared calm and pleasant. Pt. has been cooperative with taking her HS medications and ADL's so far this shift. Pt. stated that her feet felt better tonight then they did yesterday. She was started this AM on Lasix.
--- NOTE | 2018-09-20 22:37 | PDOC ---
Exam Note: Oscar Note: Please also refer to the separate dictated note~for this date of service dictated separately.~Patient seen individually. Discussed the patient with Nursing staff reviewed the chart.~Reviewed interim history and current functioning. Reviewed vital signs,~Labs/ Radiology~and current medications noted below. Continue current treatment with the changes noted in the dictated addendum note Assessment: Vital Signs: Vital Signs Date Time Temp Pulse Resp B/P (MAP) Pulse Ox O2 Delivery O2 Flow Rate FiO2 09/20/18 17:18 78 144/80 09/20/18 16:21 98.4 16 98 09/18/18 15:50 Room Air I&O Intake and Output 09/20/18 07:00 Intake Total 960 ml Balance 960 ml Intake Oral 960 ml Current Medications: Meds: Current Medications Sodium Chloride 500 ml @ 0 mls/hr 1X ONCE IV ; Start 09/13/18 at 14:00; Stop 09/13/18 at 14:30; Status DC Acetaminophen (Tylenol) 650 mg PRN Q6HRS PRN PO PAIN / TEMP; Start 09/13/18 at 17:15 Multi-Ingredient Ointment (Analgesic [place]) 1 patrick PRN QID PRN TP MUSCLE PAIN; Start 09/13/18 at 17:15 Al Hydroxide/Mg Hydroxide (Mylanta Plus Xs) 15 ml PRN AFTMEALHC PRN PO DYSPEPSIA; Start 09/13/18 at 17:15 Magnesium Hydroxide (Milk Of Magnesia) 2,400 mg PRN QHS PRN PO CONSTIPATION; Start 09/13/18 at 17:15 Citalopram Hydrobromide (CeleXA) 20 mg DAILY PO Last administered on 09/14/18at 09:00; Start 09/14/18 at 09:00; Stop 09/14/18 at 17:18; Status DC Furosemide (Lasix) 20 mg DAILY PO Last administered on 09/14/18at 09:00; Start 09/14/18 at 09:00; Stop 09/14/18 at 17:22; Status DC Senna/Docusate Sodium (Senna Plus) 1 tab DAILY PO Last administered on 09/20/18at 08:57; Start 09/14/18 at 09:00 Simvastatin (Zocor) 40 mg QHS PO Last administered on 09/20/18at 19:12; Start 09/13/18 at 21:00 Calcium/Vitamin D (Oscal D 500mg/ 200uts) 1 tab DAILY PO Last administered on 09/20/18 08:57; Start 09/14/18 at 09:00 Carbidopa/Levodopa (Sinemet 25/250) 1 tab TID PO Last administered on 09/20/18 19:12; Start 09/13/18 at 21:00 Vitamin D (Vitamin D3) 2,000 unit DAILY PO Last administered on 09/20/18 08:58; Start 09/14/18 at 09:00 Vitamin B Complex 1 cap DAILY PO Last administered on 09/20/18 08:56; Start 09/14/18 at 09:00 Famotidine (Pepcid) 20 mg BID PO Last administered on 09/14/18 09:00; Start 09/13/18 at 21:00; Stop 09/14/18 at 17:20; Status DC Levothyroxine Sodium (Synthroid) 150 mcg DAILY06 PO Last administered on 09/20/18 06:02; Start 09/14/18 at 06:00 Multivitamins/ Calcium (Thera-M Plus) 1 tab DAILY PO Last administered on 09/20/18 08:57; Start 09/14/18 at 09:00 Fish Oil (Fish Oil) 1,000 mg DAILY PO Last administered on 09/20/18 08:57; Start 09/14/18 at 09:00 Pantoprazole Sodium (Protonix) 40 mg DAILY07 PO Last administered on 09/20/18 06:02; Start 09/14/18 at 07:00 Polyethylene Glycol (miraLAX) 17 gm PRN DAILY PRN PO CONSTIPATION; Start 09/13/18 at 19:45 Albuterol/ Ipratropium (Duoneb) 3 ml RTQID NEB Last administered on 09/14/18 05:21; Start 09/13/18 at 20:00; Stop 09/14/18 at 14:10; Status DC Artificial Tears (Refresh Classic) 2 drop DAILY OU Last administered on 09/20/18 08:56; Start 09/14/18 at 09:00 Lactobacillus Rhamnosus (Culturelle) 1 cap BID PO Last administered on 09/20/18 19:12; Start 09/13/18 at 21:00 Midodrine (Proamatine) 5 mg [id number] PO Last administered on 09/19/18at 13:12; Start 09/14/18 at 07:00 Ropinirole HCl (Requip) 1 mg BID PO Last administered on 09/20/18at 19:12; Start 09/13/18 at 21:00 Albuterol/ Ipratropium (Duoneb) 3 ml PRN QID PRN NEB CONGESTION; Start 09/14/18 at 14:15 Sertraline HCl (Zoloft) 50 mg DAILY PO Last administered on 09/15/18at 09:04; Start 09/15/18 at 09:00; Stop 09/15/18 at 15:03; Status DC Quetiapine Fumarate (SEROquel) 25 mg QHS PO Last administered on 09/20/18at 19:12; Start 09/14/18 at 21:00 Vitamin D (Vitamin D3) 50,000 unit WEEKLY PO Last administered on 09/14/18at 20:34; Start 09/14/18 at 17:30 Sertraline HCl (Zoloft) 50 mg DAILY PO Last administered on 09/20/18at 08:58; Start 09/16/18 at 09:00; Stop 09/20/18 at 16:44; Status DC Furosemide (Lasix) 20 mg DAILY PO Last administered on 09/20/18at 09:42; Start 09/20/18 at 09:00 Sertraline HCl (Zoloft) 75 mg DAILY PO ; Start 09/21/18 at 09:00 Active Scripts Active Synthroid (Levothyroxine Sodium) 150 Mcg Tablet 150 Mcg PO DAILY07 Reported Protonix (Pantoprazole Sodium) 40 Mg Granpkt.dr 40 Mg PO DAILY07 Acidophilus (Lactobacillus Acidophilus) 1 Each Capsule 1 Each PO BID Refresh Optive Eye Drops (Carboxymethylcellulos/Glycerin) 15 Ml Drops 2 Drop EACHEYE DAILY Famotidine 20 Mg Tablet 1 Tab PO BID Duoneb 0.5-3(2.5) Mg/3 Ml (Albuterol/Ipratropium) 3 Ml Ampul.neb 3 Ml NEB QID Citalopram Hbr (Citalopram Hydrobromide) 20 Mg Tablet 20 Mg PO DAILY Carbidopa-Levodopa 25-250 Tab (Carbidopa/Levodopa) 1 Each Tablet 1 Tab PO TID LAST DOSE GIVEN: DATE: TIME: AM NEXT DOSE DUE: DATE: TIME: AFTERNOON Polyethylene Glycol 3350 255 Gm Powder 17 Gm PO DAILY PRN NOT GIVEN TODAY NEXT DOSE DUE: DATE: TIME: IF AND WHEN NEEDED Senna-Docusate Sodium Tablet (Sennosides/Docusate Sodium) 1 Each Tablet 1 Tab PO DAILY LAST DOSE GIVEN: DATE: TIME: AM NEXT DOSE DUE: DATE: TOMORR TIME: AM [place] 3 1,000 Mg Softgel ([place]-3 Fatty Acids/Fish Oil) 1 Each Capsule 1 Each PO DAILY LAST DOSE GIVEN: DATE: TIME: AM NEXT DOSE DUE: DATE: TIME: AM Simvastatin 40 Mg Tablet 40 Mg PO QHS LAST DOSE GIVEN: DATE: YESTER TIME: PM NEXT DOSE DUE: DATE: TIME: PM Lasix (Furosemide) 20 Mg Tablet 20 Mg PO DAILY LAST DOSE GIVEN: DATE: TIME: AM NEXT DOSE DUE: DATE: TIME: AM Requip (Ropinirole Hcl) 1 Mg Tablet 1 Mg PO BID LAST DOSE GIVEN: DATE: TIME: AM NEXT DOSE DUE: DATE: TODAY TIME: PM Midodrine Hcl 5 Mg Tablet 5 Mg PO Q8HRS LAST DOSE GIVEN: DATE: TIME: AM NEXT DOSE DUE: DATE: TIME: AFTERNOON Vitamin D-3 (Cholecalciferol (Vitamin D3)) 2,000 Unit Tablet 2,000 Unit PO DAILY LAST DOSE GIVEN: DATE: TIME: AM NEXT DOSE DUE: DATE: TIME: AM Calcium 600 + Vit D 200 Tablet (Calcium Carbonate/Vitamin D3) 1 Each Tablet 1 Tab PO DAILY LAST DOSE GIVEN: DATE: TODAY TIME: AM NEXT DOSE DUE: DATE: TIME: AM Daily Vitamin (Multivitamin) 1 Each Tablet 1 Each PO DAILY LAST DOSE GIVEN: DATE: TIME: AM NEXT DOSE DUE: DATE: TIME: AM Vitamin Z15-Ddkgv Acid Tablet (Cyanocobalamin/Folic Acid) 1 Each Tablet 1 Each PO DAILY LAST DOSE GIVEN: DATE: TIME: AM NEXT DOSE DUE: DATE: ORR TIME: AM I have reviewed the current psychotropics carefully including drug interactions. Risk benefit ratio favors no change other than as noted in my dictated progress note. Diagnosis: Problems: (1) Major depressive disorder (2) Anxiety disorder (3) Impulse control disorder (4) Dementia, vascular, with depression (5) Dementia, vascular, with delusions (6) Dementia in Alzheimer's disease with depression (7) Dementia in Alzheimer's disease with delusions (8) Major neurocognitive disorder SAMMY DANIEL MD September 20, 2018 22:36
[2018-09-21] MEDS: PANTOPRAZOLE 40 MG TABLET. PO SCH (05:49)
[2018-09-21] MEDS: LEVOTHYROXINE 150 MCG TABLET PO SCH (05:49)
[2018-09-21 05:57] VITALS: BP 122/70
[2018-09-21] MEDS: MIDODRINE 5 MG TABLET PO SCH ×2 (06:07→12:34)
--- NOTE | 2018-09-21 06:08 | NUR ---
Pt. did not received her 0700 Midodrine due to her BP being 122/70, which is out of the perimeter that is listed for her to received this medication.
[2018-09-21] MEDS: CALCIUM CARB/VIT D3 500/200 TABLET PO SCH (08:21)
[2018-09-21] MEDS: FUROSEMIDE 20 MG TABLET PO SCH (08:22)
[2018-09-21] MEDS: OMEGA-3 FATTY ACIDS/FISH OIL 1,000 MG CAPSULE. PO SCH (08:22)
[2018-09-21] MEDS: MULTIVITAMIN with MINERAL TABLET. PO SCH (08:22)
[2018-09-21] MEDS: SENNOSIDES/DOCUSATE 8.6/50MG TABLET. PO SCH (08:22)
[2018-09-21] MEDS: CHOLECALCIFEROL (VITAMIN D3) 1,000 UNIT TABLET PO SCH (08:22)
[2018-09-21] MEDS: rOPINIRole 1 MG TABLET. PO SCH ×2 (08:22→20:17)
[2018-09-21] MEDS: CARBIDOPA/LEVODOPA 25/250MG TABLET PO SCH ×3 (08:22→20:17)
[2018-09-21] MEDS: LACTOBACILLUS RHAMNOSUS GG 1 CAPSULE. PO SCH ×2 (08:22→20:17)
[2018-09-21] MEDS: VITAMIN B COMPLEX CAPSULE. PO SCH (08:22)
[2018-09-21] MEDS: CHOLECALCIFEROL (VITAMIN D3) 50,000 UNIT CAPSULE PO SCH (08:23)
[2018-09-21] MEDS: SERTRALINE 25 MG TABLET. PO SCH (08:25)
[2018-09-21] MEDS: POLYVINYL ALCOHOL/POVIDONE/PF OPHTH SOLUTION DROPERETTE. OU SCH (08:26)
--- NOTE | 2018-09-21 10:57 | NUR ---
Pt calm, cooperative, oriented, pleasant, and interactive with this nurse. Pt participating in group during meds and assessment.
[2018-09-21 16:27] VITALS: BP 105/68
[2018-09-21 19:07] LABS: THYROXINE 6.4 ug/dL (4.5-12.0)
--- NOTE | 2018-09-21 20:09 | PN ---
DATE: 09/20/2018 PSYCHIATRIC PROGRESS NOTE This late entry 09/20/2018 covers elements not covered in my initial note. SUBJECTIVE: I met with the patient in the evening. The patient slept 8-3/4 hours previous night. The patient had a good day, has been attending groups, did well at night, slept 8-3/4 hours. REVIEW OF SYSTEMS: Ambulation impaired, in wheelchair. No CV, , pulmonary, eye, ENT system symptoms on review. MENTAL STATUS EXAM: Oriented to herself and situation. Speech has some latency, coherent. Abstraction fair, computation impaired, language function intact, attention span short. Mood and affect somewhat withdrawn at times. She has been concerned about the police coming to her home and some concerns about her daughter being involved. Legal problems as a consequence of what is happening in the home. I addressed this with her at some length. LABORATORY DATA: Reviewed. IMPRESSION: Unchanged from initial note. PLAN: No change from initial note. SAMMY DANIEL MD DR: ISABELLA/yue JOB#: [id number] / [id number]
[2018-09-21] MEDS: SIMVASTATIN 40 MG TABLET. PO SCH (20:17)
[2018-09-21] MEDS: QUEtiapine 25 MG TABLET. PO SCH (20:17)
--- NOTE | 2018-09-21 22:41 | PDOC ---
Exam Note: Oscar Note: Please also refer to the separate dictated note~for this date of service dictated separately.~Patient seen individually. Discussed the patient with Nursing staff reviewed the chart.~Reviewed interim history and current functioning. Reviewed vital signs,~Labs/ Radiology~and current medications noted below. Continue current treatment with the changes noted in the dictated addendum note Assessment: Vital Signs: Vital Signs Date Time Temp Pulse Resp B/P (MAP) Pulse Ox O2 Delivery O2 Flow Rate FiO2 09/21/18 16:27 98.9 92 18 105/68 (80) 95 09/21/18 05:57 Room Air I&O Intake and Output 09/21/18 06:59 Intake Total 720 ml Balance 720 ml Intake Oral 720 ml # Voids 1 # Bowel Movements 1 Labs: Laboratory Tests Test 09/21/18 07:29 Free Thyroxine 1.24 ng/dL (0.76-1.46) Thyroxine (T4) 6.4 ug/dL (4.5-12.0) Total Triiodothyronine (TT3) 59 ng/dL (71-180) L Current Medications: Meds: Current Medications Sodium Chloride 500 ml @ 0 mls/hr 1X ONCE IV ; Start 09/13/18 at 14:00; Stop 09/13/18 at 14:30; Status DC Acetaminophen (Tylenol) 650 mg PRN Q6HRS PRN PO PAIN / TEMP; Start 09/13/18 at 17:15 Multi-Ingredient Ointment (Analgesic [place]) 1 patrick PRN QID PRN TP MUSCLE PAIN; Start 09/13/18 at 17:15 Al Hydroxide/Mg Hydroxide (Mylanta Plus Xs) 15 ml PRN AFTMEALHC PRN PO DYSPEPSIA; Start 09/13/18 at 17:15 Magnesium Hydroxide (Milk Of Magnesia) 2,400 mg PRN QHS PRN PO CONSTIPATION; Start 09/13/18 at 17:15 Citalopram Hydrobromide (CeleXA) 20 mg DAILY PO Last administered on 09/14/18at 09:00; Start 09/14/18 at 09:00; Stop 09/14/18 at 17:18; Status DC Furosemide (Lasix) 20 mg DAILY PO Last administered on 09/14/18at 09:00; Start 09/14/18 at 09:00; Stop 09/14/18 at 17:22; Status DC Senna/Docusate Sodium (Senna Plus) 1 tab DAILY PO Last administered on 09/21/18 08:22; Start 09/14/18 at 09:00 Simvastatin (Zocor) 40 mg QHS PO Last administered on 09/21/18 20:17; Start 09/13/18 at 21:00 Calcium/Vitamin D (Oscal D 500mg/ 200uts) 1 tab DAILY PO Last administered on 09/21/18 08:21; Start 09/14/18 at 09:00 Carbidopa/Levodopa (Sinemet 25/250) 1 tab TID PO Last administered on 09/21/18 20:17; Start 09/13/18 at 21:00 Vitamin D (Vitamin D3) 2,000 unit DAILY PO Last administered on 09/21/18 08:22; Start 09/14/18 at 09:00 Vitamin B Complex 1 cap DAILY PO Last administered on 09/21/18 08:22; Start 09/14/18 at 09:00 Famotidine (Pepcid) 20 mg BID PO Last administered on 09/14/18 09:00; Start 09/13/18 at 21:00; Stop 09/14/18 at 17:20; Status DC Levothyroxine Sodium (Synthroid) 150 mcg DAILY06 PO Last administered on 09/21/18 05:49; Start 09/14/18 at 06:00 Multivitamins/ Calcium (Thera-M Plus) 1 tab DAILY PO Last administered on 09/21/18 08:22; Start 09/14/18 at 09:00 Fish Oil (Fish Oil) 1,000 mg DAILY PO Last administered on 09/21/18 08:22; Start 09/14/18 at 09:00 Pantoprazole Sodium (Protonix) 40 mg DAILY07 PO Last administered on 09/21/18 05:49; Start 09/14/18 at 07:00 Polyethylene Glycol (miraLAX) 17 gm PRN DAILY PRN PO CONSTIPATION; Start 09/13/18 at 19:45 Albuterol/ Ipratropium (Duoneb) 3 ml RTQID NEB Last administered on 09/14/18at 0 5:21; Start 09/13/18 at 20:00; Stop 09/14/18 at 14:10; Status DC Artificial Tears (Refresh Classic) 2 drop DAILY OU Last administered on 09/21/18 08:26; Start 09/14/18 at 09:00 Lactobacillus Rhamnosus (Culturelle) 1 cap BID PO Last administered on 09/21/18 20:17; Start 09/13/18 at 21:00 Midodrine (Proamatine) 5 mg [id number] PO Last administered on 09/19/18 13:12; Start 09/14/18 at 07:00 Ropinirole HCl (Requip) 1 mg BID PO Last administered on 09/21/18 20:17; Start 09/13/18 at 21:00 Albuterol/ Ipratropium (Duoneb) 3 ml PRN QID PRN NEB CONGESTION; Start 09/14/18 at 14:15 Sertraline HCl (Zoloft) 50 mg DAILY PO Last administered on 09/15/18 09:04; Start 09/15/18 at 09:00; Stop 09/15/18 at 15:03; Status DC Quetiapine Fumarate (SEROquel) 25 mg QHS PO Last administered on 09/21/18 20:17; Start 09/14/18 at 21:00 Vitamin D (Vitamin D3) 50,000 unit WEEKLY PO Last administered on 09/21/18 08:23; Start 09/14/18 at 17:30 Sertraline HCl (Zoloft) 50 mg DAILY PO Last administered on 09/20/18at 08:58; Start 09/16/18 at 09:00; Stop 09/20/18 at 16:44; Status DC Furosemide (Lasix) 20 mg DAILY PO Last administered on 09/21/18 08:22; Start 09/20/18 at 09:00 Sertraline HCl (Zoloft) 75 mg DAILY PO Last administered on 09/21/18 08:25; Start 09/21/18 at 09:00 Active Scripts Active Synthroid (Levothyroxine Sodium) 150 Mcg Tablet 150 Mcg PO DAILY07 Reported Protonix (Pantoprazole Sodium) 40 Mg Granpkt.dr 40 Mg PO DAILY07 Acidophilus (Lactobacillus Acidophilus) 1 Each Capsule 1 Each PO BID Refresh Optive Eye Drops (Carboxymethylcellulos/Glycerin) 15 Ml Drops 2 Drop EACHEYE DAILY Famotidine 20 Mg Tablet 1 Tab PO BID Duoneb 0.5-3(2.5) Mg/3 Ml (Albuterol/Ipratropium) 3 Ml Ampul.neb 3 Ml NEB QID Citalopram Hbr (Citalopram Hydrobromide) 20 Mg Tablet 20 Mg PO DAILY Carbidopa-Levodopa 25-250 Tab (Carbidopa/Levodopa) 1 Each Tablet 1 Tab PO TID LAST DOSE GIVEN: DATE: TODAY TIME: AM NEXT DOSE DUE: DATE: TODAY TIME: AFTERNOON Polyethylene Glycol 3350 255 Gm Powder 17 Gm PO DAILY PRN NOT GIVEN TODAY NEXT DOSE DUE: DATE: TODAY TIME: IF AND WHEN NEEDED Senna-Docusate Sodium Tablet (Sennosides/Docusate Sodium) 1 Each Tablet 1 Tab PO DAILY LAST DOSE GIVEN: DATE: TIME: AM NEXT DOSE DUE: DATE: TOMORR TIME: AM [place] 3 1,000 Mg Softgel ([place]-3 Fatty Acids/Fish Oil) 1 Each Capsule 1 Each PO DAILY LAST DOSE GIVEN: DATE: TODAY TIME: AM NEXT DOSE DUE: DATE: TOMORROW TIME: AM Simvastatin 40 Mg Tablet 40 Mg PO QHS LAST DOSE GIVEN: DATE: YESTER TIME: PM NEXT DOSE DUE: DATE: TODAY TIME: PM Lasix (Furosemide) 20 Mg Tablet 20 Mg PO DAILY LAST DOSE GIVEN: DATE: TODAY TIME: AM NEXT DOSE DUE: DATE: ORR TIME: AM Requip (Ropinirole Hcl) 1 Mg Tablet 1 Mg PO BID LAST DOSE GIVEN: DATE: TIME: AM NEXT DOSE DUE: DATE: TODAY TIME: PM Midodrine Hcl 5 Mg Tablet 5 Mg PO Q8HRS LAST DOSE GIVEN: DATE: TODAY TIME: AM NEXT DOSE DUE: DATE: TODAY TIME: AFTERNOON Vitamin D-3 (Cholecalciferol (Vitamin D3)) 2,000 Unit Tablet 2,000 Unit PO DAILY LAST DOSE GIVEN: DATE: TODAY TIME: AM NEXT DOSE DUE: DATE: ORR TIME: AM Calcium 600 + Vit D 200 Tablet (Calcium Carbonate/Vitamin D3) 1 Each Tablet 1 Tab PO DAILY LAST DOSE GIVEN: DATE: TODAY TIME: AM NEXT DOSE DUE: DATE:TOMORROW TIME: AM Daily Vitamin (Multivitamin) 1 Each Tablet 1 Each PO DAILY LAST DOSE GIVEN: DATE: TODAY TIME: AM NEXT DOSE DUE: DATE: TOMORROW TIME: AM Vitamin S13-Mbcfz Acid Tablet (Cyanocobalamin/Folic Acid) 1 Each Tablet 1 Each PO DAILY LAST DOSE GIVEN: DATE: TODAY TIME: AM NEXT DOSE DUE: DATE: TOMORROW TIME: AM I have reviewed the current psychotropics carefully including drug interactions. Risk benefit ratio favors no change other than as noted in my dictated progress note. Diagnosis: Problems: (1) Major depressive disorder (2) Anxiety disorder (3) Impulse control disorder (4) Dementia, vascular, with depression (5) Dementia, vascular, with delusions (6) Dementia in Alzheimer's disease with depression (7) Dementia in Alzheimer's disease with delusions (8) Major neurocognitive disorder SAMMY DANIEL MD September 21, 2018 22:41
--- NOTE | 2018-09-21 23:15 | NUR ---
Pt. has been in a calm, pleasant, and cooperative mood this evening. Pt. was at in the day room this evening for a bit, prior to leaving to call her daughter. Pt. has been compliant with taking her HS medicines this morning. Pt. called her daughter this evening and she said it went good. Dressing to the left hand is C/D/I. Pt. still have 3+ edema bilateraly to her feet, she is on Lasix at this time. See MAR for administrations time on the Lasix.
[2018-09-22 05:53] VITALS: BP 153/72
[2018-09-22] MEDS: PANTOPRAZOLE 40 MG TABLET. PO SCH (06:00)
[2018-09-22] MEDS: MIDODRINE 5 MG TABLET PO SCH ×3 (06:00→13:00)
[2018-09-22] MEDS: LEVOTHYROXINE 150 MCG TABLET PO SCH (06:00)
--- NOTE | 2018-09-22 06:11 | NUR ---
Midodrine that scheduled for 0700 was not given due to pt. BP being 153/72, which is outside of the parameters.
[2018-09-22] MEDS: POLYVINYL ALCOHOL/POVIDONE/PF OPHTH SOLUTION DROPERETTE. OU SCH (08:02)
[2018-09-22] MEDS: VITAMIN B COMPLEX CAPSULE. PO SCH (08:02)
[2018-09-22] MEDS: FUROSEMIDE 20 MG TABLET PO SCH (08:02)
[2018-09-22] MEDS: LACTOBACILLUS RHAMNOSUS GG 1 CAPSULE. PO SCH ×2 (08:02→19:29)
[2018-09-22] MEDS: OMEGA-3 FATTY ACIDS/FISH OIL 1,000 MG CAPSULE. PO SCH (08:02)
[2018-09-22] MEDS: CARBIDOPA/LEVODOPA 25/250MG TABLET PO SCH ×3 (08:03→19:28)
[2018-09-22] MEDS: rOPINIRole 1 MG TABLET. PO SCH ×2 (08:03→19:29)
[2018-09-22] MEDS: MULTIVITAMIN with MINERAL TABLET. PO SCH (08:03)
[2018-09-22] MEDS: SERTRALINE 25 MG TABLET. PO SCH (08:03)
[2018-09-22] MEDS: CHOLECALCIFEROL (VITAMIN D3) 1,000 UNIT TABLET PO SCH (08:03)
[2018-09-22] MEDS: SENNOSIDES/DOCUSATE 8.6/50MG TABLET. PO SCH (08:03)
[2018-09-22] MEDS: CALCIUM CARB/VIT D3 500/200 TABLET PO SCH (08:03)
--- NOTE | 2018-09-22 09:50 | NUR ---
WEEKLY ACTIVITY THERAPY NOTE Date of Admission: 09/13/2018 Date of AT Assessment: 09/16/2018 Goal aimed: to elevate mood and engagement Initial Goal: Pt. will participate in at least five groups per week. Weekly progress towards goal: achieved Group participation level: moderate to full Weekly highlights: many positive interaction Behaviors observed: follows exercise groups to the best of her ability, minimal prompting in trivia/cog stim activities, loves Nam, quiet but engaged, sleepy last couple days, remembers ACT Therapist Galileo by name Plan: no change to goal Beneficial adaptations: more successful in conversation based groups
--- NOTE | 2018-09-22 10:18 | NUR ---
WEEKLY NOTE: Pt is eating 100% and sleeping 6 hours average. Pt is compliant, cooperative and engaging with staff. Pt will return to [facility]. Pt would like to transition over to [facility] and SW encouraged pt to really look at her physical health in the meantime. There are not concerns with pt at this time.
--- NOTE | 2018-09-22 11:16 | NUR ---
Nursing Note: Pt has been pleasant and cooperative with staff this AM. Pt compliant with medications and assessment. Continue to monitor.
[2018-09-22 15:54] VITALS: BP 143/89
[2018-09-22] MEDS: QUEtiapine 25 MG TABLET. PO SCH (19:28)
[2018-09-22] MEDS: SIMVASTATIN 40 MG TABLET. PO SCH (19:29)
--- NOTE | 2018-09-22 22:25 | NUR ---
Pt sitting up in w/c in the day room at shift change. Pt calm, pleasant, and interactive. Pt cooperative with assessment and compliant with medications administered crushed in pudding.
--- NOTE | 2018-09-22 22:34 | PDOC ---
Exam Note: Oscar Note: Please also refer to the separate dictated note~for this date of service dictated separately.~Patient seen individually. Discussed the patient with Nursing staff reviewed the chart.~Reviewed interim history and current functioning. Reviewed vital signs,~Labs/ Radiology~and current medications noted below. Continue current treatment with the changes noted in the dictated addendum note Assessment: Vital Signs: Vital Signs Date Time Temp Pulse Resp B/P (MAP) Pulse Ox O2 Delivery O2 Flow Rate FiO2 09/22/18 15:54 97.3 73 19 143/89 (107) 99 Room Air I&O Intake and Output 09/22/18 07:00 Intake Total 1560 ml Balance 1560 ml Intake Oral 1560 ml # Bowel Movements 1 Current Medications: Meds: Current Medications Sodium Chloride 500 ml @ 0 mls/hr 1X ONCE IV ; Start 09/13/18 at 14:00; Stop 09/13/18 at 14:30; Status DC Acetaminophen (Tylenol) 650 mg PRN Q6HRS PRN PO PAIN / TEMP; Start 09/13/18 at 17:15 Multi-Ingredient Ointment (Analgesic [facility] [place]) 1 patrick PRN QID PRN TP MUSCLE PAIN; Start 09/13/18 at 17:15 Al Hydroxide/Mg Hydroxide (Mylanta Plus Xs) 15 ml PRN AFTMEALHC PRN PO DYSPEPSIA; Start 09/13/18 at 17:15 Magnesium Hydroxide (Milk Of Magnesia) 2,400 mg PRN QHS PRN PO CONSTIPATION; Start 09/13/18 at 17:15 Citalopram Hydrobromide (CeleXA) 20 mg DAILY PO Last administered on 09/14/18at 09:00; Start 09/14/18 at 09:00; Stop 09/14/18 at 17:18; Status DC Furosemide (Lasix) 20 mg DAILY PO Last administered on 09/14/18at 09:00; Start 09/14/18 at 09:00; Stop 09/14/18 at 17:22; Status DC Senna/Docusate Sodium (Senna Plus) 1 tab DAILY PO Last administered on 09/22/18at 08:03; Start 09/14/18 at 09:00 Simvastatin (Zocor) 40 mg QHS PO Last administered on 09/22/18at 19:29; Start 09/13/18 at 21:00 Calcium/Vitamin D (Oscal D 500mg/ 200uts) 1 tab DAILY PO Last administered on 09/22/18 08:03; Start 09/14/18 at 09:00 Carbidopa/Levodopa (Sinemet 25/250) 1 tab TID PO Last administered on 09/22/18 19:28; Start 09/13/18 at 21:00 Vitamin D (Vitamin D3) 2,000 unit DAILY PO Last administered on 09/22/18 08:03; Start 09/14/18 at 09:00 Vitamin B Complex 1 cap DAILY PO Last administered on 09/22/18 08:02; Start 09/14/18 at 09:00 Famotidine (Pepcid) 20 mg BID PO Last administered on 09/14/18 09:00; Start 09/13/18 at 21:00; Stop 09/14/18 at 17:20; Status DC Levothyroxine Sodium (Synthroid) 150 mcg DAILY06 PO Last administered on 09/22/18 06:00; Start 09/14/18 at 06:00 Multivitamins/ Calcium (Thera-M Plus) 1 tab DAILY PO Last administered on 09/22/18 08:03; Start 09/14/18 at 09:00 Fish Oil (Fish Oil) 1,000 mg DAILY PO Last administered on 09/22/18 08:02; Start 09/14/18 at 09:00 Pantoprazole Sodium (Protonix) 40 mg DAILY07 PO Last administered on 09/22/18 06:00; Start 09/14/18 at 07:00 Polyethylene Glycol (miraLAX) 17 gm PRN DAILY PRN PO CONSTIPATION; Start 09/13/18 at 19:45 Albuterol/ Ipratropium (Duoneb) 3 ml RTQID NEB Last administered on 09/14/18 05:21; Start 09/13/18 at 20:00; Stop 09/14/18 at 14:10; Status DC Artificial Tears (Refresh Classic) 2 drop DAILY OU Last administered on 09/22/18 08:02; Start 09/14/18 at 09:00 Lactobacillus Rhamnosus (Culturelle) 1 cap BID PO Last administered on 09/22/18 19:29; Start 09/13/18 at 21:00 Midodrine (Proamatine) 5 mg [id number] PO Last administered on 09/19/18 13:12; Start 09/14/18 at 07:00; Stop 09/22/18 at 14:14; Status DC Ropinirole HCl (Requip) 1 mg BID PO Last administered on 09/22/18at 19:29; Start 09/13/18 at 21:00 Albuterol/ Ipratropium (Duoneb) 3 ml PRN QID PRN NEB CONGESTION; Start 09/14/18 at 14:15 Sertraline HCl (Zoloft) 50 mg DAILY PO Last administered on 09/15/18at 09:04; Start 09/15/18 at 09:00; Stop 09/15/18 at 15:03; Status DC Quetiapine Fumarate (SEROquel) 25 mg QHS PO Last administered on 09/22/18at 19:28; Start 09/14/18 at 21:00 Vitamin D (Vitamin D3) 50,000 unit WEEKLY PO Last administered on 09/21/18at 08:23; Start 09/14/18 at 17:30 Sertraline HCl (Zoloft) 50 mg DAILY PO Last administered on 09/20/18at 08:58; Start 09/16/18 at 09:00; Stop 09/20/18 at 16:44; Status DC Furosemide (Lasix) 20 mg DAILY PO Last administered on 09/22/18at 08:02; Start 09/20/18 at 09:00 Sertraline HCl (Zoloft) 75 mg DAILY PO Last administered on 09/22/18at 08:03; Start 09/21/18 at 09:00 Midodrine (Proamatine) 5 mg [id number] PRN PO hypotension; Start 09/22/18 at 14:15 Active Scripts Active Synthroid (Levothyroxine Sodium) 150 Mcg Tablet 150 Mcg PO DAILY07 Reported Protonix (Pantoprazole Sodium) 40 Mg Granpkt.dr 40 Mg PO DAILY07 Acidophilus (Lactobacillus Acidophilus) 1 Each Capsule 1 Each PO BID Refresh Optive Eye Drops (Carboxymethylcellulos/Glycerin) 15 Ml Drops 2 Drop EACHEYE DAILY Famotidine 20 Mg Tablet 1 Tab PO BID Duoneb 0.5-3(2.5) Mg/3 Ml (Albuterol/Ipratropium) 3 Ml Ampul.neb 3 Ml NEB QID Citalopram Hbr (Citalopram Hydrobromide) 20 Mg Tablet 20 Mg PO DAILY Carbidopa-Levodopa 25-250 Tab (Carbidopa/Levodopa) 1 Each Tablet 1 Tab PO TID LAST DOSE GIVEN: DATE: TODAY TIME: AM NEXT DOSE DUE: DATE: TIME: AFTERNOON Polyethylene Glycol 3350 255 Gm Powder 17 Gm PO DAILY PRN NOT GIVEN TODAY NEXT DOSE DUE: DATE: TODAY TIME: IF AND WHEN NEEDED Senna-Docusate Sodium Tablet (Sennosides/Docusate Sodium) 1 Each Tablet 1 Tab PO DAILY LAST DOSE GIVEN: DATE: TODAY TIME: AM NEXT DOSE DUE: DATE: TOMORR TIME: AM [place] 3 1,000 Mg Softgel ([place]-3 Fatty Acids/Fish Oil) 1 Each Capsule 1 Each PO DAILY LAST DOSE GIVEN: DATE: TIME: AM NEXT DOSE DUE: DATE: TIME: AM Simvastatin 40 Mg Tablet 40 Mg PO QHS LAST DOSE GIVEN: DATE: TIME: PM NEXT DOSE DUE: DATE: TODAY TIME: PM Lasix (Furosemide) 20 Mg Tablet 20 Mg PO DAILY LAST DOSE GIVEN: DATE: TODAY TIME: AM NEXT DOSE DUE: DATE: TIME: AM Requip (Ropinirole Hcl) 1 Mg Tablet 1 Mg PO BID LAST DOSE GIVEN: DATE: TIME: AM NEXT DOSE DUE: DATE: TODAY TIME: PM Midodrine Hcl 5 Mg Tablet 5 Mg PO Q8HRS LAST DOSE GIVEN: DATE: TIME: AM NEXT DOSE DUE: DATE: TIME: AFTERNOON Vitamin D-3 (Cholecalciferol (Vitamin D3)) 2,000 Unit Tablet 2,000 Unit PO DAILY LAST DOSE GIVEN: DATE: TODAY TIME: AM NEXT DOSE DUE: DATE: TOMORR TIME: AM Calcium 600 + Vit D 200 Tablet (Calcium Carbonate/Vitamin D3) 1 Each Tablet 1 Tab PO DAILY LAST DOSE GIVEN: DATE: TODAY TIME: AM NEXT DOSE DUE: DATE:TOMORR TIME: AM Daily Vitamin (Multivitamin) 1 Each Tablet 1 Each PO DAILY LAST DOSE GIVEN: DATE: TIME: AM NEXT DOSE DUE: DATE: ORR TIME: AM Vitamin A79-Avody Acid Tablet (Cyanocobalamin/Folic Acid) 1 Each Tablet 1 Each PO DAILY LAST DOSE GIVEN: DATE: TODAY TIME: AM NEXT DOSE DUE: DATE: TOMORROW TIME: AM I have reviewed the current psychotropics carefully including drug interactions. Risk benefit ratio favors no change other than as noted in my dictated progress note. Diagnosis: Problems: (1) Major depressive disorder (2) Anxiety disorder (3) Impulse control disorder (4) Dementia, vascular, with depression (5) Dementia, vascular, with delusions (6) Dementia in Alzheimer's disease with depression (7) Dementia in Alzheimer's disease with delusions (8) Major neurocognitive disorder SAMMY DANIEL MD September 22, 2018 22:34
[2018-09-23] MEDS: PANTOPRAZOLE 40 MG TABLET. PO SCH (04:53)
[2018-09-23] MEDS: LEVOTHYROXINE 150 MCG TABLET PO SCH (04:53)
[2018-09-23 06:22] VITALS: BP 125/70
[2018-09-23 07:31] LABS: BASO % 1 % (0-3); EOS # 0.1 x10^3/uL (0.0-0.7); EOS % 2 % (0-3); HEMATOCRIT 31.6 % (36.0-47.0); HEMOGLOBIN 10.6 g/dL (12.0-15.5); LYMPH # 1.6 x10^3/uL (1.0-4.8); LYMPH % 31 % (24-48); MEAN CORPUSCULAR HEMOGLOBIN 30 pg (25-35); MEAN CORPUSCULAR HGB CONC 34 g/dL (31-37); MEAN CORPUSCULAR VOLUME 91 fL (79-100); MONO # 0.4 x10^3/uL (0.0-1.1); MONO % 7 % (0-9); NEUT # 3.1 x10^3uL (1.8-7.7); NEUT % 59 % (31-73); PLATELET COUNT 159 x10^3/uL (140-400); RED BLOOD COUNT 3.49 x10^6/uL (3.50-5.40); RED CELL DISTRIBUTION WIDTH 16.2 % (11.5-14.5); WHITE BLOOD COUNT 5.3 x10^3/uL (4.0-11.0)
[2018-09-23] MEDS: SERTRALINE 25 MG TABLET. PO SCH (07:47)
[2018-09-23] MEDS: FUROSEMIDE 20 MG TABLET PO SCH (07:48)
[2018-09-23] MEDS: OMEGA-3 FATTY ACIDS/FISH OIL 1,000 MG CAPSULE. PO SCH (07:48)
[2018-09-23] MEDS: MULTIVITAMIN with MINERAL TABLET. PO SCH (07:48)
[2018-09-23] MEDS: LACTOBACILLUS RHAMNOSUS GG 1 CAPSULE. PO SCH ×2 (07:48→19:46)
[2018-09-23] MEDS: POLYVINYL ALCOHOL/POVIDONE/PF OPHTH SOLUTION DROPERETTE. OU SCH (07:48)
[2018-09-23] MEDS: CARBIDOPA/LEVODOPA 25/250MG TABLET PO SCH ×3 (07:48→19:46)
[2018-09-23] MEDS: VITAMIN B COMPLEX CAPSULE. PO SCH (07:48)
[2018-09-23] MEDS: SENNOSIDES/DOCUSATE 8.6/50MG TABLET. PO SCH (07:48)
[2018-09-23] MEDS: CALCIUM CARB/VIT D3 500/200 TABLET PO SCH (07:48)
[2018-09-23] MEDS: rOPINIRole 1 MG TABLET. PO SCH ×2 (07:48→19:46)
[2018-09-23] MEDS: CHOLECALCIFEROL (VITAMIN D3) 1,000 UNIT TABLET PO SCH (07:48)
[2018-09-23 07:53] LABS: ALBUMIN 2.4 g/dL (3.4-5.0); ALBUMIN/GLOBULIN RATIO 0.8 (1.0-1.7); CALCIUM 8.2 mg/dL (8.5-10.1); CREATININE 1.1 mg/dL (0.6-1.0); GFR 46.9; POTASSIUM 4.2 mmol/L (3.5-5.1); TOTAL BILIRUBIN 0.3 mg/dL (0.2-1.0); TOTAL PROTEIN 5.6 g/dL (6.4-8.2)
--- NOTE | 2018-09-23 10:37 | NUR ---
Behavior Intervention Response and Plan: BIRP Note: Behavior: Assumed Care of patient, patient located in Dining Room at shift change. Patient exhibited the following behavior Calm, Withdrawn, Compliant. Brief assessment on rounds of vital signs, medication needs, lab studies, and pain. Treatment plan problems . Intervention: Patient assessed and the following interventions initiated safety checks 15 Minute Checks Cognitive Assessment , Head to toe Assessment , Medications. Response: After interactions and interventions patient responded in the following manner, Compliant , quiet ,Withdrawn. Continue to assess behaviors and condition will continue to monitor throughout the shift as needed. Patient educated on ADL's, and hand hygiene. 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 Continue to assess patient for changes in above assessment. Monitor for medication needs, pain, and safety concerns. Hourly rounding performed to ensure safe environment.
[2018-09-23 16:31] VITALS: BP 154/83
--- NOTE | 2018-09-23 17:00 | NUR ---
pt up for meals. has been compliant and in pleasant spirits.
[2018-09-23] MEDS: QUEtiapine 25 MG TABLET. PO SCH (19:46)
[2018-09-23] MEDS: SIMVASTATIN 40 MG TABLET. PO SCH (19:46)
--- NOTE | 2018-09-23 21:07 | PN ---
DATE: 09/21/2018 PSYCHIATRIC PROGRESS NOTE This late entry 09/21/2018 covers elements not covered in my initial note. SUBJECTIVE: I met with the patient in the evening of 09/21/2018. The patient slept 8 hours previous night. The patient has been somewhat anxious. Her daughter reportedly was arrested for some drug related charges. The patient is able to process that daughter has to accept the consequences of her action to be able to make a change. REVIEW OF SYSTEMS: Ambulation impaired, in wheelchair. No CV, , pulmonary, eye system symptoms on review. MENTAL STATUS EXAM: Oriented to herself and situation. Speech has some latency, coherent. Abstraction fair, computation impaired, language function intact, attention span short. Mood and affect is improved. She does have some short-term memory deficits. IMPRESSION: Unchanged from initial note. PLAN: No change from initial note. MAN Laura DANIEL MD DR: ISABELLA/yue JOB#: [id number] / [id number]
--- NOTE | 2018-09-23 22:38 | PDOC ---
Exam Note: Oscar Note: Please also refer to the separate dictated note~for this date of service dictated separately.~Patient seen individually. Discussed the patient with Nursing staff reviewed the chart.~Reviewed interim history and current functioning. Reviewed vital signs,~Labs/ Radiology~and current medications noted below. Continue current treatment with the changes noted in the dictated addendum note Assessment: Vital Signs: Vital Signs Date Time Temp Pulse Resp B/P (MAP) Pulse Ox O2 Delivery O2 Flow Rate FiO2 09/23/18 16:31 98.3 91 14 154/83 (106) 100 09/22/18 15:54 Room Air I&O Intake and Output 09/23/18 07:00 Intake Total 960 ml Balance 960 ml Intake Oral 960 ml # Bowel Movements 1 Labs: Laboratory Tests Test 09/23/18 07:05 White Blood Count 5.3 x10^3/uL (4.0-11.0) Red Blood Count 3.49 x10^6/uL (3.50-5.40) L Hemoglobin 10.6 g/dL (12.0-15.5) L Hematocrit 31.6 % (36.0-47.0) L Mean Corpuscular Volume 91 fL (79-100) Mean Corpuscular Hemoglobin 30 pg (25-35) Mean Corpuscular Hemoglobin Concent 34 g/dL (31-37) Red Cell Distribution Width 16.2 % (11.5-14.5) H Platelet Count 159 x10^3/uL (140-400) Neutrophils (%) (Auto) 59 % (31-73) Lymphocytes (%) (Auto) 31 % (24-48) Monocytes (%) (Auto) 7 % (0-9) Eosinophils (%) (Auto) 2 % (0-3) Basophils (%) (Auto) 1 % (0-3) Neutrophils # (Auto) 3.1 x10^3uL (1.8-7.7) Lymphocytes # (Auto) 1.6 x10^3/uL (1.0-4.8) Monocytes # (Auto) 0.4 x10^3/uL (0.0-1.1) Eosinophils # (Auto) 0.1 x10^3/uL (0.0-0.7) Basophils # (Auto) 0.0 x10^3/uL (0.0-0.2) Sodium Level 144 mmol/L (136-145) Potassium Level 4.2 mmol/L (3.5-5.1) Chloride Level 108 mmol/L (98-107) H Carbon Dioxide Level 29 mmol/L (21-32) Anion Gap 7 (6-14) Blood Urea Nitrogen 29 mg/dL (7-20) H Creatinine 1.1 mg/dL (0.6-1.0) H Estimated GFR (Cockcroft-Gault) 46.9 BUN/Creatinine Ratio 26 (6-20) H Glucose Level 85 mg/dL (70-99) Calcium Level 8.2 mg/dL (8.5-10.1) L Total Bilirubin 0.3 mg/dL (0.2-1.0) Aspartate Amino Transferase (AST) 25 U/L (15-37) Alanine Aminotransferase (ALT) 12 U/L (14-59) L Alkaline Phosphatase 109 U/L (46-116) Total Protein 5.6 g/dL (6.4-8.2) L Albumin 2.4 g/dL (3.4-5.0) L Albumin/Globulin Ratio 0.8 (1.0-1.7) L Current Medications: Meds: Current Medications Sodium Chloride 500 ml @ 0 mls/hr 1X ONCE IV ; Start 09/13/18 at 14:00; Stop 09/13/18 at 14:30; Status DC Acetaminophen (Tylenol) 650 mg PRN Q6HRS PRN PO PAIN / TEMP; Start 09/13/18 at 17:15 Multi-Ingredient Ointment (Analgesic [place]) 1 patrick PRN QID PRN TP MUSCLE PAIN; Start 09/13/18 at 17:15 Al Hydroxide/Mg Hydroxide (Mylanta Plus Xs) 15 ml PRN AFTMEALHC PRN PO DY SPEPSIA; Start 09/13/18 at 17:15 Magnesium Hydroxide (Milk Of Magnesia) 2,400 mg PRN QHS PRN PO CONSTIPATION; Start 09/13/18 at 17:15 Citalopram Hydrobromide (CeleXA) 20 mg DAILY PO Last administered on 09/14/18at 09:00; Start 09/14/18 at 09:00; Stop 09/14/18 at 17:18; Status DC Furosemide (Lasix) 20 mg DAILY PO Last administered on 09/14/18 09:00; Start 09/14/18 at 09:00; Stop 09/14/18 at 17:22; Status DC Senna/Docusate Sodium (Senna Plus) 1 tab DAILY PO Last administered on 09/23/18 07:48; Start 09/14/18 at 09:00 Simvastatin (Zocor) 40 mg QHS PO Last administered on 09/23/18 19:46; Start 09/13/18 at 21:00 Calcium/Vitamin D (Oscal D 500mg/ 200uts) 1 tab DAILY PO Last administered on 09/23/18 07:48; Start 09/14/18 at 09:00 Carbidopa/Levodopa (Sinemet 25/250) 1 tab TID PO Last administered on 09/23/18 19:46; Start 09/13/18 at 21:00 Vitamin D (Vitamin D3) 2,000 unit DAILY PO Last administered on 09/23/18 07:48; Start 09/14/18 at 09:00 Vitamin B Complex 1 cap DAILY PO Last administered on 09/23/18 07:48; Start 09/14/18 at 09:00 Famotidine (Pepcid) 20 mg BID PO Last administered on 09/14/18 09:00; Start 09/13/18 at 21:00; Stop 09/14/18 at 17:20; Status DC Levothyroxine Sodium (Synthroid) 150 mcg DAILY06 PO Last administered on 09/23/18 04:53; Start 09/14/18 at 06:00 Multivitamins/ Calcium (Thera-M Plus) 1 tab DAILY PO Last administered on 09/23/18 07:48; Start 09/14/18 at 09:00 Fish Oil (Fish Oil) 1,000 mg DAILY PO Last administered on 09/23/18 07:48; Start 09/14/18 at 09:00 Pantoprazole Sodium (Protonix) 40 mg DAILY07 PO Last administered on 09/23/18 04:53; Start 09/14/18 at 07:00 Polyethylene Glycol (miraLAX) 17 gm PRN DAILY PRN PO CONSTIPATION; Start 09/13/18 at 19:45 Albuterol/ Ipratropium (Duoneb) 3 ml RTQID NEB Last administered on 09/14/18 05:21; Start 09/13/18 at 20:00; Stop 09/14/18 at 14:10; Status DC Artificial Tears (Refresh Classic) 2 drop DAILY OU Last administered on 09/23/18 07:48; Start 09/14/18 at 09:00 Lactobacillus Rhamnosus (Culturelle) 1 cap BID PO Last administered on 09/23/18 19:46; Start 09/13/18 at 21:00 Midodrine (Proamatine) 5 mg [id number] PO Last administered on 09/19/18 13:12; Start 09/14/18 at 07:00; Stop 09/22/18 at 14:14; Status DC Ropinirole HCl (Requip) 1 mg BID PO Last administered on 09/23/18 19:46; Start 09/13/18 at 21:00 Albuterol/ Ipratropium (Duoneb) 3 ml PRN QID PRN NEB CONGESTION; Start 09/14/18 at 14:15 Sertraline HCl (Zoloft) 50 mg DAILY PO Last administered on 09/15/18at 09:04; Start 09/15/18 at 09:00; Stop 09/15/18 at 15:03; Status DC Quetiapine Fumarate (SEROquel) 25 mg QHS PO Last administered on 09/23/18 19:46; Start 09/14/18 at 21:00 Vitamin D (Vitamin D3) 50,000 unit WEEKLY PO Last administered on 09/21/18 08:23; Start 09/14/18 at 17:30 Sertraline HCl (Zoloft) 50 mg DAILY PO Last administered on 09/20/18 08:58; Start 09/16/18 at 09:00; Stop 09/20/18 at 16:44; Status DC Furosemide (Lasix) 20 mg DAILY PO Last administered on 09/23/18 07:48; Start 09/20/18 at 09:00 Sertraline HCl (Zoloft) 75 mg DAILY PO Last administered on 09/23/18 07:47; Start 09/21/18 at 09:00 Midodrine (Proamatine) 5 mg [id number] PRN PO hypotension; Start 09/22/18 at 14:15 Active Scripts Active Synthroid (Levothyroxine Sodium) 150 Mcg Tablet 150 Mcg PO DAILY07 Reported Protonix (Pantoprazole Sodium) 40 Mg Granpkt.dr 40 Mg PO DAILY07 Acidophilus (Lactobacillus Acidophilus) 1 Each Capsule 1 Each PO BID Refresh Optive Eye Drops (Carboxymethylcellulos/Glycerin) 15 Ml Drops 2 Drop EACHEYE DAILY Famotidine 20 Mg Tablet 1 Tab PO BID Duoneb 0.5-3(2.5) Mg/3 Ml (Albuterol/Ipratropium) 3 Ml Ampul.neb 3 Ml NEB QID Citalopram Hbr (Citalopram Hydrobromide) 20 Mg Tablet 20 Mg PO DAILY Carbidopa-Levodopa 25-250 Tab (Carbidopa/Levodopa) 1 Each Tablet 1 Tab PO TID LAST DOSE GIVEN: DATE: TODAY TIME: AM NEXT DOSE DUE: DATE: TODAY TIME: AFTERNOON Polyethylene Glycol 3350 255 Gm Powder 17 Gm PO DAILY PRN NOT GIVEN TODAY NEXT DOSE DUE: DATE: TODAY TIME: IF AND WHEN NEEDED Senna-Docusate Sodium Tablet (Sennosides/Docusate Sodium) 1 Each Tablet 1 Tab PO DAILY LAST DOSE GIVEN: DATE: TODAY TIME: AM NEXT DOSE DUE: DATE: TOMORROW TIME: AM [place] 3 1,000 Mg Softgel ([place]-3 Fatty Acids/Fish Oil) 1 Each Capsule 1 Each PO DAILY LAST DOSE GIVEN: DATE: TODAY TIME: AM NEXT DOSE DUE: DATE: TOMORR TIME: AM Simvastatin 40 Mg Tablet 40 Mg PO QHS LAST DOSE GIVEN: DATE: YESTER TIME: PM NEXT DOSE DUE: DATE: TODAY TIME: PM Lasix (Furosemide) 20 Mg Tablet 20 Mg PO DAILY LAST DOSE GIVEN: DATE: TODAY TIME: AM NEXT DOSE DUE: DATE: TOMORROW TIME: AM Requip (Ropinirole Hcl) 1 Mg Tablet 1 Mg PO BID LAST DOSE GIVEN: DATE: TODAY TIME: AM NEXT DOSE DUE: DATE: TODAY TIME: PM Midodrine Hcl 5 Mg Tablet 5 Mg PO Q8HRS LAST DOSE GIVEN: DATE: TODAY TIME: AM NEXT DOSE DUE: DATE: TODAY TIME: AFTERNOON Vitamin D-3 (Cholecalciferol (Vitamin D3)) 2,000 Unit Tablet 2,000 Unit PO DAILY LAST DOSE GIVEN: DATE: TODAY TIME: AM NEXT DOSE DUE: DATE: TOMORROW TIME: AM Calcium 600 + Vit D 200 Tablet (Calcium Carbonate/Vitamin D3) 1 Each Tablet 1 Tab PO DAILY LAST DOSE GIVEN: DATE: TODAY TIME: AM NEXT DOSE DUE: DATE:TOMORROW TIME: AM Daily Vitamin (Multivitamin) 1 Each Tablet 1 Each PO DAILY LAST DOSE GIVEN: DATE: TODAY TIME: AM NEXT DOSE DUE: DATE: TOMORROW TIME: AM Vitamin I36-Rdlrv Acid Tablet (Cyanocobalamin/Folic Acid) 1 Each Tablet 1 Each PO DAILY LAST DOSE GIVEN: DATE: TODAY TIME: AM NEXT DOSE DUE: DATE: TOMORROW TIME: AM I have reviewed the current psychotropics carefully including drug interactions. Risk benefit ratio favors no change other than as noted in my dictated progress note. Diagnosis: Problems: (1) Anxiety disorder (2) Major depressive disorder (3) Dementia, vascular, with depression (4) Dementia, vascular, with delusions (5) Impulse control disorder (6) Dementia in Alzheimer's disease with depression (7) Dementia in Alzheimer's disease with delusions (8) Major neurocognitive disorder SAMMY DANIEL MD September 23, 2018 22:38
--- NOTE | 2018-09-23 22:47 | PN ---
DATE: 09/22/2018 PSYCHIATRIC PROGRESS NOTE This late entry 09/22/2018 covers elements not covered in my initial note. SUBJECTIVE: I met with the patient in the evening and staffed at treatment team meeting with the entire team in the morning. We reviewed the patient's history at length. Appetite 100%, sleeping average 7-1/2 hours, slept 6 hours previous night. She has been calm, compliant, interactive, and talkative. Austen, her neighbor, is possibly her DPOA and social service staff addressed this. REVIEW OF SYSTEMS: Ambulation impaired, in wheelchair. No CV, , pulmonary, eye, ENT system symptoms on review. MENTAL STATUS EXAM: Oriented to herself and situation. Speech is slow in rate and rhythm, low in volume, coherent, abstraction fair, computation impaired, language function intact, attention span short. Mood and affect are still somewhat dysphoric, depressed, anxious, but improved. As I met with her individually in the evening, she talked about her apprehensions about the daughter's drug usage and rest, but able to accept this. LABORATORY DATA: Reviewed. IMPRESSION: Major depressive disorder, recurrent, in partial remission; anxiety disorder, unspecified; mild cognitive impairment. PLAN: Continue psychotropics from initial note and we will gradually increase the Zoloft to 75 mg a day on . Rest unchanged. MAN Laura DANIEL MD DR: ISABELLA/yue JOB#: [id number] / [id number]
[2018-09-24] MEDS: LEVOTHYROXINE 150 MCG TABLET PO SCH (04:56)
[2018-09-24] MEDS: PANTOPRAZOLE 40 MG TABLET. PO SCH (05:00)
[2018-09-24 06:23] VITALS: BP 132/71
[2018-09-24] MEDS: CARBIDOPA/LEVODOPA 25/250MG TABLET PO SCH ×3 (07:51→19:52)
[2018-09-24] MEDS: rOPINIRole 1 MG TABLET. PO SCH ×2 (07:51→19:52)
[2018-09-24] MEDS: VITAMIN B COMPLEX CAPSULE. PO SCH (07:51)
[2018-09-24] MEDS: LACTOBACILLUS RHAMNOSUS GG 1 CAPSULE. PO SCH ×2 (07:51→19:52)
[2018-09-24] MEDS: CHOLECALCIFEROL (VITAMIN D3) 1,000 UNIT TABLET PO SCH (07:51)
[2018-09-24] MEDS: SENNOSIDES/DOCUSATE 8.6/50MG TABLET. PO SCH (07:51)
[2018-09-24] MEDS: FUROSEMIDE 20 MG TABLET PO SCH (07:52)
[2018-09-24] MEDS: SERTRALINE 25 MG TABLET. PO SCH (07:52)
[2018-09-24] MEDS: CALCIUM CARB/VIT D3 500/200 TABLET PO SCH (07:52)
[2018-09-24] MEDS: MULTIVITAMIN with MINERAL TABLET. PO SCH (07:52)
[2018-09-24] MEDS: OMEGA-3 FATTY ACIDS/FISH OIL 1,000 MG CAPSULE. PO SCH (07:52)
[2018-09-24] MEDS: POLYVINYL ALCOHOL/POVIDONE/PF OPHTH SOLUTION DROPERETTE. OU SCH (07:53)
--- NOTE | 2018-09-24 09:59 | NUR ---
Behavior Intervention Response and Plan: BIRP Note: Behavior: Assumed Care of patient, patient located in Dining Room at shift change. Patient exhibited the following behavior Calm, Withdrawn, Compliant. Brief assessment on rounds of vital signs, medication needs, lab studies, and pain. Treatment plan problems . Intervention: Patient assessed and the following interventions initiated safety checks 15 Minute Checks Cognitive Assessment , Head to toe Assessment , Medications. Response: After interactions and interventions patient responded in the following manner, Compliant , quiet ,Withdrawn. Continue to assess behaviors and condition will continue to monitor throughout the shift as needed. Patient educated on ADL's, and hand hygiene. 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 Continue to assess patient for changes in above assessment. Monitor for medication needs, pain, and safety concerns. Hourly rounding performed to ensure safe environment.
[2018-09-24 16:53] VITALS: BP 115/72
--- NOTE | 2018-09-24 18:10 | NUR ---
pt up for meals. still has mod tremors. compliant with meds and cares. pleasant and withdrawn.
--- NOTE | 2018-09-24 18:18 | PN ---
DATE: 09/23/2018 PSYCHIATRIC PROGRESS NOTE This late entry 09/23/2018 covers elements not covered in my initial note. SUBJECTIVE: I met with the patient in the evening of 09/23/2018. The patient slept 8 hours previous night. She has been fairly cooperative on the unit. No active hallucinations. REVIEW OF SYSTEMS: Ambulation impaired, in wheelchair. No CV, , pulmonary, eye, ENT system symptoms on review. MENTAL STATUS EXAM: Oriented to herself and situation. Speech is coherent, abstraction fair, computation impaired, language function intact. Mood and affect is improved. During the individual visit, we addressed circumstances for her daughter and legal problems and drug abuse at some length, and she was accepting of the fact that the daughter was be responsible for her own actions. Quite insightful really. IMPRESSION: Unchanged from initial note. PLAN: No change from initial note. MAN Laura DANIEL MD DR: ISABELLA/yue JOB#: [id number] / [id number]
[2018-09-24] MEDS: QUEtiapine 25 MG TABLET. PO SCH (19:52)
[2018-09-24] MEDS: SIMVASTATIN 40 MG TABLET. PO SCH (19:53)
--- NOTE | 2018-09-24 20:30 | PN ---
DATE: 09/24/2018 PSYCHIATRIC PROGRESS NOTE This note covers elements not covered in my initial note 09/24/2018. SUBJECTIVE: The patient was seen individually in the morning of 09/24/2018. Per nursing report, the patient has been fairly pleasant and cooperative. She is still obsessive about how her daughter is doing and amongst other things. Otherwise, . REVIEW OF SYSTEMS: Ambulation impaired, in wheelchair. No CV, , pulmonary, eye, ENT system symptoms on review. Reliability fair. The patient is repeatedly holding my hands, very appreciative of the visit. MENTAL STATUS EXAM: No active psychotic symptoms, suicidal or homicidal ideation. Intellect average, insight good, judgment intact. LABORATORY DATA: Reviewed. IMPRESSION: Unchanged from initial note. PLAN: Maintain Zoloft 75 mg a day, Seroquel 25 mg p.o. at bedtime. Adjust further as clinically indicated. SAMMY DANIEL MD DR: ISABELLA/yue JOB#: [id number] / [id number]
--- NOTE | 2018-09-24 22:42 | NUR ---
Nursing note: Assumed care of pt in the day room where she was calm and watching a movie . She was introduced to a new resident and the had a nice conversation. She was pleasant and compliant. No c/o pain.
[2018-09-25] MEDS: LEVOTHYROXINE 150 MCG TABLET PO SCH (06:03)
[2018-09-25 06:59] VITALS: BP 138/68
[2018-09-25] MEDS: CARBIDOPA/LEVODOPA 25/250MG TABLET PO SCH ×3 (07:37→20:36)
[2018-09-25] MEDS: LACTOBACILLUS RHAMNOSUS GG 1 CAPSULE. PO SCH ×2 (07:37→20:36)
[2018-09-25] MEDS: MIDODRINE 5 MG TABLET PO PRN (07:37)
[2018-09-25] MEDS: CHOLECALCIFEROL (VITAMIN D3) 1,000 UNIT TABLET PO SCH (07:37)
[2018-09-25] MEDS: OMEGA-3 FATTY ACIDS/FISH OIL 1,000 MG CAPSULE. PO SCH (07:37)
[2018-09-25] MEDS: MULTIVITAMIN with MINERAL TABLET. PO SCH (07:37)
[2018-09-25] MEDS: CALCIUM CARB/VIT D3 500/200 TABLET PO SCH (07:38)
[2018-09-25] MEDS: SERTRALINE 25 MG TABLET. PO SCH (07:38)
[2018-09-25] MEDS: VITAMIN B COMPLEX CAPSULE. PO SCH (07:38)
[2018-09-25] MEDS: SENNOSIDES/DOCUSATE 8.6/50MG TABLET. PO SCH (07:38)
[2018-09-25] MEDS: POLYVINYL ALCOHOL/POVIDONE/PF OPHTH SOLUTION DROPERETTE. OU SCH (07:38)
[2018-09-25] MEDS: PANTOPRAZOLE 40 MG TABLET. PO SCH (07:38)
[2018-09-25] MEDS: rOPINIRole 1 MG TABLET. PO SCH ×2 (07:38→20:36)
[2018-09-25] MEDS: FUROSEMIDE 20 MG TABLET PO SCH (07:38)
--- NOTE | 2018-09-25 09:43 | NUR ---
Behavior Intervention Response and Plan: BIRP Note: Behavior: Assumed Care of patient, patient located in Dining Room at shift change. Patient exhibited the following behavior Calm, Withdrawn, Compliant. Brief assessment on rounds of vital signs, medication needs, lab studies, and pain. Treatment plan problems . Intervention: Patient assessed and the following interventions initiated safety checks 15 Minute Checks Cognitive Assessment , Head to toe Assessment , Medications. Response: After interactions and interventions patient responded in the following manner, Compliant , quiet ,Withdrawn. Continue to assess behaviors and condition will continue to monitor throughout the shift as needed. Patient educated on ADL's, and hand hygiene. 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 Continue to assess patient for changes in above assessment. Monitor for medication needs, pain, and safety concerns. Hourly rounding performed to ensure safe environment.
[2018-09-25 16:32] VITALS: BP 103/64
--- NOTE | 2018-09-25 17:10 | NUR ---
pt up in [place] for meals and out to groups. compliant with meds and cares.
[2018-09-25] MEDS: QUEtiapine 25 MG TABLET. PO SCH (20:36)
[2018-09-25] MEDS: SIMVASTATIN 40 MG TABLET. PO SCH (20:36)
--- NOTE | 2018-09-25 22:48 | NUR ---
Pt. was in the day room this evening, when this investment underwriter took her HS medications to her. Pt. is calm, pleasant, and cooperative. Pt. is interacting appropriately with the staff. She had been compliant with taking her HS medications this shift. Dressing to her left hand is still intact and appeared dry. Pt. still have 3+ pedal edema bilaterally to her feet.
--- NOTE | 2018-09-25 23:50 | PDOC ---
Exam Note: Oscar Note: Late entry for DOS 09/24/2018. Please also refer to the separate dictated note~for this date of service dictated separately.~Patient seen individually. Discussed the patient with Nursing staff reviewed the chart.~Reviewed interim history and current functioning. Reviewed vital signs,~Labs/ Radiology~and current medications noted below. Continue current treatment with the changes noted in the dictated addendum note Assessment: Vital Signs: VS - Last 72 Hours, by Label Date Time Temp Pulse Resp B/P (MAP) Pulse Ox O2 Delivery O2 Flow Rate FiO2 09/25/18 16:32 97.1 70 16 103/64 (77) 97 09/25/18 07:37 79 138/68 09/25/18 06:59 97.9 79 20 138/68 (91) 95 09/24/18 16:53 97.6 73 20 115/72 (86) 97 09/24/18 06:23 97.9 87 16 132/71 (91) 97 09/23/18 16:31 98.3 91 14 154/83 (106) 100 09/23/18 06:22 98.4 80 20 125/70 (88) 95 Vital Signs Date Time Temp Pulse Resp B/P (MAP) Pulse Ox O2 Delivery O2 Flow Rate FiO2 09/25/18 16:32 97.1 70 16 103/64 (77) 97 09/22/18 15:54 Room Air I&O Intake and Output 09/25/18 06:59 Intake Total 840 ml Balance 840 ml Intake Oral 840 ml # Bowel Movements 1 Current Medications: Meds: Current Medications Sodium Chloride 500 ml @ 0 mls/hr 1X ONCE IV ; Start 09/13/18 at 14:00; Stop 09/13/18 at 14:30; Status DC Acetaminophen (Tylenol) 650 mg PRN Q6HRS PRN PO PAIN / TEMP; Start 09/13/18 at 17:15 Multi-Ingredient Ointment (Analgesic Rye) 1 patrick PRN QID PRN TP MUSCLE PAIN; Start 09/13/18 at 17:15 Al Hydroxide/Mg Hydroxide (Mylanta Plus Xs) 15 ml PRN AFTMEALHC PRN PO DYSPEPSIA; Start 09/13/18 at 17:15 Magnesium Hydroxide (Milk Of Magnesia) 2,400 mg PRN QHS PRN PO CONSTIPATION; Start 09/13/18 at 17:15 Citalopram Hydrobromide (CeleXA) 20 mg DAILY PO Last administered on 09/14/18 09:00; Start 09/14/18 at 09:00; Stop 09/14/18 at 17:18; Status DC Furosemide (Lasix) 20 mg DAILY PO Last administered on 09/14/18at 09:00; Start 09/14/18 at 09:00; Stop 09/14/18 at 17:22; Status DC Senna/Docusate Sodium (Senna Plus) 1 tab DAILY PO Last administered on 09/25/18 07:38; Start 09/14/18 at 09:00 Simvastatin (Zocor) 40 mg QHS PO Last administered on 09/25/18 20:36; Start 09/13/18 at 21:00 Calcium/Vitamin D (Oscal D 500mg/ 200uts) 1 tab DAILY PO Last administered on 09/25/18 07:38; Start 09/14/18 at 09:00 Carbidopa/Levodopa (Sinemet 25/250) 1 tab TID PO Last administered on 09/25/18 20:36; Start 09/13/18 at 21:00 Vitamin D (Vitamin D3) 2,000 unit DAILY PO Last administered on 09/25/18 07:37; Start 09/14/18 at 09:00 Vitamin B Complex 1 cap DAILY PO Last administered on 09/25/18 07:38; Start 09/14/18 at 09:00 Famotidine (Pepcid) 20 mg BID PO Last administered on 09/14/18 09:00; Start 09/13/18 at 21:00; Stop 09/14/18 at 17:20; Status DC Levothyroxine Sodium (Synthroid) 150 mcg DAILY06 PO Last administered on 09/25/18 06:03; Start 09/14/18 at 06:00 Multivitamins/ Calcium (Thera-M Plus) 1 tab DAILY PO Last administered on 09/25/18 07:37; Start 09/14/18 at 09:00 Fish Oil (Fish Oil) 1,000 mg DAILY PO Last administered on 09/25/18 07:37; Start 09/14/18 at 09:00 Pantoprazole Sodium (Protonix) 40 mg DAILY07 PO Last administered on 09/25/18 07:38; Start 09/14/18 at 07:00 Polyethylene Glycol (miraLAX) 17 gm PRN DAILY PRN PO CONSTIPATION; Start 09/13/18 at 19:45 Albuterol/ Ipratropium (Duoneb) 3 ml RTQID NEB Last administered on 09/14/18 05:21; Start 09/13/18 at 20:00; Stop 09/14/18 at 14:10; Status DC Artificial Tears (Refresh Classic) 2 drop DAILY OU Last administered on 09/25/18 07:38; Start 09/14/18 at 09:00 Lactobacillus Rhamnosus (Culturelle) 1 cap BID PO Last administered on 09/25/18 20:36; Start 09/13/18 at 21:00 Midodrine (Proamatine) 5 mg [id number] PO Last administered on 09/19/18 13:12; Start 09/14/18 at 07:00; Stop 09/22/18 at 14:14; Status DC Ropinirole HCl (Requip) 1 mg BID PO Last administered on 09/25/18 20:36; S tart 09/13/18 at 21:00 Albuterol/ Ipratropium (Duoneb) 3 ml PRN QID PRN NEB CONGESTION; Start 09/14/18 at 14:15 Sertraline HCl (Zoloft) 50 mg DAILY PO Last administered on 09/15/18 09:04; Start 09/15/18 at 09:00; Stop 09/15/18 at 15:03; Status DC Quetiapine Fumarate (SEROquel) 25 mg QHS PO Last administered on 09/25/18 20:36; Start 09/14/18 at 21:00 Vitamin D (Vitamin D3) 50,000 unit WEEKLY PO Last administered on 09/21/18 08:23; Start 09/14/18 at 17:30 Sertraline HCl (Zoloft) 50 mg DAILY PO Last administered on 09/20/18 08:58; Start 09/16/18 at 09:00; Stop 09/20/18 at 16:44; Status DC Furosemide (Lasix) 20 mg DAILY PO Last administered on 09/25/18 07:38; Start 09/20/18 at 09:00 Sertraline HCl (Zoloft) 75 mg DAILY PO Last administered on 09/25/18at 07:38; Start 09/21/18 at 09:00 Midodrine (Proamatine) 5 mg [id number] PRN PO hypotension Last administered on 09/25/18at 07:37; Start 09/22/18 at 14:15 Active Scripts Active Synthroid (Levothyroxine Sodium) 150 Mcg Tablet 150 Mcg PO DAILY07 Reported Protonix (Pantoprazole Sodium) 40 Mg Granpkt.dr 40 Mg PO DAILY07 Acidophilus (Lactobacillus Acidophilus) 1 Each Capsule 1 Each PO BID Refresh Optive Eye Drops (Carboxymethylcellulos/Glycerin) 15 Ml Drops 2 Drop EACHEYE DAILY Famotidine 20 Mg Tablet 1 Tab PO BID Duoneb 0.5-3(2.5) Mg/3 Ml (Albuterol/Ipratropium) 3 Ml Ampul.neb 3 Ml NEB QID Citalopram Hbr (Citalopram Hydrobromide) 20 Mg Tablet 20 Mg PO DAILY Carbidopa-Levodopa 25-250 Tab (Carbidopa/Levodopa) 1 Each Tablet 1 Tab PO TID LAST DOSE GIVEN: DATE: TODAY TIME: AM NEXT DOSE DUE: DATE: TODAY TIME: AFTERNOON Polyethylene Glycol 3350 255 Gm Powder 17 Gm PO DAILY PRN NOT GIVEN TODAY NEXT DOSE DUE: DATE: TODAY TIME: IF AND WHEN NEEDED Senna-Docusate Sodium Tablet (Sennosides/Docusate Sodium) 1 Each Tablet 1 Tab PO DAILY LAST DOSE GIVEN: DATE: TODAY TIME: AM NEXT DOSE DUE: DATE: TOMORROW TIME: AM [place] 3 1,000 Mg Softgel ([place]-3 Fatty Acids/Fish Oil) 1 Each Capsule 1 Each PO DAILY LAST DOSE GIVEN: DATE: TODAY TIME: AM NEXT DOSE DUE: DATE: TOMORROW TIME: AM Simvastatin 40 Mg Tablet 40 Mg PO QHS LAST DOSE GIVEN: DATE: YESTERDAY TIME: PM NEXT DOSE DUE: DATE: TODAY TIME: PM Lasix (Furosemide) 20 Mg Tablet 20 Mg PO DAILY LAST DOSE GIVEN: DATE: TODAY TIME: AM NEXT DOSE DUE: DATE: TOMORROW TIME: AM Requip (Ropinirole Hcl) 1 Mg Tablet 1 Mg PO BID LAST DOSE GIVEN: DATE: TODAY TIME: AM NEXT DOSE DUE: DATE: TODAY TIME: PM Midodrine Hcl 5 Mg Tablet 5 Mg PO Q8HRS LAST DOSE GIVEN: DATE: TODAY TIME: AM NEXT DOSE DUE: DATE: TIME: AFTERNOON Vitamin D-3 (Cholecalciferol (Vitamin D3)) 2,000 Unit Tablet 2,000 Unit PO DAILY LAST DOSE GIVEN: DATE: TIME: AM NEXT DOSE DUE: DATE: TOMORROW TIME: AM Calcium 600 + Vit D 200 Tablet (Calcium Carbonate/Vitamin D3) 1 Each Tablet 1 Tab PO DAILY LAST DOSE GIVEN: DATE: TIME: AM NEXT DOSE DUE: DATE:TOMORROW TIME: AM Daily Vitamin (Multivitamin) 1 Each Tablet 1 Each PO DAILY LAST DOSE GIVEN: DATE: TIME: AM NEXT DOSE DUE: DATE: TOMORROW TIME: AM Vitamin K77-Kmmpj Acid Tablet (Cyanocobalamin/Folic Acid) 1 Each Tablet 1 Each PO DAILY LAST DOSE GIVEN: DATE: TIME: AM NEXT DOSE DUE: DATE: ORR TIME: AM I have reviewed the current psychotropics carefully including drug interactions. Risk benefit ratio favors no change other than as noted in my dictated progress note. Diagnosis: Problems: (1) Major depressive disorder (2) Impulse control disorder (3) Dementia, vascular, with depression (4) Anxiety disorder (5) Dementia, vascular, with delusions (6) Dementia in Alzheimer's disease with depression (7) Dementia in Alzheimer's disease with delusions (8) Major neurocognitive disorder SAMMY DANIEL MD September 25, 2018 23:50
[2018-09-26 05:58] VITALS: BP 136/76
[2018-09-26] MEDS: PANTOPRAZOLE 40 MG TABLET. PO SCH (06:00)
[2018-09-26] MEDS: LEVOTHYROXINE 150 MCG TABLET PO SCH (06:00)
[2018-09-26] MEDS: MULTIVITAMIN with MINERAL TABLET. PO SCH (08:02)
[2018-09-26] MEDS: CHOLECALCIFEROL (VITAMIN D3) 1,000 UNIT TABLET PO SCH (08:02)
[2018-09-26] MEDS: LACTOBACILLUS RHAMNOSUS GG 1 CAPSULE. PO SCH ×2 (08:02→19:44)
[2018-09-26] MEDS: CALCIUM CARB/VIT D3 500/200 TABLET PO SCH (08:02)
[2018-09-26] MEDS: OMEGA-3 FATTY ACIDS/FISH OIL 1,000 MG CAPSULE. PO SCH (08:02)
[2018-09-26] MEDS: POLYVINYL ALCOHOL/POVIDONE/PF OPHTH SOLUTION DROPERETTE. OU SCH (08:02)
[2018-09-26] MEDS: rOPINIRole 1 MG TABLET. PO SCH ×2 (08:02→19:44)
[2018-09-26] MEDS: FUROSEMIDE 20 MG TABLET PO SCH (08:03)
[2018-09-26] MEDS: SENNOSIDES/DOCUSATE 8.6/50MG TABLET. PO SCH (08:03)
[2018-09-26] MEDS: SERTRALINE 25 MG TABLET. PO SCH (08:03)
[2018-09-26] MEDS: VITAMIN B COMPLEX CAPSULE. PO SCH (08:03)
[2018-09-26] MEDS: CARBIDOPA/LEVODOPA 25/250MG TABLET PO SCH ×3 (08:04→19:44)
--- NOTE | 2018-09-26 13:29 | PN ---
DATE: 09/25/2018 SUBJECTIVE: The patient was seen today, met with the staff, chart reviewed. Staff reports multiple physical complaints. The patient also complains of swelling of both feet, decreased sleep, feeling depressed. Currently, she is on wheelchair. OBJECTIVE: Temperature 97.1, blood pressure 103/64, pulse 70, respirations 16, O2 sat 97%. The patient currently not presenting with any side effects. CURRENT MEDICATIONS: Include Zoloft 75 mg daily, Seroquel 25 mg at night. She is also on Sinemet 25/250 for Parkinson's. ASSESSMENT: 1. Major depressive disorder, recurrent. 2. 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 PLAN: Continue with the current treatment plan. LENGTH OF STAY: 5-7 days. RANDI LUCAS MD DR: SELMA/yue JOB#: [id number] / [id number]
[2018-09-26 16:36] VITALS: BP 130/73
--- NOTE | 2018-09-26 18:05 | NUR ---
Pt oriented to time, place, situation and self. Pt compliant with meds and assessment. No behaviors noted, pt interactive, participated in group.
[2018-09-26] MEDS: SIMVASTATIN 40 MG TABLET. PO SCH (19:45)
[2018-09-26] MEDS: QUEtiapine 25 MG TABLET. PO SCH (19:45)
--- NOTE | 2018-09-26 23:54 | NUR ---
Pt. was sitting out in the day room, when this writer producer took her HS medications to her. pt. is calm, pleasant, and cooperative. She is interacting appropriately with staff and other pt's. Pt. has been compliant with taking her HS medications this evening. After pt. had a shower this evening, she requested something for pain due to pain in her feet. PRN Tylenol give, per JUL. Pt. have 3+ pedal edema to her feet bilaterally.
[2018-09-27 05:46] VITALS: BP 172/83
[2018-09-27] MEDS: LEVOTHYROXINE 150 MCG TABLET PO SCH (06:10)
[2018-09-27] MEDS: PANTOPRAZOLE 40 MG TABLET. PO SCH (06:10)
[2018-09-27] MEDS: POLYVINYL ALCOHOL/POVIDONE/PF OPHTH SOLUTION DROPERETTE. OU SCH (07:57)
[2018-09-27] MEDS: VITAMIN B COMPLEX CAPSULE. PO SCH (07:57)
[2018-09-27] MEDS: SENNOSIDES/DOCUSATE 8.6/50MG TABLET. PO SCH (07:58)
[2018-09-27] MEDS: MULTIVITAMIN with MINERAL TABLET. PO SCH (07:58)
[2018-09-27] MEDS: FUROSEMIDE 20 MG TABLET PO SCH (07:58)
[2018-09-27] MEDS: CALCIUM CARB/VIT D3 500/200 TABLET PO SCH (07:59)
[2018-09-27] MEDS: OMEGA-3 FATTY ACIDS/FISH OIL 1,000 MG CAPSULE. PO SCH (07:59)
[2018-09-27] MEDS: SERTRALINE 25 MG TABLET. PO SCH (08:00)
[2018-09-27] MEDS: CHOLECALCIFEROL (VITAMIN D3) 1,000 UNIT TABLET PO SCH (08:01)
[2018-09-27] MEDS: CARBIDOPA/LEVODOPA 25/250MG TABLET PO SCH ×3 (08:02→20:21)
[2018-09-27] MEDS: rOPINIRole 1 MG TABLET. PO SCH ×2 (08:03→20:17)
[2018-09-27] MEDS: LACTOBACILLUS RHAMNOSUS GG 1 CAPSULE. PO SCH ×2 (08:03→20:17)
--- NOTE | 2018-09-27 11:31 | NUR ---
Bedside Swallow Evaluation completed. Please refer to full report for additional details. Impressions: Mild oropharyngeal dysphagia. Pt known to ST department from prior visits and pt's swallow function appears improved since August 2018 hospitalization. Today no s/s aspiration were observed w/ 10 oz thin liquids via cup, puree and soft solid trials, and pt appears at low risk to advance diet to dysphagia II (ground meat w/ gravy) diet and thin liquids w/ general swallow precautions to include no straws and no mixed consistencies. Recommendations: Dysphagia II diet (ground meat w/ gravy), thin liquids, no straws, no mixed consistencies, and crush meds in applesauce. ST f/u for dysphagia.
--- NOTE | 2018-09-27 13:47 | PN ---
DATE: 09/26/2018 SUBJECTIVE: The patient was seen today, met with the staff, chart reviewed. The patient still has tremors of both hands. The patient apparently has not presented with any major behavioral problems except for increased anxiety. She has involuntary movements of facial muscles and also her lips. The patient is scheduled for her swallow study. The patient states she has difficulty swallowing. The patient's sleep is fair. OBSERVATION: VITAL SIGNS: Temperature 97.3, blood pressure 136/76, pulse 75, respirations 16, O2 sat 97%. Slept about 7 hours last night. CURRENT MEDICATIONS: The patient's current medications include Zoloft 75 mg daily, Seroquel 25 mg at night. The patient is also on Sinemet for her Parkinson's. ASSESSMENT: 1. Major depressive disorder, recurrent. 2. 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 PLAN: To continue with current treatment. LENGTH OF STAY: 5 days. RANDI LUCAS MD DR: SELMA/yue JOB#: [id number] / [id number] DAVID
--- NOTE | 2018-09-27 15:39 | NUR ---
Patient doing very well today. Participated in two group therapy sessions and was very interactive when working in the garden. Very cooperative working on ambulation, took all medications without complaint. Pleasant in all interactions. Will continue to monitor.
[2018-09-27 16:40] VITALS: BP 112/65
[2018-09-27] MEDS: QUEtiapine 25 MG TABLET. PO SCH (20:17)
[2018-09-27] MEDS: SIMVASTATIN 40 MG TABLET. PO SCH (20:18)
--- NOTE | 2018-09-28 03:22 | NUR ---
Early in shift pt spent time in day room watching TV. She took meds whole without difficulty. Pt well oriented and pleasant to visit with. No agitated or threatening behaviors this shift.
--- NOTE | 2018-09-28 05:02 | PN ---
DATE: 09/27/2018 SUBJECTIVE: The patient was seen today, met with the staff, chart reviewed. Staff reports no major behavior problems, continues to show increased anxiety. The patient continued having involuntary movements of facial muscles and also her lips. The patient apparently had a swallow study today. I also met with her family today. The patient's behavior remains the same. No major behavior problems. OBSERVATION: VITAL SIGNS: Temperature 97.8, blood pressure 172/83, pulse 82, respirations 16, O2 sat 99%, slept about 8 hours last night. CURRENT MEDICATIONS: The patient's current medications include Zoloft 75 mg daily, Seroquel 25 mg at night. The patient is also on Sinemet. ASSESSMENT: 1. Major depressive disorder, recurrent. 2. 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 PLAN: To continue with the treatment. LENGTH OF STAY: 3 to 5 days. RANDI LUCAS MD DR: SELMA/yue JOB#: [id number] / [id number]
[2018-09-28] MEDS: LEVOTHYROXINE 150 MCG TABLET PO SCH (05:31)
[2018-09-28 06:23] VITALS: BP 130/66
[2018-09-28] MEDS: POLYVINYL ALCOHOL/POVIDONE/PF OPHTH SOLUTION DROPERETTE. OU SCH (09:56)
[2018-09-28] MEDS: PANTOPRAZOLE 40 MG TABLET. PO SCH (09:56)
[2018-09-28] MEDS: LACTOBACILLUS RHAMNOSUS GG 1 CAPSULE. PO SCH ×2 (09:57→20:45)
[2018-09-28] MEDS: VITAMIN B COMPLEX CAPSULE. PO SCH (09:57)
[2018-09-28] MEDS: CALCIUM CARB/VIT D3 500/200 TABLET PO SCH (09:57)
[2018-09-28] MEDS: FUROSEMIDE 20 MG TABLET PO SCH (09:57)
[2018-09-28] MEDS: OMEGA-3 FATTY ACIDS/FISH OIL 1,000 MG CAPSULE. PO SCH (09:57)
[2018-09-28] MEDS: MULTIVITAMIN with MINERAL TABLET. PO SCH (09:58)
[2018-09-28] MEDS: SENNOSIDES/DOCUSATE 8.6/50MG TABLET. PO SCH (09:58)
[2018-09-28] MEDS: rOPINIRole 1 MG TABLET. PO SCH ×2 (09:58→20:45)
[2018-09-28] MEDS: CARBIDOPA/LEVODOPA 25/250MG TABLET PO SCH ×3 (09:58→20:45)
[2018-09-28] MEDS: CHOLECALCIFEROL (VITAMIN D3) 1,000 UNIT TABLET PO SCH (09:58)
[2018-09-28] MEDS: SERTRALINE 25 MG TABLET. PO SCH (09:59)
[2018-09-28] MEDS: CHOLECALCIFEROL (VITAMIN D3) 50,000 UNIT CAPSULE PO SCH (10:03)
--- NOTE | 2018-09-28 15:11 | NUR ---
Patient has had a great day, has been visiting with staff and participating in group. She took medications as prescribed, allowed for morning assessment. No signs of agitation noted at this time. Will continue to monitor.
--- NOTE | 2018-09-28 16:20 | NUR ---
WEEKLY ACTIVITY THERAPY NOTE Date of Admission: 09/13/2018 Date of AT Assessment: 09/16/2018 Goal aimed: to elevate mood and engagement Initial Goal: Pt. will participate in at least five groups per week. Weekly progress towards goal: exceeded Group participation level: full to moderate Weekly highlights: reached out to new patient, gardening, serenading Behaviors observed: similar to last week Plan: change goal to: Pt. will participate in all groups she is invited to. Beneficial adaptations: more successful in conversation based groups
[2018-09-28 16:39] VITALS: BP 122/74
[2018-09-28] MEDS: SIMVASTATIN 40 MG TABLET. PO SCH (20:45)
[2018-09-28] MEDS: QUEtiapine 25 MG TABLET. PO SCH (20:45)
--- NOTE | 2018-09-29 03:38 | PN ---
DATE: 09/28/2018 SUBJECTIVE: The patient was seen today, met with the staff, chart reviewed. The patient's behavior continues to improve. Staff reports no major behavior problems today. OBSERVATION: VITAL SIGNS: Temperature 98, blood pressure 130/66, pulse 81, respirations 16, O2 sat 96%, slept about 7-1/2 hours last night. The patient's appetite improved. The patient is not presenting with any major behavior problems today. MEDICATIONS: The patient's current medications include Zoloft 75 mg daily, Seroquel 25 mg at night. The patient is also on Sinemet for Parkinson's disease. ASSESSMENT: 1. Major depressive disorder, recurrent. 2. 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 PLAN: To continue with the treatment. The patient is planned for discharge on 10/03/2018. RANDI LUCAS MD DR: SELMA/yue JOB#: [id number] / [id number]
--- NOTE | 2018-09-29 03:38 | NUR ---
Nursing note Assumed care of patient, located in day room, patient socializing with peer, in good spirits, inquiring about discharge plan. Compliant with medications and assessment.
[2018-09-29] MEDS: LEVOTHYROXINE 150 MCG TABLET PO SCH (05:03)
[2018-09-29 06:09] VITALS: BP 129/66
[2018-09-29 07:38] LABS: ALBUMIN 2.6 g/dL (3.4-5.0); ALBUMIN/GLOBULIN RATIO 0.8 (1.0-1.7); ALK PHOS 119 U/L (46-116); ANION GAP 6 (6-14); AST (SGOT) 14 U/L (15-37); BASO % 1 % (0-3); BLOOD UREA NITROGEN 25 mg/dL (7-20); BUN/CREATININE RATIO 23 (6-20); CALCIUM 9.1 mg/dL (8.5-10.1); CARBON DIOXIDE 29 mmol/L (21-32); CHLORIDE 107 mmol/L (98-107); CREATININE 1.1 mg/dL (0.6-1.0); EOS # 0.1 x10^3/uL (0.0-0.7); EOS % 3 % (0-3); GFR 46.9; GLUCOSE 97 mg/dL (70-99); HEMOGLOBIN 11.1 g/dL (12.0-15.5); LYMPH # 1.4 x10^3/uL (1.0-4.8); LYMPH % 30 % (24-48); MEAN CORPUSCULAR HEMOGLOBIN 30 pg (25-35); MEAN CORPUSCULAR HGB CONC 34 g/dL (31-37); MEAN CORPUSCULAR VOLUME 91 fL (79-100); MONO # 0.4 x10^3/uL (0.0-1.1); MONO % 8 % (0-9); NEUT # 2.7 x10^3uL (1.8-7.7); NEUT % 58 % (31-73); PLATELET COUNT 136 x10^3/uL (140-400); RED BLOOD COUNT 3.64 x10^6/uL (3.50-5.40); RED CELL DISTRIBUTION WIDTH 16.2 % (11.5-14.5); SODIUM 142 mmol/L (136-145); TOTAL BILIRUBIN 0.3 mg/dL (0.2-1.0); TOTAL PROTEIN 5.9 g/dL (6.4-8.2); WHITE BLOOD COUNT 4.7 x10^3/uL (4.0-11.0)
[2018-09-29 07:39] LABS: ALT (SGPT) < 6 U/L (14-59)
[2018-09-29] MEDS: PANTOPRAZOLE 40 MG TABLET. PO SCH (07:44)
[2018-09-29] MEDS: rOPINIRole 1 MG TABLET. PO SCH ×2 (07:44→20:12)
[2018-09-29] MEDS: LACTOBACILLUS RHAMNOSUS GG 1 CAPSULE. PO SCH ×2 (07:44→20:12)
[2018-09-29] MEDS: MULTIVITAMIN with MINERAL TABLET. PO SCH (07:45)
[2018-09-29] MEDS: SERTRALINE 25 MG TABLET. PO SCH (07:45)
[2018-09-29] MEDS: OMEGA-3 FATTY ACIDS/FISH OIL 1,000 MG CAPSULE. PO SCH (07:45)
[2018-09-29] MEDS: VITAMIN B COMPLEX CAPSULE. PO SCH (07:45)
[2018-09-29] MEDS: CARBIDOPA/LEVODOPA 25/250MG TABLET PO SCH ×3 (07:45→20:13)
[2018-09-29] MEDS: SENNOSIDES/DOCUSATE 8.6/50MG TABLET. PO SCH (07:46)
[2018-09-29] MEDS: CHOLECALCIFEROL (VITAMIN D3) 1,000 UNIT TABLET PO SCH (07:46)
[2018-09-29] MEDS: CALCIUM CARB/VIT D3 500/200 TABLET PO SCH (07:46)
[2018-09-29] MEDS: POLYVINYL ALCOHOL/POVIDONE/PF OPHTH SOLUTION DROPERETTE. OU SCH (07:47)
[2018-09-29] MEDS: FUROSEMIDE 20 MG TABLET PO SCH (07:47)
[2018-09-29 16:04] VITALS: BP 136/76
--- NOTE | 2018-09-29 18:31 | NUR ---
Pt calm, compliant, with meds and assessments. Pt very pleasant and interactive. No behaviors to report.
[2018-09-29] MEDS: QUEtiapine 25 MG TABLET. PO SCH (20:12)
[2018-09-29] MEDS: SIMVASTATIN 40 MG TABLET. PO SCH (20:13)
[2018-09-29] MEDS: DICLOFENAC SODIUM 1% TOPICAL GEL 100GM TUBE. TP SCH (20:13)
--- NOTE | 2018-09-29 20:20 | NUR ---
Pt watching TV in day room, social pleasant and cooperative. No behaviors
--- NOTE | 2018-09-30 03:21 | PN ---
DATE: 09/29/2018 SUBJECTIVE: The patient was seen today, met with the staff, chart reviewed. Staff reports no major changes in behavior, overall improved. OBSERVATION: Vital signs: Temperature 97.7, blood pressure 129/66, pulse 84, respirations 18, O2 sat 98%, slept about 6 hours last night. The patient's appetite is fair. The patient is not presenting with any major physical problems. The patient was continued on her medications including Zoloft 75 mg daily, Seroquel 25 mg at night, and the patient is also on Sinemet for her Parkinson's. ASSESSMENT: 1. Major depressive disorder, recurrent. 2. 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 PLAN: To continue with the treatment and the patient is awaiting for placement. RANDI LUCAS MD DR: SELMA/yue JOB#: [id number] / [id number]
[2018-09-30] MEDS: LEVOTHYROXINE 150 MCG TABLET PO SCH (06:00)
[2018-09-30 06:19] VITALS: BP 166/81
[2018-09-30] MEDS: CALCIUM CARB/VIT D3 500/200 TABLET PO SCH (08:23)
[2018-09-30] MEDS: CHOLECALCIFEROL (VITAMIN D3) 1,000 UNIT TABLET PO SCH (08:23)
[2018-09-30] MEDS: PANTOPRAZOLE 40 MG TABLET. PO SCH (08:23)
[2018-09-30] MEDS: MULTIVITAMIN with MINERAL TABLET. PO SCH (08:23)
[2018-09-30] MEDS: rOPINIRole 1 MG TABLET. PO SCH ×2 (08:23→20:05)
[2018-09-30] MEDS: LACTOBACILLUS RHAMNOSUS GG 1 CAPSULE. PO SCH ×2 (08:23→20:05)
[2018-09-30] MEDS: VITAMIN B COMPLEX CAPSULE. PO SCH (08:23)
[2018-09-30] MEDS: POLYVINYL ALCOHOL/POVIDONE/PF OPHTH SOLUTION DROPERETTE. OU SCH (08:23)
[2018-09-30] MEDS: CARBIDOPA/LEVODOPA 25/250MG TABLET PO SCH ×3 (08:24→20:05)
[2018-09-30] MEDS: FUROSEMIDE 20 MG TABLET PO SCH (08:24)
[2018-09-30] MEDS: SENNOSIDES/DOCUSATE 8.6/50MG TABLET. PO SCH (08:24)
[2018-09-30] MEDS: SERTRALINE 25 MG TABLET. PO SCH (08:24)
[2018-09-30] MEDS: OMEGA-3 FATTY ACIDS/FISH OIL 1,000 MG CAPSULE. PO SCH (08:24)
[2018-09-30] MEDS: DICLOFENAC SODIUM 1% TOPICAL GEL 100GM TUBE. TP SCH ×4 (08:28→20:08)
--- NOTE | 2018-09-30 11:38 | NUR ---
Nursing Note: Patient has been pleasant and cooperative with medications and assessments. Patient has been interacting with staff and other patients and participating in groups all morning. Continue to monitor.
[2018-09-30] MEDS: METHYL SALICYLATE/MENTHOL TOPICAL OINTMENT 29GM TUBE. TP PRN (13:37)
[2018-09-30 15:53] VITALS: BP 147/67
[2018-09-30] MEDS: QUEtiapine 25 MG TABLET. PO SCH (20:07)
[2018-09-30] MEDS: SIMVASTATIN 40 MG TABLET. PO SCH (20:07)
--- NOTE | 2018-10-01 00:25 | PN ---
DATE: 09/30/2018 SUBJECTIVE: The patient was seen today, met with the staff, chart reviewed. The patient has not presented with any major behavior problems. The patient was able to hold a conversation. She stated that she talks to her daughter almost on a daily basis. She is able to walk with a walker and the patient also aware of her discharge plan including placement. OBSERVATION: VITAL SIGNS: Temperature 97.7, blood pressure 129/66, pulse 84, respiration 18, O2 sat 98%. Slept about 6 hours last night. MEDICATIONS: The patient's current medications include Zoloft 75 mg daily, Seroquel 25 mg at night. The patient is also on Sinemet. ASSESSMENT: 1. Major depressive disorder, recurrent. 2. Cognitive disorder, most likely secondary to Parkinson's. PLAN: To continue with the treatment. The patient is planned for discharge on 10/03/2018. RANDI LUCAS MD DR: SELMA/yue JOB#: [id number] / [id number]
--- NOTE | 2018-10-01 00:48 | NUR ---
Nursing Note Pt is pleasant and cooperative up walking with a walker looks bright and happy.
[2018-10-01 06:03] VITALS: BP 149/79
[2018-10-01] MEDS: LEVOTHYROXINE 150 MCG TABLET PO SCH (06:06)
[2018-10-01] MEDS: MIDODRINE 5 MG TABLET PO PRN (08:18)
[2018-10-01] MEDS: VITAMIN B COMPLEX CAPSULE. PO SCH (08:18)
[2018-10-01] MEDS: CARBIDOPA/LEVODOPA 25/250MG TABLET PO SCH ×3 (08:18→20:28)
[2018-10-01] MEDS: FUROSEMIDE 20 MG TABLET PO SCH (08:18)
[2018-10-01] MEDS: CHOLECALCIFEROL (VITAMIN D3) 1,000 UNIT TABLET PO SCH (08:18)
[2018-10-01] MEDS: SENNOSIDES/DOCUSATE 8.6/50MG TABLET. PO SCH (08:18)
[2018-10-01] MEDS: rOPINIRole 1 MG TABLET. PO SCH ×2 (08:18→20:28)
[2018-10-01] MEDS: LACTOBACILLUS RHAMNOSUS GG 1 CAPSULE. PO SCH ×2 (08:19→20:28)
[2018-10-01] MEDS: CALCIUM CARB/VIT D3 500/200 TABLET PO SCH (08:19)
[2018-10-01] MEDS: SERTRALINE 25 MG TABLET. PO SCH (08:19)
[2018-10-01] MEDS: PANTOPRAZOLE 40 MG TABLET. PO SCH (08:19)
[2018-10-01] MEDS: OMEGA-3 FATTY ACIDS/FISH OIL 1,000 MG CAPSULE. PO SCH (08:19)
[2018-10-01] MEDS: MULTIVITAMIN with MINERAL TABLET. PO SCH (08:19)
[2018-10-01] MEDS: POLYVINYL ALCOHOL/POVIDONE/PF OPHTH SOLUTION DROPERETTE. OU SCH (08:19)
[2018-10-01] MEDS: DICLOFENAC SODIUM 1% TOPICAL GEL 100GM TUBE. TP SCH ×2 (08:20→20:29)
--- NOTE | 2018-10-01 13:49 | NUR ---
Location of Patient during Assessment:DR Behaviors Mood and Affect this shift:Calm. oriented. Medication Compliant: yes Assessment Compliant:yes Response After Interventions: compliant with meds and cares. pleasant
[2018-10-01 15:51] VITALS: BP 111/68
[2018-10-01] MEDS: SIMVASTATIN 40 MG TABLET. PO SCH (20:28)
[2018-10-01] MEDS: QUEtiapine 25 MG TABLET. PO SCH (20:28)
--- NOTE | 2018-10-01 21:40 | NUR ---
Pt. this evening was sitting out in the day room, when this service writer took her HS medications to her. Pt. is calm, pleasant, cooperative, and interacting appropriately with staff and other patients. She has been compliant with taking her HS medications this evening.
[2018-10-02] MEDS: LEVOTHYROXINE 150 MCG TABLET PO SCH (05:41)
[2018-10-02] MEDS: PANTOPRAZOLE 40 MG TABLET. PO SCH (05:41)
[2018-10-02 06:14] VITALS: BP 114/73
[2018-10-02] MEDS: rOPINIRole 1 MG TABLET. PO SCH ×2 (07:53→20:38)
[2018-10-02] MEDS: POLYVINYL ALCOHOL/POVIDONE/PF OPHTH SOLUTION DROPERETTE. OU SCH (07:53)
[2018-10-02] MEDS: VITAMIN B COMPLEX CAPSULE. PO SCH (07:53)
[2018-10-02] MEDS: CALCIUM CARB/VIT D3 500/200 TABLET PO SCH (07:53)
[2018-10-02] MEDS: CARBIDOPA/LEVODOPA 25/250MG TABLET PO SCH ×3 (07:53→20:38)
[2018-10-02] MEDS: FUROSEMIDE 20 MG TABLET PO SCH (07:53)
[2018-10-02] MEDS: LACTOBACILLUS RHAMNOSUS GG 1 CAPSULE. PO SCH ×2 (07:53→20:38)
[2018-10-02] MEDS: CHOLECALCIFEROL (VITAMIN D3) 1,000 UNIT TABLET PO SCH (07:54)
[2018-10-02] MEDS: OMEGA-3 FATTY ACIDS/FISH OIL 1,000 MG CAPSULE. PO SCH (07:54)
[2018-10-02] MEDS: MULTIVITAMIN with MINERAL TABLET. PO SCH (07:54)
[2018-10-02] MEDS: SENNOSIDES/DOCUSATE 8.6/50MG TABLET. PO SCH (07:54)
[2018-10-02] MEDS: SERTRALINE 25 MG TABLET. PO SCH (07:54)
[2018-10-02] MEDS: DICLOFENAC SODIUM 1% TOPICAL GEL 100GM TUBE. TP SCH ×2 (07:55→20:44)
[2018-10-02 16:16] VITALS: BP 120/71
[2018-10-02] MEDS: SIMVASTATIN 40 MG TABLET. PO SCH (20:38)
[2018-10-02] MEDS: QUEtiapine 25 MG TABLET. PO SCH (20:38)
--- NOTE | 2018-10-02 23:00 | NUR ---
Earlier in shift pt in day room social and cooperative Pt now in bed and complains of restless legs, Ropinirole recently given and pt instructed on leg exercises to possibly ease symptoms. Approx 1 hour later pt sleeping quielty.
[2018-10-03] MEDS: LEVOTHYROXINE 150 MCG TABLET PO SCH (06:10)
[2018-10-03 06:15] VITALS: BP 130/70
[2018-10-03] MEDS: VITAMIN B COMPLEX CAPSULE. PO SCH (07:59)
[2018-10-03] MEDS: PANTOPRAZOLE 40 MG TABLET. PO SCH (07:59)
[2018-10-03] MEDS: OMEGA-3 FATTY ACIDS/FISH OIL 1,000 MG CAPSULE. PO SCH (07:59)
[2018-10-03] MEDS: MIDODRINE 5 MG TABLET PO PRN (07:59)
[2018-10-03] MEDS: rOPINIRole 1 MG TABLET. PO SCH ×2 (07:59→20:36)
[2018-10-03] MEDS: SENNOSIDES/DOCUSATE 8.6/50MG TABLET. PO SCH (08:01)
[2018-10-03] MEDS: CALCIUM CARB/VIT D3 500/200 TABLET PO SCH (08:01)
[2018-10-03] MEDS: CARBIDOPA/LEVODOPA 25/250MG TABLET PO SCH ×3 (08:01→20:36)
[2018-10-03] MEDS: FUROSEMIDE 20 MG TABLET PO SCH (08:01)
[2018-10-03] MEDS: LACTOBACILLUS RHAMNOSUS GG 1 CAPSULE. PO SCH ×2 (08:01→20:36)
[2018-10-03] MEDS: CHOLECALCIFEROL (VITAMIN D3) 1,000 UNIT TABLET PO SCH (08:01)
[2018-10-03] MEDS: MULTIVITAMIN with MINERAL TABLET. PO SCH (08:02)
[2018-10-03] MEDS: POLYVINYL ALCOHOL/POVIDONE/PF OPHTH SOLUTION DROPERETTE. OU SCH (08:09)
[2018-10-03] MEDS: DICLOFENAC SODIUM 1% TOPICAL GEL 100GM TUBE. TP SCH ×2 (08:10→21:37)
[2018-10-03] MEDS: SERTRALINE 25 MG TABLET. PO SCH (09:00)
--- NOTE | 2018-10-03 16:00 | NUR ---
SW met with pt to discuss the need for pt to re-visit her Medical DPOA and to have it changed. Currently pt DPOA is her dtr, Rosi, who has proven to not be an appropriate choice as she calls daily and does not remember doing so, has been arrested for a DUI while pt has been admitted and concerned incidents of pt dtr visiting on the unit appearing intoxicated, as evidenced by staggering gait, slurred speech and need for assist by holding onto the rails. Pt agrees that her dtr was not the best choice and hasn't been for some time. Pt questioned if there were other options in which pt requested her first cousin Dian or Dian's son Jung. SW will contact them to see if we could set up a meeting to have this discussion. Pt only wish was to not let her dtr know that she has made the decision to change her DPOA. CORA assured pt that she would not have any intentions on relaying this to her dtr until papers are signed and notarized making the change official.
[2018-10-03 16:47] VITALS: BP 123/77
--- NOTE | 2018-10-03 16:50 | NUR ---
SW contacted Dian, pt first cousin, to discuss pt request for either herself of her son Jung to be her medical DPOA. Dian agreed that either one of them would be more than happy to help out, as pt dtr is not a a good position to "make a decision about anything. She's a wreck and needs help herself". Dian then passed the phone off to Jung who questioned the process and agreed to meet with all parties tomorrow at 1130.
--- NOTE | 2018-10-03 20:30 | NUR ---
Pt in day room pleasant and cooperative, seems in good spirits. She is hopeful for dc tomorrow. Compliant with meds and no behaviors observed. She also reports the Voltaren gel is working well for her leg pain.
[2018-10-03] MEDS: SIMVASTATIN 40 MG TABLET. PO SCH (20:36)
[2018-10-03] MEDS: QUEtiapine 25 MG TABLET. PO SCH (20:36)
--- NOTE | 2018-10-03 23:42 | PDOC ---
Exam Note: Oscar Note: Please also refer to the separate dictated note~for this date of service dictated separately.~Patient seen individually. Discussed the patient with Nursing staff reviewed the chart.~Reviewed interim history and current functioning. Reviewed vital signs,~Labs/ Radiology~and current medications noted below. Continue current treatment with the changes noted in the dictated addendum note Assessment: Vital Signs: Vital Signs Date Time Temp Pulse Resp B/P (MAP) Pulse Ox O2 Delivery O2 Flow Rate FiO2 10/03/18 16:47 97.8 75 18 123/77 (92) 97 10/02/18 06:14 Room Air I&O Intake and Output 10/03/18 06:59 Intake Total 1200 ml Balance 1200 ml Intake Oral 1200 ml # Bowel Movements 1 Current Medications: Meds: Current Medications Sodium Chloride 500 ml @ 0 mls/hr 1X ONCE IV ; Start 09/13/18 at 14:00; Stop 09/13/18 at 14:30; Status DC Acetaminophen (Tylenol) 650 mg PRN Q6HRS PRN PO PAIN / TEMP; Start 09/13/18 at 17:15 Multi-Ingredient Ointment (Analgesic [place]) 1 patrick PRN QID PRN TP MUSCLE PAIN Last administered on 09/30/18at 13:37; Start 09/13/18 at 17:15 Al Hydroxide/Mg Hydroxide (Mylanta Plus Xs) 15 ml PRN AFTMEALHC PRN PO DYSPEPSIA; Start 09/13/18 at 17:15 Magnesium Hydroxide (Milk Of Magnesia) 2,400 mg PRN QHS PRN PO CONSTIPATION; Start 09/13/18 at 17:15 Citalopram Hydrobromide (CeleXA) 20 mg DAILY PO Last administered on 09/14/18at 09:00; Start 09/14/18 at 09:00; Stop 09/14/18 at 17:18; Status DC Furosemide (Lasix) 20 mg DAILY PO Last administered on 09/14/18at 09:00; Start 09/14/18 at 09:00; Stop 09/14/18 at 17:22; Status DC Senna/Docusate Sodium (Senna Plus) 1 tab DAILY PO Last administered on 10/03/18at 08:01; Start 09/14/18 at 09:00 Simvastatin (Zocor) 40 mg QHS PO Last administered on 10/03/18 20:36; Start 09/13/18 at 21:00 Calcium/Vitamin D (Oscal D 500mg/ 200uts) 1 tab DAILY PO Last administered on 10/03/18at 08:01; Start 09/14/18 at 09:00 Carbidopa/Levodopa (Sinemet 25/250) 1 tab TID PO Last administered on 10/03/18at 20:36; Start 09/13/18 at 21:00 Vitamin D (Vitamin D3) 2,000 unit DAILY PO Last administered on 10/03/18at 08 :01; Start 09/14/18 at 09:00 Vitamin B Complex 1 cap DAILY PO Last administered on 10/03/18 07:59; Start 09/14/18 at 09:00 Famotidine (Pepcid) 20 mg BID PO Last administered on 09/14/18at 09:00; Start 09/13/18 at 21:00; Stop 09/14/18 at 17:20; Status DC Levothyroxine Sodium (Synthroid) 150 mcg DAILY06 PO Last administered on 10/03/18 06:10; Start 09/14/18 at 06:00 Multivitamins/ Calcium (Thera-M Plus) 1 tab DAILY PO Last administered on 10/03/18 08:02; Start 09/14/18 at 09:00 Fish Oil (Fish Oil) 1,000 mg DAILY PO Last administered on 10/03/18 07:59; Start 09/14/18 at 09:00 Pantoprazole Sodium (Protonix) 40 mg DAILY07 PO Last administered on 09/27/18at 06:10; Start 09/14/18 at 07:00; Stop 09/28/18 at 05:36; Status DC Polyethylene Glycol (miraLAX) 17 gm PRN DAILY PRN PO CONSTIPATION; Start 09/13/18 at 19:45 Albuterol/ Ipratropium (Duoneb) 3 ml RTQID NEB Last administered on 09/14/18 05:21; Start 09/13/18 at 20:00; Stop 09/14/18 at 14:10; Status DC Artificial Tears (Refresh Classic) 2 drop DAILY OU Last administered on 10/03/18at 08:09; Start 09/14/18 at 09:00 Lactobacillus Rhamnosus (Culturelle) 1 cap BID PO Last administered on 09/15 20:36; Start 09/13/18 at 21:00 Midodrine (Proamatine) 5 mg [id number] PO Last administered on 09/19/18 13:12; Start 09/14/18 at 07:00; Stop 09/22/18 at 14:14; Status DC Ropinirole HCl (Requip) 1 mg BID PO Last administered on 10/03/18 20:36; Start 09/13/18 at 21:00 Albuterol/ Ipratropium (Duoneb) 3 ml PRN QID PRN NEB CONGESTION; Start 09/14/18 at 14:15 Sertraline HCl (Zoloft) 50 mg DAILY PO Last administered on 09/15/18 09:04; Start 09/15/18 at 09:00; Stop 09/15/18 at 15:03; Status DC Quetiapine Fumarate (SEROquel) 25 mg QHS PO Last administered on 10/03/18 20:36; Start 09/14/18 at 21:00 Vitamin D (Vitamin D3) 50,000 unit WEEKLY PO Last administered on 09/28/18 10:03; Start 09/14/18 at 17:30 Sertraline HCl (Zoloft) 50 mg DAILY PO Last administered on 09/20/18 08:58; Start 09/16/18 at 09:00; Stop 09/20/18 at 16:44; Status DC Furosemide (Lasix) 20 mg DAILY PO Last administered on 10/03/18 08:01; Start 09/20/18 at 09:00 Sertraline HCl (Zoloft) 75 mg DAILY PO Last administered on 10/03/18 09:00; Start 09/21/18 at 09:00 Midodrine (Proamatine) 5 mg [id number] PRN PO hypotension Last administered on 09/25/18 07:37; Start 09/22/18 at 14:15 Pantoprazole Sodium (Protonix) 40 mg DAILYAC PO Last administered on 10/03/18 07:59; Start 09/28/18 at 07:30 Diclofenac Sodium (Voltaren) 1 patrick BID TP Last administered on 10/03/18at 21:37; Start 5/16/19 at 21:00 Active Scripts Active Synthroid (Levothyroxine Sodium) 150 Mcg Tablet 150 Mcg PO DAILY07 Reported Protonix (Pantoprazole Sodium) 40 Mg Granpkt.dr 40 Mg PO DAILY07 Acidophilus (Lactobacillus Acidophilus) 1 Each Capsule 1 Each PO BID Refresh Optive Eye Drops (Carboxymethylcellulos/Glycerin) 15 Ml Drops 2 Drop EACHEYE DAILY Famotidine 20 Mg Tablet 1 Tab PO BID Duoneb 0.5-3(2.5) Mg/3 Ml (Albuterol/Ipratropium) 3 Ml Ampul.neb 3 Ml NEB QID Citalopram Hbr (Citalopram Hydrobromide) 20 Mg Tablet 20 Mg PO DAILY Carbidopa-Levodopa 25-250 Tab (Carbidopa/Levodopa) 1 Each Tablet 1 Tab PO TID LAST DOSE GIVEN: DATE: TODAY TIME: AM NEXT DOSE DUE: DATE: TODAY TIME: AFTERNOON Polyethylene Glycol 3350 255 Gm Powder 17 Gm PO DAILY PRN NOT GIVEN TODAY NEXT DOSE DUE: DATE: TODAY TIME: IF AND WHEN NEEDED Senna-Docusate Sodium Tablet (Sennosides/Docusate Sodium) 1 Each Tablet 1 Tab PO DAILY LAST DOSE GIVEN: DATE: TODAY TIME: AM NEXT DOSE DUE: DATE: TOMORROW TIME: AM [place] 3 1,000 Mg Softgel ([place]-3 Fatty Acids/Fish Oil) 1 Each Capsule 1 Each PO DAILY LAST DOSE GIVEN: DATE: TODAY TIME: AM NEXT DOSE DUE: DATE: TOMORROW TIME: AM Simvastatin 40 Mg Tablet 40 Mg PO QHS LAST DOSE GIVEN: DATE: YESTER TIME: PM NEXT DOSE DUE: DATE: TODAY TIME: PM Lasix (Furosemide) 20 Mg Tablet 20 Mg PO DAILY LAST DOSE GIVEN: DATE: TODAY TIME: AM NEXT DOSE DUE: DATE: TOMORROW TIME: AM Requip (Ropinirole Hcl) 1 Mg Tablet 1 Mg PO BID LAST DOSE GIVEN: DATE: TODAY TIME: AM NEXT DOSE DUE: DATE: TODAY TIME: PM Midodrine Hcl 5 Mg Tablet 5 Mg PO Q8HRS LAST DOSE GIVEN: DATE: TODAY TIME: AM NEXT DOSE DUE: DATE: TODAY TIME: AFTERNOON Vitamin D-3 (Cholecalciferol (Vitamin D3)) 2,000 Unit Tablet 2,000 Unit PO DAILY LAST DOSE GIVEN: DATE: TODAY TIME: AM NEXT DOSE DUE: DATE: TOMORROW TIME: AM Calcium 600 + Vit D 200 Tablet (Calcium Carbonate/Vitamin D3) 1 Each Tablet 1 Tab PO DAILY LAST DOSE GIVEN: DATE: TODAY TIME: AM NEXT DOSE DUE: DATE:TOMORROW TIME: AM Daily Vitamin (Multivitamin) 1 Each Tablet 1 Each PO DAILY LAST DOSE GIVEN: DATE: TODAY TIME: AM NEXT DOSE DUE: DATE: TOMORROW TIME: AM Vitamin Y67-Xcuhp Acid Tablet (Cyanocobalamin/Folic Acid) 1 Each Tablet 1 Each PO DAILY LAST DOSE GIVEN: DATE: TODAY TIME: AM NEXT DOSE DUE: DATE: TOMORROW TIME: AM I have reviewed the current psychotropics carefully including drug interactions. Risk benefit ratio favors no change other than as noted in my dictated progress note. Diagnosis: Problems: (1) Major depressive disorder (2) Anxiety disorder (3) Dementia, vascular, with delusions (4) Dementia, vascular, with depression (5) Impulse control disorder (6) Dementia in Alzheimer's disease with depression (7) Dementia in Alzheimer's disease with delusions (8) Major neurocognitive disorder SAMMY DANIEL MD October 03, 2018 23:42
[2018-10-04] MEDS: LEVOTHYROXINE 150 MCG TABLET PO SCH (05:46)
[2018-10-04 06:40] VITALS: BP 154/69
[2018-10-04 08:16] LABS: BASO % 1 % (0-3); EOS # 0.1 x10^3/uL (0.0-0.7); EOS % 3 % (0-3); HEMATOCRIT 34.7 % (36.0-47.0); HEMOGLOBIN 11.6 g/dL (12.0-15.5); LYMPH # 1.6 x10^3/uL (1.0-4.8); LYMPH % 27 % (24-48); MEAN CORPUSCULAR HEMOGLOBIN 30 pg (25-35); MEAN CORPUSCULAR HGB CONC 33 g/dL (31-37); MEAN CORPUSCULAR VOLUME 91 fL (79-100); MONO # 0.4 x10^3/uL (0.0-1.1); MONO % 6 % (0-9); NEUT # 3.7 x10^3uL (1.8-7.7); NEUT % 64 % (31-73); PLATELET COUNT 146 x10^3/uL (140-400); RED BLOOD COUNT 3.84 x10^6/uL (3.50-5.40); RED CELL DISTRIBUTION WIDTH 15.9 % (11.5-14.5); WHITE BLOOD COUNT 5.9 x10^3/uL (4.0-11.0)
[2018-10-04 08:27] LABS: ALBUMIN 2.9 g/dL (3.4-5.0); ALBUMIN/GLOBULIN RATIO 0.8 (1.0-1.7); CREATININE 1.2 mg/dL (0.6-1.0); GFR 42.4; POTASSIUM 4.6 mmol/L (3.5-5.1); TOTAL BILIRUBIN 0.3 mg/dL (0.2-1.0); TOTAL PROTEIN 6.6 g/dL (6.4-8.2)
[2018-10-04] MEDS: DICLOFENAC SODIUM 1% TOPICAL GEL 100GM TUBE. TP SCH ×2 (09:00→21:00)
[2018-10-04] MEDS: PANTOPRAZOLE 40 MG TABLET. PO SCH (09:41)
[2018-10-04] MEDS: VITAMIN B COMPLEX CAPSULE. PO SCH (09:42)
[2018-10-04] MEDS: LACTOBACILLUS RHAMNOSUS GG 1 CAPSULE. PO SCH ×2 (09:42→21:01)
[2018-10-04] MEDS: POLYVINYL ALCOHOL/POVIDONE/PF OPHTH SOLUTION DROPERETTE. OU SCH (09:42)
[2018-10-04] MEDS: CALCIUM CARB/VIT D3 500/200 TABLET PO SCH (09:42)
[2018-10-04] MEDS: FUROSEMIDE 20 MG TABLET PO SCH (09:42)
[2018-10-04] MEDS: OMEGA-3 FATTY ACIDS/FISH OIL 1,000 MG CAPSULE. PO SCH (09:42)
[2018-10-04] MEDS: MULTIVITAMIN with MINERAL TABLET. PO SCH (09:43)
[2018-10-04] MEDS: CHOLECALCIFEROL (VITAMIN D3) 1,000 UNIT TABLET PO SCH (09:43)
[2018-10-04] MEDS: SENNOSIDES/DOCUSATE 8.6/50MG TABLET. PO SCH (09:43)
[2018-10-04] MEDS: rOPINIRole 1 MG TABLET. PO SCH ×2 (09:43→21:01)
[2018-10-04] MEDS: CARBIDOPA/LEVODOPA 25/250MG TABLET PO SCH ×3 (09:43→21:01)
[2018-10-04] MEDS: SERTRALINE 25 MG TABLET. PO SCH (09:44)
--- NOTE | 2018-10-04 11:30 | NUR ---
CORA met with pt, Dian and Jung to discuss pt wish to change her DPOA. Pt was able to state that she is aware that her dtr, Rosi, is in no condition to make any decisions. Pt knows that staff has been "blocking" phone calls for her dtr in which she was grateful as talking to her dtr is upsetting. Jung was made to be the primary DPOA with Dian being the back up. Feng reports that he will talk to Rosi about this and relay to her that she no longer has this duty. However, the next step would be to stop her ability to continue to financially control pt money. Pt reports that Rosi is on her bank account and is to be paying bills but is unsure if this were to happen. CORA and Jung agreed that the best action was for SW to contact pt bank together and have them change information on the acct. CORA informed pt that she would have to know information and they may fax over forms for her to sign, in order to make financial changes. CORA encouraged them to follow up with a bander and cellophaner helper machine to make both medical and financial DPOA paperwork changes more official than the hospital form. Pt became anxious in how to tell Rosi and Jung reiterated that he would take care of that. CORA would also aid in that in the event Rosi were to come up to the unit. Jung had his insurance examiner come up and notarize the form. A copy was made and placed in the chart and the original given to Jung.
[2018-10-04] MEDS: ACETAMINOPHEN 325 MG TABLET PO PRN (14:22)
--- NOTE | 2018-10-04 14:24 | NUR ---
Patient mentioned during the 1400 med pass that her left foot was bothering her. PRN tylenol 650 mg given @1422.
[2018-10-04 16:26] VITALS: BP 128/71
--- NOTE | 2018-10-04 16:30 | NUR ---
The nurse went in to check on patient and her left ankle. Removed catrachito hose and applied PRN analgesic balm @1179. Phone call to Dr. Hopkins, lasix increased to 40 mg starting tomorrow, and us venous Doppler ordered. Leave catrachito hose off for now per since it's causing too much pain. Will continue to monitor.
[2018-10-04] MEDS: METHYL SALICYLATE/MENTHOL TOPICAL OINTMENT 29GM TUBE. TP PRN (16:33)
--- NOTE | 2018-10-04 20:04 | PDOC ---
Exam Note: Oscar Note: Admission Date: Sep 13, 2018 at 16:00 * A recertification for continued Inpatient Psychiatric Admission must be done on Day 12, Day 18 and Day 30. Please also refer to the separate dictated note~for this date of service dictated separately.~Patient seen individually. Discussed the patient with Nursing staff reviewed the chart.~Reviewed interim history and current functioning. Reviewed vital signs,~Labs/ Radiology~and current medications noted below. Continue current treatment with the changes noted in the dictated addendum note Assessment: Vital Signs: Vital Signs Date Time Temp Pulse Resp B/P (MAP) Pulse Ox O2 Delivery O2 Flow Rate FiO2 10/04/18 16:26 97.5 72 20 128/71 (90) 98 10/02/18 06:14 Room Air I&O Intake and Output 10/04/18 07:00 Intake Total 1080 ml Balance 1080 ml Intake Oral 1080 ml Labs: Laboratory Tests Test 10/04/18 08:02 White Blood Count 5.9 x10^3/uL (4.0-11.0) Red Blood Count 3.84 x10^6/uL (3.50-5.40) Hemoglobin 11.6 g/dL (12.0-15.5) L Hematocrit 34.7 % (36.0-47.0) L Mean Corpuscular Volume 91 fL (79-100) Mean Corpuscular Hemoglobin 30 pg (25-35) Mean Corpuscular Hemoglobin Concent 33 g/dL (31-37) Red Cell Distribution Width 15.9 % (11.5-14.5) H Platelet Count 146 x10^3/uL (140-400) Neutrophils (%) (Auto) 64 % (31-73) Lymphocytes (%) (Auto) 27 % (24-48) Monocytes (%) (Auto) 6 % (0-9) Eosinophils (%) (Auto) 3 % (0-3) Basophils (%) (Auto) 1 % (0-3) Neutrophils # (Auto) 3.7 x10^3uL (1.8-7.7) Lymphocytes # (Auto) 1.6 x10^3/uL (1.0-4.8) Monocytes # (Auto) 0.4 x10^3/uL (0.0-1.1) Eosinophils # (Auto) 0.1 x10^3/uL (0.0-0.7) Basophils # (Auto) 0.0 x10^3/uL (0.0-0.2) Sodium Level 142 mmol/L (136-145) Potassium Level 4.6 mmol/L (3.5-5.1) Chloride Level 106 mmol/L (98-107) Carbon Dioxide Level 29 mmol/L (21-32) Anion Gap 7 (6-14) Blood Urea Nitrogen 30 mg/dL (7-20) H Creatinine 1.2 mg/dL (0.6-1.0) H Estimated GFR (Cockcroft-Gault) 42.4 BUN/Creatinine Ratio 25 (6-20) H Glucose Level 102 mg/dL (70-99) H Calcium Level 9.0 mg/dL (8.5-10.1) Total Bilirubin 0.3 mg/dL (0.2-1.0) Aspartate Amino Transferase (AST) 17 U/L (15-37) Alanine Aminotransferase (ALT) 12 U/L (14-59) L Alkaline Phosphatase 134 U/L (46-116) H Total Protein 6.6 g/dL (6.4-8.2) Albumin 2.9 g/dL (3.4-5.0) L Albumin/Globulin Ratio 0.8 (1.0-1.7) L Current Medications: Meds: Current Medications Sodium Chloride 500 ml @ 0 mls/hr 1X ONCE IV ; Start 09/13/18 at 14:00; Stop 09/13/18 at 14:30; Status DC Acetaminophen (Tylenol) 650 mg PRN Q6HRS PRN PO PAIN / TEMP Last administered on 10/04/18at 14:22; Start 09/13/18 at 17:15 Multi-Ingredient Ointment (Analgesic [place]) 1 patrick PRN QID PRN TP MUSCLE PAIN Last administered on 10/04/18at 16:33; Start 09/13/18 at 17:15 Al Hydroxide/Mg Hydroxide (Mylanta Plus Xs) 15 ml PRN AFTMEALHC PRN PO DYSPEPSIA; Start 09/13/18 at 17:15 Magnesium Hydroxide (Milk Of Magnesia) 2,400 mg PRN QHS PRN PO CONSTIPATION; Start 09/13/18 at 17:15 Citalopram Hydrobromide (CeleXA) 20 mg DAILY PO Last administered on 09/14/18 09:00; Start 09/14/18 at 09:00; Stop 09/14/18 at 17:18; Status DC Furosemide (Lasix) 20 mg DAILY PO Last administered on 09/14/18 09:00; Start 09/14/18 at 09:00; Stop 09/14/18 at 17:22; Status DC Senna/Docusate Sodium (Senna Plus) 1 tab DAILY PO Last administered on 10/04/18 09:43; Start 09/14/18 at 09:00 Simvastatin (Zocor) 40 mg QHS PO Last administered on 10/03/18 20:36; Start 09/13/18 at 21:00 Calcium/Vitamin D (Oscal D 500mg/ 200uts) 1 tab DAILY PO Last administered on 09:42; Start 09/14/18 at 09:00 Carbidopa/Levodopa (Sinemet 25/250) 1 tab TID PO Last administered on 10/04/18 14:03; Start 09/13/18 at 21:00 Vitamin D (Vitamin D3) 2,000 unit DAILY PO Last administered on 10/04/18 09:43; Start 09/14/18 at 09:00 Vitamin B Complex 1 cap DAILY PO Last administered on 10/04/18 09:42; Start 09/14/18 at 09:00 Famotidine (Pepcid) 20 mg BID PO Last administered on 09/14/18 09:00; Start 09/13/18 at 21:00; Stop 09/14/18 at 17:20; Status DC Levothyroxine Sodium (Synthroid) 150 mcg DAILY06 PO Last administered on 10/04/18 05:46; Start 09/14/18 at 06:00 Multivitamins/ Calcium (Thera-M Plus) 1 tab DAILY PO Last administered on 10/04/18 09:43; Start 09/14/18 at 09:00 Fish Oil (Fish Oil) 1,000 mg DAILY PO Last administered on 10/04/18 09:42; Start 09/14/18 at 09:00 Pantoprazole Sodium (Protonix) 40 mg DAILY07 PO Last administered on 09/27/18 06:10; Start 09/14/18 at 07:00; Stop 09/28/18 at 05:36; Status DC Polyethylene Glycol (miraLAX) 17 gm PRN DAILY PRN PO CONSTIPATION; Start 09/13/18 at 19:45 Albuterol/ Ipratropium (Duoneb) 3 ml RTQID NEB Last administered on 09/14/18at 05:21; Start 09/13/18 at 20:00; Stop 09/14/18 at 14:10; Status DC Artificial Tears (Refresh Classic) 2 drop DAILY OU Last administered on 10/04/18at 09:42; Start 09/14/18 at 09:00 Lactobacillus Rhamnosus (Culturelle) 1 cap BID PO Last administered on 10/04/18at 09:42; Start 09/13/18 at 21:00 Midodrine (Proamatine) 5 mg [id number] PO Last administered on 09/19/18at 13:12; Start 09/14/18 at 07:00; Stop 09/22/18 at 14:14; Status DC Ropinirole HCl (Requip) 1 mg BID PO Last administered on 10/04/18at 09:43; Start 09/13/18 at 21:00 Albuterol/ Ipratropium (Duoneb) 3 ml PRN QID PRN NEB CONGESTION; Start 09/14/18 at 14:15 Sertraline HCl (Zoloft) 50 mg DAILY PO Last administered on 09/15/18at 09:04; Start 09/15/18 at 09:00; Stop 09/15/18 at 15:03; Status DC Quetiapine Fumarate (SEROquel) 25 mg QHS PO Last administered on 10/03/18at 20:36; Start 09/14/18 at 21:00 Vitamin D (Vitamin D3) 50,000 unit WEEKLY PO Last administered on 09/28/18at 10:03; Start 09/14/18 at 17:30 Sertraline HCl (Zoloft) 50 mg DAILY PO Last administered on 09/20/18at 08:58; Start 09/16/18 at 09:00; Stop 09/20/18 at 16:44; Status DC Furosemide (Lasix) 20 mg DAILY PO Last administered on 10/04/18at 09:42; Start 09/20/18 at 09:00; Stop 10/04/18 at 17:15; Status DC Sertraline HCl (Zoloft) 75 mg DAILY PO Last administered on 10/04/18at 09:44; Start 09/21/18 at 09:00 Midodrine (Proamatine) 5 mg [id number] PRN PO hypotension Last administered on 09/25/18at 07:37; Start 09/22/18 at 14:15 Pantoprazole Sodium (Protonix) 40 mg DAILYAC PO Last administered on 10/04/18at 09:41; Start 09/28/18 at 07:30 Diclofenac Sodium (Voltaren) 1 patrick BID TP Last administered on 10/04/18at 09:00; Start 09/29/18 at 21:00 Furosemide (Lasix) 40 mg DAILY PO ; Start 10/05/18 at 09:00 Active Scripts Active Synthroid (Levothyroxine Sodium) 150 Mcg Tablet 150 Mcg PO DAILY07 Reported Protonix (Pantoprazole Sodium) 40 Mg Granpkt.dr 40 Mg PO DAILY07 Acidophilus (Lactobacillus Acidophilus) 1 Each Capsule 1 Each PO BID Refresh Optive Eye Drops (Carboxymethylcellulos/Glycerin) 15 Ml Drops 2 Drop EACHEYE DAILY Famotidine 20 Mg Tablet 1 Tab PO BID Duoneb 0.5-3(2.5) Mg/3 Ml (Albuterol/Ipratropium) 3 Ml Ampul.neb 3 Ml NEB QID Citalopram Hbr (Citalopram Hydrobromide) 20 Mg Tablet 20 Mg PO DAILY Carbidopa-Levodopa 25-250 Tab (Carbidopa/Levodopa) 1 Each Tablet 1 Tab PO TID LAST DOSE GIVEN: DATE: TODAY TIME: AM NEXT DOSE DUE: DATE: TODAY TIME: AFTERNOON Polyethylene Glycol 3350 255 Gm Powder 17 Gm PO DAILY PRN NOT GIVEN TODAY NEXT DOSE DUE: DATE: TODAY TIME: IF AND WHEN NEEDED Senna-Docusate Sodium Tablet (Sennosides/Docusate Sodium) 1 Each Tablet 1 Tab PO DAILY LAST DOSE GIVEN: DATE: TODAY TIME: AM NEXT DOSE DUE: DATE: TOMORROW TIME: AM [place] 3 1,000 Mg Softgel ([place]-3 Fatty Acids/Fish Oil) 1 Each Capsule 1 Each PO DAILY LAST DOSE GIVEN: DATE: TODAY TIME: AM NEXT DOSE DUE: DATE: TOMORROW TIME: AM Simvastatin 40 Mg Tablet 40 Mg PO QHS LAST DOSE GIVEN: DATE: YESTERDAY TIME: PM NEXT DOSE DUE: DATE: TODAY TIME: PM Lasix (Furosemide) 20 Mg Tablet 20 Mg PO DAILY LAST DOSE GIVEN: DATE: TIME: AM NEXT DOSE DUE: DATE: TOMORROW TIME: AM Requip (Ropinirole Hcl) 1 Mg Tablet 1 Mg PO BID LAST DOSE GIVEN: DATE: TIME: AM NEXT DOSE DUE: DATE: TODAY TIME: PM Midodrine Hcl 5 Mg Tablet 5 Mg PO Q8HRS LAST DOSE GIVEN: DATE: TIME: AM NEXT DOSE DUE: DATE: TIME: AFTERNOON Vitamin D-3 (Cholecalciferol (Vitamin D3)) 2,000 Unit Tablet 2,000 Unit PO DAILY LAST DOSE GIVEN: DATE: TIME: AM NEXT DOSE DUE: DATE: TOMORR TIME: AM Calcium 600 + Vit D 200 Tablet (Calcium Carbonate/Vitamin D3) 1 Each Tablet 1 Tab PO DAILY LAST DOSE GIVEN: DATE: TIME: AM NEXT DOSE DUE: DATE:TOMORROW TIME: AM Daily Vitamin (Multivitamin) 1 Each Tablet 1 Each PO DAILY LAST DOSE GIVEN: DATE: TIME: AM NEXT DOSE DUE: DATE: ORR TIME: AM Vitamin R30-Zukwv Acid Tablet (Cyanocobalamin/Folic Acid) 1 Each Tablet 1 Each PO DAILY LAST DOSE GIVEN: DATE: TIME: AM NEXT DOSE DUE: DATE: ORR TIME: AM I have reviewed the current psychotropics carefully including drug interactions. Risk benefit ratio favors no change other than as noted in my dictated progress note. Diagnosis: Problems: (1) Right hip pain (2) Fall (3) Closed head injury (4) Status post fracture of hip (5) CHF (congestive heart failure) (6) Weakness (7) Falls (8) Pneumonia (9) Major depressive disorder (10) Anxiety disorder (11) Impulse control disorder (12) Dementia, vascular, with depression (13) Dementia, vascular, with delusions (14) Dementia in Alzheimer's disease with depression (15) Dementia in Alzheimer's disease with delusions (16) Major neurocognitive disorder (17) Orthostatic hypotension (18) Orthostatic lightheadedness SAMMY DANIEL MD October 04, 2018 20:04
[2018-10-04] MEDS: SIMVASTATIN 40 MG TABLET. PO SCH (21:00)
[2018-10-04] MEDS: QUEtiapine 25 MG TABLET. PO SCH (21:01)
--- NOTE | 2018-10-04 21:32 | PN ---
DATE: 10/03/2018 PSYCHIATRIC PROGRESS NOTE This late entry 10/03/2018 covers elements not covered in my initial note. SUBJECTIVE: I met with the patient on the morning of 10/03/2018 in her room at length. She was seated in her room with the drapes closed in a rather dark room, even though it was after breakfast. I did open up the drapes and she was very appreciative. She slept 7 hours previous night. Remains somewhat anxious, but less depressed. REVIEW OF SYSTEMS: Ambulation impaired, in wheelchair/walker. No CV, , pulmonary, eye system symptoms on review. MENTAL STATUS EXAM: Oriented to herself and situation. Speech has some latency, coherent, often responses monosyllabic. She is very appreciative of my visit, abstraction fair, computation impaired, language function intact, attention span short. Mood and affect less depressed and anxious. LABORATORY DATA: Reviewed. IMPRESSION: Major depressive disorder with psychotic features, mild cognitive impairment; anxiety disorder, unspecified. Rest unchanged. PLAN: Continue current psychotropics. Zoloft 75 mg a day, Seroquel 25 mg at bedtime, may need to increase Zoloft gradually. MAN Laura DANIEL MD DR: ISABELLA/yue JOB#: [id number] / [id number]
--- NOTE | 2018-10-04 22:33 | RAD ---
Left lower extremity venous Doppler dated 10/04/2018. No comparison available. Clinical indication: Swelling and pain. FINDINGS: Grayscale, color-flow and spectral waveform analysis performed to include the deep venous system of the left lower extremity. There is normal compressibility, phasicity and augmentation of flow throughout. No filling defects are seen. IMPRESSION: No evidence of left lower extremity deep vein thrombosis. Electronically signed by: Henok Kunz MD (10/04/2018 10:30 PM) [facility]
[2018-10-05] MEDS: LEVOTHYROXINE 150 MCG TABLET PO SCH (06:07)
[2018-10-05 06:27] VITALS: BP 146/73
[2018-10-05] MEDS: OMEGA-3 FATTY ACIDS/FISH OIL 1,000 MG CAPSULE. PO SCH (07:36)
[2018-10-05] MEDS: CHOLECALCIFEROL (VITAMIN D3) 50,000 UNIT CAPSULE PO SCH (07:36)
[2018-10-05] MEDS: SERTRALINE 25 MG TABLET. PO SCH (07:36)
[2018-10-05] MEDS: PANTOPRAZOLE 40 MG TABLET. PO SCH (07:37)
[2018-10-05] MEDS: SENNOSIDES/DOCUSATE 8.6/50MG TABLET. PO SCH (07:37)
[2018-10-05] MEDS: CARBIDOPA/LEVODOPA 25/250MG TABLET PO SCH ×3 (07:37→19:26)
[2018-10-05] MEDS: VITAMIN B COMPLEX CAPSULE. PO SCH (07:38)
[2018-10-05] MEDS: LACTOBACILLUS RHAMNOSUS GG 1 CAPSULE. PO SCH ×2 (07:38→19:26)
[2018-10-05] MEDS: CHOLECALCIFEROL (VITAMIN D3) 1,000 UNIT TABLET PO SCH (07:38)
[2018-10-05] MEDS: CALCIUM CARB/VIT D3 500/200 TABLET PO SCH (07:38)
[2018-10-05] MEDS: rOPINIRole 1 MG TABLET. PO SCH ×2 (07:38→19:26)
[2018-10-05] MEDS: MULTIVITAMIN with MINERAL TABLET. PO SCH (07:39)
[2018-10-05] MEDS: POLYVINYL ALCOHOL/POVIDONE/PF OPHTH SOLUTION DROPERETTE. OU SCH (07:39)
[2018-10-05] MEDS: DICLOFENAC SODIUM 1% TOPICAL GEL 100GM TUBE. TP SCH ×2 (07:49→19:26)
[2018-10-05] MEDS: FUROSEMIDE 20 MG TABLET PO SCH (07:49)
[2018-10-05] MEDS: ACETAMINOPHEN 325 MG TABLET PO PRN ×2 (09:58→17:38)
--- NOTE | 2018-10-05 10:03 | NUR ---
patient reports pain in her left foot. PRN tylenol provided per order.
--- NOTE | 2018-10-05 13:30 | NUR ---
In a series of emails, SW has been in contact throughout the day with Cassandra Garay and Cynthia Sethi at [facility]. SW faxed over updated note and the updated DPOA. Pt called earlier to express her wish to return there and complete rehab, as she feels she can do so and has a ways to go to be stronger. Cassandra reports that they will run everything by the team and let SW know tomorrow the plan for discharge.
--- NOTE | 2018-10-05 13:56 | NUR ---
Patient compliant with medications taken whole floated in applesauce. Calm, pleasant and interactive with peers and staff. Patients left ankle/foot continues to be swollen and painful. She has a healing skin tear on her L hand that is open to air. No adverse behaviors noted at this time.
[2018-10-05 16:12] VITALS: BP 138/75
--- NOTE | 2018-10-05 16:30 | NUR ---
patient reports pain in left foot/heel. given PRN tylenol per patient request for pain.
--- NOTE | 2018-10-05 19:25 | NUR ---
Patient sitting in the dayroom, with her feet propped up in a chair. Patient compliant with medications taken whole floated in applesauce. Calm, pleasant and interactive with staff. Patients left ankle/foot continues to be swollen/painful. Voltaren gel applied as ordered. No behaviors noted at this time.
[2018-10-05] MEDS: QUEtiapine 25 MG TABLET. PO SCH (19:26)
[2018-10-05] MEDS: SIMVASTATIN 40 MG TABLET. PO SCH (19:26)
--- NOTE | 2018-10-05 21:15 | PN ---
DATE: 10/04/2018 PSYCHIATRIC PROGRESS NOTE This late entry 10/04/2018 covers elements not covered in my initial note. SUBJECTIVE: I met with the patient in the evening. The patient slept 7 hours previous night. She has done reasonably well. She complains of pain in the left foot, received p.r.n. Tylenol; has swelling, left foot; Lasix increased to 40 mg a day. Venous Doppler has been ordered. REVIEW OF SYSTEMS: Ambulation impaired, in wheelchair. No CV, , pulmonary, eye system symptoms on review. MENTAL STATUS EXAM: Oriented to herself, situation. Speech coherent, abstraction fair, computation impaired, language function intact, attention span short. She talked to me about having changed her DPOA today. LABORATORY DATA: Reviewed. IMPRESSION: Unchanged from initial note. PLAN: No change from initial note. MAN Laura DANIEL MD DR: ISABELLA/yue JOB#: [id number] / [id number]
[2018-10-06] MEDS: ACETAMINOPHEN 325 MG TABLET PO PRN (05:34)
[2018-10-06] MEDS: LEVOTHYROXINE 150 MCG TABLET PO SCH (05:34)
[2018-10-06 05:53] VITALS: BP 142/80
[2018-10-06] MEDS: LACTOBACILLUS RHAMNOSUS GG 1 CAPSULE. PO SCH ×2 (09:01→20:14)
[2018-10-06] MEDS: VITAMIN B COMPLEX CAPSULE. PO SCH (09:01)
[2018-10-06] MEDS: MIDODRINE 5 MG TABLET PO PRN (09:01)
[2018-10-06] MEDS: MULTIVITAMIN with MINERAL TABLET. PO SCH (09:01)
[2018-10-06] MEDS: rOPINIRole 1 MG TABLET. PO SCH ×2 (09:01→20:14)
[2018-10-06] MEDS: SERTRALINE 25 MG TABLET. PO SCH (09:01)
[2018-10-06] MEDS: PANTOPRAZOLE 40 MG TABLET. PO SCH (09:01)
[2018-10-06] MEDS: CHOLECALCIFEROL (VITAMIN D3) 1,000 UNIT TABLET PO SCH (09:01)
[2018-10-06] MEDS: OMEGA-3 FATTY ACIDS/FISH OIL 1,000 MG CAPSULE. PO SCH (09:02)
[2018-10-06] MEDS: CALCIUM CARB/VIT D3 500/200 TABLET PO SCH (09:02)
[2018-10-06] MEDS: FUROSEMIDE 20 MG TABLET PO SCH (09:02)
[2018-10-06] MEDS: SENNOSIDES/DOCUSATE 8.6/50MG TABLET. PO SCH (09:02)
[2018-10-06] MEDS: CARBIDOPA/LEVODOPA 25/250MG TABLET PO SCH ×3 (09:02→20:14)
[2018-10-06] MEDS: POLYVINYL ALCOHOL/POVIDONE/PF OPHTH SOLUTION DROPERETTE. OU SCH (09:02)
[2018-10-06] MEDS: DICLOFENAC SODIUM 1% TOPICAL GEL 100GM TUBE. TP SCH ×2 (09:07→20:27)
--- NOTE | 2018-10-06 10:58 | NUR ---
WEEKLY ACTIVITY THERAPY NOTE Date of Admission: 09/13/2018 Date of AT Assessment: 09/16/2018 Goal aimed: to elevate mood and engagement Initial Goal: Pt. will participate in at least five groups per week. Change goal 09/28/18:Pt. will participate in all groups she is invited to. Weekly progress towards goal: achieved Group participation level: moderate to full Weekly highlights: laughing throughout session on emt basic on Wednesday Behaviors observed: in room on Wednesday afternoon, all day Wednesday and Wednesday Plan: no change to goal Beneficial adaptations: more successful in conversation based groups
--- NOTE | 2018-10-06 12:06 | NUR ---
WEEKLY NOTE: Pt participates in group activities and interacts well with staff and peers. Pt does have a swollen left foot causing her pain and will be evaluated by the hospitalist. Pt denied by [facility] to return to them. Pt has been calm and cooperative throughout her stay on [facility]. SW will continue to work with pt and pt family; RUBEN BALTAZAR.
--- NOTE | 2018-10-06 14:46 | NUR ---
Patient compliant with medications. Still reporting pain in left foot and ankle. There is pronounced swelling. She has edema BLLE. She spends time in the day room and participates in group activities. She is cooperative with PT/OT and all staff members. Patient is social with peers.
[2018-10-06 15:42] VITALS: BP 114/70
[2018-10-06] MEDS: SIMVASTATIN 40 MG TABLET. PO SCH (20:14)
[2018-10-06] MEDS: QUEtiapine 25 MG TABLET. PO SCH (20:14)
[2018-10-06] MEDS: traMADol 50 MG TABLET PO PRN (20:27)
--- NOTE | 2018-10-06 21:09 | RAD ---
FOOT LEFT 3V History: Swelling and redness Comparison: None. Findings: 3 views left foot are submitted. There is bone demineralization. There are dorsal and plantar calcaneal enthesophytes, greater posteriorly. There is fairly advanced degenerative change of the first metatarsal-phalangeal joint with severe joint space narrowing and prominent osteophytes. There is hyperflexion throughout the second through fifth proximal interphalangeal joints. No convincing displaced acute fracture is identified, limited evaluation for more subtle fracture due to bone demineralization. There is soft tissue swelling. No aggressive bone destruction is identified by radiographs. Impression: 1. There is diffuse bone demineralization which decreases sensitivity for detection of nondisplaced fracture, no displaced acute fracture or aggressive bone destruction identified by radiographs. There is soft tissue swelling. Electronically signed by: Silvino Zuñiga MD (10/06/2018 9:06 PM) [facility]
--- NOTE | 2018-10-06 22:36 | PDOC ---
Exam Note: Oscar Note: Please also refer to the separate dictated note~for this date of service dictated separately.~Patient seen individually. Discussed the patient with Nursing staff reviewed the chart.~Reviewed interim history and current functioning. Reviewed vital signs,~Labs/ Radiology~and current medications noted below. Continue current treatment with the changes noted in the dictated addendum note Assessment: Vital Signs: Vital Signs Date Time Temp Pulse Resp B/P (MAP) Pulse Ox O2 Delivery O2 Flow Rate FiO2 10/06/18 20:27 Room Air 10/06/18 15:42 99.0 69 16 114/70 (85) 97 I&O Intake and Output 10/06/18 06:59 Intake Total 1140 ml Balance 1140 ml Intake Oral 1140 ml # Voids 1 Current Medications: Meds: Current Medications Sodium Chloride 500 ml @ 0 mls/hr 1X ONCE IV ; Start 09/13/18 at 14:00; Stop 09/13/18 at 14:30; Status DC Acetaminophen (Tylenol) 650 mg PRN Q6HRS PRN PO PAIN / TEMP Last administered on 10/06/18at 05:34; Start 09/13/18 at 17:15 Multi-Ingredient Ointment (Analgesic [place]) 1 patrick PRN QID PRN TP MUSCLE PAIN Last administered on 10/04/18at 16:33; Start 09/13/18 at 17:15 Al Hydroxide/Mg Hydroxide (Mylanta Plus Xs) 15 ml PRN AFTMEALHC PRN PO DYSP EPSIA; Start 09/13/18 at 17:15 Magnesium Hydroxide (Milk Of Magnesia) 2,400 mg PRN QHS PRN PO CONSTIPATION; Start 09/13/18 at 17:15 Citalopram Hydrobromide (CeleXA) 20 mg DAILY PO Last administered on 09/14/18at 09:00; Start 09/14/18 at 09:00; Stop 09/14/18 at 17:18; Status DC Furosemide (Lasix) 20 mg DAILY PO Last administered on 09/14/18at 09:00; Start 09/14/18 at 09:00; Stop 09/14/18 at 17:22; Status DC Senna/Docusate Sodium (Senna Plus) 1 tab DAILY PO Last administered on 10/06/18at 09:02; Start 09/14/18 at 09:00 Simvastatin (Zocor) 40 mg QHS PO Last administered on 10/06/18 20:14; Start 09/13/18 at 21:00 Calcium/Vitamin D (Oscal D 500mg/ 200uts) 1 tab DAILY PO Last administered on 10/06/18 09:02; Start 09/14/18 at 09:00 Carbidopa/Levodopa (Sinemet 25/250) 1 tab TID PO Last administered on 10/06/18 20:14; Start 09/13/18 at 21:00 Vitamin D (Vitamin D3) 2,000 unit DAILY PO Last administered on 10/06/18 09:01; Start 09/14/18 at 09:00 Vitamin B Complex 1 cap DAILY PO Last administered on 10/06/18 09:01; Start 09/14/18 at 09:00 Famotidine (Pepcid) 20 mg BID PO Last administered on 09/14/18 09:00; Start 09/13/18 at 21:00; Stop 09/14/18 at 17:20; Status DC Levothyroxine Sodium (Synthroid) 150 mcg DAILY06 PO Last administered on 10/06/18 05:34; Start 09/14/18 at 06:00 Multivitamins/ Calcium (Thera-M Plus) 1 tab DAILY PO Last administered on 10/06/18 09:01; Start 09/14/18 at 09:00 Fish Oil (Fish Oil) 1,000 mg DAILY PO Last administered on 10/06/18 09:02; Start 09/14/18 at 09:00 Pantoprazole Sodium (Protonix) 40 mg DAILY07 PO Last administered on 09/27/18 06:10; Start 09/14/18 at 07:00; Stop 09/28/18 at 05:36; Status DC Polyethylene Glycol (miraLAX) 17 gm PRN DAILY PRN PO CONSTIPATION; Start 09/13/18 at 19:45 Albuterol/ Ipratropium (Duoneb) 3 ml RTQID NEB Last administered on 09/14/18 05:21; Start 09/13/18 at 20:00; Stop 09/14/18 at 14:10; Status DC Artificial Tears (Refresh Classic) 2 drop DAILY OU Last administered on 10/06/18 09:02; Start 09/14/18 at 09:00 Lactobacillus Rhamnosus (Culturelle) 1 cap BID PO Last administered on 10/06/18 20:14; Start 09/13/18 at 21:00 Midodrine (Proamatine) 5 mg [id number] PO Last administered on 09/19/18 13:12; Start 09/14/18 at 07:00; Stop 09/22/18 at 14:14; Status DC Ropinirole HCl (Requip) 1 mg BID PO Last administered on 10/06/18 20:14; Start 09/13/18 at 21:00 Albuterol/ Ipratropium (Duoneb) 3 ml PRN QID PRN NEB CONGESTION; Start 09/14/18 at 14:15 Sertraline HCl (Zoloft) 50 mg DAILY PO Last administered on 09/15/18 09:04; Start 09/15/18 at 09:00; Stop 09/15/18 at 15:03; Status DC Quetiapine Fumarate (SEROquel) 25 mg QHS PO Last administered on 10/06/18 20:14; Start 09/14/18 at 21:00 Vitamin D (Vitamin D3) 50,000 unit WEEKLY PO Last administered on 10/05/18 07:36; Start 09/14/18 at 17:30 Sertraline HCl (Zoloft) 50 mg DAILY PO Last administered on 09/20/18 08:58; Start 09/16/18 at 09:00; Stop 09/20/18 at 16:44; Status DC Furosemide (Lasix) 20 mg DAILY PO Last administered on 10/04/18at 09:42; Start 09/20/18 at 09:00; Stop 10/04/18 at 17:15; Status DC Sertraline HCl (Zoloft) 75 mg DAILY PO Last administered on 10/06/18 09:01; Start 09/21/18 at 09:00 Midodrine (Proamatine) 5 mg [id number] PRN PO hypotension Last administered on 10/06/18 09:01; Start 09/22/18 at 14:15 Pantoprazole Sodium (Protonix) 40 mg DAILYAC PO Last administered on 10/06/18 09:01; Start 09/28/18 at 07:30 Diclofenac Sodium (Voltaren) 1 patrick BID TP Last administered on 10/06/18at 20:27; Start 09/29/18 at 21:00 Furosemide (Lasix) 40 mg DAILY PO Last administered on 10/06/18at 09:02; Start 10/05/18 at 09:00 Tramadol HCl (Ultram) 50 mg PRN Q6HRS PRN PO PAIN Last administered on 10/06/18at 20:27; Start 10/06/18 at 18:30 Active Scripts Active Synthroid (Levothyroxine Sodium) 150 Mcg Tablet 150 Mcg PO DAILY07 Reported Protonix (Pantoprazole Sodium) 40 Mg Granpkt.dr 40 Mg PO DAILY07 Acidophilus (Lactobacillus Acidophilus) 1 Each Capsule 1 Each PO BID Refresh Optive Eye Drops (Carboxymethylcellulos/Glycerin) 15 Ml Drops 2 Drop EACHEYE DAILY Famotidine 20 Mg Tablet 1 Tab PO BID Duoneb 0.5-3(2.5) Mg/3 Ml (Albuterol/Ipratropium) 3 Ml Ampul.neb 3 Ml NEB QID Citalopram Hbr (Citalopram Hydrobromide) 20 Mg Tablet 20 Mg PO DAILY Carbidopa-Levodopa 25-250 Tab (Carbidopa/Levodopa) 1 Each Tablet 1 Tab PO TID LAST DOSE GIVEN: DATE: TODAY TIME: AM NEXT DOSE DUE: DATE: TODAY TIME: AFTERNOON Polyethylene Glycol 3350 255 Gm Powder 17 Gm PO DAILY PRN NOT GIVEN TODAY NEXT DOSE DUE: DATE: TODAY TIME: IF AND WHEN NEEDED Senna-Docusate Sodium Tablet (Sennosides/Docusate Sodium) 1 Each Tablet 1 Tab PO DAILY LAST DOSE GIVEN: DATE: TODAY TIME: AM NEXT DOSE DUE: DATE: TOMORROW TIME: AM [place] 3 1,000 Mg Softgel ([place]-3 Fatty Acids/Fish Oil) 1 Each Capsule 1 Each PO DAILY LAST DOSE GIVEN: DATE: TODAY TIME: AM NEXT DOSE DUE: DATE: TOMORROW TIME: AM Simvastatin 40 Mg Tablet 40 Mg PO QHS LAST DOSE GIVEN: DATE: YESTERDAY TIME: PM NEXT DOSE DUE: DATE: TODAY TIME: PM Lasix (Furosemide) 20 Mg Tablet 20 Mg PO DAILY LAST DOSE GIVEN: DATE: TODAY TIME: AM NEXT DOSE DUE: DATE: TOMORROW TIME: AM Requip (Ropinirole Hcl) 1 Mg Tablet 1 Mg PO BID LAST DOSE GIVEN: DATE: TIME: AM NEXT DOSE DUE: DATE: TODAY TIME: PM Midodrine Hcl 5 Mg Tablet 5 Mg PO Q8HRS LAST DOSE GIVEN: DATE: TIME: AM NEXT DOSE DUE: DATE: TIME: AFTERNOON Vitamin D-3 (Cholecalciferol (Vitamin D3)) 2,000 Unit Tablet 2,000 Unit PO DAILY LAST DOSE GIVEN: DATE: TIME: AM NEXT DOSE DUE: DATE: TOMORROW TIME: AM Calcium 600 + Vit D 200 Tablet (Calcium Carbonate/Vitamin D3) 1 Each Tablet 1 Tab PO DAILY LAST DOSE GIVEN: DATE: TIME: AM NEXT DOSE DUE: DATE:TOMORROW TIME: AM Daily Vitamin (Multivitamin) 1 Each Tablet 1 Each PO DAILY LAST DOSE GIVEN: DATE: TIME: AM NEXT DOSE DUE: DATE: ORR TIME: AM Vitamin F24-Anavi Acid Tablet (Cyanocobalamin/Folic Acid) 1 Each Tablet 1 Each PO DAILY LAST DOSE GIVEN: DATE: TIME: AM NEXT DOSE DUE: DATE: ORR TIME: AM I have reviewed the current psychotropics carefully including drug interactions. Risk benefit ratio favors no change other than as noted in my dictated progress note. Diagnosis: Problems: (1) Major depressive disorder (2) Anxiety disorder (3) Impulse control disorder (4) Dementia, vascular, with depression (5) Dementia, vascular, with delusions (6) Dementia in Alzheimer's disease with depression (7) Dementia in Alzheimer's disease with delusions (8) Major neurocognitive disorder SAMMY DANIEL MD October 06, 2018 22:36
--- NOTE | 2018-10-07 01:16 | NUR ---
Nursing Note Assumed care of patient @1845. Patient in day room watching TV and interacting with other patients. Patient complains of left foot pain, rates 6/10. Administered Ultram and applied Voltaren cream topically. Patient calm, cooperative, and compliant with assessment and medications.
[2018-10-07] MEDS: LEVOTHYROXINE 150 MCG TABLET PO SCH ×2 (05:53→10:13)
[2018-10-07 06:05] VITALS: BP 123/68
[2018-10-07] MEDS: SENNOSIDES/DOCUSATE 8.6/50MG TABLET. PO SCH (10:12)
[2018-10-07] MEDS: CARBIDOPA/LEVODOPA 25/250MG TABLET PO SCH ×3 (10:13→20:20)
[2018-10-07] MEDS: CALCIUM CARB/VIT D3 500/200 TABLET PO SCH (10:13)
[2018-10-07] MEDS: rOPINIRole 1 MG TABLET. PO SCH ×2 (10:13→20:21)
[2018-10-07] MEDS: PANTOPRAZOLE 40 MG TABLET. PO SCH (10:13)
[2018-10-07] MEDS: VITAMIN B COMPLEX CAPSULE. PO SCH (10:13)
[2018-10-07] MEDS: MULTIVITAMIN with MINERAL TABLET. PO SCH (10:13)
[2018-10-07] MEDS: OMEGA-3 FATTY ACIDS/FISH OIL 1,000 MG CAPSULE. PO SCH (10:13)
[2018-10-07] MEDS: LACTOBACILLUS RHAMNOSUS GG 1 CAPSULE. PO SCH ×2 (10:13→20:21)
[2018-10-07] MEDS: CHOLECALCIFEROL (VITAMIN D3) 1,000 UNIT TABLET PO SCH (10:14)
[2018-10-07] MEDS: SERTRALINE 25 MG TABLET. PO SCH (10:14)
[2018-10-07] MEDS: FUROSEMIDE 20 MG TABLET PO SCH (10:14)
[2018-10-07] MEDS: DICLOFENAC SODIUM 1% TOPICAL GEL 100GM TUBE. TP SCH ×2 (10:14→20:21)
[2018-10-07] MEDS: POLYVINYL ALCOHOL/POVIDONE/PF OPHTH SOLUTION DROPERETTE. OU SCH (10:16)
[2018-10-07] MEDS: traMADol 50 MG TABLET PO PRN (10:16)
--- NOTE | 2018-10-07 10:17 | NUR ---
patient reports pain in left foot/ankle area. Requests pain meds. Provided PRN tramadol per order for pain. will continue to monitor.
--- NOTE | 2018-10-07 11:26 | NUR ---
Discussed with Legal alturas, Jim Butt, and CORA Ferreira regarding patient DPOA status. Legal [place] stated that new DPOA makes the previous DPOA null and void. The patient has stated she does not want her daughter, Shyanne, to make any decisions or to come visit the patient at this time. Nursing staff made aware of patient wishes and security sent email communication stating patients wishes.
--- NOTE | 2018-10-07 13:46 | NUR ---
Patient has been resting in the bed most of the day with her foot elevated. She is pleasant and calm, compliant with medications and assessments. No adverse behaviors noted at this time.
--- NOTE | 2018-10-07 14:57 | NUR ---
Patient had episode of vomiting after lunch. She stated she had felt funny and then threw up. Patient stated that she doesn't usually eat pork and today she ate pork for lunch. Emesis contained chewed meat and clear liquid. Held 1400 meds r/t vomiting.
[2018-10-07 16:05] VITALS: BP 127/65
--- NOTE | 2018-10-07 19:42 | PN ---
DATE: 10/05/2018 PSYCHIATRIC PROGRESS NOTE This late entry 10/05/2018 covers elements not covered in my initial note. SUBJECTIVE: I met with the patient in the evening of 10/05/2018. The patient slept 5-3/4 hours previous night. She does complain of foot pain, received Tylenol with relief. She is much more oriented, appropriate, talking about how she has changed her DPOA since the daughter was involved in some drug issues. REVIEW OF SYSTEMS: Ambulation impaired, in wheelchair. No CV, , pulmonary, eye system symptoms on review. MENTAL STATUS EXAM: Oriented to herself and situation. Speech has some latency, coherent. Abstraction fair, computation impaired, language function intact, attention span short. Mood and affect showing improvement. She was not aggressive, disruptive. Psychotic symptoms are much improved. LABORATORY DATA: Reviewed. IMPRESSION: Unchanged from initial note. PLAN: No change from initial note. SAMMY DANIEL MD DR: ISABELLA/yue JOB#: [id number] / [id number]
[2018-10-07] MEDS: QUEtiapine 25 MG TABLET. PO SCH (20:21)
[2018-10-07] MEDS: SIMVASTATIN 40 MG TABLET. PO SCH (20:21)
--- NOTE | 2018-10-07 21:06 | PN ---
DATE: 10/06/2018 PSYCHIATRIC PROGRESS NOTE This late entry 10/06/2018 covers elements not covered in my initial note. SUBJECTIVE: I met with the patient in the evening of 10/06/2018 staffed at a treatment team meeting with the entire team in the morning. The patient slept 6-3/4 hours previous evening. She talked about her power of title attorney being changed and she was happy with this. [facility] refused to take her back. REVIEW OF SYSTEMS: Ambulation impaired, in a wheelchair. She has some swelling, left ankle. No CV, , pulmonary, eye system symptoms on review. MENTAL STATUS EXAM: Oriented to herself and situation. Speech has some latency, coherent. Abstraction fair, computation impaired, language function intact, attention span short. Mood and affect improved. LABORATORY DATA: Reviewed. IMPRESSION: Unchanged from initial note. PLAN: No change from initial note. MAN Laura DANIEL MD DR: ISABELLA/yue JOB#: [id number] / [id number]
--- NOTE | 2018-10-07 22:29 | NUR ---
Pt pleasant and cooperative. No behaviors noted. Pt had feet up and smiling in the dayroom. Pt interacted with staff members.
--- NOTE | 2018-10-07 22:42 | PDOC ---
Exam Note: Oscar Note: Please also refer to the separate dictated note~for this date of service dictated separately.~Patient seen individually. Discussed the patient with Nursing staff reviewed the chart.~Reviewed interim history and current functioning. Reviewed vital signs,~Labs/ Radiology~and current medications noted below. Continue current treatment with the changes noted in the dictated addendum note Assessment: Vital Signs: Vital Signs Date Time Temp Pulse Resp B/P (MAP) Pulse Ox O2 Delivery O2 Flow Rate FiO2 10/07/18 16:05 97.9 74 20 127/65 (85) 97 10/06/18 22:00 Room Air I&O Intake and Output 10/07/18 06:59 Intake Total 840 ml Balance 840 ml Intake Oral 840 ml # Voids 1 Current Medications: Meds: Current Medications Sodium Chloride 500 ml @ 0 mls/hr 1X ONCE IV ; Start 09/13/18 at 14:00; Stop 09/13/18 at 14:30; Status DC Acetaminophen (Tylenol) 650 mg PRN Q6HRS PRN PO PAIN / TEMP Last administered on 10/06/18at 05:34; Start 09/13/18 at 17:15 Multi-Ingredient Ointment (Analgesic [place]) 1 patrick PRN QID PRN TP MUSCLE PAIN Last administered on 10/04/18at 16:33; Start 09/13/18 at 17:15 Al Hydroxide/Mg Hydroxide (Mylanta Plus Xs) 15 ml PRN AFTMEALHC PRN PO DYSPEPS [place]; Start 09/13/18 at 17:15 Magnesium Hydroxide (Milk Of Magnesia) 2,400 mg PRN QHS PRN PO CONSTIPATION; Start 09/13/18 at 17:15 Citalopram Hydrobromide (CeleXA) 20 mg DAILY PO Last administered on 09/14/18at 09:00; Start 09/14/18 at 09:00; Stop 09/14/18 at 17:18; Status DC Furosemide (Lasix) 20 mg DAILY PO Last administered on 09/14/18at 09:00; Start 09/14/18 at 09:00; Stop 09/14/18 at 17:22; Status DC Senna/Docusate Sodium (Senna Plus) 1 tab DAILY PO Last administered on 10/07/18at 10:12; Start 09/14/18 at 09:00 Simvastatin (Zocor) 40 mg QHS PO Last administered on 10/07/18 20:21; Start 09/13/18 at 21:00 Calcium/Vitamin D (Oscal D 500mg/ 200uts) 1 tab DAILY PO Last administered on 10/07/18 10:13; Start 09/14/18 at 09:00 Carbidopa/Levodopa (Sinemet 25/250) 1 tab TID PO Last administered on 10/07/18 20:20; Start 09/13/18 at 21:00 Vitamin D (Vitamin D3) 2,000 unit DAILY PO Last administered on 10/07/18 10:14; Start 09/14/18 at 09:00 Vitamin B Complex 1 cap DAILY PO Last administered on 10/07/18 10:13; Start 09/14/18 at 09:00 Famotidine (Pepcid) 20 mg BID PO Last administered on 09/14/18 09:00; Start 09/13/18 at 21:00; Stop 09/14/18 at 17:20; Status DC Levothyroxine Sodium (Synthroid) 150 mcg DAILY06 PO Last administered on 10/07/18 10:13; Start 09/14/18 at 06:00 Multivitamins/ Calcium (Thera-M Plus) 1 tab DAILY PO Last administered on 10/07/18 10:13; Start 09/14/18 at 09:00 Fish Oil (Fish Oil) 1,000 mg DAILY PO Last administered on 10/07/18 10:13; Start 09/14/18 at 09:00 Pantoprazole Sodium (Protonix) 40 mg DAILY07 PO Last administered on 09/27/18 06:10; Start 09/14/18 at 07:00; Stop 09/28/18 at 05:36; Status DC Polyethylene Glycol (miraLAX) 17 gm PRN DAILY PRN PO CONSTIPATION; Start 09/13/18 at 19:45 Albuterol/ Ipratropium (Duoneb) 3 ml RTQID NEB Last administered on 09/14/18 05:21; Start 09/13/18 at 20:00; Stop 09/14/18 at 14:10; Status DC Artificial Tears (Refresh Classic) 2 drop DAILY OU Last administered on 10/07/18 10:16; Start 09/14/18 at 09:00 Lactobacillus Rhamnosus (Culturelle) 1 cap BID PO Last administered on 10/07/18 20:21; Start 09/13/18 at 21:00 Midodrine (Proamatine) 5 mg [id number] PO Last administered on 09/19/18 13:12; Start 09/14/18 at 07:00; Stop 09/22/18 at 14:14; Status DC Ropinirole HCl (Requip) 1 mg BID PO Last administered on 10/07/18 20:21; Start 09/13/18 at 21:00 Albuterol/ Ipratropium (Duoneb) 3 ml PRN QID PRN NEB CONGESTION; Start 09/14/18 at 14:15 Sertraline HCl (Zoloft) 50 mg DAILY PO Last administered on 09/15/18 09:04; Start 09/15/18 at 09:00; Stop 09/15/18 at 15:03; Status DC Quetiapine Fumarate (SEROquel) 25 mg QHS PO Last administered on 10/07/18 20:21; Start 09/14/18 at 21:00 Vitamin D (Vitamin D3) 50,000 unit WEEKLY PO Last administered on 10/05/18 07:36; Start 09/14/18 at 17:30 Sertraline HCl (Zoloft) 50 mg DAILY PO Last administered on 09/20/18at 08:58; Start 09/16/18 at 09:00; Stop 09/20/18 at 16:44; Status DC Furosemide (Lasix) 20 mg DAILY PO Last administered on 10/04/18at 09:42; Start 09/20/18 at 09:00; Stop 10/04/18 at 17:15; Status DC Sertraline HCl (Zoloft) 75 mg DAILY PO Last administered on 10/07/18 10:14; Start 09/21/18 at 09:00 Midodrine (Proamatine) 5 mg [id number] PRN PO hypotension Last administered on 10/06/18 09:01; Start 09/22/18 at 14:15 Pantoprazole Sodium (Protonix) 40 mg DAILYAC PO Last administered on 10/07/18 10:13; Start 09/28/18 at 07:30 Diclofenac Sodium (Voltaren) 1 patrick BID TP Last administered on 10/07/18at 20:21; Start 09/29/18 at 21:00 Furosemide (Lasix) 40 mg DAILY PO Last administered on 10/07/18at 10:14; Start 10/05/18 at 09:00 Tramadol HCl (Ultram) 50 mg PRN Q6HRS PRN PO PAIN Last administered on 10/07/18at 10:16; Start 10/06/18 at 18:30 Active Scripts Active Synthroid (Levothyroxine Sodium) 150 Mcg Tablet 150 Mcg PO DAILY07 Reported Protonix (Pantoprazole Sodium) 40 Mg Granpkt.dr 40 Mg PO DAILY07 Acidophilus (Lactobacillus Acidophilus) 1 Each Capsule 1 Each PO BID Refresh Optive Eye Drops (Carboxymethylcellulos/Glycerin) 15 Ml Drops 2 Drop EACHEYE DAILY Famotidine 20 Mg Tablet 1 Tab PO BID Duoneb 0.5-3(2.5) Mg/3 Ml (Albuterol/Ipratropium) 3 Ml Ampul.neb 3 Ml NEB QID Citalopram Hbr (Citalopram Hydrobromide) 20 Mg Tablet 20 Mg PO DAILY Carbidopa-Levodopa 25-250 Tab (Carbidopa/Levodopa) 1 Each Tablet 1 Tab PO TID LAST DOSE GIVEN: DATE: TODAY TIME: AM NEXT DOSE DUE: DATE: TODAY TIME: AFTERNOON Polyethylene Glycol 3350 255 Gm Powder 17 Gm PO DAILY PRN NOT GIVEN TODAY NEXT DOSE DUE: DATE: TODAY TIME: IF AND WHEN NEEDED Senna-Docusate Sodium Tablet (Sennosides/Docusate Sodium) 1 Each Tablet 1 Tab PO DAILY LAST DOSE GIVEN: DATE: TODAY TIME: AM NEXT DOSE DUE: DATE: TOMORROW TIME: AM [place] 3 1,000 Mg Softgel ([place]-3 Fatty Acids/Fish Oil) 1 Each Capsule 1 Each PO DAILY LAST DOSE GIVEN: DATE: TODAY TIME: AM NEXT DOSE DUE: DATE: TOMORROW TIME: AM Simvastatin 40 Mg Tablet 40 Mg PO QHS LAST DOSE GIVEN: DATE: YESTERDAY TIME: PM NEXT DOSE DUE: DATE: TODAY TIME: PM Lasix (Furosemide) 20 Mg Tablet 20 Mg PO DAILY LAST DOSE GIVEN: DATE: TODAY TIME: AM NEXT DOSE DUE: DATE: TOMORROW TIME: AM Requip (Ropinirole Hcl) 1 Mg Tablet 1 Mg PO BID LAST DOSE GIVEN: DATE: TIME: AM NEXT DOSE DUE: DATE: TODAY TIME: PM Midodrine Hcl 5 Mg Tablet 5 Mg PO Q8HRS LAST DOSE GIVEN: DATE: TIME: AM NEXT DOSE DUE: DATE: TIME: AFTERNOON Vitamin D-3 (Cholecalciferol (Vitamin D3)) 2,000 Unit Tablet 2,000 Unit PO DAILY LAST DOSE GIVEN: DATE: TIME: AM NEXT DOSE DUE: DATE: TOMORROW TIME: AM Calcium 600 + Vit D 200 Tablet (Calcium Carbonate/Vitamin D3) 1 Each Tablet 1 Tab PO DAILY LAST DOSE GIVEN: DATE: TIME: AM NEXT DOSE DUE: DATE:TOMORROW TIME: AM Daily Vitamin (Multivitamin) 1 Each Tablet 1 Each PO DAILY LAST DOSE GIVEN: DATE: TIME: AM NEXT DOSE DUE: DATE: ORR TIME: AM Vitamin I97-Cbtwn Acid Tablet (Cyanocobalamin/Folic Acid) 1 Each Tablet 1 Each PO DAILY LAST DOSE GIVEN: DATE: TIME: AM NEXT DOSE DUE: DATE: ORR TIME: AM I have reviewed the current psychotropics carefully including drug interactions. Risk benefit ratio favors no change other than as noted in my dictated progress note. Diagnosis: Problems: (1) Dementia in Alzheimer's disease with delusions (2) Dementia in Alzheimer's disease with depression (3) Dementia, vascular, with depression (4) Anxiety disorder (5) Impulse control disorder (6) Major depressive disorder (7) Dementia, vascular, with delusions (8) Major neurocognitive disorder SAMMY DANIEL MD October 07, 2018 22:42
[2018-10-08 06:19] VITALS: BP 139/66
[2018-10-08] MEDS: LEVOTHYROXINE 150 MCG TABLET PO SCH (06:28)
[2018-10-08] MEDS: VITAMIN B COMPLEX CAPSULE. PO SCH (08:37)
[2018-10-08] MEDS: PANTOPRAZOLE 40 MG TABLET. PO SCH (08:37)
[2018-10-08] MEDS: OMEGA-3 FATTY ACIDS/FISH OIL 1,000 MG CAPSULE. PO SCH (08:37)
[2018-10-08] MEDS: LACTOBACILLUS RHAMNOSUS GG 1 CAPSULE. PO SCH ×2 (08:37→20:13)
[2018-10-08] MEDS: SENNOSIDES/DOCUSATE 8.6/50MG TABLET. PO SCH (08:38)
[2018-10-08] MEDS: FUROSEMIDE 20 MG TABLET PO SCH (08:38)
[2018-10-08] MEDS: CARBIDOPA/LEVODOPA 25/250MG TABLET PO SCH ×3 (08:38→20:13)
[2018-10-08] MEDS: rOPINIRole 1 MG TABLET. PO SCH ×2 (08:38→20:13)
[2018-10-08] MEDS: MULTIVITAMIN with MINERAL TABLET. PO SCH (08:38)
[2018-10-08] MEDS: CALCIUM CARB/VIT D3 500/200 TABLET PO SCH (08:38)
[2018-10-08] MEDS: SERTRALINE 25 MG TABLET. PO SCH (08:39)
[2018-10-08] MEDS: CHOLECALCIFEROL (VITAMIN D3) 1,000 UNIT TABLET PO SCH (08:42)
[2018-10-08] MEDS: POLYVINYL ALCOHOL/POVIDONE/PF OPHTH SOLUTION DROPERETTE. OU SCH (08:42)
[2018-10-08] MEDS: DICLOFENAC SODIUM 1% TOPICAL GEL 100GM TUBE. TP SCH ×2 (10:46→21:58)
--- NOTE | 2018-10-08 12:40 | NUR ---
Patient has had a great morning, took medications, allowed for morning assessment. She rested some earlier in her bed. She has been sweet, talking to staff, smiling, laughing. No signs of agitation noted. Will continue to monitor.
[2018-10-08 15:42] VITALS: BP 113/69
[2018-10-08] MEDS: QUEtiapine 25 MG TABLET. PO SCH (20:13)
[2018-10-08] MEDS: SIMVASTATIN 40 MG TABLET. PO SCH (20:13)
--- NOTE | 2018-10-08 22:39 | PDOC ---
Exam Note: Oscar Note: Please also refer to the separate dictated note~for this date of service dictated separately.~Patient seen individually. Discussed the patient with Nursing staff reviewed the chart.~Reviewed interim history and current functioning. Reviewed vital signs,~Labs/ Radiology~and current medications noted below. Continue current treatment with the changes noted in the dictated addendum note Assessment: Vital Signs: Vital Signs Date Time Temp Pulse Resp B/P (MAP) Pulse Ox O2 Delivery O2 Flow Rate FiO2 10/08/18 15:42 98.3 74 18 113/69 (84) 96 10/08/18 06:19 Room Air I&O Intake and Output 10/08/18 06:59 Intake Total 960 ml Balance 960 ml Intake Oral 960 ml Current Medications: Meds: Current Medications Sodium Chloride 500 ml @ 0 mls/hr 1X ONCE IV ; Start 09/13/18 at 14:00; Stop 09/13/18 at 14:30; Status DC Acetaminophen (Tylenol) 650 mg PRN Q6HRS PRN PO PAIN / TEMP Last administered on 10/06/18at 05:34; Start 09/13/18 at 17:15 Multi-Ingredient Ointment (Analgesic [place]) 1 patrick PRN QID PRN TP MUSCLE PAIN Last administered on 10/04/18at 16:33; Start 09/13/18 at 17:15 Al Hydroxide/Mg Hydroxide (Mylanta Plus Xs) 15 ml PRN AFTMEALHC PRN PO DYSPEPSIA; Start 09/13/18 at 17:15 Magnesium Hydroxide (Milk Of Magnesia) 2,400 mg PRN QHS PRN PO CONSTIPATION; Start 09/13/18 at 17:15 Citalopram Hydrobromide (CeleXA) 20 mg DAILY PO Last administered on 09/14/18at 09:00; Start 09/14/18 at 09:00; Stop 09/14/18 at 17:18; Status DC Furosemide (Lasix) 20 mg DAILY PO Last administered on 09/14/18at 09:00; Start 09/14/18 at 09:00; Stop 09/14/18 at 17:22; Status DC Senna/Docusate Sodium (Senna Plus) 1 tab DAILY PO Last administered on 10/08/18at 08:38; Start 09/14/18 at 09:00 Simvastatin (Zocor) 40 mg QHS PO Last administered on 10/08/18 20:13; Start 09/13/18 at 21:00 Calcium/Vitamin D (Oscal D 500mg/ 200uts) 1 tab DAILY PO Last administered on 10/08/18 08:38; Start 09/14/18 at 09:00 Carbidopa/Levodopa (Sinemet 25/250) 1 tab TID PO Last administered on 10/08/18 20:13; Start 09/13/18 at 21:00 Vitamin D (Vitamin D3) 2,000 unit DAILY PO Last administered on 10/08/18 08:42; Start 09/14/18 at 09:00 Vitamin B Complex 1 cap DAILY PO Last administered on 10/08/18 08:37; Start 09/14/18 at 09:00 Famotidine (Pepcid) 20 mg BID PO Last administered on 09/14/18 09:00; Start 09/13/18 at 21:00; Stop 09/14/18 at 17:20; Status DC Levothyroxine Sodium (Synthroid) 150 mcg DAILY06 PO Last administered on 10/08/18 06:28; Start 09/14/18 at 06:00 Multivitamins/ Calcium (Thera-M Plus) 1 tab DAILY PO Last administered on 10/08/18 08:38; Start 09/14/18 at 09:00 Fish Oil (Fish Oil) 1,000 mg DAILY PO Last administered on 10/08/18 08:37; Start 09/14/18 at 09:00 Pantoprazole Sodium (Protonix) 40 mg DAILY07 PO Last administered on 09/27/18 06:10; Start 09/14/18 at 07:00; Stop 09/28/18 at 05:36; Status DC Polyethylene Glycol (miraLAX) 17 gm PRN DAILY PRN PO CONSTIPATION; Start 09/13/18 at 19:45 Albuterol/ Ipratropium (Duoneb) 3 ml RTQID NEB Last administered on 09/14/18 05:21; Start 09/13/18 at 20:00; Stop 09/14/18 at 14:10; Status DC Artificial Tears (Refresh Classic) 2 drop DAILY OU Last administered on 10/08/18 08:42; Start 09/14/18 at 09:00 Lactobacillus Rhamnosus (Culturelle) 1 cap BID PO Last administered on 10/08/18 20:13; Start 09/13/18 at 21:00 Midodrine (Proamatine) 5 mg [id number] PO Last administered on 09/19/18 13:12; S tart 09/14/18 at 07:00; Stop 09/22/18 at 14:14; Status DC Ropinirole HCl (Requip) 1 mg BID PO Last administered on 10/08/18 20:13; Start 09/13/18 at 21:00 Albuterol/ Ipratropium (Duoneb) 3 ml PRN QID PRN NEB CONGESTION; Start 09/14/18 at 14:15 Sertraline HCl (Zoloft) 50 mg DAILY PO Last administered on 09/15/18 09:04; Start 09/15/18 at 09:00; Stop 09/15/18 at 15:03; Status DC Quetiapine Fumarate (SEROquel) 25 mg QHS PO Last administered on 10/08/18 20:13; Start 09/14/18 at 21:00 Vitamin D (Vitamin D3) 50,000 unit WEEKLY PO Last administered on 10/05/18 07:36; Start 09/14/18 at 17:30 Sertraline HCl (Zoloft) 50 mg DAILY PO Last administered on 09/20/18 08:58; Start 09/16/18 at 09:00; Stop 09/20/18 at 16:44; Status DC Furosemide (Lasix) 20 mg DAILY PO Last administered on 10/04/18at 09:42; Start 09/20/18 at 09:00; Stop 10/04/18 at 17:15; Status DC Sertraline HCl (Zoloft) 75 mg DAILY PO Last administered on 10/08/18 08:39; Start 09/21/18 at 09:00 Midodrine (Proamatine) 5 mg [id number] PRN PO hypotension Last administered on 10/06/18 09:01; Start 09/22/18 at 14:15 Pantoprazole Sodium (Protonix) 40 mg DAILYAC PO Last administered on 10/08/18 08:37; Start 09/28/18 at 07:30 Diclofenac Sodium (Voltaren) 1 patrick BID TP Last administered on 10/08/18at 21:58; Start 09/29/18 at 21:00 Furosemide (Lasix) 40 mg DAILY PO Last administered on 10/08/18at 08:38; Start 10/05/18 at 09:00 Tramadol HCl (Ultram) 50 mg PRN Q6HRS PRN PO PAIN Last administered on 10/07/18at 10:16; Start 10/06/18 at 18:30 Active Scripts Active Synthroid (Levothyroxine Sodium) 150 Mcg Tablet 150 Mcg PO DAILY07 Reported Protonix (Pantoprazole Sodium) 40 Mg Granpkt.dr 40 Mg PO DAILY07 Acidophilus (Lactobacillus Acidophilus) 1 Each Capsule 1 Each PO BID Refresh Optive Eye Drops (Carboxymethylcellulos/Glycerin) 15 Ml Drops 2 Drop EACHEYE DAILY Famotidine 20 Mg Tablet 1 Tab PO BID Duoneb 0.5-3(2.5) Mg/3 Ml (Albuterol/Ipratropium) 3 Ml Ampul.neb 3 Ml NEB QID Citalopram Hbr (Citalopram Hydrobromide) 20 Mg Tablet 20 Mg PO DAILY Carbidopa-Levodopa 25-250 Tab (Carbidopa/Levodopa) 1 Each Tablet 1 Tab PO TID LAST DOSE GIVEN: DATE: TODAY TIME: AM NEXT DOSE DUE: DATE: TODAY TIME: AFTERNOON Polyethylene Glycol 3350 255 Gm Powder 17 Gm PO DAILY PRN NOT GIVEN TODAY NEXT DOSE DUE: DATE: TODAY TIME: IF AND WHEN NEEDED Senna-Docusate Sodium Tablet (Sennosides/Docusate Sodium) 1 Each Tablet 1 Tab PO DAILY LAST DOSE GIVEN: DATE: TODAY TIME: AM NEXT DOSE DUE: DATE: TOMORROW TIME: AM [place] 3 1,000 Mg Softgel ([place]-3 Fatty Acids/Fish Oil) 1 Each Capsule 1 Each PO DAILY LAST DOSE GIVEN: DATE: TODAY TIME: AM NEXT DOSE DUE: DATE: TOMORROW TIME: AM Simvastatin 40 Mg Tablet 40 Mg PO QHS LAST DOSE GIVEN: DATE: YESTERDAY TIME: PM NEXT DOSE DUE: DATE: TODAY TIME: PM Lasix (Furosemide) 20 Mg Tablet 20 Mg PO DAILY LAST DOSE GIVEN: DATE: TODAY TIME: AM NEXT DOSE DUE: DATE: TOMORROW TIME: AM Requip (Ropinirole Hcl) 1 Mg Tablet 1 Mg PO BID LAST DOSE GIVEN: DATE: TODAY TIME: AM NEXT DOSE DUE: DATE: TIME: PM Midodrine Hcl 5 Mg Tablet 5 Mg PO Q8HRS LAST DOSE GIVEN: DATE: TIME: AM NEXT DOSE DUE: DATE: TIME: AFTERNOON Vitamin D-3 (Cholecalciferol (Vitamin D3)) 2,000 Unit Tablet 2,000 Unit PO DAILY LAST DOSE GIVEN: DATE: TIME: AM NEXT DOSE DUE: DATE: TOMORROW TIME: AM Calcium 600 + Vit D 200 Tablet (Calcium Carbonate/Vitamin D3) 1 Each Tablet 1 Tab PO DAILY LAST DOSE GIVEN: DATE: TIME: AM NEXT DOSE DUE: DATE:TOMORROW TIME: AM Daily Vitamin (Multivitamin) 1 Each Tablet 1 Each PO DAILY LAST DOSE GIVEN: DATE: TIME: AM NEXT DOSE DUE: DATE: ORR TIME: AM Vitamin [id number] Acid Tablet (Cyanocobalamin/Folic Acid) 1 Each Tablet 1 Each PO DAILY LAST DOSE GIVEN: DATE: TIME: AM NEXT DOSE DUE: DATE: ORR TIME: AM I have reviewed the current psychotropics carefully including drug interactions. Risk benefit ratio favors no change other than as noted in my dictated progress note. Diagnosis: Problems: (1) Major depressive disorder (2) Anxiety disorder (3) Impulse control disorder (4) Dementia, vascular, with delusions (5) Dementia in Alzheimer's disease with depression (6) Major neurocognitive disorder (7) Dementia in Alzheimer's disease with delusions (8) Dementia, vascular, with depression SAMMY DANIEL MD October 08, 2018 22:39
--- NOTE | 2018-10-09 00:31 | NUR ---
She was sitting in the day room with her feet elevated this evening, when this pattern chart writer took her HS medications to her this evening. She has been pleasant, smiling, and interacting appropriately with staff and other patient's. She has been complaint with taking her HS medications this evening.
[2018-10-09] MEDS: LEVOTHYROXINE 150 MCG TABLET PO SCH (05:07)
[2018-10-09] MEDS: PANTOPRAZOLE 40 MG TABLET. PO SCH (05:07)
[2018-10-09 07:06] VITALS: BP 123/69
[2018-10-09 08:46] LABS: BASO % 1 % (0-3); EOS # 0.1 x10^3/uL (0.0-0.7); EOS % 3 % (0-3); HEMATOCRIT 34.9 % (36.0-47.0); HEMOGLOBIN 11.4 g/dL (12.0-15.5); LYMPH # 1.7 x10^3/uL (1.0-4.8); LYMPH % 31 % (24-48); MEAN CORPUSCULAR HEMOGLOBIN 30 pg (25-35); MEAN CORPUSCULAR HGB CONC 33 g/dL (31-37); MEAN CORPUSCULAR VOLUME 91 fL (79-100); MONO # 0.4 x10^3/uL (0.0-1.1); MONO % 7 % (0-9); NEUT # 3.3 x10^3uL (1.8-7.7); NEUT % 59 % (31-73); PLATELET COUNT 173 x10^3/uL (140-400); RED BLOOD COUNT 3.84 x10^6/uL (3.50-5.40); RED CELL DISTRIBUTION WIDTH 15.4 % (11.5-14.5); WHITE BLOOD COUNT 5.6 x10^3/uL (4.0-11.0)
[2018-10-09] MEDS: POLYVINYL ALCOHOL/POVIDONE/PF OPHTH SOLUTION DROPERETTE. OU SCH (09:00)
[2018-10-09] MEDS: DICLOFENAC SODIUM 1% TOPICAL GEL 100GM TUBE. TP SCH ×2 (09:00→20:52)
[2018-10-09] MEDS: OMEGA-3 FATTY ACIDS/FISH OIL 1,000 MG CAPSULE. PO SCH (09:00)
[2018-10-09] MEDS: CALCIUM CARB/VIT D3 500/200 TABLET PO SCH (09:02)
[2018-10-09] MEDS: CHOLECALCIFEROL (VITAMIN D3) 1,000 UNIT TABLET PO SCH (09:02)
[2018-10-09] MEDS: SENNOSIDES/DOCUSATE 8.6/50MG TABLET. PO SCH (09:03)
[2018-10-09] MEDS: VITAMIN B COMPLEX CAPSULE. PO SCH (09:04)
[2018-10-09] MEDS: MULTIVITAMIN with MINERAL TABLET. PO SCH (09:04)
[2018-10-09] MEDS: rOPINIRole 1 MG TABLET. PO SCH ×2 (09:04→20:51)
[2018-10-09] MEDS: FUROSEMIDE 20 MG TABLET PO SCH (09:05)
[2018-10-09] MEDS: SERTRALINE 25 MG TABLET. PO SCH (09:06)
[2018-10-09] MEDS: CARBIDOPA/LEVODOPA 25/250MG TABLET PO SCH ×3 (09:06→20:51)
[2018-10-09] MEDS: LACTOBACILLUS RHAMNOSUS GG 1 CAPSULE. PO SCH ×2 (09:06→20:51)
[2018-10-09 09:08] LABS: ALBUMIN 2.9 g/dL (3.4-5.0); ALBUMIN/GLOBULIN RATIO 0.8 (1.0-1.7); CALCIUM 8.8 mg/dL (8.5-10.1); CREATININE 1.5 mg/dL (0.6-1.0); GFR 32.8; POTASSIUM 4.3 mmol/L (3.5-5.1); TOTAL BILIRUBIN 0.3 mg/dL (0.2-1.0); TOTAL PROTEIN 6.5 g/dL (6.4-8.2)
[2018-10-09 16:05] VITALS: BP 112/66
--- NOTE | 2018-10-09 18:42 | NUR ---
No new behaviors exhibited today. Remains confused but pleasant, took most medications today and was largely compliant with treatment plan. Social with other patients, currently resting in the day room.
[2018-10-09] MEDS: QUEtiapine 25 MG TABLET. PO SCH (20:51)
[2018-10-09] MEDS: SIMVASTATIN 40 MG TABLET. PO SCH (20:51)
[2018-10-09] MEDS: traMADol 50 MG TABLET PO PRN (22:10)
--- NOTE | 2018-10-09 22:30 | PDOC ---
Exam Note: Oscar Note: Please also refer to the separate dictated note~for this date of service dictated separately.~Patient seen individually. Discussed the patient with Nursing staff reviewed the chart.~Reviewed interim history and current functioning. Reviewed vital signs,~Labs/ Radiology~and current medications noted below. Continue current treatment with the changes noted in the dictated addendum note Assessment: Vital Signs: Vital Signs Date Time Temp Pulse Resp B/P (MAP) Pulse Ox O2 Delivery O2 Flow Rate FiO2 10/09/18 16:05 97.4 79 18 112/66 (81) 98 10/08/18 06:19 Room Air I&O Intake and Output 10/09/18 07:00 Intake Total 1080 ml Balance 1080 ml Intake Oral 1080 ml Labs: Laboratory Tests Test 10/09/18 06:50 White Blood Count 5.6 x10^3/uL (4.0-11.0) Red Blood Count 3.84 x10^6/uL (3.50-5.40) Hemoglobin 11.4 g/dL (12.0-15.5) L Hematocrit 34.9 % (36.0-47.0) L Mean Corpuscular Volume 91 fL (79-100) Mean Corpuscular Hemoglobin 30 pg (25-35) Mean Corpuscular Hemoglobin Concent 33 g/dL (31-37) Red Cell Distribution Width 15.4 % (11.5-14.5) H Platelet Count 173 x10^3/uL (140-400) Neutrophils (%) (Auto) 59 % (31-73) Lymphocytes (%) (Auto) 31 % (24-48) Monocytes (%) (Auto) 7 % (0-9) Eosinophils (%) (Auto) 3 % (0-3) Basophils (%) (Auto) 1 % (0-3) Neutrophils # (Auto) 3.3 x10^3uL (1.8-7.7) Lymphocytes # (Auto) 1.7 x10^3/uL (1.0-4.8) Monocytes # (Auto) 0.4 x10^3/uL (0.0-1.1) Eosinophils # (Auto) 0.1 x10^3/uL (0.0-0.7) Basophils # (Auto) 0.0 x10^3/uL (0.0-0.2) Sodium Level 141 mmol/L (136-145) Potassium Level 4.3 mmol/L (3.5-5.1) Chloride Level 103 mmol/L (98-107) Carbon Dioxide Level 33 mmol/L (21-32) H Anion Gap 5 (6-14) L Blood Urea Nitrogen 34 mg/dL (7-20) H Creatinine 1.5 mg/dL (0.6-1.0) H Estimated GFR (Cockcroft-Gault) 32.8 BUN/Creatinine Ratio 23 (6-20) H Glucose Level 94 mg/dL (70-99) Calcium Level 8.8 mg/dL (8.5-10.1) Total Bilirubin 0.3 mg/dL (0.2-1.0) Aspartate Amino Transferase (AST) 19 U/L (15-37) Alanine Aminotransferase (ALT) 12 U/L (14-59) L Alkaline Phosphatase 137 U/L (46-116) H Total Protein 6.5 g/dL (6.4-8.2) Albumin 2.9 g/dL (3.4-5.0) L Albumin/Globulin Ratio 0.8 (1.0-1.7) L Current Medications: Meds: Current Medications Sodium Chloride 500 ml @ 0 mls/hr 1X ONCE IV ; Start 09/13/18 at 14:00; Stop 09/13/18 at 14:30; Status DC Acetaminophen (Tylenol) 650 mg PRN Q6HRS PRN PO PAIN / TEMP Last administered on 10/06/18at 05:34; Start 09/13/18 at 17:15 Multi-Ingredient Ointment (Analgesic [place]) 1 patrick PRN QID PRN TP MUSCLE PAIN Last administered on 10/04/18at 16:33; Start 09/13/18 at 17:15 Al Hydroxide/Mg Hydroxide (Mylanta Plus Xs) 15 ml PRN AFTMEALHC PRN PO DYSPEPSIA; Start 09/13/18 at 17:15 Magnesium Hydroxide (Milk Of Magnesia) 2,400 mg PRN QHS PRN PO CONSTIPATION; Start 09/13/18 at 17:15 Citalopram Hydrobromide (CeleXA) 20 mg DAILY PO Last administered on 09/14/18at 09:00; Start 09/14/18 at 09:00; Stop 09/14/18 at 17:18; Status DC Furosemide (Lasix) 20 mg DAILY PO Last administered on 09/14/18 09:00; Start 09/14/18 at 09:00; Stop 09/14/18 at 17:22; Status DC Senna/Docusate Sodium (Senna Plus) 1 tab DAILY PO Last administered on 10/09/18 09:03; Start 09/14/18 at 09:00 Simvastatin (Zocor) 40 mg QHS PO Last administered on 10/09/18 20:51; Start 09/13/18 at 21:00 Calcium/Vitamin D (Oscal D 500mg/ 200uts) 1 tab DAILY PO Last administered on 10/09/18 09:02; Start 09/14/18 at 09:00 Carbidopa/Levodopa (Sinemet 25/250) 1 tab TID PO Last administered on 10/09/18 20:51; Start 09/13/18 at 21:00 Vitamin D (Vitamin D3) 2,000 unit DAILY PO Last administered on 10/09/18 09:02; Start 09/14/18 at 09:00 Vitamin B Complex 1 cap DAILY PO Last administered on 10/09/18 09:04; Start 09/14/18 at 09:00 Famotidine (Pepcid) 20 mg BID PO Last administered on 09/14/18 09:00; Start 09/13/18 at 21:00; Stop 09/14/18 at 17:20; Status DC Levothyroxine Sodium (Synthroid) 150 mcg DAILY06 PO Last administered on 10/09/18 05:07; Start 09/14/18 at 06:00 Multivitamins/ Calcium (Thera-M Plus) 1 tab DAILY PO Last administered on 10/09/18 09:04; Start 09/14/18 at 09:00 Fish Oil (Fish Oil) 1,000 mg DAILY PO Last administered on 10/09/18 09:00; St art 09/14/18 at 09:00 Pantoprazole Sodium (Protonix) 40 mg DAILY07 PO Last administered on 09/27/18 06:10; Start 09/14/18 at 07:00; Stop 09/28/18 at 05:36; Status DC Polyethylene Glycol (miraLAX) 17 gm PRN DAILY PRN PO CONSTIPATION Last administered on 10/09/18 22:10; Start 09/13/18 at 19:45 Albuterol/ Ipratropium (Duoneb) 3 ml RTQID NEB Last administered on 09/14/18 05:21; Start 09/13/18 at 20:00; Stop 09/14/18 at 14:10; Status DC Artificial Tears (Refresh Classic) 2 drop DAILY OU Last administered on 10/09/18at 09:00; Start 09/14/18 at 09:00 Lactobacillus Rhamnosus (Culturelle) 1 cap BID PO Last administered on 10/09/18 20:51; Start 09/13/18 at 21:00 Midodrine (Proamatine) 5 mg [id number] PO Last administered on 09/19/18 13:12; Start 09/14/18 at 07:00; Stop 09/22/18 at 14:14; Status DC Ropinirole HCl (Requip) 1 mg BID PO Last administered on 10/09/18at 20:51; Start 09/13/18 at 21:00 Albuterol/ Ipratropium (Duoneb) 3 ml PRN QID PRN NEB CONGESTION; Start 09/14/18 at 14:15 Sertraline HCl (Zoloft) 50 mg DAILY PO Last administered on 09/15/18at 09:04; Start 09/15/18 at 09:00; Stop 09/15/18 at 15:03; Status DC Quetiapine Fumarate (SEROquel) 25 mg QHS PO Last administered on 10/09/18 20:51; Start 09/14/18 at 21:00 Vitamin D (Vitamin D3) 50,000 unit WEEKLY PO Last administered on 10/05/18at 07:36; Start 09/14/18 at 17:30 Sertraline HCl (Zoloft) 50 mg DAILY PO Last administered on 09/20/18at 08:58; Start 09/16/18 at 09:00; Stop 09/20/18 at 16:44; Status DC Furosemide (Lasix) 20 mg DAILY PO Last administered on 10/04/18at 09:42; Start 09/20/18 at 09:00; Stop 10/04/18 at 17:15; Status DC Sertraline HCl (Zoloft) 75 mg DAILY PO Last administered on 10/09/18 09:06; Start 09/21/18 at 09:00 Midodrine (Proamatine) 5 mg [id number] PRN PO hypotension Last administered on 10/06/18 09:01; Start 09/22/18 at 14:15 Pantoprazole Sodium (Protonix) 40 mg DAILYAC PO Last administered on 10/09/18 05:07; Start 09/28/18 at 07:30 Diclofenac Sodium (Voltaren) 1 patrick BID TP Last administered on 10/09/18 20:52; Start 09/29/18 at 21:00 Furosemide (Lasix) 40 mg DAILY PO Last administered on 10/09/18 09:05; Start 10/05/18 at 09:00 Tramadol HCl (Ultram) 50 mg PRN Q6HRS PRN PO PAIN Last administered on 10/09/18 22:10; Start 10/06/18 at 18:30 Active Scripts Active Synthroid (Levothyroxine Sodium) 150 Mcg Tablet 150 Mcg PO DAILY07 Reported Protonix (Pantoprazole Sodium) 40 Mg Granpkt.dr 40 Mg PO DAILY07 Acidophilus (Lactobacillus Acidophilus) 1 Each Capsule 1 Each PO BID Refresh Optive Eye Drops (Carboxymethylcellulos/Glycerin) 15 Ml Drops 2 Drop EACHEYE DAILY Famotidine 20 Mg Tablet 1 Tab PO BID Duoneb 0.5-3(2.5) Mg/3 Ml (Albuterol/Ipratropium) 3 Ml Ampul.neb 3 Ml NEB QID Citalopram Hbr (Citalopram Hydrobromide) 20 Mg Tablet 20 Mg PO DAILY Carbidopa-Levodopa 25-250 Tab (Carbidopa/Levodopa) 1 Each Tablet 1 Tab PO TID LAST DOSE GIVEN: DATE: TODAY TIME: AM NEXT DOSE DUE: DATE: TODAY TIME: AFTERNOON Polyethylene Glycol 3350 255 Gm Powder 17 Gm PO DAILY PRN NOT GIVEN TODAY NEXT DOSE DUE: DATE: TODAY TIME: IF AND WHEN NEEDED Senna-Docusate Sodium Tablet (Sennosides/Docusate Sodium) 1 Each Tablet 1 Tab PO DAILY LAST DOSE GIVEN: DATE: TODAY TIME: AM NEXT DOSE DUE: DATE: TOMORROW TIME: AM [place] 3 1,000 Mg Softgel ([place]-3 Fatty Acids/Fish Oil) 1 Each Capsule 1 Each PO DAILY LAST DOSE GIVEN: DATE: TIME: AM NEXT DOSE DUE: DATE: TOMORR TIME: AM Simvastatin 40 Mg Tablet 40 Mg PO QHS LAST DOSE GIVEN: DATE: YESTER TIME: PM NEXT DOSE DUE: DATE: TODAY TIME: PM Lasix (Furosemide) 20 Mg Tablet 20 Mg PO DAILY LAST DOSE GIVEN: DATE: TIME: AM NEXT DOSE DUE: DATE: ORR TIME: AM Requip (Ropinirole Hcl) 1 Mg Tablet 1 Mg PO BID LAST DOSE GIVEN: DATE: TIME: AM NEXT DOSE DUE: DATE: TODAY TIME: PM Midodrine Hcl 5 Mg Tablet 5 Mg PO Q8HRS LAST DOSE GIVEN: DATE: TIME: AM NEXT DOSE DUE: DATE: TIME: AFTERNOON Vitamin D-3 (Cholecalciferol (Vitamin D3)) 2,000 Unit Tablet 2,000 Unit PO DAILY LAST DOSE GIVEN: DATE: TIME: AM NEXT DOSE DUE: DATE: TIME: AM Calcium 600 + Vit D 200 Tablet (Calcium Carbonate/Vitamin D3) 1 Each Tablet 1 Tab PO DAILY LAST DOSE GIVEN: DATE: TIME: AM NEXT DOSE DUE: DATE:ORR TIME: AM Daily Vitamin (Multivitamin) 1 Each Tablet 1 Each PO DAILY LAST DOSE GIVEN: DATE: TIME: AM NEXT DOSE DUE: DATE: ORR TIME: AM Vitamin B94-Whbgq Acid Tablet (Cyanocobalamin/Folic Acid) 1 Each Tablet 1 Each PO DAILY LAST DOSE GIVEN: DATE: TIME: AM NEXT DOSE DUE: DATE: TIME: AM I have reviewed the current psychotropics carefully including drug interactions. Risk benefit ratio favors no change other than as noted in my dictated progress note. Diagnosis: Problems: (1) Major depressive disorder (2) Anxiety disorder (3) Impulse control disorder (4) Dementia, vascular, with depression (5) Dementia, vascular, with delusions (6) Dementia in Alzheimer's disease with depression (7) Dementia in Alzheimer's disease with delusions (8) Major neurocognitive disorder SAMMY DANIEL MD October 09, 2018 22:30
--- NOTE | 2018-10-09 23:30 | NUR ---
Patient pleasant, calm and social. Watching TV with peers in day room this evening. She continues to report pain in her Left heel/ankle. Skin is edematous on BLLE but greater on the left side. Dr. Hopkins is aware, CT and Xray have both been done, showing soft tissue swelling and de-mineralization. Patient reports constipation, PRN miralax provided at HS with night medication at 2200. Patient is very polite and thanks staff for any assistance they provide. She is in wheelchair r/t foot pain and can transfer with assist x1. Compliant with HS medications taken whole with water. Addendum: 10/10/18 at 2206 by LUCILA OCHOA RN Patient reports large bowel movement 10/10. Miralax effective.
--- NOTE | 2018-10-09 23:30 | NUR ---
Patient provided PRN Tramadol for pain in her left foot/ankle region at 2200 with HS meds. She reports 6/10 pain while sitting on couch with foot elevated on wheelchair. Patient sleeps with socks off, feet elevated and heels floated on a pillow at night. Will continue to monitor.
[2018-10-10] MEDS: LEVOTHYROXINE 150 MCG TABLET PO SCH (05:23)
[2018-10-10 06:18] VITALS: BP 136/70
[2018-10-10] MEDS: PANTOPRAZOLE 40 MG TABLET. PO SCH (07:54)
[2018-10-10] MEDS: LACTOBACILLUS RHAMNOSUS GG 1 CAPSULE. PO SCH ×2 (07:55→20:08)
[2018-10-10] MEDS: VITAMIN B COMPLEX CAPSULE. PO SCH (07:55)
[2018-10-10] MEDS: POLYVINYL ALCOHOL/POVIDONE/PF OPHTH SOLUTION DROPERETTE. OU SCH (07:55)
[2018-10-10] MEDS: OMEGA-3 FATTY ACIDS/FISH OIL 1,000 MG CAPSULE. PO SCH (07:56)
[2018-10-10] MEDS: MULTIVITAMIN with MINERAL TABLET. PO SCH (07:56)
[2018-10-10] MEDS: CARBIDOPA/LEVODOPA 25/250MG TABLET PO SCH ×3 (07:56→20:08)
[2018-10-10] MEDS: SERTRALINE 25 MG TABLET. PO SCH (07:57)
[2018-10-10] MEDS: CHOLECALCIFEROL (VITAMIN D3) 1,000 UNIT TABLET PO SCH (07:57)
[2018-10-10] MEDS: FUROSEMIDE 20 MG TABLET PO SCH (07:57)
[2018-10-10] MEDS: CALCIUM CARB/VIT D3 500/200 TABLET PO SCH (07:58)
[2018-10-10] MEDS: SENNOSIDES/DOCUSATE 8.6/50MG TABLET. PO SCH (07:59)
[2018-10-10] MEDS: MIDODRINE 5 MG TABLET PO PRN (07:59)
[2018-10-10] MEDS: rOPINIRole 1 MG TABLET. PO SCH ×2 (08:00→20:08)
[2018-10-10] MEDS: DICLOFENAC SODIUM 1% TOPICAL GEL 100GM TUBE. TP SCH ×2 (08:01→20:37)
--- NOTE | 2018-10-10 12:22 | PN ---
DATE: 10/09/2018 PSYCHIATRIC PROGRESS NOTE This note covers elements not covered in my initial note 10/09/2018. SUBJECTIVE: I met with the patient in the evening. The patient slept 5-3/4 hours previous evening. BUN 34, creatinine 1.5, which is increased from 30/1.2. We are pushing fluids. REVIEW OF SYSTEMS: Ambulation impaired. No CV, , pulmonary, ENT system symptoms on review. MENTAL STATUS EXAM: Oriented to herself and situation. Speech is coherent, abstraction fair, computation somewhat impaired, language function intact, attention span short. Mood and affect showing improvement. No agitation, aggression, and she was proud of this as I questioned her. LABORATORY DATA: Reviewed. IMPRESSION: Unchanged from initial note. PLAN: No change from initial note. MAN Laura DANIEL MD DR: ISABELLA/yue JOB#: [id number] / [id number]
[2018-10-10 16:16] VITALS: BP 119/62
--- NOTE | 2018-10-10 16:55 | NUR ---
Patient has been tired today and has taken several naps despite sleeping 6 hours last night. No new behaviors, has taken all medications without complaint. Still reporting left ankle pain for which she received prescribe lotion and she has had a shower today. Participated in one group treatment session. No additional concerns or changes at this time. Will continue to monitor.
[2018-10-10] MEDS: QUEtiapine 25 MG TABLET. PO SCH (20:08)
[2018-10-10] MEDS: SIMVASTATIN 40 MG TABLET. PO SCH (20:08)
--- NOTE | 2018-10-10 20:13 | NUR ---
Patient reports headache at assessment. She stated it is a"dull ache" behind her forehead, above her eyes. Pt reluctant to take tylenol at this time. Nurse encouraged patient to drink big glass of ice water because dehydration can cause headaches. Will continue to monitor patient. Addendum: 10/10/18 at 2016 by LUCILA OCHOA RN Patients BUN 34, CR 1.5 at yesterdays labs.
[2018-10-10] MEDS: traMADol 50 MG TABLET PO PRN (21:20)
--- NOTE | 2018-10-10 21:21 | NUR ---
Patient in day room watching a movie with foot elevated. She reports pain 6/10 and requests PRN tramadol with HS meds. PRN tramadol provided for pain per order. Will continue to monitor.
--- NOTE | 2018-10-10 22:02 | NUR ---
Patient calm, compliant and cooperative. Alert, oriented x4. She no longer cries or refused cares. Tonight pt reports 7/10 pain in left foot mainly in the arch area and in the heel. No new visible changes. She has BLLE however left foot is swollen more than right. Applied Diclofenac gel into foot and heel, massaged foot at bed time. Foot elevated on pillows with heels floated. Will continue to monitor.
--- NOTE | 2018-10-10 22:35 | PDOC ---
Exam Note: Oscar Note: Please also refer to the separate dictated note~for this date of service dictated separately.~Patient seen individually. Discussed the patient with Nursing staff reviewed the chart.~Reviewed interim history and current functioning. Reviewed vital signs,~Labs/ Radiology~and current medications noted below. Continue current treatment with the changes noted in the dictated addendum note Assessment: Vital Signs: Vital Signs Date Time Temp Pulse Resp B/P (MAP) Pulse Ox O2 Delivery O2 Flow Rate FiO2 10/10/18 21:20 17 Room Air 10/10/18 16:16 97.3 69 119/62 (81) 96 I&O Intake and Output 10/10/18 06:59 Intake Total 960 ml Balance 960 ml Intake Oral 960 ml Current Medications: Meds: Current Medications Sodium Chloride 500 ml @ 0 mls/hr 1X ONCE IV ; Start 09/13/18 at 14:00; Stop 09/13/18 at 14:30; Status DC Acetaminophen (Tylenol) 650 mg PRN Q6HRS PRN PO PAIN / TEMP Last administered on 10/06/18at 05:34; Start 09/13/18 at 17:15 Multi-Ingredient Ointment (Analgesic [place]) 1 patrick PRN QID PRN TP MUSCLE PAIN Last administered on 10/04/18at 16:33; Start 09/13/18 at 17:15 Al Hydroxide/Mg Hydroxide (Mylanta Plus Xs) 15 ml PRN AFTMEALHC PRN PO DYSPEPSIA; Start 09/13/18 at 17:15 Magnesium Hydroxide (Milk Of Magnesia) 2,400 mg PRN QHS PRN PO CONSTIPATION; Start 09/13/18 at 17:15 Citalopram Hydrobromide (CeleXA) 20 mg DAILY PO Last administered on 09/14/18at 09:00; Start 09/14/18 at 09:00; Stop 09/14/18 at 17:18; Status DC Furosemide (Lasix) 20 mg DAILY PO Last administered on 09/14/18at 09:00; Start 09/14/18 at 09:00; Stop 09/14/18 at 17:22; Status DC Senna/Docusate Sodium (Senna Plus) 1 tab DAILY PO Last administered on 10/10/18at 07:59; Start 09/14/18 at 09:00 Simvastatin (Zocor) 40 mg QHS PO Last administered on 10/10/18 20:08; Start 09/13/18 at 21:00 Calcium/Vitamin D (Oscal D 500mg/ 200uts) 1 tab DAILY PO Last administered on 10/10/18 07:58; Start 09/14/18 at 09:00 Carbidopa/Levodopa (Sinemet 25/250) 1 tab TID PO Last administered on 10/10/18 20:08; Start 09/13/18 at 21:00 Vitamin D (Vitamin D3) 2,000 unit DAILY PO Last administered on 10/10/18 07:57; Start 09/14/18 at 09:00 Vitamin B Complex 1 cap DAILY PO Last administered on 10/10/18 07:55; Start 09/14/18 at 09:00 Famotidine (Pepcid) 20 mg BID PO Last administered on 09/14/18 09:00; Start 09/13/18 at 21:00; Stop 09/14/18 at 17:20; Status DC Levothyroxine Sodium (Synthroid) 150 mcg DAILY06 PO Last administered on 10/10/18 05:23; Start 09/14/18 at 06:00 Multivitamins/ Calcium (Thera-M Plus) 1 tab DAILY PO Last administered on 10/10/18 07:56; Start 09/14/18 at 09:00 Fish Oil (Fish Oil) 1,000 mg DAILY PO Last administered on 10/10/18 07:56; Start 09/14/18 at 09:00 Pantoprazole Sodium (Protonix) 40 mg DAILY07 PO Last administered on 09/27/18 06:10; Start 09/14/18 at 07:00; Stop 09/28/18 at 05:36; Status DC Polyethylene Glycol (miraLAX) 17 gm PRN DAILY PRN PO CONSTIPATION Last administered on 10/09/18 22:10; Start 09/13/18 at 19:45 Albuterol/ Ipratropium (Duoneb) 3 ml RTQID NEB Last administered on 09/14/18 05:21; Start 09/13/18 at 20:00; Stop 09/14/18 at 14:10; Status DC Artificial Tears (Refresh Classic) 2 drop DAILY OU Last administered on 10/10/18 07:55; Start 09/14/18 at 09:00 Lactobacillus Rhamnosus (Culturelle) 1 cap BID PO Last administered on 10/10/18 20:08; Start 09/13/18 at 21:00 Midodrine (Proamatine) 5 mg [id number] PO Last administered on 09/19/18 13:12; Start 09/14/18 at 07:00; Stop 09/22/18 at 14:14; Status DC Ropinirole HCl (Requip) 1 mg BID PO Last administered on 10/10/18 20:08; Start 09/13/18 at 21:00 Albuterol/ Ipratropium (Duoneb) 3 ml PRN QID PRN NEB CONGESTION; Start 09/14/18 at 14:15 Sertraline HCl (Zoloft) 50 mg DAILY PO Last administered on 09/15/18 09:04; Start 09/15/18 at 09:00; Stop 09/15/18 at 15:03; Status DC Quetiapine Fumarate (SEROquel) 25 mg QHS PO Last administered on 10/10/18 20:08; Start 09/14/18 at 21:00 Vitamin D (Vitamin D3) 50,000 unit WEEKLY PO Last administered on 10/05/18 07:36; Start 09/14/18 at 17:30 Sertraline HCl (Zoloft) 50 mg DAILY PO Last administered on 09/20/18 08:58; Start 09/16/18 at 09:00; Stop 09/20/18 at 16:44; Status DC Furosemide (Lasix) 20 mg DAILY PO Last administered on 10/04/18 09:42; Start 09/20/18 at 09:00; Stop 10/04/18 at 17:15; Status DC Sertraline HCl (Zoloft) 75 mg DAILY PO Last administered on 10/10/18 07:57; Start 09/21/18 at 09:00 Midodrine (Proamatine) 5 mg [id number] PRN PO hypotension Last administered on 10/10/18 07:59; Start 09/22/18 at 14:15 Pantoprazole Sodium (Protonix) 40 mg DAILYAC PO Last administered on 10/10/18 07:54; Start 09/28/18 at 07:30 Diclofenac Sodium (Voltaren) 1 patrick BID TP Last administered on 10/10/18at 20:37; Start 09/29/18 at 21:00 Furosemide (Lasix) 40 mg DAILY PO Last administered on 10/10/18at 07:57; Start 10/05/18 at 09:00 Tramadol HCl (Ultram) 50 mg PRN Q6HRS PRN PO PAIN Last administered on 10/10/18at 21:20; Start 10/06/18 at 18:30 Active Scripts Active Synthroid (Levothyroxine Sodium) 150 Mcg Tablet 150 Mcg PO DAILY07 Reported Protonix (Pantoprazole Sodium) 40 Mg Granpkt.dr 40 Mg PO DAILY07 Acidophilus (Lactobacillus Acidophilus) 1 Each Capsule 1 Each PO BID Refresh Optive Eye Drops (Carboxymethylcellulos/Glycerin) 15 Ml Drops 2 Drop EACHEYE DAILY Famotidine 20 Mg Tablet 1 Tab PO BID Duoneb 0.5-3(2.5) Mg/3 Ml (Albuterol/Ipratropium) 3 Ml Ampul.neb 3 Ml NEB QID Citalopram Hbr (Citalopram Hydrobromide) 20 Mg Tablet 20 Mg PO DAILY Carbidopa-Levodopa 25-250 Tab (Carbidopa/Levodopa) 1 Each Tablet 1 Tab PO TID LAST DOSE GIVEN: DATE: TODAY TIME: AM NEXT DOSE DUE: DATE: TODAY TIME: AFTERNOON Polyethylene Glycol 3350 255 Gm Powder 17 Gm PO DAILY PRN NOT GIVEN TODAY NEXT DOSE DUE: DATE: TODAY TIME: IF AND WHEN NEEDED Senna-Docusate Sodium Tablet (Sennosides/Docusate Sodium) 1 Each Tablet 1 Tab PO DAILY LAST DOSE GIVEN: DATE: TODAY TIME: AM NEXT DOSE DUE: DATE: TOMORROW TIME: AM [place] 3 1,000 Mg Softgel ([place]-3 Fatty Acids/Fish Oil) 1 Each Capsule 1 Each PO DAILY LAST DOSE GIVEN: DATE: TODAY TIME: AM NEXT DOSE DUE: DATE: TOMORROW TIME: AM Simvastatin 40 Mg Tablet 40 Mg PO QHS LAST DOSE GIVEN: DATE: YESTERDAY TIME: PM NEXT DOSE DUE: DATE: TODAY TIME: PM Lasix (Furosemide) 20 Mg Tablet 20 Mg PO DAILY LAST DOSE GIVEN: DATE: TODAY TIME: AM NEXT DOSE DUE: DATE: TOMORROW TIME: AM Requip (Ropinirole Hcl) 1 Mg Tablet 1 Mg PO BID LAST DOSE GIVEN: DATE: TIME: AM NEXT DOSE DUE: DATE: TODAY TIME: PM Midodrine Hcl 5 Mg Tablet 5 Mg PO Q8HRS LAST DOSE GIVEN: DATE: TIME: AM NEXT DOSE DUE: DATE: TIME: AFTERNOON Vitamin D-3 (Cholecalciferol (Vitamin D3)) 2,000 Unit Tablet 2,000 Unit PO DAILY LAST DOSE GIVEN: DATE: TIME: AM NEXT DOSE DUE: DATE: TOMORROW TIME: AM Calcium 600 + Vit D 200 Tablet (Calcium Carbonate/Vitamin D3) 1 Each Tablet 1 Tab PO DAILY LAST DOSE GIVEN: DATE: TIME: AM NEXT DOSE DUE: DATE:TOMORROW TIME: AM Daily Vitamin (Multivitamin) 1 Each Tablet 1 Each PO DAILY LAST DOSE GIVEN: DATE: TIME: AM NEXT DOSE DUE: DATE: TOMORR TIME: AM Vitamin I39-Mwmlq Acid Tablet (Cyanocobalamin/Folic Acid) 1 Each Tablet 1 Each PO DAILY LAST DOSE GIVEN: DATE: TIME: AM NEXT DOSE DUE: DATE: ORR TIME: AM I have reviewed the current psychotropics carefully including drug interactions. Risk benefit ratio favors no change other than as noted in my dictated progress note. Diagnosis: Problems: (1) Major depressive disorder (2) Anxiety disorder (3) Impulse control disorder (4) Dementia, vascular, with depression (5) Dementia, vascular, with delusions (6) Dementia in Alzheimer's disease with depression (7) Dementia in Alzheimer's disease with delusions (8) Major neurocognitive disorder SAMMY DANIEL MD October 10, 2018 22:35
--- NOTE | 2018-10-10 23:31 | PN ---
DATE: 10/10/2018 PSYCHIATRIC PROGRESS NOTE This note covers elements not covered in my initial note 10/10/2018. SUBJECTIVE: I met with the patient in the evening. The patient slept 6 hours previous night. She had a shower, has been pleasant, social, took a nap in the afternoon. REVIEW OF SYSTEMS: Positive for bilateral pedal edema, impaired ambulation, in wheelchair. No CV, , pulmonary, eye, ENT system symptoms on review. MENTAL STATUS EXAM: Oriented to herself and situation. Speech is coherent, has some latency. Abstraction fair, computation impaired, language function intact, attention span fair. Mood and affect is improved. IMPRESSION: Unchanged from initial note. PLAN: No change from initial note. MAN Laura DANIEL MD DR: ISABELLA/yue JOB#: [id number] / [id number]
--- NOTE | 2018-10-11 | PN ---
DATE: 10/07/2018 PSYCHIATRIC PROGRESS NOTE This late entry 10/07/2018 covers elements not covered in my initial note. SUBJECTIVE: I met with the patient in the evening of 10/07/2018. The patient slept 4-1/2 hours previous night. She took a nap, then was calm rest of the day, vomited after lunch. We will monitor this. Took Ultram for pain. REVIEW OF SYSTEMS: Impaired ambulation, bilateral pedal edema. She keeps her feet raised. No CV, , pulmonary, eye system symptoms on review. MENTAL STATUS EXAM: Oriented to herself and situation. Speech is coherent, abstraction fair, computation impaired, language function intact, attention span short. Mood and affect showing improvement, less lability, not aggressive. LABORATORY DATA: Reviewed. IMPRESSION: Unchanged from initial note. PLAN: No change from initial note. MAN Laura DANIEL MD DR: ISABELLA/yue JOB#: [id number] / [id number]
--- NOTE | 2018-10-11 01:00 | PN ---
DATE: 10/08/2018 PSYCHIATRIC PROGRESS NOTE This late entry 10/08/2018 covers elements not covered in my initial note. SUBJECTIVE: I met with the patient in the evening of 10/08/2018. The patient slept 7-3/4 hours previous night. She states the right foot is better, keeps it elevated. Pedal edema is improved, less anxious, irritable. REVIEW OF SYSTEMS: Ambulation impaired, noted with walker. No CV, , pulmonary, eye system symptoms on review. MENTAL STATUS EXAM: Oriented to herself and situation. Speech is coherent, abstraction fair, computation impaired, language function intact. Mood and affect is improved. LABORATORY DATA: Reviewed. IMPRESSION: Unchanged from initial note. PLAN: No change from initial note. MAN Laura DANIEL MD DR: ISABELLA/yue JOB#: [id number] / [id number]
[2018-10-11 06:02] VITALS: BP 147/71
[2018-10-11] MEDS: LEVOTHYROXINE 150 MCG TABLET PO SCH (06:18)
[2018-10-11] MEDS: PANTOPRAZOLE 40 MG TABLET. PO SCH (08:19)
[2018-10-11] MEDS: POLYVINYL ALCOHOL/POVIDONE/PF OPHTH SOLUTION DROPERETTE. OU SCH (08:19)
[2018-10-11] MEDS: CALCIUM CARB/VIT D3 500/200 TABLET PO SCH (08:20)
[2018-10-11] MEDS: SENNOSIDES/DOCUSATE 8.6/50MG TABLET. PO SCH (08:20)
[2018-10-11] MEDS: rOPINIRole 1 MG TABLET. PO SCH ×2 (08:20→20:25)
[2018-10-11] MEDS: CARBIDOPA/LEVODOPA 25/250MG TABLET PO SCH ×3 (08:20→20:25)
[2018-10-11] MEDS: OMEGA-3 FATTY ACIDS/FISH OIL 1,000 MG CAPSULE. PO SCH (08:20)
[2018-10-11] MEDS: LACTOBACILLUS RHAMNOSUS GG 1 CAPSULE. PO SCH ×2 (08:20→20:24)
[2018-10-11] MEDS: FUROSEMIDE 20 MG TABLET PO SCH (08:20)
[2018-10-11] MEDS: VITAMIN B COMPLEX CAPSULE. PO SCH (08:20)
[2018-10-11] MEDS: MULTIVITAMIN with MINERAL TABLET. PO SCH (08:21)
[2018-10-11] MEDS: SERTRALINE 25 MG TABLET. PO SCH (08:21)
[2018-10-11] MEDS: CHOLECALCIFEROL (VITAMIN D3) 1,000 UNIT TABLET PO SCH (08:21)
[2018-10-11] MEDS: DICLOFENAC SODIUM 1% TOPICAL GEL 100GM TUBE. TP SCH ×2 (08:21→20:54)
--- NOTE | 2018-10-11 11:24 | NUR ---
Pt is cooperative, compliant and calm. No SI/HI. No agitation, aggression, hallucinations or delusions. She is compliant with her medication and assessment.
[2018-10-11 16:34] VITALS: BP 99/61
[2018-10-11] MEDS: SIMVASTATIN 40 MG TABLET. PO SCH (20:25)
[2018-10-11] MEDS: QUEtiapine 25 MG TABLET. PO SCH (20:26)
[2018-10-11] MEDS: traMADol 50 MG TABLET PO PRN (20:54)
--- NOTE | 2018-10-11 22:39 | PDOC ---
Exam Note: Oscar Note: Please also refer to the separate dictated note~for this date of service dictated separately.~Patient seen individually. Discussed the patient with Nursing staff reviewed the chart.~Reviewed interim history and current functioning. Reviewed vital signs,~Labs/ Radiology~and current medications noted below. Continue current treatment with the changes noted in the dictated addendum note Assessment: Vital Signs: Vital Signs Date Time Temp Pulse Resp B/P (MAP) Pulse Ox O2 Delivery O2 Flow Rate FiO2 10/11/18 20:54 18 95 10/11/18 16:34 97.6 71 99/61 (74) Room Air I&O Intake and Output 10/11/18 06:59 Intake Total 1380 ml Balance 1380 ml Intake Oral 1380 ml # Voids 1 # Bowel Movements 1 Current Medications: Meds: Current Medications Sodium Chloride 500 ml @ 0 mls/hr 1X ONCE IV ; Start 09/13/18 at 14:00; Stop 09/13/18 at 14:30; Status DC Acetaminophen (Tylenol) 650 mg PRN Q6HRS PRN PO PAIN / TEMP Last administered on 10/06/18at 05:34; Start 09/13/18 at 17:15 Multi-Ingredient Ointment (Analgesic [place]) 1 patrick PRN QID PRN TP MUSCLE PAIN Last administered on 10/04/18at 16:33; Start 09/13/18 at 17:15 Al Hydroxide/Mg Hydroxide (Mylanta Plus Xs) 15 ml PRN AFTMEALHC PRN PO DYSPEPSIA; Start 09/13/18 at 17:15 Magnesium Hydroxide (Milk Of Magnesia) 2,400 mg PRN QHS PRN PO CONSTIPATION; Start 09/13/18 at 17:15 Citalopram Hydrobromide (CeleXA) 20 mg DAILY PO Last administered on 09/14/18at 09:00; Start 09/14/18 at 09:00; Stop 09/14/18 at 17:18; Status DC Furosemide (Lasix) 20 mg DAILY PO Last administered on 09/14/18at 09:00; Start 09/14/18 at 09:00; Stop 09/14/18 at 17:22; Status DC Senna/Docusate Sodium (Senna Plus) 1 tab DAILY PO Last administered on 10/11/18at 08:20; Start 09/14/18 at 09:00 Simvastatin (Zocor) 40 mg QHS PO Last administered on 10/11/18 20:25; Start 09/13/18 at 21:00 Calcium/Vitamin D (Oscal D 500mg/ 200uts) 1 tab DAILY PO Last administered on 10/11/18 08:20; Start 09/14/18 at 09:00 Carbidopa/Levodopa (Sinemet 25/250) 1 tab TID PO Last administered on 10/11/18 20:25; Start 09/13/18 at 21:00 Vitamin D (Vitamin D3) 2,000 unit DAILY PO Last administered on 10/11/18 08:21; Start 09/14/18 at 09:00 Vitamin B Complex 1 cap DAILY PO Last administered on 10/11/18 08:20; Start 09/14/18 at 09:00 Famotidine (Pepcid) 20 mg BID PO Last administered on 09/14/18 09:00; Start 09/13/18 at 21:00; Stop 09/14/18 at 17:20; Status DC Levothyroxine Sodium (Synthroid) 150 mcg DAILY06 PO Last administered on 10/11/18 06:18; Start 09/14/18 at 06:00 Multivitamins/ Calcium (Thera-M Plus) 1 tab DAILY PO Last administered on 10/11/18 08:21; Start 09/14/18 at 09:00 Fish Oil (Fish Oil) 1,000 mg DAILY PO Last administered on 10/11/18 08:20; Start 09/14/18 at 09:00 Pantoprazole Sodium (Protonix) 40 mg DAILY07 PO Last administered on 09/27/18 06:10; Start 09/14/18 at 07:00; Stop 09/28/18 at 05:36; Status DC Polyethylene Glycol (miraLAX) 17 gm PRN DAILY PRN PO CONSTIPATION Last administered on 10/09/18at 22:10; Start 09/13/18 at 19:45 Albuterol/ Ipratropium (Duoneb) 3 ml RTQID NEB Last administered on 09/14/18 05:21; Start 09/13/18 at 20:00; Stop 09/14/18 at 14:10; Status DC Artificial Tears (Refresh Classic) 2 drop DAILY OU Last administered on 10/11/18 08:19; Start 09/14/18 at 09:00 Lactobacillus Rhamnosus (Culturelle) 1 cap BID PO Last administered on 10/11/18 20:24; Start 09/13/18 at 21:00 Midodrine (Proamatine) 5 mg [id number] PO Last administered on 09/19/18 13:12; Start 09/14/18 at 07:00; Stop 09/22/18 at 14:14; Status DC Ropinirole HCl (Requip) 1 mg BID PO Last administered on 10/11/18 20:25; Start 09/13/18 at 21:00 Albuterol/ Ipratropium (Duoneb) 3 ml PRN QID PRN NEB CONGESTION; Start 09/14/18 at 14:15 Sertraline HCl (Zoloft) 50 mg DAILY PO Last administered on 09/15/18 09:04; Start 09/15/18 at 09:00; Stop 09/15/18 at 15:03; Status DC Quetiapine Fumarate (SEROquel) 25 mg QHS PO Last administered on 10/11/18 20:26; Start 09/14/18 at 21:00 Vitamin D (Vitamin D3) 50,000 unit WEEKLY PO Last administered on 10/05/18 07:36; Start 09/14/18 at 17:30 Sertraline HCl (Zoloft) 50 mg DAILY PO Last administered on 09/20/18 08:58; Start 09/16/18 at 09:00; Stop 09/20/18 at 16:44; Status DC Furosemide (Lasix) 20 mg DAILY PO Last administered on 10/04/18at 09:42; Start 09/20/18 at 09:00; Stop 10/04/18 at 17:15; Status DC Sertraline HCl (Zoloft) 75 mg DAILY PO Last administered on 10/11/18 08:21; Start 09/21/18 at 09:00 Midodrine (Proamatine) 5 mg [id number] PRN PO hypotension Last administered on 10/10/18 07:59; Start 09/22/18 at 14:15 Pantoprazole Sodium (Protonix) 40 mg DAILYAC PO Last administered on 5/28/19at 08:19; Start 09/28/18 at 07:30 Diclofenac Sodium (Voltaren) 1 patrick BID TP Last administered on 10/11/18at 20:54; Start 09/29/18 at 21:00 Furosemide (Lasix) 40 mg DAILY PO Last administered on 10/11/18at 08:20; Start 10/05/18 at 09:00 Tramadol HCl (Ultram) 50 mg PRN Q6HRS PRN PO PAIN Last administered on at 20:54; Start 10/06/18 at 18:30 Active Scripts Active Synthroid (Levothyroxine Sodium) 150 Mcg Tablet 150 Mcg PO DAILY07 Reported Protonix (Pantoprazole Sodium) 40 Mg Granpkt.dr 40 Mg PO DAILY07 Acidophilus (Lactobacillus Acidophilus) 1 Each Capsule 1 Each PO BID Refresh Optive Eye Drops (Carboxymethylcellulos/Glycerin) 15 Ml Drops 2 Drop EACHEYE DAILY Famotidine 20 Mg Tablet 1 Tab PO BID Duoneb 0.5-3(2.5) Mg/3 Ml (Albuterol/Ipratropium) 3 Ml Ampul.neb 3 Ml NEB QID Citalopram Hbr (Citalopram Hydrobromide) 20 Mg Tablet 20 Mg PO DAILY Carbidopa-Levodopa 25-250 Tab (Carbidopa/Levodopa) 1 Each Tablet 1 Tab PO TID LAST DOSE GIVEN: DATE: TODAY TIME: AM NEXT DOSE DUE: DATE: TODAY TIME: AFTERNOON Polyethylene Glycol 3350 255 Gm Powder 17 Gm PO DAILY PRN NOT GIVEN TODAY NEXT DOSE DUE: DATE: TODAY TIME: IF AND WHEN NEEDED Senna-Docusate Sodium Tablet (Sennosides/Docusate Sodium) 1 Each Tablet 1 Tab PO DAILY LAST DOSE GIVEN: DATE: TODAY TIME: AM NEXT DOSE DUE: DATE: TOMORROW TIME: AM [place] 3 1,000 Mg Softgel ([place]-3 Fatty Acids/Fish Oil) 1 Each Capsule 1 Each PO DAILY LAST DOSE GIVEN: DATE: TODAY TIME: AM NEXT DOSE DUE: DATE: TOMORROW TIME: AM Simvastatin 40 Mg Tablet 40 Mg PO QHS LAST DOSE GIVEN: DATE: YESTERDAY TIME: PM NEXT DOSE DUE: DATE: TODAY TIME: PM Lasix (Furosemide) 20 Mg Tablet 20 Mg PO DAILY LAST DOSE GIVEN: DATE: TODAY TIME: AM NEXT DOSE DUE: DATE: TOMORROW TIME: AM Requip (Ropinirole Hcl) 1 Mg Tablet 1 Mg PO BID LAST DOSE GIVEN: DATE: TIME: AM NEXT DOSE DUE: DATE: TIME: PM Midodrine Hcl 5 Mg Tablet 5 Mg PO Q8HRS LAST DOSE GIVEN: DATE: TIME: AM NEXT DOSE DUE: DATE: TIME: AFTERNOON Vitamin D-3 (Cholecalciferol (Vitamin D3)) 2,000 Unit Tablet 2,000 Unit PO DAILY LAST DOSE GIVEN: DATE: TIME: AM NEXT DOSE DUE: DATE: TOMORROW TIME: AM Calcium 600 + Vit D 200 Tablet (Calcium Carbonate/Vitamin D3) 1 Each Tablet 1 Tab PO DAILY LAST DOSE GIVEN: DATE: TIME: AM NEXT DOSE DUE: DATE:ORROW TIME: AM Daily Vitamin (Multivitamin) 1 Each Tablet 1 Each PO DAILY LAST DOSE GIVEN: DATE: TIME: AM NEXT DOSE DUE: DATE: TIME: AM Vitamin V65-Gtbxx Acid Tablet (Cyanocobalamin/Folic Acid) 1 Each Tablet 1 Each PO DAILY LAST DOSE GIVEN: DATE: TIME: AM NEXT DOSE DUE: DATE: ORR TIME: AM I have reviewed the current psychotropics carefully including drug interactions. Risk benefit ratio favors no change other than as noted in my dictated progress note. Diagnosis: Problems: (1) Major depressive disorder (2) Anxiety disorder (3) Impulse control disorder (4) Dementia, vascular, with depression (5) Dementia, vascular, with delusions (6) Dementia in Alzheimer's disease with depression (7) Dementia in Alzheimer's disease with delusions (8) Major neurocognitive disorder SAMMY DANIEL MD October 11, 2018 22:39
--- NOTE | 2018-10-11 22:55 | NUR ---
Pt. was in the hallways this evening when this typewriter aligner came on due to weather. Pt. appeared calm, pleasant, and interacting appropriately with staff and other patient's. She has been compliant with taking her HS medications this evening. She requested something for pain due to left foot/ankle pain, see MAR.
--- NOTE | 2018-10-11 23:05 | PN ---
DATE: 10/11/2018 PSYCHIATRIC PROGRESS NOTE The patient was seen individually in the evening of 10/11/2018. Discussed with nursing staff, reviewed the chart. This note covers elements not covered in my initial note 10/11/2018. The patient slept 6-1/2 hours previous night. She had a good night and good day. Left ankle is swollen, will defer to Dr. Hopkins. REVIEW OF SYSTEMS: Ambulation impaired, in wheelchair. No CV, , pulmonary, eye system symptoms on review. MENTAL STATUS EXAM: Oriented to herself and situation. Speech is coherent, abstraction fair, computation impaired, language function intact, attention span short. Mood and affect somewhat withdrawn, but improved. LABORATORY DATA: Reviewed. IMPRESSION: Unchanged from initial note. PLAN: No change from initial note. MAN Laura DANIEL MD DR: ISABELLA/yue JOB#: [id number] / [id number]
[2018-10-12] MEDS: ACETAMINOPHEN 325 MG TABLET PO PRN (00:56)
[2018-10-12 06:09] VITALS: BP 118/70
[2018-10-12] MEDS: LEVOTHYROXINE 150 MCG TABLET PO SCH (06:18)
[2018-10-12] MEDS: PANTOPRAZOLE 40 MG TABLET. PO SCH (06:18)
[2018-10-12] MEDS: DICLOFENAC SODIUM 1% TOPICAL GEL 100GM TUBE. TP SCH ×2 (06:30→22:15)
[2018-10-12] MEDS: MULTIVITAMIN with MINERAL TABLET. PO SCH (09:29)
[2018-10-12] MEDS: CHOLECALCIFEROL (VITAMIN D3) 1,000 UNIT TABLET PO SCH (09:29)
[2018-10-12] MEDS: VITAMIN B COMPLEX CAPSULE. PO SCH (09:29)
[2018-10-12] MEDS: CALCIUM CARB/VIT D3 500/200 TABLET PO SCH (09:29)
[2018-10-12] MEDS: CARBIDOPA/LEVODOPA 25/250MG TABLET PO SCH ×3 (09:29→20:13)
[2018-10-12] MEDS: rOPINIRole 1 MG TABLET. PO SCH ×2 (09:29→20:14)
[2018-10-12] MEDS: LACTOBACILLUS RHAMNOSUS GG 1 CAPSULE. PO SCH ×2 (09:29→20:13)
[2018-10-12] MEDS: OMEGA-3 FATTY ACIDS/FISH OIL 1,000 MG CAPSULE. PO SCH (09:30)
[2018-10-12] MEDS: SERTRALINE 25 MG TABLET. PO SCH (09:30)
[2018-10-12] MEDS: POLYVINYL ALCOHOL/POVIDONE/PF OPHTH SOLUTION DROPERETTE. OU SCH (09:30)
[2018-10-12] MEDS: FUROSEMIDE 20 MG TABLET PO SCH (09:30)
[2018-10-12] MEDS: SENNOSIDES/DOCUSATE 8.6/50MG TABLET. PO SCH (09:30)
[2018-10-12] MEDS: CHOLECALCIFEROL (VITAMIN D3) 50,000 UNIT CAPSULE PO SCH (09:33)
[2018-10-12] MEDS: traMADol 50 MG TABLET PO PRN (10:08)
[2018-10-12 16:41] VITALS: BP 112/64
[2018-10-12] MEDS: SIMVASTATIN 40 MG TABLET. PO SCH (20:14)
[2018-10-12] MEDS: QUEtiapine 25 MG TABLET. PO SCH (20:14)
--- NOTE | 2018-10-12 22:28 | PDOC ---
Exam Note: Oscar Note: Please also refer to the separate dictated note~for this date of service dictated separately.~Patient seen individually. Discussed the patient with Nursing staff reviewed the chart.~Reviewed interim history and current functioning. Reviewed vital signs,~Labs/ Radiology~and current medications noted below. Continue current treatment with the changes noted in the dictated addendum note Assessment: Vital Signs: Vital Signs Date Time Temp Pulse Resp B/P (MAP) Pulse Ox O2 Delivery O2 Flow Rate FiO2 10/12/18 16:41 98.6 72 18 112/64 (80) 97 10/12/18 06:09 Room Air I&O Intake and Output 10/12/18 07:00 Intake Total 1080 ml Balance 1080 ml Intake Oral 1080 ml Current Medications: Meds: Current Medications Sodium Chloride 500 ml @ 0 mls/hr 1X ONCE IV ; Start 09/13/18 at 14:00; Stop 09/13/18 at 14:30; Status DC Acetaminophen (Tylenol) 650 mg PRN Q6HRS PRN PO PAIN / TEMP Last administered on 10/12/18at 00:56; Start 09/13/18 at 17:15 Multi-Ingredient Ointment (Analgesic [place]) 1 patrick PRN QID PRN TP MUSCLE PAIN Last administered on 10/04/18at 16:33; Start 09/13/18 at 17:15 Al Hydroxide/Mg Hydroxide (Mylanta Plus Xs) 15 ml PRN AFTMEALHC PRN PO DYSPEPSIA; Start 09/13/18 at 17:15 Magnesium Hydroxide (Milk Of Magnesia) 2,400 mg PRN QHS PRN PO CONSTIPATION; Start 09/13/18 at 17:15 Citalopram Hydrobromide (CeleXA) 20 mg DAILY PO Last administered on 09/14/18at 09:00; Start 09/14/18 at 09:00; Stop 09/14/18 at 17:18; Status DC Furosemide (Lasix) 20 mg DAILY PO Last administered on 09/14/18at 09:00; Start 09/14/18 at 09:00; Stop 09/14/18 at 17:22; Status DC Senna/Docusate Sodium (Senna Plus) 1 tab DAILY PO Last administered on 10/12/18at 09:30; Start 09/14/18 at 09:00 Simvastatin (Zocor) 40 mg QHS PO Last administered on 10/12/18 20:14; Start 09/13/18 at 21:00 Calcium/Vitamin D (Oscal D 500mg/ 200uts) 1 tab DAILY PO Last administered on 10/12/18 09:29; Start 09/14/18 at 09:00 Carbidopa/Levodopa (Sinemet 25/250) 1 tab TID PO Last administered on 10/12/18 20:13; Start 09/13/18 at 21:00 Vitamin D (Vitamin D3) 2,000 unit DAILY PO Last administered on 10/12/18 09:29; Start 09/14/18 at 09:00 Vitamin B Complex 1 cap DAILY PO Last administered on 10/12/18 09:29; Start 09/14/18 at 09:00 Famotidine (Pepcid) 20 mg BID PO Last administered on 09/14/18 09:00; Start 09/13/18 at 21:00; Stop 09/14/18 at 17:20; Status DC Levothyroxine Sodium (Synthroid) 150 mcg DAILY06 PO Last administered on 10/12/18 06:18; Start 09/14/18 at 06:00 Multivitamins/ Calcium (Thera-M Plus) 1 tab DAILY PO Last administered on 10/12/18 09:29; Start 09/14/18 at 09:00 Fish Oil (Fish Oil) 1,000 mg DAILY PO Last administered on 10/12/18 09:30; Start 09/14/18 at 09:00 Pantoprazole Sodium (Protonix) 40 mg DAILY07 PO Last administered on 09/27/18 06:10; Start 09/14/18 at 07:00; Stop 09/28/18 at 05:36; Status DC Polyethylene Glycol (miraLAX) 17 gm PRN DAILY PRN PO CONSTIPATION Last administered on 10/09/18 22:10; Start 09/13/18 at 19:45 Albuterol/ Ipratropium (Duoneb) 3 ml RTQID NEB Last administered on 09/14/18 05:21; Start 09/13/18 at 20:00; Stop 09/14/18 at 14:10; Status DC Artificial Tears (Refresh Classic) 2 drop DAILY OU Last administered on 10/12/18 09:30; Start 09/14/18 at 09:00 Lactobacillus Rhamnosus (Culturelle) 1 cap BID PO Last administered on 10/12/18 20:13; Start 09/13/18 at 21:00 Midodrine (Proamatine) 5 mg [id number] PO Last administered on 09/19/18 13:12; Start 09/14/18 at 07:00; Stop 09/22/18 at 14:14; Status DC Ropinirole HCl (Requip) 1 mg BID PO Last administered on 10/12/18 20:14; Start 09/13/18 at 21:00 Albuterol/ Ipratropium (Duoneb) 3 ml PRN QID PRN NEB CONGESTION; Start 09/14/18 at 14:15 Sertraline HCl (Zoloft) 50 mg DAILY PO Last administered on 09/15/18 09:04; Start 09/15/18 at 09:00; Stop 09/15/18 at 15:03; Status DC Quetiapine Fumarate (SEROquel) 25 mg QHS PO Last administered on 10/12/18 20:14; Start 09/14/18 at 21:00 Vitamin D (Vitamin D3) 50,000 unit WEEKLY PO Last administered on 10/12/18 09:33; Start 09/14/18 at 17:30 Sertraline HCl (Zoloft) 50 mg DAILY PO Last administered on 09/20/18 08:58; Start 09/16/18 at 09:00; Stop 09/20/18 at 16:44; Status DC Furosemide (Lasix) 20 mg DAILY PO Last administered on 10/04/18 09:42; Start 09/20/18 at 09:00; Stop 10/04/18 at 17:15; Status DC Sertraline HCl (Zoloft) 75 mg DAILY PO Last administered on 10/12/18 09:30; Start 09/21/18 at 09:00 Midodrine (Proamatine) 5 mg [id number] PRN PO hypotension Last administered on 10/10/18 07:59; Start 09/22/18 at 14:15 Pantoprazole Sodium (Protonix) 40 mg DAILYAC PO Last administered on 10/12/18 06:18; Start 09/28/18 at 07:30 Diclofenac Sodium (Voltaren) 1 patrick BID TP Last administered on 10/12/18at 22:15; Start 09/29/18 at 21:00 Furosemide (Lasix) 40 mg DAILY PO Last administered on 10/12/18at 09:30; Start 10/05/18 at 09:00 Tramadol HCl (Ultram) 50 mg PRN Q6HRS PRN PO PAIN Last administered on 10/12/18at 10:08; Start 10/06/18 at 18:30 Active Scripts Active Synthroid (Levothyroxine Sodium) 150 Mcg Tablet 150 Mcg PO DAILY07 Reported Protonix (Pantoprazole Sodium) 40 Mg Granpkt.dr 40 Mg PO DAILY07 Acidophilus (Lactobacillus Acidophilus) 1 Each Capsule 1 Each PO BID Refresh Optive Eye Drops (Carboxymethylcellulos/Glycerin) 15 Ml Drops 2 Drop EACHEYE DAILY Famotidine 20 Mg Tablet 1 Tab PO BID Duoneb 0.5-3(2.5) Mg/3 Ml (Albuterol/Ipratropium) 3 Ml Ampul.neb 3 Ml NEB QID Citalopram Hbr (Citalopram Hydrobromide) 20 Mg Tablet 20 Mg PO DAILY Carbidopa-Levodopa 25-250 Tab (Carbidopa/Levodopa) 1 Each Tablet 1 Tab PO TID LAST DOSE GIVEN: DATE: TODAY TIME: AM NEXT DOSE DUE: DATE: TODAY TIME: AFTERNOON Polyethylene Glycol 3350 255 Gm Powder 17 Gm PO DAILY PRN NOT GIVEN TODAY NEXT DOSE DUE: DATE: TODAY TIME: IF AND WHEN NEEDED Senna-Docusate Sodium Tablet (Sennosides/Docusate Sodium) 1 Each Tablet 1 Tab PO DAILY LAST DOSE GIVEN: DATE: TODAY TIME: AM NEXT DOSE DUE: DATE: TOMORROW TIME: AM [place] 3 1,000 Mg Softgel ([place]-3 Fatty Acids/Fish Oil) 1 Each Capsule 1 Each PO DAILY LAST DOSE GIVEN: DATE: TODAY TIME: AM NEXT DOSE DUE: DATE: TOMORROW TIME: AM Simvastatin 40 Mg Tablet 40 Mg PO QHS LAST DOSE GIVEN: DATE: YESTERDAY TIME: PM NEXT DOSE DUE: DATE: TODAY TIME: PM Lasix (Furosemide) 20 Mg Tablet 20 Mg PO DAILY LAST DOSE GIVEN: DATE: TODAY TIME: AM NEXT DOSE DUE: DATE: TOMORROW TIME: AM Requip (Ropinirole Hcl) 1 Mg Tablet 1 Mg PO BID LAST DOSE GIVEN: DATE: TIME: AM NEXT DOSE DUE: DATE: TODAY TIME: PM Midodrine Hcl 5 Mg Tablet 5 Mg PO Q8HRS LAST DOSE GIVEN: DATE: TIME: AM NEXT DOSE DUE: DATE: TIME: AFTERNOON Vitamin D-3 (Cholecalciferol (Vitamin D3)) 2,000 Unit Tablet 2,000 Unit PO DAILY LAST DOSE GIVEN: DATE: TIME: AM NEXT DOSE DUE: DATE: TOMORROW TIME: AM Calcium 600 + Vit D 200 Tablet (Calcium Carbonate/Vitamin D3) 1 Each Tablet 1 Tab PO DAILY LAST DOSE GIVEN: DATE: TIME: AM NEXT DOSE DUE: DATE:TOMORROW TIME: AM Daily Vitamin (Multivitamin) 1 Each Tablet 1 Each PO DAILY LAST DOSE GIVEN: DATE: TIME: AM NEXT DOSE DUE: DATE: ORR TIME: AM Vitamin S04-Bffow Acid Tablet (Cyanocobalamin/Folic Acid) 1 Each Tablet 1 Each PO DAILY LAST DOSE GIVEN: DATE: TIME: AM NEXT DOSE DUE: DATE: ORR TIME: AM I have reviewed the current psychotropics carefully including drug interactions. Risk benefit ratio favors no change other than as noted in my dictated progress note. Diagnosis: Problems: (1) Major neurocognitive disorder (2) Dementia in Alzheimer's disease with delusions (3) Dementia, vascular, with depression (4) Impulse control disorder (5) Anxiety disorder (6) Major depressive disorder (7) Dementia, vascular, with delusions (8) Dementia in Alzheimer's disease with depression SAMMY DANIEL MD October 12, 2018 22:28
--- NOTE | 2018-10-12 23:37 | NUR ---
Pt. this evening was sitting out in the day room, when this conventional underwriter came on shift. Pt. has been calm, pleasant, and compliant with ADL's. She has been compliant with taking her HS medications this evening. Pt. still having pain to the L. heel/ankle area, administered medications per MAR. Encourage pt. to keep feet elevated when up and in bed as much as possible. Pt. voice understanding and has been elevating them.
[2018-10-13 06:18] VITALS: BP 156/78
[2018-10-13] MEDS: LEVOTHYROXINE 150 MCG TABLET PO SCH (06:45)
[2018-10-13] MEDS: PANTOPRAZOLE 40 MG TABLET. PO SCH (06:45)
[2018-10-13] MEDS: DICLOFENAC SODIUM 1% TOPICAL GEL 100GM TUBE. TP SCH ×2 (06:45→21:49)
[2018-10-13] MEDS: traMADol 50 MG TABLET PO PRN (06:49)
[2018-10-13] MEDS: SERTRALINE 25 MG TABLET. PO SCH (09:04)
[2018-10-13] MEDS: LACTOBACILLUS RHAMNOSUS GG 1 CAPSULE. PO SCH ×2 (09:05→19:49)
[2018-10-13] MEDS: MULTIVITAMIN with MINERAL TABLET. PO SCH (09:05)
[2018-10-13] MEDS: FUROSEMIDE 20 MG TABLET PO SCH (09:05)
[2018-10-13] MEDS: rOPINIRole 1 MG TABLET. PO SCH ×2 (09:05→19:49)
[2018-10-13] MEDS: OMEGA-3 FATTY ACIDS/FISH OIL 1,000 MG CAPSULE. PO SCH (09:05)
[2018-10-13] MEDS: SENNOSIDES/DOCUSATE 8.6/50MG TABLET. PO SCH (09:06)
[2018-10-13] MEDS: VITAMIN B COMPLEX CAPSULE. PO SCH (09:06)
[2018-10-13] MEDS: CALCIUM CARB/VIT D3 500/200 TABLET PO SCH (09:06)
[2018-10-13] MEDS: CHOLECALCIFEROL (VITAMIN D3) 1,000 UNIT TABLET PO SCH (09:06)
[2018-10-13] MEDS: CARBIDOPA/LEVODOPA 25/250MG TABLET PO SCH ×3 (09:06→19:49)
[2018-10-13] MEDS: POLYVINYL ALCOHOL/POVIDONE/PF OPHTH SOLUTION DROPERETTE. OU SCH (09:07)
--- NOTE | 2018-10-13 09:59 | NUR ---
WEEKLY ACTIVITY THERAPY NOTE Date of Admission: 09/13/2018 Date of AT Assessment: 09/16/2018 Goal aimed: to elevate mood and engagement Initial Goal: Pt. will participate in at least five groups per week. Change goal 09/28/18:Pt. will participate in all groups she is invited to. Weekly progress towards goal: achieved Group participation level: moderate Weekly highlights: singing from seat during karaoke on Wednesday, enjoyed arranging rome on Wednesday Behaviors observed: sleeping or in her room about half the of the week, willing to engage in all groups when she is around the day room Plan: no change to goal Beneficial adaptations: more successful in conversation based groups
--- NOTE | 2018-10-13 10:05 | NUR ---
WEEKEND NOTE: Pt is eating 100% and eating 7 hours on average. Pt has soft tissue swelling in her Left foot/ankle and taking pain medications for this. Pt will discharge on Wednesday to [facility] for rehab.
--- NOTE | 2018-10-13 14:45 | NUR ---
Physical therapy fitted pt for her Cam Boot. Her left foot is swollen and sore at her heel and her arch. Pt. is calm and no longer agitated and does not cry. She is compliant taking her meds and they are floated in applesauce. She is less withdrawn than on previous days.
[2018-10-13 15:48] VITALS: BP 101/64
--- NOTE | 2018-10-13 17:26 | NUR ---
CORA met with pt, pt NEW Feng and Dian, to discuss completion of a whole new POA that addresses medical and financial matters for pt. Pt was happy to know that Jung was able to find a form that would allow them to address everything. Pt was able to sign the form; meanwhile, CORA and Sandeep ROSE signed as witnesses. According to pt and Dian, she would like to have her furniture auctioned off, wants her jewelry but have her house sold. Pt reports that she heard from her dtr last night and her dtr told her that she was going to leave [place], but was not sure yet. Pt just wants to make sure that if pt dtr moves, she is able to find out where she goes. "I won't follow her or anything I just want to know where she ends up". Pt is happy about going to a place where she will have a bed and others to help care for her. Pt is excited to also be someplace where there are activities and people she can talk to. At this time, pt will discharge on Wednesday. Pt is a bit nervous a she received a boot on her foot today and hopes that it will not slow her down any.
[2018-10-13] MEDS: QUEtiapine 25 MG TABLET. PO SCH (19:48)
[2018-10-13] MEDS: SIMVASTATIN 40 MG TABLET. PO SCH (19:49)
--- NOTE | 2018-10-13 22:28 | PDOC ---
Exam Note: Oscar Note: Please also refer to the separate dictated note~for this date of service dictated separately.~Patient seen individually. Discussed the patient with Nursing staff reviewed the chart.~Reviewed interim history and current functioning. Reviewed vital signs,~Labs/ Radiology~and current medications noted below. Continue current treatment with the changes noted in the dictated addendum note Assessment: Vital Signs: Vital Signs Date Time Temp Pulse Resp B/P (MAP) Pulse Ox O2 Delivery O2 Flow Rate FiO2 10/13/18 15:48 99.0 78 18 101/64 (76) 97 10/12/18 06:09 Room Air I&O Intake and Output 10/13/18 07:00 Intake Total 1080 ml Balance 1080 ml Intake Oral 1080 ml # Voids 1 Current Medications: Meds: Current Medications Sodium Chloride 500 ml @ 0 mls/hr 1X ONCE IV ; Start 09/13/18 at 14:00; Stop 09/13/18 at 14:30; Status DC Acetaminophen (Tylenol) 650 mg PRN Q6HRS PRN PO PAIN / TEMP Last administered on 10/12/18at 00:56; Start 09/13/18 at 17:15 Multi-Ingredient Ointment (Analgesic [place]) 1 patrick PRN QID PRN TP MUSCLE PAIN Last administered on 10/04/18at 16:33; Start 09/13/18 at 17:15 Al Hydroxide/Mg Hydroxide (Mylanta Plus Xs) 15 ml PRN AFTMEALHC PRN PO DYSP EPSIA; Start 09/13/18 at 17:15 Magnesium Hydroxide (Milk Of Magnesia) 2,400 mg PRN QHS PRN PO CONSTIPATION; Start 09/13/18 at 17:15 Citalopram Hydrobromide (CeleXA) 20 mg DAILY PO Last administered on 09/14/18at 09:00; Start 09/14/18 at 09:00; Stop 09/14/18 at 17:18; Status DC Furosemide (Lasix) 20 mg DAILY PO Last administered on 09/14/18at 09:00; Start 09/14/18 at 09:00; Stop 09/14/18 at 17:22; Status DC Senna/Docusate Sodium (Senna Plus) 1 tab DAILY PO Last administered on 10/13/18at 09:06; Start 09/14/18 at 09:00 Simvastatin (Zocor) 40 mg QHS PO Last administered on 10/13/18 19:49; Start 09/13/18 at 21:00 Calcium/Vitamin D (Oscal D 500mg/ 200uts) 1 tab DAILY PO Last administered on 10/13/18 09:06; Start 09/14/18 at 09:00 Carbidopa/Levodopa (Sinemet 25/250) 1 tab TID PO Last administered on 10/13/18 19:49; Start 09/13/18 at 21:00 Vitamin D (Vitamin D3) 2,000 unit DAILY PO Last administered on 10/13/18 09:06; Start 09/14/18 at 09:00 Vitamin B Complex 1 cap DAILY PO Last administered on 10/13/18 09:06; Start 09/14/18 at 09:00 Famotidine (Pepcid) 20 mg BID PO Last administered on 09/14/18 09:00; Start 09/13/18 at 21:00; Stop 09/14/18 at 17:20; Status DC Levothyroxine Sodium (Synthroid) 150 mcg DAILY06 PO Last administered on 10/13/18 06:45; Start 09/14/18 at 06:00 Multivitamins/ Calcium (Thera-M Plus) 1 tab DAILY PO Last administered on 10/13/18 09:05; Start 09/14/18 at 09:00 Fish Oil (Fish Oil) 1,000 mg DAILY PO Last administered on 10/13/18 09:05; Start 09/14/18 at 09:00 Pantoprazole Sodium (Protonix) 40 mg DAILY07 PO Last administered on 09/27/18 06:10; Start 09/14/18 at 07:00; Stop 09/28/18 at 05:36; Status DC Polyethylene Glycol (miraLAX) 17 gm PRN DAILY PRN PO CONSTIPATION Last administered on 10/09/18 22:10; Start 09/13/18 at 19:45 Albuterol/ Ipratropium (Duoneb) 3 ml RTQID NEB Last administered on 09/14/18 05:21; Start 09/13/18 at 20:00; Stop 09/14/18 at 14:10; Status DC Artificial Tears (Refresh Classic) 2 drop DAILY OU Last administered on 10/13/18 09:07; Start 09/14/18 at 09:00 Lactobacillus Rhamnosus (Culturelle) 1 cap BID PO Last administered on 10/13/18 19:49; Start 09/13/18 at 21:00 Midodrine (Proamatine) 5 mg [id number] PO Last administered on 09/19/18 13:12; Start 09/14/18 at 07:00; Stop 09/22/18 at 14:14; Status DC Ropinirole HCl (Requip) 1 mg BID PO Last administered on 10/13/18 19:49; Start 09/13/18 at 21:00 Albuterol/ Ipratropium (Duoneb) 3 ml PRN QID PRN NEB CONGESTION; Start 09/14/18 at 14:15 Sertraline HCl (Zoloft) 50 mg DAILY PO Last administered on 09/15/18 09:04; Start 09/15/18 at 09:00; Stop 09/15/18 at 15:03; Status DC Quetiapine Fumarate (SEROquel) 25 mg QHS PO Last administered on 10/13/18 19:48; Start 09/14/18 at 21:00 Vitamin D (Vitamin D3) 50,000 unit WEEKLY PO Last administered on 10/12/18 09:33; Start 09/14/18 at 17:30 Sertraline HCl (Zoloft) 50 mg DAILY PO Last administered on 09/20/18 08:58; Start 09/16/18 at 09:00; Stop 09/20/18 at 16:44; Status DC Furosemide (Lasix) 20 mg DAILY PO Last administered on 10/04/18 09:42; Start 09/20/18 at 09:00; Stop 10/04/18 at 17:15; Status DC Sertraline HCl (Zoloft) 75 mg DAILY PO Last administered on 10/13/18 09:04; Start 09/21/18 at 09:00 Midodrine (Proamatine) 5 mg [id number] PRN PO hypotension Last administered on 10/10/18 07:59; Start 09/22/18 at 14:15 Pantoprazole Sodium (Protonix) 40 mg DAILYAC PO Last administered on 10/13/18 06:45; Start 09/28/18 at 07:30 Diclofenac Sodium (Voltaren) 1 patrick BID TP Last administered on 10/13/18at 21:49; Start 09/29/18 at 21:00 Furosemide (Lasix) 40 mg DAILY PO Last administered on 10/13/18at 09:05; Start 10/05/18 at 09:00 Tramadol HCl (Ultram) 50 mg PRN Q6HRS PRN PO PAIN Last administered on 10/13/18at 06:49; Start 10/06/18 at 18:30 Active Scripts Active Synthroid (Levothyroxine Sodium) 150 Mcg Tablet 150 Mcg PO DAILY07 Reported Protonix (Pantoprazole Sodium) 40 Mg Granpkt.dr 40 Mg PO DAILY07 Acidophilus (Lactobacillus Acidophilus) 1 Each Capsule 1 Each PO BID Refresh Optive Eye Drops (Carboxymethylcellulos/Glycerin) 15 Ml Drops 2 Drop E ACHEYE DAILY Famotidine 20 Mg Tablet 1 Tab PO BID Duoneb 0.5-3(2.5) Mg/3 Ml (Albuterol/Ipratropium) 3 Ml Ampul.neb 3 Ml NEB QID Citalopram Hbr (Citalopram Hydrobromide) 20 Mg Tablet 20 Mg PO DAILY Carbidopa-Levodopa 25-250 Tab (Carbidopa/Levodopa) 1 Each Tablet 1 Tab PO TID LAST DOSE GIVEN: DATE: TODAY TIME: AM NEXT DOSE DUE: DATE: TODAY TIME: AFTERNOON Polyethylene Glycol 3350 255 Gm Powder 17 Gm PO DAILY PRN NOT GIVEN TODAY NEXT DOSE DUE: DATE: TODAY TIME: IF AND WHEN NEEDED Senna-Docusate Sodium Tablet (Sennosides/Docusate Sodium) 1 Each Tablet 1 Tab PO DAILY LAST DOSE GIVEN: DATE: TODAY TIME: AM NEXT DOSE DUE: DATE: TOMORROW TIME: AM [place] 3 1,000 Mg Softgel ([place]-3 Fatty Acids/Fish Oil) 1 Each Capsule 1 Each PO DAILY LAST DOSE GIVEN: DATE: TODAY TIME: AM NEXT DOSE DUE: DATE: TOMORROW TIME: AM Simvastatin 40 Mg Tablet 40 Mg PO QHS LAST DOSE GIVEN: DATE: YESTERDAY TIME: PM NEXT DOSE DUE: DATE: TODAY TIME: PM Lasix (Furosemide) 20 Mg Tablet 20 Mg PO DAILY LAST DOSE GIVEN: DATE: TODAY TIME: AM NEXT DOSE DUE: DATE: TOMORROW TIME: AM Requip (Ropinirole Hcl) 1 Mg Tablet 1 Mg PO BID LAST DOSE GIVEN: DATE: TIME: AM NEXT DOSE DUE: DATE: TODAY TIME: PM Midodrine Hcl 5 Mg Tablet 5 Mg PO Q8HRS LAST DOSE GIVEN: DATE: TIME: AM NEXT DOSE DUE: DATE: TIME: AFTERNOON Vitamin D-3 (Cholecalciferol (Vitamin D3)) 2,000 Unit Tablet 2,000 Unit PO DAILY LAST DOSE GIVEN: DATE: TIME: AM NEXT DOSE DUE: DATE: TOMORROW TIME: AM Calcium 600 + Vit D 200 Tablet (Calcium Carbonate/Vitamin D3) 1 Each Tablet 1 Tab PO DAILY LAST DOSE GIVEN: DATE: TIME: AM NEXT DOSE DUE: DATE:TOMORROW TIME: AM Daily Vitamin (Multivitamin) 1 Each Tablet 1 Each PO DAILY LAST DOSE GIVEN: DATE: TIME: AM NEXT DOSE DUE: DATE: TOMORR TIME: AM Vitamin P26-Dyxco Acid Tablet (Cyanocobalamin/Folic Acid) 1 Each Tablet 1 Each PO DAILY LAST DOSE GIVEN: DATE: TIME: AM NEXT DOSE DUE: DATE: ORR TIME: AM I have reviewed the current psychotropics carefully including drug interactions. Risk benefit ratio favors no change other than as noted in my dictated progress note. Diagnosis: Problems: (1) Major depressive disorder (2) Anxiety disorder (3) Impulse control disorder (4) Dementia, vascular, with depression (5) Dementia, vascular, with delusions (6) Dementia in Alzheimer's disease with depression (7) Dementia in Alzheimer's disease with delusions (8) Major neurocognitive disorder SAMMY DANIEL MD October 13, 2018 22:28
--- NOTE | 2018-10-13 22:42 | NUR ---
Pt. this evening was sitting out in the day room with feet elevated, eating a snack, and watching the TV. She has been calm, pleasant, and interacting appropriately with staff and other pt's. She has been compliant with taking her HS medications this evening. She think wearing the boot on the left foot did help with the foot/ankle pain, her only compliant was that it felt a bit heavy. Dr. Hopkins was here this evening and look at her foot, he ordered a routine x-ray of the left foot/ankle.
[2018-10-14 05:59] VITALS: BP 137/75
[2018-10-14] MEDS: PANTOPRAZOLE 40 MG TABLET. PO SCH (06:18)
[2018-10-14] MEDS: LEVOTHYROXINE 150 MCG TABLET PO SCH (06:19)
[2018-10-14] MEDS: traMADol 50 MG TABLET PO PRN (06:19)
[2018-10-14] MEDS: DICLOFENAC SODIUM 1% TOPICAL GEL 100GM TUBE. TP SCH ×2 (06:35→19:49)
[2018-10-14] MEDS: VITAMIN B COMPLEX CAPSULE. PO SCH (08:06)
[2018-10-14] MEDS: POLYVINYL ALCOHOL/POVIDONE/PF OPHTH SOLUTION DROPERETTE. OU SCH (08:06)
[2018-10-14] MEDS: rOPINIRole 1 MG TABLET. PO SCH ×2 (08:07→19:48)
[2018-10-14] MEDS: MULTIVITAMIN with MINERAL TABLET. PO SCH (08:07)
[2018-10-14] MEDS: SERTRALINE 25 MG TABLET. PO SCH (08:07)
[2018-10-14] MEDS: OMEGA-3 FATTY ACIDS/FISH OIL 1,000 MG CAPSULE. PO SCH (08:07)
[2018-10-14] MEDS: CARBIDOPA/LEVODOPA 25/250MG TABLET PO SCH ×3 (08:07→19:48)
[2018-10-14] MEDS: SENNOSIDES/DOCUSATE 8.6/50MG TABLET. PO SCH (08:07)
[2018-10-14] MEDS: FUROSEMIDE 20 MG TABLET PO SCH (08:07)
[2018-10-14] MEDS: CALCIUM CARB/VIT D3 500/200 TABLET PO SCH (08:07)
[2018-10-14] MEDS: LACTOBACILLUS RHAMNOSUS GG 1 CAPSULE. PO SCH ×2 (08:07→19:48)
[2018-10-14] MEDS: CHOLECALCIFEROL (VITAMIN D3) 1,000 UNIT TABLET PO SCH (08:07)
[2018-10-14 09:23] LABS: BASO % 1 % (0-3); EOS # 0.1 x10^3/uL (0.0-0.7); EOS % 3 % (0-3); HEMATOCRIT 33.8 % (36.0-47.0); HEMOGLOBIN 11.3 g/dL (12.0-15.5); LYMPH # 1.5 x10^3/uL (1.0-4.8); LYMPH % 35 % (24-48); MEAN CORPUSCULAR HEMOGLOBIN 30 pg (25-35); MEAN CORPUSCULAR HGB CONC 34 g/dL (31-37); MEAN CORPUSCULAR VOLUME 89 fL (79-100); MONO # 0.4 x10^3/uL (0.0-1.1); MONO % 8 % (0-9); NEUT # 2.3 x10^3uL (1.8-7.7); NEUT % 53 % (31-73); PLATELET COUNT 176 x10^3/uL (140-400); RED BLOOD COUNT 3.79 x10^6/uL (3.50-5.40); RED CELL DISTRIBUTION WIDTH 14.5 % (11.5-14.5); WHITE BLOOD COUNT 4.4 x10^3/uL (4.0-11.0)
[2018-10-14 09:33] LABS: ALBUMIN 2.8 g/dL (3.4-5.0); ALBUMIN/GLOBULIN RATIO 0.8 (1.0-1.7); CREATININE 1.3 mg/dL (0.6-1.0); GFR 38.7; POTASSIUM 4.3 mmol/L (3.5-5.1); TOTAL BILIRUBIN 0.4 mg/dL (0.2-1.0); TOTAL PROTEIN 6.3 g/dL (6.4-8.2)
--- NOTE | 2018-10-14 09:59 | RAD ---
Left ankle, 3 views, 10/14/2018: HISTORY: Severe ankle pain There is moderate bony demineralization. No acute fracture or subluxation is evident. There is moderate diffuse soft tissue swelling about the ankle. Arterial calcifications are evident. IMPRESSION: 1. Demineralization. 2. No acute bony abnormality is detected. Electronically signed by: Phil Bah MD (10/14/2018 9:56 AM) [facility]
--- NOTE | 2018-10-14 10:59 | NUR ---
Faxed current nursing/physician notes, medication list, labs, and face sheet to choir director at [facility] in preparation for upcoming transfer on 10/17/18.
--- NOTE | 2018-10-14 11:52 | NUR ---
Patient has had a good morning, took medications, allowed for morning assessment. Patient was resting in her room upon assessment. No signs of agitation noted, patient has been smiling at staff, visiting with patients. Patient's daughter called earlier to let her know that she was getting help currently in a psychiatric facility. Patient had a good conversation with her and is happy that she is getting treatment. Will continue to monitor.
--- NOTE | 2018-10-14 14:18 | NUR ---
[facility] Social Work Discharge Planning Form Patient Name FALLON ESCALONA Admit Date: 09/13/2018 DISCHARGE PLAN Discharge Destination: [facility] for rehabilitation Care Assessment: Completed Level II Assessment: N/A Transportation: [facility] will pick pt up; Time TBD on Wednesday Special Instructions/Notes: Please fax over all discharge orders and the medication list to the fax number listed below. DISCHARGE TO FACILITY Facility: [facility] Address: [address] [place] [address] Contact Name: Trina Ocasio, DON: Contact Name: Please contact the nurse caring for pt upon admission: PCP: Dr. Hopkins will follow pt as their Molecular Technologist
[2018-10-14 16:23] VITALS: BP 109/62
[2018-10-14] MEDS: SIMVASTATIN 40 MG TABLET. PO SCH (19:48)
[2018-10-14] MEDS: QUEtiapine 25 MG TABLET. PO SCH (19:48)
--- NOTE | 2018-10-14 22:38 | PDOC ---
Exam Note: Oscar Note: Please also refer to the separate dictated note~for this date of service dictated separately.~Patient seen individually. Discussed the patient with Nursing staff reviewed the chart.~Reviewed interim history and current functioning. Reviewed vital signs,~Labs/ Radiology~and current medications noted below. Continue current treatment with the changes noted in the dictated addendum note Assessment: Vital Signs: Vital Signs Date Time Temp Pulse Resp B/P (MAP) Pulse Ox O2 Delivery O2 Flow Rate FiO2 10/14/18 16:23 98.3 85 17 109/62 (78) 96 Room Air I&O Intake and Output 10/14/18 06:59 Intake Total 960 ml Balance 960 ml Intake Oral 960 ml # Voids 1 Labs: Laboratory Tests Test 10/14/18 09:07 White Blood Count 4.4 x10^3/uL (4.0-11.0) Red Blood Count 3.79 x10^6/uL (3.50-5.40) Hemoglobin 11.3 g/dL (12.0-15.5) L Hematocrit 33.8 % (36.0-47.0) L Mean Corpuscular Volume 89 fL (79-100) Mean Corpuscular Hemoglobin 30 pg (25-35) Mean Corpuscular Hemoglobin Concent 34 g/dL (31-37) Red Cell Distribution Width 14.5 % (11.5-14.5) Platelet Count 176 x10^3/uL (140-400) Neutrophils (%) (Auto) 53 % (31-73) Lymphocytes (%) (Auto) 35 % (24-48) Monocytes (%) (Auto) 8 % (0-9) Eosinophils (%) (Auto) 3 % (0-3) Basophils (%) (Auto) 1 % (0-3) Neutrophils # (Auto) 2.3 x10^3uL (1.8-7.7) Lymphocytes # (Auto) 1.5 x10^3/uL (1.0-4.8) Monocytes # (Auto) 0.4 x10^3/uL (0.0-1.1) Eosinophils # (Auto) 0.1 x10^3/uL (0.0-0.7) Basophils # (Auto) 0.0 x10^3/uL (0.0-0.2) Sodium Level 140 mmol/L (136-145) Potassium Level 4.3 mmol/L (3.5-5.1) Chloride Level 103 mmol/L (98-107) Carbon Dioxide Level 33 mmol/L (21-32) H Anion Gap 4 (6-14) L Blood Urea Nitrogen 34 mg/dL (7-20) H Creatinine 1.3 mg/dL (0.6-1.0) H Estimated GFR (Cockcroft-Gault) 38.7 BUN/Creatinine Ratio 26 (6-20) H Glucose Level 95 mg/dL (70-99) Calcium Level 9.0 mg/dL (8.5-10.1) Total Bilirubin 0.4 mg/dL (0.2-1.0) Aspartate Amino Transferase (AST) 18 U/L (15-37) Alanine Aminotransferase (ALT) 11 U/L (14-59) L Alkaline Phosphatase 128 U/L (46-116) H Total Protein 6.3 g/dL (6.4-8.2) L Albumin 2.8 g/dL (3.4-5.0) L Albumin/Globulin Ratio 0.8 (1.0-1.7) L Current Medications: Meds: Current Medications Sodium Chloride 500 ml @ 0 mls/hr 1X ONCE IV ; Start 09/13/18 at 14:00; Stop 09/13/18 at 14:30; Status DC Acetaminophen (Tylenol) 650 mg PRN Q6HRS PRN PO PAIN / TEMP Last administered on 10/12/18at 00:56; Start 09/13/18 at 17:15 Multi-Ingredient Ointment (Analgesic [place]) 1 patrick PRN QID PRN TP MUSCLE PAIN Last administered on 10/04/18at 16:33; Start 09/13/18 at 17:15 Al Hydroxide/Mg Hydroxide (Mylanta Plus Xs) 15 ml PRN AFTMEALHC PRN PO DYSPEPSIA; Start 09/13/18 at 17:15 Magnesium Hydroxide (Milk Of Magnesia) 2,400 mg PRN QHS PRN PO CONSTIPATION; Start 09/13/18 at 17:15 Citalopram Hydrobromide (CeleXA) 20 mg DAILY PO Last administered on 09/14/18at 09:00; Start 09/14/18 at 09:00; Stop 09/14/18 at 17:18; Status DC Furosemide (Lasix) 20 mg DAILY PO Last administered on 09/14/18 09:00; Start 09/14/18 at 09:00; Stop 09/14/18 at 17:22; Status DC Senna/Docusate Sodium (Senna Plus) 1 tab DAILY PO Last administered on 10/14/18 08:07; Start 09/14/18 at 09:00 Simvastatin (Zocor) 40 mg QHS PO Last administered on 10/14/18 19:48; Start 09/13/18 at 21:00 Calcium/Vitamin D (Oscal D 500mg/ 200uts) 1 tab DAILY PO Last administered on 10/14/18 08:07; Start 09/14/18 at 09:00 Carbidopa/Levodopa (Sinemet 25/250) 1 tab TID PO Last administered on 10/14/18 19:48; Start 09/13/18 at 21:00 Vitamin D (Vitamin D3) 2,000 unit DAILY PO Last administered on 10/14/18 08:07; Start 09/14/18 at 09:00 Vitamin B Complex 1 cap DAILY PO Last administered on 10/14/18 08:06; Start 09/14/18 at 09:00 Famotidine (Pepcid) 20 mg BID PO Last administered on 09/14/18 09:00; Start 09/13/18 at 21:00; Stop 09/14/18 at 17:20; Status DC Levothyroxine Sodium (Synthroid) 150 mcg DAILY06 PO Last administered on 10/14/18 06:19; Start 09/14/18 at 06:00 Multivitamins/ Calcium (Thera-M Plus) 1 tab DAILY PO Last administered on 10/14/18 08:07; Start 09/14/18 at 09:00 Fish Oil (Fish Oil) 1,000 mg DAILY PO Last administered on 10/14/18 08:07; Start 09/14/18 at 09:00 Pantoprazole Sodium (Protonix) 40 mg DAILY07 PO Last administered on 09/27/18 06:10; Start 09/14/18 at 07:00; Stop 09/28/18 at 05:36; Status DC Polyethylene Glycol (miraLAX) 17 gm PRN DAILY PRN PO CONSTIPATION Last administered on 10/09/18 22:10; Start 09/13/18 at 19:45 Albuterol/ Ipratropium (Duoneb) 3 ml RTQID NEB Last administered on 09/14/18 05:21; Start 09/13/18 at 20:00; Stop 09/14/18 at 14:10; Status DC Artificial Tears (Refresh Classic) 2 drop DAILY OU Last administered on 10/14/18 08:06; Start 09/14/18 at 09:00 Lactobacillus Rhamnosus (Culturelle) 1 cap BID PO Last administered on 10/14/18 19:48; Start 09/13/18 at 21:00 Midodrine (Proamatine) 5 mg [id number] PO Last administered on 09/19/18 13:12; Start 09/14/18 at 07:00; Stop 09/22/18 at 14:14; Status DC Ropinirole HCl (Requip) 1 mg BID PO Last administered on 10/14/18 19:48; Start 09/13/18 at 21:00 Albuterol/ Ipratropium (Duoneb) 3 ml PRN QID PRN NEB CONGESTION; Start 09/14/18 at 14:15 Sertraline HCl (Zoloft) 50 mg DAILY PO Last administered on 09/15/18 09:04; Start 09/15/18 at 09:00; Stop 09/15/18 at 15:03; Status DC Quetiapine Fumarate (SEROquel) 25 mg QHS PO Last administered on 10/14/18 19:48; Start 09/14/18 at 21:00 Vitamin D (Vitamin D3) 50,000 unit WEEKLY PO Last administered on 10/12/18 09:33; Start 09/14/18 at 17:30 Sertraline HCl (Zoloft) 50 mg DAILY PO Last administered on 09/20/18at 08:58; Start 09/16/18 at 09:00; Stop 09/20/18 at 16:44; Status DC Furosemide (Lasix) 20 mg DAILY PO Last administered on 10/04/18 09:42; Start 09/20/18 at 09:00; Stop 10/04/18 at 17:15; Status DC Sertraline HCl (Zoloft) 75 mg DAILY PO Last administered on 10/14/18 08:07; Start 09/21/18 at 09:00 Midodrine (Proamatine) 5 mg [id number] PRN PO hypotension Last administered on 10/10/18at 07:59; Start 09/22/18 at 14:15 Pantoprazole Sodium (Protonix) 40 mg DAILYAC PO Last administered on 10/14/18 06:18; Start 09/28/18 at 07:30 Diclofenac Sodium (Voltaren) 1 patrick BID TP Last administered on 10/14/18 19:49; Start 09/29/18 at 21:00 Furosemide (Lasix) 40 mg DAILY PO Last administered on 10/14/18 08:07; Start 10/05/18 at 09:00 Tramadol HCl (Ultram) 50 mg PRN Q6HRS PRN PO PAIN Last administered on 10/14/18 06:19; Start 10/06/18 at 18:30 Active Scripts Active Synthroid (Levothyroxine Sodium) 150 Mcg Tablet 150 Mcg PO DAILY07 Reported Protonix (Pantoprazole Sodium) 40 Mg Granpkt.dr 40 Mg PO DAILY07 Acidophilus (Lactobacillus Acidophilus) 1 Each Capsule 1 Each PO BID Refresh Optive Eye Drops (Carboxymethylcellulos/Glycerin) 15 Ml Drops 2 Drop EACHEYE DAILY Famotidine 20 Mg Tablet 1 Tab PO BID Duoneb 0.5-3(2.5) Mg/3 Ml (Albuterol/Ipratropium) 3 Ml Ampul.neb 3 Ml NEB QID Citalopram Hbr (Citalopram Hydrobromide) 20 Mg Tablet 20 Mg PO DAILY Carbidopa-Levodopa 25-250 Tab (Carbidopa/Levodopa) 1 Each Tablet 1 Tab PO TID LAST DOSE GIVEN: DATE: TODAY TIME: AM NEXT DOSE DUE: DATE: TODAY TIME: AFTERNOON Polyethylene Glycol 3350 255 Gm Powder 17 Gm PO DAILY PRN NOT GIVEN TODAY NEXT DOSE DUE: DATE: TODAY TIME: IF AND WHEN NEEDED Senna-Docusate Sodium Tablet (Sennosides/Docusate Sodium) 1 Each Tablet 1 Tab PO DAILY LAST DOSE GIVEN: DATE: TODAY TIME: AM NEXT DOSE DUE: DATE: TOMORROW TIME: AM [place] 3 1,000 Mg Softgel ([place]-3 Fatty Acids/Fish Oil) 1 Each Capsule 1 Each PO DAILY LAST DOSE GIVEN: DATE: TIME: AM NEXT DOSE DUE: DATE: TOMORROW TIME: AM Simvastatin 40 Mg Tablet 40 Mg PO QHS LAST DOSE GIVEN: DATE: YESTER TIME: PM NEXT DOSE DUE: DATE: TODAY TIME: PM Lasix (Furosemide) 20 Mg Tablet 20 Mg PO DAILY LAST DOSE GIVEN: DATE: TIME: AM NEXT DOSE DUE: DATE: ORR TIME: AM Requip (Ropinirole Hcl) 1 Mg Tablet 1 Mg PO BID LAST DOSE GIVEN: DATE: TIME: AM NEXT DOSE DUE: DATE: TODAY TIME: PM Midodrine Hcl 5 Mg Tablet 5 Mg PO Q8HRS LAST DOSE GIVEN: DATE: TIME: AM NEXT DOSE DUE: DATE: TIME: AFTERNOON Vitamin D-3 (Cholecalciferol (Vitamin D3)) 2,000 Unit Tablet 2,000 Unit PO DAILY LAST DOSE GIVEN: DATE: TIME: AM NEXT DOSE DUE: DATE: TIME: AM Calcium 600 + Vit D 200 Tablet (Calcium Carbonate/Vitamin D3) 1 Each Tablet 1 Tab PO DAILY LAST DOSE GIVEN: DATE: TIME: AM NEXT DOSE DUE: DATE:ORR TIME: AM Daily Vitamin (Multivitamin) 1 Each Tablet 1 Each PO DAILY LAST DOSE GIVEN: DATE: TIME: AM NEXT DOSE DUE: DATE: ORR TIME: AM Vitamin S23-[place] Acid Tablet (Cyanocobalamin/Folic Acid) 1 Each Tablet 1 Each PO DAILY LAST DOSE GIVEN: DATE: TIME: AM NEXT DOSE DUE: DATE: ORR TIME: AM I have reviewed the current psychotropics carefully including drug interactions. Risk benefit ratio favors no change other than as noted in my dictated progress note. Diagnosis: Problems: (1) Major depressive disorder (2) Anxiety disorder (3) Impulse control disorder (4) Dementia, vascular, with depression (5) Dementia, vascular, with delusions (6) Dementia in Alzheimer's disease with depression (7) Dementia in Alzheimer's disease with delusions (8) Major neurocognitive disorder SAMMY DANIEL MD October 14, 2018 22:38
--- NOTE | 2018-10-15 00:27 | PN ---
DATE: 10/12/2018 PSYCHIATRIC PROGRESS NOTE This late entry 10/12/2018 covers elements not covered in my initial note. SUBJECTIVE: I met with the patient evening of 10/12/2018. The patient slept 7 hours previous night. She remains quite interactive, better, cognitively reasonably intact, keeps her feet up because of her pedal edema. REVIEW OF SYSTEMS: Ambulation impaired as above. No CV, , pulmonary, eye system symptoms on review. MENTAL STATUS EXAM: Oriented reasonably. Speech is coherent, abstraction fair, computation impaired, language function intact, attention span short. Mood and affect remains improved. LABORATORY DATA: Reviewed. IMPRESSION: Unchanged from initial note. PLAN: No change from initial note. SAMMY DANIEL MD DR: ISABELLA/yue JOB#: [id number] / [id number]
--- NOTE | 2018-10-15 00:28 | PN ---
DATE: 10/13/2018 PSYCHIATRIC PROGRESS NOTE This late entry 10/13/2018 covers elements not covered in my initial note. SUBJECTIVE: I met with the patient in the evening and staffed at a treatment team meeting with the entire team in the morning. The patient slept 7 hours previous night. Appetite 100%. She has swelling on her left feet, soft tissue swelling. Discussed disposition plans to [facility] starting early next week. REVIEW OF SYSTEMS: Ambulation impaired. No CV, , pulmonary, eye system symptoms on review. MENTAL STATUS EXAM: Oriented to herself and situation. Speech is coherent, abstraction fair, computation somewhat impaired, language function intact. Mood and affect is improved. No aggression. No psychotic symptoms noted. LABORATORY DATA: Reviewed. IMPRESSION: Unchanged from initial note. PLAN: No change from initial note. MAN Laura DANIEL MD DR: ISABELLA/yue JOB#: [id number] / [id number]
[2018-10-15] MEDS: LEVOTHYROXINE 150 MCG TABLET PO SCH (05:42)
[2018-10-15 06:03] VITALS: BP 131/77
[2018-10-15] MEDS: VITAMIN B COMPLEX CAPSULE. PO SCH (09:05)
[2018-10-15] MEDS: PANTOPRAZOLE 40 MG TABLET. PO SCH (09:05)
[2018-10-15] MEDS: OMEGA-3 FATTY ACIDS/FISH OIL 1,000 MG CAPSULE. PO SCH (09:05)
[2018-10-15] MEDS: POLYVINYL ALCOHOL/POVIDONE/PF OPHTH SOLUTION DROPERETTE. OU SCH (09:05)
[2018-10-15] MEDS: FUROSEMIDE 20 MG TABLET PO SCH (09:05)
[2018-10-15] MEDS: LACTOBACILLUS RHAMNOSUS GG 1 CAPSULE. PO SCH ×2 (09:05→19:58)
[2018-10-15] MEDS: MULTIVITAMIN with MINERAL TABLET. PO SCH (09:06)
[2018-10-15] MEDS: SENNOSIDES/DOCUSATE 8.6/50MG TABLET. PO SCH (09:06)
[2018-10-15] MEDS: rOPINIRole 1 MG TABLET. PO SCH ×2 (09:06→19:58)
[2018-10-15] MEDS: CARBIDOPA/LEVODOPA 25/250MG TABLET PO SCH ×3 (09:06→19:58)
[2018-10-15] MEDS: CALCIUM CARB/VIT D3 500/200 TABLET PO SCH (09:06)
--- NOTE | 2018-10-15 09:06 | RAD ---
Examination: 2 views of the left tibia and fibula HISTORY: History of left leg pain COMPARISON: None available. FINDINGS: Osseous demineralization limits evaluation. Posterior inferior calcaneal enthesophyte identified. Probable mild diffuse soft tissue edema identified. IMPRESSION: No acute osseous findings. Electronically signed by: Kishore Schaffer MD (10/15/2018 9:03 AM) [facility]
[2018-10-15] MEDS: SERTRALINE 25 MG TABLET. PO SCH (09:08)
[2018-10-15] MEDS: CHOLECALCIFEROL (VITAMIN D3) 1,000 UNIT TABLET PO SCH (09:08)
[2018-10-15] MEDS: DICLOFENAC SODIUM 1% TOPICAL GEL 100GM TUBE. TP SCH ×2 (09:09→19:59)
--- NOTE | 2018-10-15 14:42 | NUR ---
Patient has had a good morning, took medications, allowed for morning assessment. Patient has been cheerful, talking, visiting with staff and other patients. No signs of agitation noted at this time. Will continue to monitor.
[2018-10-15 16:48] VITALS: BP 107/53
[2018-10-15] MEDS: SIMVASTATIN 40 MG TABLET. PO SCH (19:58)
[2018-10-15] MEDS: QUEtiapine 25 MG TABLET. PO SCH (19:58)
--- NOTE | 2018-10-15 22:37 | PDOC ---
Exam Note: Oscar Note: Please also refer to the separate dictated note~for this date of service dictated separately.~Patient seen individually. Discussed the patient with Nursing staff reviewed the chart.~Reviewed interim history and current functioning. Reviewed vital signs,~Labs/ Radiology~and current medications noted below. Continue current treatment with the changes noted in the dictated addendum note Assessment: Vital Signs: Vital Signs Date Time Temp Pulse Resp B/P (MAP) Pulse Ox O2 Delivery O2 Flow Rate FiO2 10/15/18 16:48 97.4 79 20 107/53 (71) 96 10/14/18 16:23 Room Air I&O Intake and Output 10/15/18 06:59 Intake Total 680 ml Balance 680 ml Intake Oral 680 ml Current Medications: Meds: Current Medications Sodium Chloride 500 ml @ 0 mls/hr 1X ONCE IV ; Start 09/13/18 at 14:00; Stop 09/13/18 at 14:30; Status DC Acetaminophen (Tylenol) 650 mg PRN Q6HRS PRN PO PAIN / TEMP Last administered on 10/12/18at 00:56; Start 09/13/18 at 17:15 Multi-Ingredient Ointment (Analgesic [place]) 1 patrick PRN QID PRN TP MUSCLE PAIN Last administered on 10/04/18at 16:33; Start 09/13/18 at 17:15 Al Hydroxide/Mg Hydroxide (Mylanta Plus Xs) 15 ml PRN AFTMEALHC PRN PO DYSPEPSIA; Start 09/13/18 at 17:15 Magnesium Hydroxide (Milk Of Magnesia) 2,400 mg PRN QHS PRN PO CONSTIPATION; Start 09/13/18 at 17:15 Citalopram Hydrobromide (CeleXA) 20 mg DAILY PO Last administered on 09/14/18at 09:00; Start 09/14/18 at 09:00; Stop 09/14/18 at 17:18; Status DC Furosemide (Lasix) 20 mg DAILY PO Last administered on 09/14/18at 09:00; Start 09/14/18 at 09:00; Stop 09/14/18 at 17:22; Status DC Senna/Docusate Sodium (Senna Plus) 1 tab DAILY PO Last administered on 10/15/18at 09:06; Start 09/14/18 at 09:00 Simvastatin (Zocor) 40 mg QHS PO Last administered on 10/15/18 19:58; Start 09/13/18 at 21:00 Calcium/Vitamin D (Oscal D 500mg/ 200uts) 1 tab DAILY PO Last administered on 10/15/18 09:06; Start 09/14/18 at 09:00 Carbidopa/Levodopa (Sinemet 25/250) 1 tab TID PO Last administered on 10/15/18 19:58; Start 09/13/18 at 21:00 Vitamin D (Vitamin D3) 2,000 unit DAILY PO Last administered on 10/15/18 09:08; Start 09/14/18 at 09:00 Vitamin B Complex 1 cap DAILY PO Last administered on 10/15/18 09:05; Start 09/14/18 at 09:00 Famotidine (Pepcid) 20 mg BID PO Last administered on 09/14/18 09:00; Start 09/13/18 at 21:00; Stop 09/14/18 at 17:20; Status DC Levothyroxine Sodium (Synthroid) 150 mcg DAILY06 PO Last administered on 10/15/18 05:42; Start 09/14/18 at 06:00 Multivitamins/ Calcium (Thera-M Plus) 1 tab DAILY PO Last administered on 10/15/18 09:06; Start 09/14/18 at 09:00 Fish Oil (Fish Oil) 1,000 mg DAILY PO Last administered on 10/15/18 09:05; Start 09/14/18 at 09:00 Pantoprazole Sodium (Protonix) 40 mg DAILY07 PO Last administered on 09/27/18 06:10; Start 09/14/18 at 07:00; Stop 09/28/18 at 05:36; Status DC Polyethylene Glycol (miraLAX) 17 gm PRN DAILY PRN PO CONSTIPATION Last administered on 10/09/18 22:10; Start 09/13/18 at 19:45 Albuterol/ Ipratropium (Duoneb) 3 ml RTQID NEB Last administered on 09/14/18 05:21; Start 09/13/18 at 20:00; Stop 09/14/18 at 14:10; Status DC Artificial Tears (Refresh Classic) 2 drop DAILY OU Last administered on 10/15/18 09:05; Start 09/14/18 at 09:00 Lactobacillus Rhamnosus (Culturelle) 1 cap BID PO Last administered on 10/15/18 19:58; Start 09/13/18 at 21:00 Midodrine (Proamatine) 5 mg [id number] PO Last administered on 09/19/18 13:12; Start 09/14/18 at 07:00; Stop 09/22/18 at 14:14; Status DC Ropinirole HCl (Requip) 1 mg BID PO Last administered on 10/15/18 19:58; Start 09/13/18 at 21:00 Albuterol/ Ipratropium (Duoneb) 3 ml PRN QID PRN NEB CONGESTION; Start 09/14/18 at 14:15 Sertraline HCl (Zoloft) 50 mg DAILY PO Last administered on 09/15/18 09:04; Start 09/15/18 at 09:00; Stop 09/15/18 at 15:03; Status DC Quetiapine Fumarate (SEROquel) 25 mg QHS PO Last administered on 10/15/18 19:58; Start 09/14/18 at 21:00 Vitamin D (Vitamin D3) 50,000 unit WEEKLY PO Last administered on 10/12/18 09:33; Start 09/14/18 at 17:30 Sertraline HCl (Zoloft) 50 mg DAILY PO Last administered on 09/20/18 08:58; Start 09/16/18 at 09:00; Stop 09/20/18 at 16:44; Status DC Furosemide (Lasix) 20 mg DAILY PO Last administered on 10/04/18 09:42; Start 09/20/18 at 09:00; Stop 10/04/18 at 17:15; Status DC Sertraline HCl (Zoloft) 75 mg DAILY PO Last administered on 10/15/18 09:08; Start 09/21/18 at 09:00 Midodrine (Proamatine) 5 mg [id number] PRN PO hypotension Last administered on 10/10/18 07:59; Start 09/22/18 at 14:15 Pantoprazole Sodium (Protonix) 40 mg DAILYAC PO Last administered on 10/15/18 09:05; Start 09/28/18 at 07:30 Diclofenac Sodium (Voltaren) 1 patrick BID TP Last administered on 10/15/18at 19:59; Start 09/29/18 at 21:00 Furosemide (Lasix) 40 mg DAILY PO Last administered on 10/15/18at 09:05; Start 10/05/18 at 09:00 Tramadol HCl (Ultram) 50 mg PRN Q6HRS PRN PO PAIN Last administered on 10/14/18at 06:19; Start 10/06/18 at 18:30 Active Scripts Active Synthroid (Levothyroxine Sodium) 150 Mcg Tablet 150 Mcg PO DAILY07 Reported Protonix (Pantoprazole Sodium) 40 Mg Granpkt.dr 40 Mg PO DAILY07 Acidophilus (Lactobacillus Acidophilus) 1 Each Capsule 1 Each PO BID Refresh Optive Eye Drops (Carboxymethylcellulos/Glycerin) 15 Ml Drops 2 Drop EACHEYE DAILY Famotidine 20 Mg Tablet 1 Tab PO BID Duoneb 0.5-3(2.5) Mg/3 Ml (Albuterol/Ipratropium) 3 Ml Ampul.neb 3 Ml NEB QID Citalopram Hbr (Citalopram Hydrobromide) 20 Mg Tablet 20 Mg PO DAILY Carbidopa-Levodopa 25-250 Tab (Carbidopa/Levodopa) 1 Each Tablet 1 Tab PO TID LAST DOSE GIVEN: DATE: TODAY TIME: AM NEXT DOSE DUE: DATE: TODAY TIME: AFTERNOON Polyethylene Glycol 3350 255 Gm Powder 17 Gm PO DAILY PRN NOT GIVEN TODAY NEXT DOSE DUE: DATE: TODAY TIME: IF AND WHEN NEEDED Senna-Docusate Sodium Tablet (Sennosides/Docusate Sodium) 1 Each Tablet 1 Tab PO DAILY LAST DOSE GIVEN: DATE: TODAY TIME: AM NEXT DOSE DUE: DATE: TOMORROW TIME: AM [place] 3 1,000 Mg Softgel ([place]-3 Fatty Acids/Fish Oil) 1 Each Capsule 1 Each PO DAILY LAST DOSE GIVEN: DATE: TODAY TIME: AM NEXT DOSE DUE: DATE: TOMORROW TIME: AM Simvastatin 40 Mg Tablet 40 Mg PO QHS LAST DOSE GIVEN: DATE: YESTERDAY TIME: PM NEXT DOSE DUE: DATE: TODAY TIME: PM Lasix (Furosemide) 20 Mg Tablet 20 Mg PO DAILY LAST DOSE GIVEN: DATE: TODAY TIME: AM NEXT DOSE DUE: DATE: TOMORROW TIME: AM Requip (Ropinirole Hcl) 1 Mg Tablet 1 Mg PO BID LAST DOSE GIVEN: DATE: TIME: AM NEXT DOSE DUE: DATE: TODAY TIME: PM Midodrine Hcl 5 Mg Tablet 5 Mg PO Q8HRS LAST DOSE GIVEN: DATE: TIME: AM NEXT DOSE DUE: DATE: TIME: AFTERNOON Vitamin D-3 (Cholecalciferol (Vitamin D3)) 2,000 Unit Tablet 2,000 Unit PO DAILY LAST DOSE GIVEN: DATE: TIME: AM NEXT DOSE DUE: DATE: TOMORROW TIME: AM Calcium 600 + Vit D 200 Tablet (Calcium Carbonate/Vitamin D3) 1 Each Tablet 1 Tab PO DAILY LAST DOSE GIVEN: DATE: TIME: AM NEXT DOSE DUE: DATE:TOMORROW TIME: AM Daily Vitamin (Multivitamin) 1 Each Tablet 1 Each PO DAILY LAST DOSE GIVEN: DATE: TIME: AM NEXT DOSE DUE: DATE: ORR TIME: AM Vitamin C72-[place] Acid Tablet (Cyanocobalamin/Folic Acid) 1 Each Tablet 1 Each PO DAILY LAST DOSE GIVEN: DATE: TIME: AM NEXT DOSE DUE: DATE: ORR TIME: AM I have reviewed the current psychotropics carefully including drug interactions. Risk benefit ratio favors no change other than as noted in my dictated progress note. Diagnosis: Problems: (1) Major depressive disorder (2) Anxiety disorder (3) Impulse control disorder (4) Dementia, vascular, with depression (5) Dementia, vascular, with delusions (6) Dementia in Alzheimer's disease with depression (7) Dementia in Alzheimer's disease with delusions (8) Major neurocognitive disorder SAMMY DANIEL MD Oct 15, 2018 22:37
--- NOTE | 2018-10-15 23:04 | NUR ---
Pt sitting calmly in the dayroom this evening. Pt pleasant, calm and interactive. Compliant with HS medications. PRN Voltaren gel applied to left lower extremity once in bed per pt request.
[2018-10-16] MEDS: LEVOTHYROXINE 150 MCG TABLET PO SCH (05:20)
[2018-10-16 06:22] VITALS: BP 155/81
[2018-10-16] MEDS: PANTOPRAZOLE 40 MG TABLET. PO SCH (08:11)
[2018-10-16] MEDS: POLYVINYL ALCOHOL/POVIDONE/PF OPHTH SOLUTION DROPERETTE. OU SCH (08:11)
[2018-10-16] MEDS: VITAMIN B COMPLEX CAPSULE. PO SCH (08:11)
[2018-10-16] MEDS: LACTOBACILLUS RHAMNOSUS GG 1 CAPSULE. PO SCH ×2 (08:12→19:57)
[2018-10-16] MEDS: OMEGA-3 FATTY ACIDS/FISH OIL 1,000 MG CAPSULE. PO SCH (08:12)
[2018-10-16] MEDS: FUROSEMIDE 20 MG TABLET PO SCH (08:12)
[2018-10-16] MEDS: CALCIUM CARB/VIT D3 500/200 TABLET PO SCH (08:13)
[2018-10-16] MEDS: SENNOSIDES/DOCUSATE 8.6/50MG TABLET. PO SCH (08:13)
[2018-10-16] MEDS: rOPINIRole 1 MG TABLET. PO SCH ×2 (08:13→19:54)
[2018-10-16] MEDS: CARBIDOPA/LEVODOPA 25/250MG TABLET PO SCH ×3 (08:14→19:54)
[2018-10-16] MEDS: MULTIVITAMIN with MINERAL TABLET. PO SCH (08:14)
[2018-10-16] MEDS: CHOLECALCIFEROL (VITAMIN D3) 1,000 UNIT TABLET PO SCH (08:15)
[2018-10-16] MEDS: SERTRALINE 25 MG TABLET. PO SCH (08:16)
[2018-10-16] MEDS: DICLOFENAC SODIUM 1% TOPICAL GEL 100GM TUBE. TP SCH ×2 (09:00→19:56)
--- NOTE | 2018-10-16 11:53 | NUR ---
Patient has had a good morning, took medications, allowed for morning assessment. Is ready to leave tomorrow. She enjoyed group this morning. No signs of agitation noted. She spoke to her daughter again this morning and they had a great conversation. Will continue to monitor.
[2018-10-16] MEDS ORDERED: ACET325T9 PO (15:05)
[2018-10-16] MEDS ORDERED: CHOL500016 PO ×2 (15:09→15:14)
[2018-10-16] MEDS ORDERED: DICL100G18 TP (15:14)
[2018-10-16] MEDS ORDERED: FURO40TA4 PO (15:14)
[2018-10-16] MEDS ORDERED: MIDO5TAB PO (15:28)
[2018-10-16] MEDS ORDERED: MAG355OR12 PO (15:28)
[2018-10-16] MEDS ORDERED: MAGN2400 PO (15:28)
[2018-10-16] MEDS ORDERED: METH29OI TP (15:28)
[2018-10-16] MEDS ORDERED: QUET25TA5 PO (15:36)
[2018-10-16] MEDS ORDERED: SERT100T PO (15:36)
[2018-10-16] MEDS ORDERED: OMEG-33 PO (15:36)
[2018-10-16] MEDS ORDERED: SIMV40TA3 PO (15:36)
[2018-10-16 16:20] VITALS: BP 115/68
[2018-10-16] MEDS: QUEtiapine 25 MG TABLET. PO SCH (19:54)
[2018-10-16] MEDS: SIMVASTATIN 40 MG TABLET. PO SCH (19:55)
--- NOTE | 2018-10-16 22:41 | PDOC ---
Exam Note: Oscar Note: Please also refer to the separate dictated note~for this date of service dictated separately.~Patient seen individually. Discussed the patient with Nursing staff reviewed the chart.~Reviewed interim history and current functioning. Reviewed vital signs,~Labs/ Radiology~and current medications noted below. Continue current treatment with the changes noted in the dictated addendum note Assessment: Vital Signs: Vital Signs Date Time Temp Pulse Resp B/P (MAP) Pulse Ox O2 Delivery O2 Flow Rate FiO2 10/16/18 16:20 97.5 71 16 115/68 (84) 98 10/14/18 16:23 Room Air I&O Intake and Output 10/16/18 07:00 Intake Total 1260 ml Balance 1260 ml Intake Oral 1260 ml # Bowel Movements 1 Current Medications: Meds: Current Medications Sodium Chloride 500 ml @ 0 mls/hr 1X ONCE IV ; Start 09/13/18 at 14:00; Stop 09/13/18 at 14:30; Status DC Acetaminophen (Tylenol) 650 mg PRN Q6HRS PRN PO PAIN / TEMP Last administered on 10/12/18at 00:56; Start 09/13/18 at 17:15 Multi-Ingredient Ointment (Analgesic [place]) 1 narendra PRN QID PRN TP MUSCLE PAIN La st administered on 10/04/18at 16:33; Start 09/13/18 at 17:15 Al Hydroxide/Mg Hydroxide (Mylanta Plus Xs) 15 ml PRN AFTMEALHC PRN PO DYSPEPSIA; Start 09/13/18 at 17:15 Magnesium Hydroxide (Milk Of Magnesia) 2,400 mg PRN QHS PRN PO CONSTIPATION; Start 09/13/18 at 17:15 Citalopram Hydrobromide (CeleXA) 20 mg DAILY PO Last administered on 09/14/18at 09:00; Start 09/14/18 at 09:00; Stop 09/14/18 at 17:18; Status DC Furosemide (Lasix) 20 mg DAILY PO Last administered on 09/14/18at 09:00; Start 09/14/18 at 09:00; Stop 09/14/18 at 17:22; Status DC Senna/Docusate Sodium (Senna Plus) 1 tab DAILY PO Last administered on 10/16/18at 08:13; Start 09/14/18 at 09:00 Simvastatin (Zocor) 40 mg QHS PO Last administered on 10/16/18 19:55; Start 09/13/18 at 21:00 Calcium/Vitamin D (Oscal D 500mg/ 200uts) 1 tab DAILY PO Last administered on 10/16/18 08:13; Start 09/14/18 at 09:00 Carbidopa/Levodopa (Sinemet 25/250) 1 tab TID PO Last administered on 10/16/18 19:54; Start 09/13/18 at 21:00 Vitamin D (Vitamin D3) 2,000 unit DAILY PO Last administered on 10/16/18 08:15; Start 09/14/18 at 09:00 Vitamin B Complex 1 cap DAILY PO Last administered on 10/16/18 08:11; Start 09/14/18 at 09:00 Famotidine (Pepcid) 20 mg BID PO Last administered on 09/14/18at 09:00; Start 09/13/18 at 21:00; Stop 09/14/18 at 17:20; Status DC Levothyroxine Sodium (Synthroid) 150 mcg DAILY06 PO Last administered on 10/16/18 05:20; Start 09/14/18 at 06:00 Multivitamins/ Calcium (Thera-M Plus) 1 tab DAILY PO Last administered on 10/16/18 08:14; Start 09/14/18 at 09:00 Fish Oil (Fish Oil) 1,000 mg DAILY PO Last administered on 10/16/18 08:12; Start 09/14/18 at 09:00 Pantoprazole Sodium (Protonix) 40 mg DAILY07 PO Last administered on 09/27/18 06:10; Start 09/14/18 at 07:00; Stop 09/28/18 at 05:36; Status DC Polyethylene Glycol (miraLAX) 17 gm PRN DAILY PRN PO CONSTIPATION Last administered on 10/09/18at 22:10; Start 09/13/18 at 19:45 Albuterol/ Ipratropium (Duoneb) 3 ml RTQID NEB Last administered on 09/14/18 05:21; Start 09/13/18 at 20:00; Stop 09/14/18 at 14:10; Status DC Artificial Tears (Refresh Classic) 2 drop DAILY OU Last administered on 10/16/18 08:11; Start 09/14/18 at 09:00 Lactobacillus Rhamnosus (Culturelle) 1 cap BID PO Last administered on 10/16/18 19:57; Start 09/13/18 at 21:00 Midodrine (Proamatine) 5 mg [id number] PO Last administered on 09/19/18 13:12; Start 09/14/18 at 07:00; Stop 09/22/18 at 14:14; Status DC Ropinirole HCl (Requip) 1 mg BID PO Last administered on 10/16/18 19:54; Start 09/13/18 at 21:00 Albuterol/ Ipratropium (Duoneb) 3 ml PRN QID PRN NEB CONGESTION; Start 09/14/18 at 14:15 Sertraline HCl (Zoloft) 50 mg DAILY PO Last administered on 09/15/18 09:04; Start 09/15/18 at 09:00; Stop 09/15/18 at 15:03; Status DC Quetiapine Fumarate (SEROquel) 25 mg QHS PO Last administered on 10/16/18 19:54; Start 09/14/18 at 21:00 Vitamin D (Vitamin D3) 50,000 unit WEEKLY PO Last administered on 10/12/18 09:33; Start 09/14/18 at 17:30 Sertraline HCl (Zoloft) 50 mg DAILY PO Last administered on 09/20/18 08:58; Start 09/16/18 at 09:00; Stop 09/20/18 at 16:44; Status DC Furosemide (Lasix) 20 mg DAILY PO Last administered on 10/04/18 09:42; Start 09/20/18 at 09:00; Stop 10/04/18 at 17:15; Status DC Sertraline HCl (Zoloft) 75 mg DAILY PO Last administered on 10/16/18 08:16; Start 09/21/18 at 09:00 Midodrine (Proamatine) 5 mg [id number] PRN PO hypotension Last administered on 10/10/18 07:59; Start 09/22/18 at 14:15 Pantoprazole Sodium (Protonix) 40 mg DAILYAC PO Last administered on 10/16/18 08:11; Start 09/28/18 at 07:30 Diclofenac Sodium (Voltaren) 1 narendra BID TP Last administered on 10/16/18at 19:56; Start 09/29/18 at 21:00 Furosemide (Lasix) 40 mg DAILY PO Last administered on 10/16/18at 08:12; Start 10/05/18 at 09:00 Tramadol HCl (Ultram) 50 mg PRN Q6HRS PRN PO PAIN Last administered on 10/14/18at 06:19; Start 10/06/18 at 18:30 Active Scripts Active Synthroid (Levothyroxine Sodium) 150 Mcg Tablet 150 Mcg PO DAILY07 Reported Simvastatin 40 Mg Tablet 1 Tab PO QHS Zoloft (Sertraline Hcl) 100 Mg Tablet 75 Mg PO DAILY Seroquel (Quetiapine Fumarate) 25 Mg Tablet 1 Tab PO QHS [place] 3 1,000 Mg Softgel ([place]-3 Fatty Acids/Fish Oil) 1 Each Capsule 1 Each PO DAILY Midodrine Hcl 5 Mg Tablet 5 Mg PO PRN TID PRN Analgesic [place] (Methyl Salicylate/Menthol) 28 Gm Oint...g. 1 Narendra TP PRN QID PRN Milk Of Magnesia (Magnesium Hydroxide) 2,400 Mg/10 Ml Oral.susp 2,400 Mg PO PRN QHS PRN Maalox Maximum Strength Susp (Mag Hydrox/Al Hydrox/Simeth) 355 Ml Oral.susp 15 Ml PO PRN AFTMEALHC PRN Furosemide 40 Mg Tablet 40 Mg PO DAILY Voltaren (Diclofenac Sodium) 100 Gm Gel..gram. 1 Narendra TP BID Vitamin D3 (Cholecalciferol (Vitamin D3)) 5,000 Unit Tablet 50,000 Unit PO WEEKLY Vitamin D3 (Cholecalciferol (Vitamin D3)) 5,000 Unit Tablet 50,000 Unit PO WEEKLY Tylenol (Acetaminophen) 325 Mg Tablet 650 Mg PO PRN Q6HRS PRN Protonix (Pantoprazole Sodium) 40 Mg Granpkt.dr 40 Mg PO DAILY07 Acidophilus (Lactobacillus Acidophilus) 1 Each Capsule 1 Each PO BID Refresh Optive Eye Drops (Carboxymethylcellulos/Glycerin) 15 Ml Drops 2 Drop EACHEYE DAILY Famotidine 20 Mg Tablet 1 Tab PO BID Duoneb 0.5-3(2.5) Mg/3 Ml (Albuterol/Ipratropium) 3 Ml Ampul.neb 3 Ml NEB QID Citalopram Hbr (Citalopram Hydrobromide) 20 Mg Tablet 20 Mg PO DAILY Carbidopa-Levodopa 25-250 Tab (Carbidopa/Levodopa) 1 Each Tablet 1 Tab PO TID LAST DOSE GIVEN: DATE: TIME: AM NEXT DOSE DUE: DATE: TIME: AFTERNOON Polyethylene Glycol 3350 255 Gm Powder 17 Gm PO DAILY PRN NOT GIVEN TODAY NEXT DOSE DUE: DATE: TIME: IF AND WHEN NEEDED Senna-Docusate Sodium Tablet (Sennosides/Docusate Sodium) 1 Each Tablet 1 Tab PO DAILY LAST DOSE GIVEN: DATE: TIME: AM NEXT DOSE DUE: DATE: TOMORR TIME: AM [place] 3 1,000 Mg Softgel ([place]-3 Fatty Acids/Fish Oil) 1 Each Capsule 1 Each PO DAILY LAST DOSE GIVEN: DATE: TIME: AM NEXT DOSE DUE: DATE: TIME: AM Simvastatin 40 Mg Tablet 40 Mg PO QHS LAST DOSE GIVEN: DATE: YESTER TIME: PM NEXT DOSE DUE: DATE: TODAY TIME: PM Lasix (Furosemide) 20 Mg Tablet 20 Mg PO DAILY LAST DOSE GIVEN: DATE: TIME: AM NEXT DOSE DUE: DATE: TIME: AM Requip (Ropinirole Hcl) 1 Mg Tablet 1 Mg PO BID LAST DOSE GIVEN: DATE: TIME: AM NEXT DOSE DUE: DATE: TODAY TIME: PM Midodrine Hcl 5 Mg Tablet 5 Mg PO Q8HRS LAST DOSE GIVEN: DATE: TIME: AM NEXT DOSE DUE: DATE: TIME: AFTERNOON Vitamin D-3 (Cholecalciferol (Vitamin D3)) 2,000 Unit Tablet 2,000 Unit PO DAILY LAST DOSE GIVEN: DATE: TODAY TIME: AM NEXT DOSE DUE: DATE: ORR TIME: AM Calcium 600 + Vit D 200 Tablet (Calcium Carbonate/Vitamin D3) 1 Each Tablet 1 Tab PO DAILY LAST DOSE GIVEN: DATE: TODAY TIME: AM NEXT DOSE DUE: DATE:ORR TIME: AM Daily Vitamin (Multivitamin) 1 Each Tablet 1 Each PO DAILY LAST DOSE GIVEN: DATE: TIME: AM NEXT DOSE DUE: DATE: TIME: AM Vitamin Y10-Bbkxq Acid Tablet (Cyanocobalamin/Folic Acid) 1 Each Tablet 1 Each PO DAILY LAST DOSE GIVEN: DATE: TIME: AM NEXT DOSE DUE: DATE: TOMORROW TIME: AM I have reviewed the current psychotropics carefully including drug interactions. Risk benefit ratio favors no change other than as noted in my dictated progress note. Diagnosis: Problems: (1) Major neurocognitive disorder (2) Dementia in Alzheimer's disease with delusions (3) Dementia in Alzheimer's disease with depression (4) Dementia, vascular, with delusions (5) Impulse control disorder (6) Anxiety disorder (7) Major depressive disorder (8) Dementia, vascular, with depression SAMMY DANIEL MD Oct 16, 2018 22:41
--- NOTE | 2018-10-16 23:33 | NUR ---
Pt located in her room this evening, socializing with her roommate. Pt was calm and cooperative. Compliant with whole medications floated in applesauce.
[2018-10-17] MEDS ORDERED: TRAM50TA PO (01:36)
[2018-10-17] MEDS: LEVOTHYROXINE 150 MCG TABLET PO SCH (06:07)
[2018-10-17 06:24] VITALS: BP 132/73
--- NOTE | 2018-10-17 06:31 | PN ---
DATE: 10/14/2018 PSYCHIATRIC PROGRESS NOTE This late entry 10/14/2018 covers elements not covered in my initial note. SUBJECTIVE: I met with the patient in the evening. The patient has been sleeping well. Does complain of some pedal edema, keeps her legs elevated, received Ultram for foot pain. She is concerned that her daughter indicated to her that she might leave the state since there were some charges against her, but states the daughter may be seeking treatment at [facility] in [place], she is pleased with this. REVIEW OF SYSTEMS: Ambulation impaired, in wheelchair. No CV, , pulmonary, eye system symptoms on review. MENTAL STATUS EXAM: The patient is reasonably oriented. Speech is coherent, abstraction fair, computation impaired, language function intact. Mood and affect is improved. Diagnoses unchanged from initial note. PLAN: No change from initial note. MAN Laura DANIEL MD DR: ISABELLA/yue JOB#: [id number] / [id number]
--- NOTE | 2018-10-17 07:18 | PN ---
DATE: 10/15/2018 PSYCHIATRIC PROGRESS NOTE This late entry 10/15/2018 covers elements not covered in my initial note. SUBJECTIVE: I met with the patient in the evening. The patient slept 9 hours previous night. She continues to have pain in left heel and ankle area. Medication compliant, pleasant, calm, had a good day. REVIEW OF SYSTEMS: Ambulation impaired, in wheelchair. No CV, , pulmonary, eye, ENT system symptoms on review. MENTAL STATUS EXAM: Oriented reasonably. Speech is coherent, has some latency. Abstraction fair, computation impaired, language function intact, attention span fair. Mood and affect is improved. LABORATORY DATA: Reviewed. IMPRESSION: Unchanged from initial note. PLAN: No change from initial note. MAN Laura DANIEL MD DR: ISABELLA/yue JOB#: [id number] / [id number]
--- NOTE | 2018-10-17 08:40 | PN ---
DATE: 10/16/2018 PSYCHIATRIC PROGRESS NOTE This note covers elements not covered in my initial note 10/16/2018. SUBJECTIVE: I met with the patient at some length in her room in the evening. The patient slept 7-1/2 hours previous night. She is doing better. REVIEW OF SYSTEMS: Positive for some discomfort in lower extremities. She is keeping it raised due to pedal edema. No CV, , pulmonary, eye system symptoms on review. MENTAL STATUS EXAM: Reasonably oriented. Speech is coherent, abstraction fair, computation impaired, language function intact. Mood and affect is improved. IMPRESSION: Unchanged from initial note. PLAN: No change from initial note. SAMMY DANIEL MD DR: ISABELLA/yue JOB#: [id number] / [id number]
[2018-10-17] MEDS: OMEGA-3 FATTY ACIDS/FISH OIL 1,000 MG CAPSULE. PO SCH (09:15)
[2018-10-17] MEDS: PANTOPRAZOLE 40 MG TABLET. PO SCH (09:15)
[2018-10-17] MEDS: SENNOSIDES/DOCUSATE 8.6/50MG TABLET. PO SCH (09:15)
[2018-10-17] MEDS: LACTOBACILLUS RHAMNOSUS GG 1 CAPSULE. PO SCH (09:15)
[2018-10-17] MEDS: SERTRALINE 25 MG TABLET. PO SCH (09:15)
[2018-10-17] MEDS: POLYVINYL ALCOHOL/POVIDONE/PF OPHTH SOLUTION DROPERETTE. OU SCH (09:15)
[2018-10-17] MEDS: DICLOFENAC SODIUM 1% TOPICAL GEL 100GM TUBE. TP SCH (09:15)
[2018-10-17] MEDS: CHOLECALCIFEROL (VITAMIN D3) 1,000 UNIT TABLET PO SCH (09:15)
[2018-10-17] MEDS: CARBIDOPA/LEVODOPA 25/250MG TABLET PO SCH ×2 (09:15→14:07)
[2018-10-17] MEDS: rOPINIRole 1 MG TABLET. PO SCH (09:15)
[2018-10-17] MEDS: CALCIUM CARB/VIT D3 500/200 TABLET PO SCH (09:15)
[2018-10-17] MEDS: MULTIVITAMIN with MINERAL TABLET. PO SCH (09:15)
[2018-10-17] MEDS: VITAMIN B COMPLEX CAPSULE. PO SCH (09:15)
[2018-10-17] MEDS: FUROSEMIDE 20 MG TABLET PO SCH (09:15)
--- NOTE | 2018-10-17 11:16 | NUR ---
Pt is cooperative, calm, compliant. No agitation or aggression. No hallucinations or delusions noted. She is withdrawn to her room at times however she does interact appropriately with staff and peers. Pt is compliant with medication and assessment.
[2018-10-17 16:03] VITALS: BP 118/71
--- NOTE | 2018-10-17 16:30 | NUR ---
Transition Record was faxed to follow-up provider with the following elements: Reason for admission, procedures, tests, principal diagnosis, pending studies, patient instructions, 07/12 contact information for unit, phone number to obtain pending test results, plan for follow-up care, physician follow-up, advanced directive information, and medication list with dose, duration and instructions. This information was included in the following documents: History and physical, lab results, study results, progress notes, social work planning form, DC instruction form, patient visit summary, and medication reconciliation form. Date & time record faxed: 10/17/18 1202 Record faxed to: [facility] Record discussed with/ report given to: Sushila
--- NOTE | 2018-10-17 22:30 | PDOC ---
Exam Note: Oscar Note: Please also refer to the separate dictated note~for this date of service dictated separately.~Patient seen individually. Discussed the patient with Nursing staff reviewed the chart.~Reviewed interim history and current functioning. Reviewed vital signs,~Labs/ Radiology~and current medications noted below. Continue current treatment with the changes noted in the dictated addendum note Assessment: Vital Signs: Vital Signs Date Time Temp Pulse Resp B/P (MAP) Pulse Ox O2 Delivery O2 Flow Rate FiO2 10/17/18 16:03 97.4 75 16 118/71 (87) 95 10/14/18 16:23 Room Air I&O Intake and Output 10/17/18 07:00 Intake Total 1080 ml Balance 1080 ml Intake Oral 1080 ml Current Medications: Meds: Current Medications Sodium Chloride 500 ml @ 0 mls/hr 1X ONCE IV ; Start 09/13/18 at 14:00; Stop 09/13/18 at 14:30; Status DC Acetaminophen (Tylenol) 650 mg PRN Q6HRS PRN PO PAIN / TEMP Last administered on 10/12/18at 00:56; Start 09/13/18 at 17:15; Stop 10/17/18 at 16:32; Status DC Multi-Ingredient Ointment (Analgesic [place]) 1 narendra PRN QID PRN TP MUSCLE PAIN Last administered on 10/04/18at 16:33; Start 09/13/18 at 17:15; Stop 10/17/18 at 16:32; Status DC Al Hydroxide/Mg Hydroxide (Mylanta Plus Xs) 15 ml PRN AFTMEALHC PRN PO DYSPEPSIA; Start 09/13/18 at 17:15; Stop 10/17/18 at 16:32; Status DC Magnesium Hydroxide (Milk Of Magnesia) 2,400 mg PRN QHS PRN PO CONSTIPATION; Start 09/13/18 at 17:15; Stop 10/17/18 at 16:32; Status DC Citalopram Hydrobromide (CeleXA) 20 mg DAILY PO Last administered on 09/14/18at 09:00; Start 09/14/18 at 09:00; Stop 09/14/18 at 17:18; Status DC Furosemide (Lasix) 20 mg DAILY PO Last administered on 09/14/18at 09:00; Start 09/14/18 at 09:00; Stop 09/14/18 at 17:22; Status DC Senna/Docusate Sodium (Senna Plus) 1 tab DAILY PO Last administered on 10/17/18 09:15; Start 09/14/18 at 09:00; Stop 10/17/18 at 16:32; Status DC Simvastatin (Zocor) 40 mg QHS PO Last administered on 10/16/18 19:55; Start 09/13/18 at 21:00; Stop 10/17/18 at 16:32; Status DC Calcium/Vitamin D (Oscal D 500mg/ 200uts) 1 tab DAILY PO Last administered on 10/17/18 09:15; Start 09/14/18 at 09:00; Stop 10/17/18 at 16:32; Status DC Carbidopa/Levodopa (Sinemet 25/250) 1 tab TID PO Last administered on 10/17/18 14:07; Start 09/13/18 at 21:00; Stop 10/17/18 at 16:32; Status DC Vitamin D (Vitamin D3) 2,000 unit DAILY PO Last administered on 10/17/18 09:15; Start 09/14/18 at 09:00; Stop 10/17/18 at 16:32; Status DC Vitamin B Complex 1 cap DAILY PO Last administered on 10/17/18 09:15; Start 09/14/18 at 09:00; Stop 10/17/18 at 16:32; Status DC Famotidine (Pepcid) 20 mg BID PO Last administered on 09/14/18 09:00; Start 09/13/18 at 21:00; Stop 09/14/18 at 17:20; Status DC Levothyroxine Sodium (Synthroid) 150 mcg DAILY06 PO Last administered on 10/17/18 06:07; Start 09/14/18 at 06:00; Stop 10/17/18 at 16:32; Status DC Multivitamins/ Calcium (Thera-M Plus) 1 tab DAILY PO Last administered on 10/17/18 09:15; Start 09/14/18 at 09:00; Stop 10/17/18 at 16:32; Status DC Fish Oil (Fish Oil) 1,000 mg DAILY PO Last administered on 10/17/18 09:15; Start 09/14/18 at 09:00; Stop 10/17/18 at 16:32; Status DC Pantoprazole Sodium (Protonix) 40 mg DAILY07 PO Last administered on 09/27/18at 06:10; Start 09/14/18 at 07:00; Stop 09/28/18 at 05:36; Status DC Polyethylene Glycol (miraLAX) 17 gm PRN DAILY PRN PO CONSTIPATION Last administered on 10/09/18at 22:10; Start 09/13/18 at 19:45; Stop 10/17/18 at 16:32; Status DC Albuterol/ Ipratropium (Duoneb) 3 ml RTQID NEB Last administered on 09/14/18at 05:21; Start 09/13/18 at 20:00; Stop 09/14/18 at 14:10; Status DC Artificial Tears (Refresh Classic) 2 drop DAILY OU Last administered on 10/17/18 09:15; Start 09/14/18 at 09:00; Stop 10/17/18 at 16:32; Status DC Lactobacillus Rhamnosus (Culturelle) 1 cap BID PO Last administered on 10/17/18at 09:15; Start 09/13/18 at 21:00; Stop 10/17/18 at 16:32; Status DC Midodrine (Proamatine) 5 mg [id number] PO Last administered on 09/19/18at 13:12; Start 09/14/18 at 07:00; Stop 09/22/18 at 14:14; Status DC Ropinirole HCl (Requip) 1 mg BID PO Last administered on 10/17/18 09:15; Start 09/13/18 at 21:00; Stop 10/17/18 at 16:32; Status DC Albuterol/ Ipratropium (Duoneb) 3 ml PRN QID PRN NEB CONGESTION; Start 09/14/18 at 14:15; Stop 10/17/18 at 16:32; Status DC Sertraline HCl (Zoloft) 50 mg DAILY PO Last administered on 09/15/18at 09:04; Start 09/15/18 at 09:00; Stop 09/15/18 at 15:03; Status DC Quetiapine Fumarate (SEROquel) 25 mg QHS PO Last administered on 10/16/18at 19:54; Start 09/14/18 at 21:00; Stop 10/17/18 at 16:32; Status DC Vitamin D (Vitamin D3) 50,000 unit WEEKLY PO Last administered on 10/12/18at 09:33; Start 09/14/18 at 17:30; Stop 10/17/18 at 16:32; Status DC Sertraline HCl (Zoloft) 50 mg DAILY PO Last administered on 09/20/18at 08:58; Start 09/16/18 at 09:00; Stop 09/20/18 at 16:44; Status DC Furosemide (Lasix) 20 mg DAILY PO Last administered on 10/04/18at 09:42; Start 09/20/18 at 09:00; Stop 10/04/18 at 17:15; Status DC Sertraline HCl (Zoloft) 75 mg DAILY PO Last administered on 10/17/18 09:15; St art 09/21/18 at 09:00; Stop 10/17/18 at 16:32; Status DC Midodrine (Proamatine) 5 mg [id number] PRN PO hypotension Last administered on 10/10/18at 07:59; Start 09/22/18 at 14:15; Stop 10/17/18 at 16:32; Status DC Pantoprazole Sodium (Protonix) 40 mg DAILYAC PO Last administered on 10/17/18 09:15; Start 09/28/18 at 07:30; Stop 10/17/18 at 16:32; Status DC Diclofenac Sodium (Voltaren) 1 narendra BID TP Last administered on 10/17/18 09:15; Start 09/29/18 at 21:00; Stop 10/17/18 at 16:32; Status DC Furosemide (Lasix) 40 mg DAILY PO Last administered on 10/17/18 09:15; Start 10/05/18 at 09:00; Stop 10/17/18 at 16:32; Status DC Tramadol HCl (Ultram) 50 mg PRN Q6HRS PRN PO PAIN Last administered on 10/14/18at 06:19; Start 10/06/18 at 18:30; Stop 10/17/18 at 16:32; Status DC Active Scripts Active Synthroid (Levothyroxine Sodium) 150 Mcg Tablet 150 Mcg PO DAILY07 Reported Tramadol Hcl (Tramadol HCl) 50 Mg Tablet 50 Mg PO PRN Q6HRS PRN Zoloft (Sertraline Hcl) 100 Mg Tablet 75 Mg PO DAILY Seroquel (Quetiapine Fumarate) 25 Mg Tablet 25 Mg PO QHS Midodrine Hcl 5 Mg Tablet 5 Mg PO PRN TID PRN Analgesic [place] (Methyl Salicylate/Menthol) 28 Gm Oint...g. 1 Narendra TP PRN QID PRN Milk Of Magnesia (Magnesium Hydroxide) 2,400 Mg/10 Ml Oral.susp 2,400 Mg PO PRN QHS PRN Maalox Maximum Strength Susp (Mag Hydrox/Al Hydrox/Simeth) 355 Ml Oral.susp 15 Ml PO PRN AFTMEALHC PRN Furosemide 40 Mg Tablet 40 Mg PO DAILY Voltaren (Diclofenac Sodium) 100 Gm Gel..gram. 1 Narendra TP BID Vitamin D3 (Cholecalciferol (Vitamin D3)) 5,000 Unit Tablet 50,000 Unit PO WEEKLY start date: 09/14/18 Tylenol (Acetaminophen) 325 Mg Tablet 650 Mg PO PRN Q6HRS PRN Protonix (Pantoprazole Sodium) 40 Mg Granpkt.dr 40 Mg PO DAILY07 Acidophilus (Lactobacillus Acidophilus) 1 Each Capsule 1 Each PO BID Refresh Optive Eye Drops (Carboxymethylcellulos/Glycerin) 15 Ml Drops 2 Drop EACHEYE DAILY Duoneb 0.5-3(2.5) Mg/3 Ml (Albuterol/Ipratropium) 3 Ml Ampul.neb 3 Ml NEB QID Carbidopa-Levodopa 25-250 Tab (Carbidopa/Levodopa) 1 Each Tablet 1 Tab PO TID LAST DOSE GIVEN: DATE: TODAY TIME: AM NEXT DOSE DUE: DATE: TODAY TIME: AFTERNOON Polyethylene Glycol 3350 255 Gm Powder 17 Gm PO DAILY PRN NOT GIVEN TODAY NEXT DOSE DUE: DATE: TODAY TIME: IF AND WHEN NEEDED Senna-Docusate Sodium Tablet (Sennosides/Docusate Sodium) 1 Each Tablet 1 Tab PO DAILY LAST DOSE GIVEN: DATE: TODAY TIME: AM NEXT DOSE DUE: DATE: TOMORROW TIME: AM [place] 3 1,000 Mg Softgel ([place]-3 Fatty Acids/Fish Oil) 1 Each Capsule 1 Each PO DAILY LAST DOSE GIVEN: DATE: TODAY TIME: AM NEXT DOSE DUE: DATE: TOMORROW TIME: AM Simvastatin 40 Mg Tablet 40 Mg PO QHS LAST DOSE GIVEN: DATE: YESTERDAY TIME: PM NEXT DOSE DUE: DATE: TODAY TIME: PM Requip (Ropinirole Hcl) 1 Mg Tablet 1 Mg PO BID LAST DOSE GIVEN: DATE: TIME: AM NEXT DOSE DUE: DATE: TODAY TIME: PM Vitamin D-3 (Cholecalciferol (Vitamin D3)) 2,000 Unit Tablet 2,000 Unit PO DAILY LAST DOSE GIVEN: DATE: TIME: AM NEXT DOSE DUE: DATE: TOMORROW TIME: AM Calcium 600 + Vit D 200 Tablet (Calcium Carbonate/Vitamin D3) 1 Each Tablet 1 Tab PO DAILY LAST DOSE GIVEN: DATE: TODAY TIME: AM NEXT DOSE DUE: DATE:TOMORROW TIME: AM Daily Vitamin (Multivitamin) 1 Each Tablet 1 Each PO DAILY LAST DOSE GIVEN: DATE: TIME: AM NEXT DOSE DUE: DATE: TOMORROW TIME: AM Vitamin E85-Xqzlv Acid Tablet (Cyanocobalamin/Folic Acid) 1 Each Tablet 1 Each PO DAILY LAST DOSE GIVEN: DATE: TIME: AM NEXT DOSE DUE: DATE: ORR TIME: AM I have reviewed the current psychotropics carefully including drug interactions. Risk benefit ratio favors no change other than as noted in my dictated progress note. Diagnosis: Problems: (1) Major neurocognitive disorder (2) Dementia in Alzheimer's disease with delusions (3) Dementia in Alzheimer's disease with depression (4) Dementia, vascular, with delusions (5) Dementia, vascular, with depression (6) Impulse control disorder (7) Anxiety disorder (8) Major depressive disorder SAMMY DANIEL MD Oct 17, 2018 22:30
--- NOTE | 2018-10-18 20:58 | DS ---
DATE OF DISCHARGE: 10/17/2018 PSYCHIATRIC DISCHARGE SUMMARY This late entry 10/17/2018 covers elements not covered in my initial note. REASON FOR ADMISSION: Please refer to the admission history for details. Briefly, the patient is an 88-year-old female referred to us from [facility] after she was sent to the Emergency Room at [facility] directly from the [facility] on account of increased agitation, threatening to kill staff members, and hitting out at staff. She was crying uncontrollably, throwing food at residents and stating that she will never have anyone touch her again, and that she will never eat off the floor again as long as she lives. The patient's behaviors were unmanageable, dangerous, referred for inpatient psychiatric stabilization. SIGNIFICANT FINDINGS AND CLINICAL COURSE: Following admission, the patient was seen daily individually by myself from a psychiatric standpoint, medical followup with Dr. Hopkins. Initially, she was extremely labile in her mood, anxious, depressed, aggressive appeared, confused. Adjustments were made in her psychotropics and she seemed to respond to a combination of Zoloft 75 mg a day, Seroquel 25 mg p.o. at bedtime. REVIEW OF SYSTEMS: Prior to discharge on 10/17/2018, ambulation impaired and complains of pedal edema. Ambulates with walker. No CV, , pulmonary, eye system symptoms on review. MENTAL STATUS EXAM: Oriented to herself and situation. Speech coherent, abstraction fair, computation impaired, language function intact. Mood and affect improved. She was quite distressed about her daughter who was involved with drugs, but was finally getting into some rehabilitation treatment and the DPOA status was changed during the hospitalization at the patient's request. FINAL DIAGNOSES: Major depressive disorder, recurrent with psychotic features, in partial remission, mild cognitive impairment; anxiety disorder, unspecified; impulse control disorder, unspecified. Rest unchanged from admission. DISCHARGE MEDICATIONS: Please refer to the MRAD. DISCHARGE INSTRUCTIONS: Outpatient psychiatric and medical followup at the [facility]. MAN Laura DANIEL MD DR: ISABELLA/yue JOB#: [id number] / [id number]
== END 2018-10-17 16:20 | DRG 885 ==
LOC: ER 13:46 → GEROPSY 15:00 → UNDOADMIN 15:00 → ER 15:42 → GEROPSY 16:00
PROVIDERS: ADMIT Psychiatry & Neurology Psychiatry; ATTEND Psychiatry & Neurology Psychiatry
DX: F33.3 Major depressive disorder, recurrent, severe with psychotic symptoms (principal); E44.1 Mild protein-calorie malnutrition; E03.9 Hypothyroidism, unspecified; E78.5 Hyperlipidemia, unspecified; F01.50 Vascular dementia, unspecified severity, without behavioral disturbance, psychotic disturbance, mood disturbance, and anxiety; F02.80 Dementia in other diseases classified elsewhere, unspecified severity, without behavioral disturbance, psychotic disturbance, mood disturbance, and anxiety; F41.9 Anxiety disorder, unspecified; F63.9 Impulse disorder, unspecified; G20 Parkinson's disease; G30.9 Alzheimer's disease, unspecified; I11.0 Hypertensive heart disease with heart failure; I50.9 Heart failure, unspecified; I95.1 Orthostatic hypotension; K21.9 Gastro-esophageal reflux disease without esophagitis; R13.10 Dysphagia, unspecified; R29.6 Repeated falls; Z79.899 Other long term (current) drug therapy; Z85.820 Personal history of malignant melanoma of skin; Z87.440 Personal history of urinary (tract) infections; Z90.710 Acquired absence of both cervix and uterus; Z88.0 Allergy status to penicillin; Z88.8 Allergy status to other drugs, medicaments and biological substances; Z68.21 Body mass index [BMI] 21.0-21.9, adult; Z87.81 Personal history of (healed) traumatic fracture; N28.9 Disorder of kidney and ureter, unspecified
CPT/HCPCS: 36415; 73590; 73610; 73630; 80053; 80061; 81001; 82306; 83036; 83540; 83550; 83735; 84436; 84439; 84443; 84480; 84484; 85025; 86592; 92526; 93005; 93971; 94640; J7620; 92610; 97110; 97116; 97530; 97535

== ENCOUNTER 2019-04-28 16:57 | Emergency (ER) | payer MEDICARE ==
[~2019-04-28] VITALS: Ht 165.1 cm; Wt 54.4 kg
[~2019-04-28 16:57] MED LIST changes: +ACET325T9 PO; +CARB15DR3 EACHEYE; +CHOL500016 PO; +CITA20TA6 PO; +DICL100G18 TP; +FAMO20TA5 PO; +FURO40TA4 PO; +IPRA3AMP29 NEB; +LACT1CAP2 PO; +MAG355OR12 PO; +MAGN2400 PO; +METH28OI2 TP; -MIDO5TAB PO; +MIDO5TAB4 PO; +PANT40GR PO; +QUET25TA5 PO; +SERT100T PO; +SIMV40TA18 PO; -SIMV40TA3 PO; -TIZA4TAB PO; +TIZA4TAB2 PO
[2019-04-28 17:24] VITALS: BP 141/73
--- NOTE | 2019-04-28 18:24 | PHYS DOC ---
Past History Past Medical History: Anxiety, Arthritis, Dementia, GERD, High Cholesterol, Hypertension, Hypothyroid, UTI Past Surgical History: Cholecystectomy, Other Alcohol Use: None Drug Use: None Adult General Chief Complaint Chief Complaint: KNEE INJURY.. "..I fell 3 days ago... when I was getting of the stool.. I had been having diarrhea... and I hit this Lt. knee.. it is the same one ... I ve broken twice...but it is still hurting me... I seen Dr. Walker... " HPI HPI Patient is a 89 year old female who presents with knee injury days ago when she slipped and hit it getting off the commode. Patient has had previous fractures knee and orthopedic surgery of plates and screws. Patient is able to do straight leg lift. There is obviously any joint changes. Knee is reportedly always in a slightly flexed position. Patient denies any other injury. Patient has been using her walker. Distal neurovascular is equal to right leg. Pain is primarily in the patella area of left knee. Does have limited range of motion which is chronic. Review of Systems Review of Systems Constitutional: Denies fever or chills [] Eyes: Denies change in visual acuity, redness, or eye pain [] HENT: Denies nasal congestion or sore throat [] Respiratory: Denies cough or shortness of breath [] Cardiovascular: No additional information not addressed in HPI [] GI: Denies abdominal pain, nausea, vomiting, bloody stools or diarrhea [] : Denies dysuria or hematuria [] Musculoskeletal: Complains of left leg patella pain Integument: Denies rash or skin lesions [] Neurologic: Denies headache, focal weakness or sensory changes [] Endocrine: Denies polyuria or polydipsia [] All other systems were reviewed and found to be within normal limits, except as documented in this note. Family History Family History Noncontributory Current Medications Current Medications See nursing for home medications Allergies Allergies Allergies Coded Allergies Type Severity Reaction Last Updated Verified Penicillins Allergy Intermediate 04/28/19 Yes meloxicam Allergy Intermediate 04/28/19 Yes Physical Exam Physical Exam Constitutional: Moderate acute distress, non-toxic appearance. [] HENT: Normocephalic, atraumatic, bilateral external ears normal, oropharynx moist, no oral exudates, nose normal. [] Eyes: PERRLA, EOMI, conjunctiva normal, no discharge. [] Neck: Normal range of motion, no tenderness, supple, no stridor. [] Cardiovascular:Heart rate regular rhythm, no murmur []PMI to the left Lungs & Thorax: Bilateral breath sounds equal at apexes on auscultation [] Abdomen: Bowel sounds normal, soft, no tenderness, no masses, no pulsatile masses. [] Old surgery scars. Skin: Warm, dry, no erythema, no rash. [] Back: No tenderness, no CVA tenderness. [] Extremities: Left Patellar tenderness, no cyanosis, no clubbing, ROM limited. No edema. [] Remy slightly bent. Arthritic changes. Old surgery scars. Neurologic: Alert and oriented X 3, normal motor function, normal sensory function, no focal deficits noted. [] Psychologic: Affect anxious, judgement normal, mood normal. [] Current Patient Data Vital Signs Vital Signs Date Time Temp Pulse Resp B/P (MAP) Pulse Ox O2 Delivery O2 Flow Rate FiO2 04/28/19 17:24 97.9 79 18 97 Room Air EKG EKG [] Radiology/Procedures Radiology/Procedures [][place] [address] IMAGING REPORT Signed PATIENT: FALLON ESCALONA MACCOUNT: [id number] : 1930 LOCATION: ER AGE: 89 SEX: F EXAM STATUS: REG ER ORD. PHYSICIAN: ALICIA ELLIOTT MD REASON: PAIN SP FALL PROCEDURE: KNEE LEFT 4V Indication: Pain status post fall TECHNIQUE: 3 views of the left knee COMPARISON: 04/09/2018 FINDINGS: Status post ORIF of distal femoral fracture with lateral cortical plate and screws. Evidence of old healed fracture in the distal femur. Severe lateral and mild medial and patellofemoral joint compartment osteoarthritis. No acute fracture or dislocation. No joint effusion. Vascular calcifications. Clinically correlate for symptoms of peripheral artery disease. IMPRESSION: As above. Electronically signed by: Trevor Hannah DO (04/28/2019 7:05 PM) [facility] DICTATED AND SIGNED BY: TREVOR HANNAH DO DATE: 04/28/191904 CC: SUNSHINE WALKER MD; ALICIA ELLIOTT MD ~ Course & Med Decision Making Course & Med Decision Making Pertinent Labs and Imaging studies reviewed. (See chart for details) Pt. to take tylenol and ibuprofen for pain. Use lucas wrap. Pt. to take Vicoprofen for marked discomfort. Distal neurovascular intact after lucas. Follow up with primary. Return if any concerns. Impression: 1. Contusion Lt. Knee- ( No acute fx. ) [] Dragon Disclaimer Dragon Disclaimer This electronic medical record was generated, in whole or in part, using a voice recognition dictation system. Departure Departure: Disposition: HOME/RESIDENCE PRIOR TO ADM Condition: STABLE Referrals: SUNSHINE WALKER MD (PCP) Scripts Hydrocodone/Ibuprofen (HYDROCODONE-IBUPROFEN 7.5-200 ) 1 Each Tablet 1 TAB PO PRN Q6HRS PRN for PAIN, #30 TAB 0 Refills Prov: ALICIA ELLIOTT MD 04/28/19 Dragon Disclaimer This chart was dictated in whole or in part using Voice Recognition software in a busy, high-work load, and often noisy Emergency Department environment. It may contain unintended and wholly unrecognized errors or omissions. ALICIA ELLIOTT MD Apr 28, 2019 18:24
[2019-04-28] MEDS ORDERED: HYDR-1179 PO (18:54)
[2019-04-28] MEDS ORDERED: HYDROcodon/IBUPROFEN 7.5/200MG 1 TAB TABLET PO ONE (19:00)
--- NOTE | 2019-04-28 19:08 | RAD ---
Indication: Pain status post fall TECHNIQUE: 3 views of the left knee COMPARISON: 04/09/2018 FINDINGS: Status post ORIF of distal femoral fracture with lateral cortical plate and screws. Evidence of old healed fracture in the distal femur. Severe lateral and mild medial and patellofemoral joint compartment osteoarthritis. No acute fracture or dislocation. No joint effusion. Vascular calcifications. Clinically correlate for symptoms of peripheral artery disease. IMPRESSION: As above. Electronically signed by: Trevor Hannah DO (04/28/2019 7:05 PM) [facility]
== END 2019-04-28 19:19 | disposition home or self-care (01) ==
LOC: ER 16:57
DX: S80.02XA Contusion of left knee, initial encounter (principal); F41.9 Anxiety disorder, unspecified; M19.90 Unspecified osteoarthritis, unspecified site; F03.90 Unspecified dementia, unspecified severity, without behavioral disturbance, psychotic disturbance, mood disturbance, and anxiety; K21.9 Gastro-esophageal reflux disease without esophagitis; E78.00 Pure hypercholesterolemia, unspecified; I10 Essential (primary) hypertension; E03.9 Hypothyroidism, unspecified; Z87.440 Personal history of urinary (tract) infections; Z88.0 Allergy status to penicillin; Z88.8 Allergy status to other drugs, medicaments and biological substances; W18.09XA Striking against other object with subsequent fall, initial encounter; Y93.89 Activity, other specified; Y92.89 Other specified places as the place of occurrence of the external cause; Y99.8 Other external cause status
CPT/HCPCS: 73564; 99284

== ENCOUNTER → 2019-05-12 | Outpatient (CLI) | payer MEDICARE ==
[2019-04-28 17:24] VITALS: BP 141/73
[~2019-05-12] MED LIST changes: +HYDR-1179 PO
--- NOTE | 2019-05-12 13:30 | RAD ---
EXAM: Head CT without contrast. HISTORY: Parkinson's. Cognitive impairment. TECHNIQUE: Computed tomographic images of the head were obtained without contrast. *One or more of the following individualized dose reduction techniques were utilized for this examination: 1. Automated exposure control. 2. Adjustment of the mA and/or kV according to patient size. 3. Use of iterative reconstruction technique. COMPARISON: 04/09/2018. FINDINGS: There is no acute or subacute extra-axial or intraparenchymal hemorrhage. There is no mass effect or midline shift. There is no hydrocephalus. There are areas of decreased attenuation within the cerebral white matter, nonspecific and likely related to chronic small vessel disease. There is cerebral volume loss. There is a chronic lacunar infarct involving the left basal ganglia with ex vacuo dilatation of the frontal horn of the left lateral ventricle. There are also foci of encephalomalacia likely due to chronic infarction involving the right greater than left cerebellar hemispheres. There is evidence of lens surgery. 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 The visualized paranasal sinuses mastoid air cells are clear. There is no calvarial lesion. IMPRESSION: 1. No acute intracranial finding. 2. Bilateral cerebral white matter changes, likely due to chronic small vessel disease. 3. Cerebral atrophy. 4. 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 Electronically signed by: Stacey Ortiz MD (05/12/2019 1:27 PM) [facility]
== END | disposition home or self-care (01) ==
LOC: CT 13:07
PROVIDERS: ATTEND Psychiatry & Neurology Neurology
DX: G31.89 Other specified degenerative diseases of nervous system (principal); I63.89 Other cerebral infarction; R90.82 White matter disease, unspecified; G20 Parkinson's disease; G25.0 Essential tremor; H18.429 Band keratopathy, unspecified eye
CPT/HCPCS: 70450

== ENCOUNTER 2019-06-09 01:55 | Observation (INO) | payer MEDICARE ==
[~2019-06-09] VITALS: Ht 165.1 cm; Wt 51.9 kg
[2019-06-09] MEDS ORDERED: IV NORMAL SALINE 1,000ML 1,000 ML IV SCH (02:30)
--- NOTE | 2019-06-09 03:01 | PHYS DOC ---
Past History Past Medical History: Anxiety, Arthritis, Dementia, GERD, High Cholesterol, Hypertension, Hypothyroid, UTI Past Surgical History: Cholecystectomy, Other Alcohol Use: None Drug Use: None Adult General Chief Complaint Chief Complaint: WEAKNESS/GENERALIZED HPI HPI Patient is a 89 year old female who presents with complaint of generalized weakness. The patient was brought to the emergency department by EMS. They were called to the patient's residence due to the patient being unable to lift herself off of her commode while using the bathroom. The patient states that over the past week she has been feeling weaker and has been having chills. She states currently she feels very cold. She denies any fever, cough, nausea, vomiting, chest pain, shortness of breath, or abdominal pain. Does have history of Parkinson's disease. Currently follows with Dr. Walker for primary care. Patient states that she had a swallow study done earlier today due to reported trouble with swallowing. She states that she thought she had no problems with this test. States that she has been eating and drinking "okay." Review of Systems Review of Systems Constitutional: Fatigue, chills[] Eyes: Denies change in visual acuity, redness, or eye pain [] HENT: Denies nasal congestion or sore throat [] Respiratory: Denies cough or shortness of breath [] Cardiovascular: Denies chest pain or edema[] GI: Denies abdominal pain, nausea, vomiting, bloody stools or diarrhea [] : Denies dysuria or hematuria [] Musculoskeletal: Denies back pain or joint pain [] Integument: Denies rash or skin lesions [] Neurologic: Generalized weakness, denies headache or sensory changes [] All other systems were reviewed and found to be within normal limits, except as documented in this note. Current Medications Current Medications Current Medications Medications (Trade) Dose Ordered Sig/Gabriel Start Time Stop Time Status Last Admin Dose Admin Sodium Chloride 1,000 ml @ 125 mls/hr Q8H 06/09/19 02:30 06/09/19 10:29 Allergies Allergies Allergies Coded Allergies Type Severity Reaction Last Updated Verified Penicillins Allergy Intermediate 04/28/19 Yes meloxicam Allergy Intermediate 04/28/19 Yes Physical Exam Physical Exam Constitutional: Alert, afebrile, frail appearance. [] HENT: Normocephalic, atraumatic, bilateral external ears normal, oropharynx dry, no oral exudates, nose normal. [] Eyes: PERRLA, EOMI, conjunctiva normal, no discharge. [] Neck: Normal range of motion, no tenderness, supple, no stridor. [] Cardiovascular:Heart rate regular rhythm, no murmur [] Lungs & Thorax: Bilateral breath sounds clear to auscultation [] Abdomen: Bowel sounds normal, soft, no tenderness, no masses, no pulsatile masses. [] Skin: Warm, dry, no erythema, no rash. [] Back: No tenderness, no CVA tenderness. [] Extremities: No tenderness, no cyanosis, no clubbing, ROM intact, no edema. [] Neurologic: Alert and oriented X 3, cogwheel rigidity of musculature, resting pill-rolling tremor present, normal sensory function, no focal deficits noted. [] Current Patient Data Vital Signs Vital Signs Date Time Temp Pulse Resp B/P (MAP) Pulse Ox O2 Delivery O2 Flow Rate FiO2 06/09/19 01:55 98.3 95 18 95 Room Air Lab Results Laboratory Tests Test 06/09/19 03:00 06/09/19 03:15 White Blood Count 11.0 x10^3/uL Red Blood Count 4.32 x10^6/uL Hemoglobin 13.3 g/dL Hematocrit 40.9 % Mean Corpuscular Volume 95 fL Mean Corpuscular Hemoglobin 31 pg Mean Corpuscular Hemoglobin Concent 33 g/dL Red Cell Distribution Width 14.7 % Platelet Count 125 x10^3/uL Neutrophils (%) (Auto) 87 % Lymphocytes (%) (Auto) 6 % Monocytes (%) (Auto) 7 % Eosinophils (%) (Auto) 0 % Basophils (%) (Auto) 0 % Neutrophils # (Auto) 9.6 x10^3uL Lymphocytes # (Auto) 0.6 x10^3/uL Monocytes # (Auto) 0.8 x10^3/uL Eosinophils # (Auto) 0.0 x10^3/uL Basophils # (Auto) 0.0 x10^3/uL Sodium Level 141 mmol/L Potassium Level 4.4 mmol/L Chloride Level 101 mmol/L Carbon Dioxide Level 31 mmol/L Anion Gap 9 Blood Urea Nitrogen 21 mg/dL Creatinine 1.5 mg/dL Estimated GFR (Cockcroft-Gault) 32.7 BUN/Creatinine Ratio 14 Glucose Level 127 mg/dL Calcium Level 9.2 mg/dL Magnesium Level 2.0 mg/dL Total Bilirubin 0.6 mg/dL Aspartate Amino Transf (AST/SGOT) 15 U/L Alanine Aminotransferase (ALT/SGPT) 11 U/L Alkaline Phosphatase 103 U/L Total Protein 6.9 g/dL Albumin 3.7 g/dL Albumin/Globulin Ratio 1.2 Urine Collection Type U cath Urine Color Yellow Urine Clarity Clear Urine pH 5.5 Urine Specific Panther Burn 1.015 Urine Protein Neg Urine Glucose (UA) Neg mg/dL Urine Ketones (Stick) Neg mg/dL Urine Blood Neg Urine Nitrite Neg Urine Bilirubin Neg Urine Urobilinogen Dipstick 0.2 mg/dL Urine Leukocyte Esterase Neg Urine RBC Rare /HPF Urine WBC Rare /HPF Urine Squamous Epithelial Cells Occ /LPF Urine Bacteria 0 /HPF Current Medications Medications (Trade) Dose Ordered Sig/Gabriel Route PRN Reason Start Time Stop Time Status Last Admin Dose Admin Sodium Chloride 1,000 ml @ 125 mls/hr Q8H IV 06/09/19 02:30 06/09/19 10:29 06/09/19 03:04 EKG EKG Interpreted by me: Heart rate 87: Sinus rhythm, left axis deviation, no acute ST/T-wave abnormalities present[] Radiology/Procedures Radiology/[place] [address] IMAGING REPORT Signed PATIENT: FALLON ESCALONA MACCOUNT: [id number] : 1930 LOCATION: ER AGE: 89 SEX: F EXAM STATUS: REG ER ORD. PHYSICIAN: JOVANNA DURANT MD REASON: Weakness, eval for acute cardiopulmonary abnormality PROCEDURE: PORTABLE CHEST 1V AP chest. HISTORY: Weakness AP view was taken of the chest. There is mild left base linear atelectasis. There are no other infiltrates. Heart is normal in size. There is a possible hiatus hernia. IMPRESSION: 1. Mild atelectasis left lung base without other infiltrates. Electronically signed by: Stu Morales MD (06/09/2019 3:05 AM) [facility] DICTATED AND SIGNED BY: STU MORALES MD DATE: 06/09/195 CC: SUNSHINE WALKER MD; JOVANNA DURANT MD ~ [] Course & Med Decision Making Course & Med Decision Making Pertinent Labs and Imaging studies reviewed. (See chart for details) Patient started on IV fluids in the emergency department. Patient's blood work shows no evidence of infection. Continued signs of chronic renal insufficiency. Given generalized weakness, advanced age, and mucosal dryness on exam, I do feel the patient's symptoms are due to dehydration and decompensation, which is causing generalized weakness. The patient will need admission to the hospital for further treatment with IV fluids as well as PT/OT. I contacted Dr. Walker who will accept care of patient in hospital for further care.[] Dragon Disclaimer Dragon Disclaimer This electronic medical record was generated, in whole or in part, using a voice recognition dictation system. Departure Departure: Impression: Primary Impression: Dehydration Additional Impressions: Generalized weakness Chronic kidney disease, stage III (moderate) Parkinsons disease Advanced age Disposition: ADMITTED INPATIENT Admitting Physician: Sunshine Walker Condition: GUARDED Referrals: SUNSHINE WALKER MD (PCP) Problem Qualifiers JOVANNA DURANT MD Jun 09, 2019 03:01
--- NOTE | 2019-06-09 03:08 | RAD ---
AP chest. HISTORY: Weakness AP view was taken of the chest. There is mild left base linear atelectasis. There are no other infiltrates. Heart is normal in size. There is a possible hiatus hernia. IMPRESSION: 1. Mild atelectasis left lung base without other infiltrates. Electronically signed by: Stu Morales MD (06/09/2019 3:05 AM) [facility]
[2019-06-09 03:39] LABS: BACTERIA,URINE 0 /HPF (0-FEW); BILIRUBIN,URINE NEG (NEG); CLARITY,URINE CLEAR; COLOR,URINE YELLOW; GLUCOSE,URINE NEG (NEG); NITRITE,URINE NEG (NEG); RBC,URINE RARE /HPF (0-2); SQUAMOUS EPITHELIAL CELL,UR OCC /LPF; UROBILINOGEN,URINE 0.2 mg/dL (0.2 mg/dL); WBC,URINE RARE /HPF (0-4)
[2019-06-09 03:43] LABS: CALCIUM 9.2 mg/dL (8.5-10.1); CREATININE 1.5 mg/dL (0.6-1.0); GFR 32.7; POTASSIUM 4.4 mmol/L (3.5-5.1)
[2019-06-09 03:47] LABS: ALBUMIN 3.7 g/dL (3.4-5.0); ALBUMIN/GLOBULIN RATIO 1.2 (1.0-1.7); BASO % 0 % (0-3); EOS % 0 % (0-3); HEMATOCRIT 40.9 % (36.0-47.0); HEMOGLOBIN 13.3 g/dL (12.0-15.5); LYMPH # 0.6 x10^3/uL (1.0-4.8); LYMPH % 6 % (24-48); MEAN CORPUSCULAR HEMOGLOBIN 31 pg (25-35); MEAN CORPUSCULAR HGB CONC 33 g/dL (31-37); MEAN CORPUSCULAR VOLUME 95 fL (79-100); MONO # 0.8 x10^3/uL (0.0-1.1); MONO % 7 % (0-9); NEUT # 9.6 x10^3uL (1.8-7.7); NEUT % 87 % (31-73); PLATELET COUNT 125 x10^3/uL (140-400); RED BLOOD COUNT 4.32 x10^6/uL (3.50-5.40); RED CELL DISTRIBUTION WIDTH 14.7 % (11.5-14.5); TOTAL BILIRUBIN 0.6 mg/dL (0.2-1.0); TOTAL PROTEIN 6.9 g/dL (6.4-8.2)
--- NOTE | 2019-06-09 03:48 | EKG ---
[address] [address] Test Date: 2019-06-09 Test Time: 03:41:37 Pat Name: FALLON ESCALONA Department: Room: Gender: F Blueprint Reader: : 1930 Requested By: JOVANNA DURANT Order Number: [id number] Reading MD: Measurements Intervals Hondo Rate: 87 P: -46 ND: 148 QRS: -63 QRSD: 88 T: 52 QT: 368 QTc: 443 Interpretive Statements SINUS RHYTHM ABNORMAL LEFT AXIS DEVIATION R-S TRANSITION ZONE IN V LEADS DISPLACED TO THE LEFT LEFT ANTERIOR FASCICULAR BLOCK ABNORMAL ECG RI6.01 No previous ECG available for comparison
[2019-06-09] MEDS ORDERED: ONDANSETRON PF 4 MG/2 ML VIAL. IV PRN (04:30)
[2019-06-09] MEDS ORDERED: ACETAMINOPHEN 325 MG TABLET PO PRN ×2 (04:30→05:45)
[2019-06-09] MEDS: IV NORMAL SALINE 1,000ML 1,000 ML IV SCH ×2 (04:30→17:52)
--- NOTE | 2019-06-09 05:30 | NUR ---
Admission: The patient, FALLON ESCALONA, 89 y/o, F admitted by SUNSHINE WALKER MD, was given written information regarding hospital policies, unit procedures and contact persons. Pt to room 124 via gurney from ED. Pt here for generalized weakness and dehydration. IV fluids started per order. A/Ox3, forgetful. Pt reports she was using the bathroom and was too weak to get up, sat on toilet for approx. 1 hour until her daughter found her and called EMS. Pt also reports poor intake over the past couple days. Pt now resting in bed with call light in reach. Bed alarmed for safety. Valuables were checked and logged.
[2019-06-09 05:41] VITALS: BP 109/63
[2019-06-09] MEDS ORDERED: MIDODRINE 5 MG TABLET PO PRN (05:45)
[2019-06-09] MEDS ORDERED: traMADol 50 MG TABLET PO PRN (05:45)
[2019-06-09] MEDS ORDERED: MAG HYDROX/AL HYDROX/SIMETH 30 ML ORAL.SUSP PO PRN (05:45)
[2019-06-09] MEDS ORDERED: HYDROcodon/IBUPROFEN 7.5/200MG 1 TAB TABLET PO PRN (05:45)
[2019-06-09] MEDS ORDERED: LEVOTHYROXINE 150 MCG TABLET PO SCH (07:00)
[2019-06-09] MEDS ORDERED: PANTOPRAZOLE 40 MG TABLET. PO SCH (07:30)
[2019-06-09] MEDS ORDERED: CHOLECALCIFEROL (VITAMIN D3) 1,000 UNIT TABLET PO SCH (09:00)
[2019-06-09] MEDS: DICLOFENAC SODIUM 1% TOPICAL GEL 100GM TUBE. TP SCH ×2 (09:00→22:02)
[2019-06-09] MEDS ORDERED: SERTRALINE 25 MG TABLET. PO SCH (09:00)
[2019-06-09] MEDS ORDERED: POLYETHYLENE GLYCOL 3350 17 GM PACKET. PO PRN (09:00)
[2019-06-09] MEDS ORDERED: FOLIC ACID PO SCH (09:00)
[2019-06-09] MEDS: CARBIDOPA/LEVODOPA 25/250MG TABLET PO SCH ×3 (09:00→21:48)
[2019-06-09] MEDS: rOPINIRole 1 MG TABLET. PO SCH ×2 (09:00→21:48)
[2019-06-09] MEDS ORDERED: POLYVINYL ALCOHOL/POVIDONE/PF OPHTH SOLUTION DROPERETTE. OU SCH (09:00)
[2019-06-09] MEDS ORDERED: SENNOSIDES/DOCUSATE 8.6/50MG TABLET. PO SCH (09:00)
[2019-06-09] MEDS ORDERED: CYANOCOBALAMIN PO SCH (09:00)
[2019-06-09 09:44] VITALS: BP 105/61
[2019-06-09 09:45] VITALS: BP_SYST 89; BP_SYST 95; BP_DIAS 48; BP_DIAS 59
[2019-06-09] MEDS: IPRATRPIUM/ALBUTEROL 0.5/2.5MG 3 ML NEBU. NEB SCH ×4 (10:36→20:56)
[2019-06-09] MEDS ORDERED: PRIM50TA24 PO (11:03)
[2019-06-09] MEDS ORDERED: ANTI1CAP5 PO (11:03)
[2019-06-09] MEDS ORDERED: SIMV40TA18 PO (11:03)
[2019-06-09] MEDS ORDERED: CLON0.5T4 PO (11:03)
[2019-06-09] MEDS ORDERED: LEVO137T3 PO (11:03)
[2019-06-09] MEDS ORDERED: POTA20TA83 PO (11:03)
--- NOTE | 2019-06-09 11:10 | NUR ---
NURSING NOTES: THIS NURSE SPOKE TO CASTRO (NEW). HE STATES HE WISHES FOR PATIENT TO GO TO REHAB FACILITY UPON DISCHARGE FROM [facility]. CASE MANAGEMENT CONSULTED.
--- NOTE | 2019-06-09 14:00 | NUR ---
NURSING NOTES: PATIENT'S HOME MEDICATION LIST NOTED TO BE OUTDATED. MORNING HOME MEDICATIONS NON-ADMINISTERED D/T INCORRECT DOSING OR PATIENT NO LONGER TAKING HOME MEDICATION. PATIENT'S DPOA BROUGHT UPDATED HOME MEDICATION LIST. MEDICATIONS UPDATED IN [place] AND DR. WALKER NOTIFIED OF UPDATE.
[2019-06-09 14:35] VITALS: BP 124/65
--- NOTE | 2019-06-09 15:55 | NUR ---
NURSING NOTES: PATIENT IN CHAIR AT TIME OF ASSESSMENT THIS AM. PATIENT IS ALERT AND ORIENTED WITH SOME FORGETFULNESS. NO C/O PAIN OR DISCOMFORT NOTED FROM PATIENT. PATIENT ASSISTED WITH SHOWER TODAY, STATES SHE FEELS BETTER AFTER SHOWER. DR. WALKER HERE TO SEE PATIENT THIS AM. AFTER SPEAKING WITH PATIENT, DPOA, AND CASE MANAGEMENT PLAN IS TO CONTINUE IV FLUIDS TODAY AND DISCHARGE PATIENT HOME WITH HOME HEALTH SERVICES TOMORROW (06/10/19).
--- NOTE | 2019-06-09 19:17 | HP ---
ADMIT DATE: 06/09/2019 HISTORY OF PRESENT ILLNESS: An 89-year-old female who came in through the Emergency Room, apparently was feeling extremely weak and tired. She was unable to move very well. She lives by herself. Basically, she was able to lift herself off her commode while in the bathroom. The patient states she has been having increased problems with feeling cold, ____ and chills, although she denies ____, cough, nausea, vomiting, chest pain, shortness of breath or abdominal pain. She does have a history of Parkinson's disease for which this is becoming more difficult. The patient also had a swallowing study done earlier and results of that are still pending as such. Otherwise, the patient is resting fairly comfortably and will be admitted for further evaluation for generalized weakness, near syncope and severe Parkinson's disease and orthostasis. The patient's blood pressure did drop as indicated. PAST MEDICAL HISTORY: Cataracts, dementia, Parkinson's disease, hypercholesterolemia, esophageal disorder, abdominal surgery, hernia repair x 2, hiatal hernia, GERD, lumpectomy, hysterectomy, kidney stones, severe degenerative arthritis, right hip ORIF, osteoarthritis, orthopedic surgery of the right wrist fracture, right hip, back pain, endocrine disorders, hypothyroidism, depression, cancer, skin cancer, influenza, pneumococcal up-to-date. FAMILY HISTORY: Positive for cancer in the mother. ALLERGIES: PENICILLIN and MELOXICAM. MEDICATIONS: The patient's medications were reconciled as usual in the reconciliation part of the chart and those were noted. She was on midodrine 5 mg b.i.d., Zocor 40, primidone 50 at bedtime, clonazepam t.i.d., Seroquel 25, carbidopa/levodopa 25/250 one t.i.d., potassium chloride, furosemide and levothyroxine. SOCIAL HISTORY: The patient otherwise socially denies smoking, alcohol or drug use. She lives at home with some good family support. REVIEW OF SYSTEMS: Denies headaches, visual change, blurred vision, double vision. Does feel weakness. Denies chest pain. Does have severe resting tremor, difficulty walking because of the tremor and weakness in her legs and the drop in her orthostasis. PHYSICAL EXAMINATION: GENERAL: The patient otherwise on exam is a very pleasant white female, moderate amount of distress. VITAL SIGNS: Blood pressure drops down from 124/65 down to 89/48, respiratory rate 20, pulse 76, running low-grade temperature of 99.5, although the source of this infection is still to be elucidated. HEENT: The patient has a resting tremor. Her head was atraumatic, normocephalic. Eyes: PERRLA without jaundice. Mouth and throat were normal. NECK: Supple, without JVD or thyromegaly. LUNGS: Diminished, but clear. CARDIOVASCULAR: Irregularly irregular beat. ABDOMEN: Soft, nontender. EXTREMITIES: No clubbing, cyanosis or edema. NEUROLOGIC: Alert. She has a shaky tremor voice as well as marked rigidity to her arms as well as a strong resting tremor, generalized weakness in both the upper and lower extremities. NEUROLOGIC: The patient neurologically is alert, but slightly has a decrease in short-term memory deficit. LABORATORY DATA: White count 11, hemoglobin 13 and 40. The patient's chemistries did show a decrease in her TSH to 0.19, creatinine of 1.5 and vitamin D level that was low. Her urine was normal. Her chest x-ray was unremarkable as far as any possible signs of infection, but she was running a low-grade temperature. IMPRESSION: Generalized weakness, severe Parkinson's disease, orthostatic hypotension consistent with her Parkinson's disease. Otherwise, will continue to be monitored carefully, IV fluids continued. Consider antibiotics and hopefully ready for discharge with PT, OT as well. SUNSHINE WALKER MD DR: ROSE MARY/yue JOB#: [id number] / [id number]
[2019-06-09 19:20] VITALS: BP 106/49
[2019-06-09] MEDS ORDERED: SIMVASTATIN 40 MG TABLET. PO SCH (21:00)
[2019-06-09] MEDS ORDERED: QUEtiapine 25 MG TABLET. PO SCH (21:00)
[2019-06-09 22:27] VITALS: BP 109/53
[2019-06-10] MEDS: IV NORMAL SALINE 1,000ML 1,000 ML IV SCH (03:44)
[2019-06-10] MEDS: IPRATRPIUM/ALBUTEROL 0.5/2.5MG 3 ML NEBU. NEB SCH ×2 (04:36→09:22)
[2019-06-10 05:20] VITALS: BP 102/47
--- NOTE | 2019-06-10 06:38 | NUR ---
Pt pleasant and cooperative. Slept soundly through the night. Pt c/o legs feeling like they "jump" at night. Ambulates with help and walker to toilet. Will continue to monitor.
[2019-06-10 06:39] LABS: BASO % 1 % (0-3); EOS # 0.1 x10^3/uL (0.0-0.7); EOS % 1 % (0-3); HEMATOCRIT 29.2 % (36.0-47.0); HEMOGLOBIN 9.6 g/dL (12.0-15.5); LYMPH # 1.6 x10^3/uL (1.0-4.8); LYMPH % 34 % (24-48); MEAN CORPUSCULAR HEMOGLOBIN 31 pg (25-35); MEAN CORPUSCULAR HGB CONC 33 g/dL (31-37); MEAN CORPUSCULAR VOLUME 95 fL (79-100); MONO # 0.3 x10^3/uL (0.0-1.1); MONO % 7 % (0-9); NEUT # 2.6 x10^3uL (1.8-7.7); NEUT % 57 % (31-73); PLATELET COUNT 82 x10^3/uL (140-400); RED BLOOD COUNT 3.09 x10^6/uL (3.50-5.40); RED CELL DISTRIBUTION WIDTH 14.5 % (11.5-14.5); WHITE BLOOD COUNT 4.6 x10^3/uL (4.0-11.0)
[2019-06-10 06:46] LABS: CALCIUM 7.6 mg/dL (8.5-10.1); CREATININE 1.2 mg/dL (0.6-1.0); GFR 42.3; POTASSIUM 3.8 mmol/L (3.5-5.1)
--- NOTE | 2019-06-10 11:25 | DS ---
DATE OF DISCHARGE: HOSPITAL COURSE: An 89-year-old female came in with general lightheadedness, weakness, syncopal spells. The patient was feeling very weak. She was probably a little bit dehydrated. The patient was given some fluids and adjusted on her parkinsonian medication. The patient made relatively good progress. She still has severe trembling from her Parkinson's, needs to follow up with her neurologist, Dr. Raymundo as an outpatient. The patient's platelet count also went down to 82, hemoglobin 9.6 and 29. Other than that, the patient really did quite well. Thyroid was a little bit on the low side; however, does not really take any thyroid medication. She may have a problem with hyperthyroidism, but that can be monitored and reviewed as an outpatient presently. Her pulses normal. Blood pressure is a little bit on the low side, so that may not do much to help her. We may just want to give her a low dose Inderal without dropping her blood pressure down as this would be a titration infection. I have home health. She wants to go home to a nursing facility where she probably would be the better as recommended to her. In any case, the patient is resting fairly comfortably. She is alert and oriented, marked resting tremor consistent with Parkinson's disease. We will go ahead and continue to monitor the patient accordingly as an outpatient. IMPRESSION: Therefore, of syncope, weakness, severe parkinsonian type disease with orthostasis, vitamin D deficiency, hyperthyroidism, thrombocytopenia, anemia of chronic disease. The patient will be discharged home. Regular diet, decreased activity, and follow up accordingly as an outpatient. SUNSHINE WALKER MD DR: ROSE MARY/yue JOB#: [id number] / [id number]
[2019-06-10 11:38] VITALS: BP 124/65
--- NOTE | 2019-06-10 14:14 | NUR ---
Discharge Note: FALLON ESCALONA [address] Discharge instructions and discharge home medications reviewed with Perfect B[employer] Feeder Offbearer and a copy given. All questions have been answered and understanding verbalized. The following instructions and handouts were given: discharge instructions Discontinued lines and drains: Peripheral IV intact. [facility] was given written prescriptions for vitamin D and Indrol. Discussed medications with medication care manager; he states she is not taking Indrol and no evidence found that pt was started on this medication. He said he would call Dr. Cardona's office on Wednesday and ask him. filter press tender also stated he would rather the pt have [employer] instead of [employer]. Told him a message would be given to Abigail Mott to change, also gave him Abigail's phone number so he can call and follow up on Wednesday.
== END 2019-06-10 14:19 | disposition home health service (06) ==
LOC: ER 01:55 → INTOOBSV 04:06 → 1 SOUTH 04:06
PROVIDERS: ADMIT Family Medicine; ATTEND Family Medicine
DX: G20 Parkinson's disease (principal); R53.1 Weakness; E86.0 Dehydration; I12.9 Hypertensive chronic kidney disease with stage 1 through stage 4 chronic kidney disease, or unspecified chronic kidney disease; N18.3 Chronic kidney disease, stage 3 (moderate); F02.80 Dementia in other diseases classified elsewhere, unspecified severity, without behavioral disturbance, psychotic disturbance, mood disturbance, and anxiety; K21.9 Gastro-esophageal reflux disease without esophagitis; E78.00 Pure hypercholesterolemia, unspecified; F41.9 Anxiety disorder, unspecified; M19.90 Unspecified osteoarthritis, unspecified site; E03.9 Hypothyroidism, unspecified; N39.0 Urinary tract infection, site not specified; Z90.49 Acquired absence of other specified parts of digestive tract
CPT/HCPCS: 36415; 71045; 80048; 80053; 81001; 82306; 82607; 83735; 84443; 85025; 93005; 94640; 96360; 96361; 97116; 97162; 97166; 99284; G0378; J7620; G0379; 99285-25; J7030

== ENCOUNTER 2019-06-12 20:59 | Emergency (ER) | payer MEDICARE ==
[~2019-06-12] VITALS: Ht 165.1 cm; Wt 58.5 kg
[~2019-06-12 20:59] MED LIST changes: +ANTI1CAP5 PO; +CLON0.5T4 PO; +LEVO137T3 PO; +POTA20TA83 PO; +PRIM50TA24 PO
[2019-06-12] MEDS ORDERED: NITROGLYCERIN SUBLINGUAL 0.4 MG BOTTLE OF 25. SL STA (21:22)
[2019-06-12] MEDS ORDERED: IV NORMAL SALINE 1,000ML 1,000 ML IV SCH (21:22)
[2019-06-12] MEDS ORDERED: ONDANSETRON PF 4 MG/2 ML VIAL. IVP ONE (21:30)
[2019-06-12] MEDS ORDERED: GLUCAGON,HUMAN RECOMBINANT 1 MG KIT. IV ONE (21:30)
[2019-06-12 22:17] LABS: BASO # 0.1 x10^3/uL (0.0-0.2); BASO % 1 % (0-3); EOS # 0.1 x10^3/uL (0.0-0.7); EOS % 1 % (0-3); HEMOGLOBIN 12.4 g/dL (12.0-15.5); LYMPH # 2.1 x10^3/uL (1.0-4.8); LYMPH % 19 % (24-48); MEAN CORPUSCULAR HEMOGLOBIN 31 pg (25-35); MEAN CORPUSCULAR HGB CONC 33 g/dL (31-37); MEAN CORPUSCULAR VOLUME 94 fL (79-100); MONO # 0.7 x10^3/uL (0.0-1.1); MONO % 6 % (0-9); NEUT # 8.1 x10^3uL (1.8-7.7); NEUT % 73 % (31-73); PLATELET COUNT 164 x10^3/uL (140-400); RED BLOOD COUNT 4.05 x10^6/uL (3.50-5.40); RED CELL DISTRIBUTION WIDTH 14.8 % (11.5-14.5); WHITE BLOOD COUNT 11.1 x10^3/uL (4.0-11.0)
[2019-06-12 22:25] LABS: CALCIUM 8.7 mg/dL (8.5-10.1); CREATININE 1.5 mg/dL (0.6-1.0); GFR 32.7; POTASSIUM 4.8 mmol/L (3.5-5.1)
[2019-06-12 22:33] LABS: ALBUMIN 3.5 g/dL (3.4-5.0); ALBUMIN/GLOBULIN RATIO 1.2 (1.0-1.7); TOTAL BILIRUBIN 0.8 mg/dL (0.2-1.0); TOTAL PROTEIN 6.5 g/dL (6.4-8.2)
--- NOTE | 2019-06-12 22:36 | PHYS DOC ---
Past History Past Medical History: Anxiety, Arthritis, Dementia, GERD, High Cholesterol, Hypertension, Hypothyroid, UTI, Other Additional Past Medical Histor: parkinsons Past Surgical History: Cholecystectomy Alcohol Use: None Drug Use: None Adult General Chief Complaint Chief Complaint: FOREIGN BODY HPI HPI Patient is a 89-year-old female who presents with complaint of esophageal foreign body. Patient states she was taking one of her pills mixed with some applesauce and states that it got stuck going down. She states that she has been able to drink fluids but then she immediately vomits it back up. She reports discomfort in the esophagus, stating that it feels like it's spasming. She rates that discomfort is moderate. She also reports to feeling nauseated.[] Review of Systems Review of Systems Constitutional: Denies fever or chills [] Respiratory: Denies cough or shortness of breath [] Cardiovascular: No additional information not addressed in HPI [] GI: Complains of nausea and vomiting without diarrhea [] Integument: Denies rash or skin lesions [] Neurologic: Denies headache, focal weakness or sensory changes [] All other systems were reviewed and found to be within normal limits, except as documented in this note. Current Medications Current Medications Current Medications Medications (Trade) Dose Ordered Sig/Gabriel Start Time Stop Time Status Last Admin Dose Admin Glucagon (Glucagen Kit) 1 mg 1X ONCE 06/12/19 21:30 06/12/19 21:32 DC 06/12/19 22:04 1 MG Nitroglycerin (Nitrostat) 0.4 mg 1X STAT 06/12/19 21:22 06/12/19 21:32 DC 06/12/19 22:03 0.4 MG Ondansetron HCl (Zofran) 4 mg 1X ONCE 06/12/19 21:30 06/12/19 21:32 DC 06/12/19 21:56 4 MG Sodium Chloride 1,000 ml @ 1,000 mls/hr Q1H 06/12/19 21:22 06/12/19 22:21 DC 06/12/19 21:57 1,000 MLS/HR Allergies Allergies Allergies Coded Allergies Type Severity Reaction Last Updated Verified Penicillins Allergy Intermediate 04/28/19 Yes meloxicam Allergy Intermediate 04/28/19 Yes Physical Exam Physical Exam Constitutional: Well developed, well nourished, no acute distress, non-toxic appearance. [] HENT: Normocephalic, atraumatic, bilateral external ears normal, oropharynx moist, no oral exudates, nose normal. [] Eyes: PERRLA, EOMI, conjunctiva normal, no discharge. [] Neck: Normal range of motion, no tenderness, supple. [] Cardiovascular: Regular rate and rhythm[] Lungs & Thorax: Bilateral breath sounds clear to auscultation [] Abdomen: Bowel sounds normal, soft, no tenderness. [] Skin: Warm, dry, no erythema, no rash. [] Extremities: No tenderness, no cyanosis, no clubbing, ROM intact. [] Neurologic: Alert and oriented X 3, no focal deficits noted. [] Current Patient Data Vital Signs Vital Signs Date Time Temp Pulse Resp B/P (MAP) Pulse Ox O2 Delivery O2 Flow Rate FiO2 06/12/19 22:03 62 161/82 06/12/19 21:03 16 100 Room Air Lab Results Laboratory Tests Test 06/12/19 21:50 White Blood Count 11.1 x10^3/uL (4.0-11.0) H Red Blood Count 4.05 x10^6/uL (3.50-5.40) Hemoglobin 12.4 g/dL (12.0-15.5) Hematocrit 38.0 % (36.0-47.0) Mean Corpuscular Volume 94 fL (79-100) Mean Corpuscular Hemoglobin 31 pg (25-35) Mean Corpuscular Hemoglobin Concent 33 g/dL (31-37) Red Cell Distribution Width 14.8 % (11.5-14.5) H Platelet Count 164 x10^3/uL (140-400) Neutrophils (%) (Auto) 73 % (31-73) Lymphocytes (%) (Auto) 19 % (24-48) L Monocytes (%) (Auto) 6 % (0-9) Eosinophils (%) (Auto) 1 % (0-3) Basophils (%) (Auto) 1 % (0-3) Neutrophils # (Auto) 8.1 x10^3uL (1.8-7.7) H Lymphocytes # (Auto) 2.1 x10^3/uL (1.0-4.8) Monocytes # (Auto) 0.7 x10^3/uL (0.0-1.1) Eosinophils # (Auto) 0.1 x10^3/uL (0.0-0.7) Basophils # (Auto) 0.1 x10^3/uL (0.0-0.2) Sodium Level 138 mmol/L (136-145) Potassium Level 4.8 mmol/L (3.5-5.1) Chloride Level 101 mmol/L (98-107) Carbon Dioxide Level 26 mmol/L (21-32) Anion Gap 11 (6-14) Blood Urea Nitrogen 12 mg/dL (7-20) Creatinine 1.5 mg/dL (0.6-1.0) H Estimated GFR (Cockcroft-Gault) 32.7 BUN/Creatinine Ratio 8 (6-20) Glucose Level 91 mg/dL (70-99) Calcium Level 8.7 mg/dL (8.5-10.1) Total Bilirubin Pending Aspartate Amino Transferase (AST) Pending Alanine Aminotransferase (ALT) Pending Alkaline Phosphatase Pending Total Protein Pending Albumin Pending Albumin/Globulin Ratio Pending EKG EKG [] Radiology/Procedures Radiology/Procedures [] Course & Med Decision Making Course & Med Decision Making Pertinent Labs and Imaging studies reviewed. (See chart for details) Patient moved to room upon arrival was evaluated by your medical staff after which an IV was established and blood work was drawn. Patient given glucagon and sublingual nitroglycerin to relax esophagus and then given Coca-Cola by mouth. Patient was not able to keep the Coca-Cola down and regurgitated almost immediately after drinking. At this point, Dr. Ramsey, on-call for GI, was contacted at [facility] and he will evaluate and treat patient. Dr. Beltran, transcription manager for hospitalist services, except patient in transfer. Dragon Disclaimer Dragon Disclaimer This electronic medical record was generated, in whole or in part, using a voice recognition dictation system. Departure Departure: Impression: Primary Impression: Esophageal foreign body Disposition: XFER SHT-TRM HOSP Condition: GOOD Referrals: SUNSHINE WALKER MD (PCP) Problem Qualifiers Primary Impression: Esophageal foreign body Encounter type: initial encounter Qualified Codes: T18.108A - Unspecified foreign body in esophagus causing other injury, initial encounter PREM HESS Jr. DO Jun 12, 2019 22:36
[2019-06-13 00:11] VITALS: BP 140/62
== END 2019-06-13 00:32 | disposition short-term general hospital (02) ==
LOC: ER 20:59
DX: T18.198A Other foreign object in esophagus causing other injury, initial encounter (principal); R11.2 Nausea with vomiting, unspecified; K21.9 Gastro-esophageal reflux disease without esophagitis; E78.00 Pure hypercholesterolemia, unspecified; I10 Essential (primary) hypertension; Z87.440 Personal history of urinary (tract) infections; E03.9 Hypothyroidism, unspecified; G20 Parkinson's disease; Z90.49 Acquired absence of other specified parts of digestive tract; Z88.0 Allergy status to penicillin; Z88.8 Allergy status to other drugs, medicaments and biological substances; Y92.89 Other specified places as the place of occurrence of the external cause
CPT/HCPCS: 36415; 80053; 85025; 96361; 96374; 96375; 99285; J1610; J2405; J7030

== ENCOUNTER → 2019-08-04 | Outpatient (CLI) | payer MEDICARE ==
[~2019-08-04] MED LIST changes: +IOHEXOL 240 MG/ML 50ML VIAL. PO ONE; -MAGN2400 PO; +MAGN24003 PO
--- NOTE | 2019-08-04 11:50 | RAD ---
EXAM: CT Abdomen and Pelvis without IV contrast CLINICAL HISTORY: Right lower quadrant pain. COMPARISON: none TECHNIQUE: Helical CT of the abdomen and pelvis without intravenous contrast. Axial, coronal and sagittal reformatted images were generated. PQRS compliance statement - One or more of the following individualized dose reduction techniques were utilized for this study: 1. Automated exposure control 2. Adjustment of the mA and/or kV according to patient size 3. Use of iterative reconstruction technique FINDINGS: Lack of intravenous contrast limits evaluation of solid organs, vasculature, and lymph nodes. Lower chest: Linear opacities in the lingula, lower lobes and middle lobe likely scarring/atelectasis. Coronary artery calcifications and mitral annular calcifications are seen. Small hiatal hernia. Abdomen and Pelvis: No focal liver lesion. Accounting for postcholecystectomy change, no biliary ductal dilatation. Pancreas is unremarkable. Spleen is unremarkable. Adrenal glands are normal. Hyperdense left interpolar renal lesion likely hemorrhagic or proteinaceous cyst. No definite right renal lesion. The kidneys are atrophic bilaterally. No hydronephrosis or hydroureter. Evaluation of the pelvis is significantly limited given streak artifact from left hip arthroplasty right IM nail fixation. Diffuse bladder wall thickening is seen, likely cystitis. Moderate to large volume colonic stool content is seen. The appendix is not seen, possibly obscured by streak artifact. No small or large bowel dilatation to suggest bowel obstruction. Dense aortic calcifications are seen. No abdominal or pelvic lymphadenopathy. Small fat-containing periumbilical hernia is seen. Bones: Diffusely decreased bone mineral density. L1 compression fracture post tube augmentation changes. IMPRESSION: 1. Diffuse bladder wall thickening, likely cystitis and can be correlated with urinalysis. 2. Moderate to large volume colonic stool content is seen. 3. No evidence for bowel obstruction. Appendix is not convincingly seen, possibly vascular by streak artifact. Electronically signed by: Brayan Pierce MD (08/04/2019 11:47 AM) [facility]
== END | disposition home or self-care (01) ==
LOC: CT 10:03
PROVIDERS: ATTEND Family Medicine
DX: K42.9 Umbilical hernia without obstruction or gangrene (principal); K44.9 Diaphragmatic hernia without obstruction or gangrene; I25.10 Atherosclerotic heart disease of native coronary artery without angina pectoris; I70.0 Atherosclerosis of aorta; A09 Infectious gastroenteritis and colitis, unspecified
CPT/HCPCS: 74176